=== PATIENT | male | born 1965 | race Caucasian/White ===

== ENCOUNTER → 2019-09-16 09:26 | Outpatient (CLI) | payer BC, SELFPAY ==
--- NOTE | 2019-09-16 10:02 | XR_ITS ---
PROCEDURE: XR CHEST 2V CLINICAL HISTORY: RECURRENT FEVER COMPARISON: No exams were available for comparison FINDINGS: The cardiomediastinal silhouette and pulmonary vascularity are within normal limits. There are faint increased markings in the midlung zones on both sides. Some of this may be due to overlying soft tissue attenuation. One cannot exclude the possibility of ground-glass infiltrate. No lobar consolidation. No effusions. No acute bony abnormalities. IMPRESSION: Possible ground-glass infiltrate in the midlung zone on both sides. Atypical/viral pneumonia is a consideration. Dictated b Ulises Lao MD 09/16/2019 13:49 Ulises Lao MD in [place] 09/16/2019 13:49
== END ==
PROVIDERS: PCP Family Medicine; Visit Provider Family Medicine
DX: A68.9 Relapsing fever, unspecified (principal)
CPT/HCPCS: 71046

== ENCOUNTER → 2019-09-19 15:08 | Outpatient (CLI) | payer BC, SELFPAY | PROVIDERS: PCP Family Medicine; Visit Provider Family Medicine | DX: Z03.818 Encounter for observation for suspected exposure to other biological agents ruled out (principal) | CPT/HCPCS: U0003 ==

== ENCOUNTER 2020-03-31 14:32 | Emergency (ER) | payer BC, SELFPAY ==
--- NOTE | 2020-03-31 14:37 | XR_ITS ---
PROCEDURE: XR KNEE RT 3V CLINICAL INDICATION: FALL COMPARISON: No exams were available for comparison FINDINGS: The medial and lateral joint space appear normal. There is faint calcification of the medial and lateral meniscus consistent with chondrocalcinosis. There is moderate spurring of the tibial spines. There is mild narrowing of the patellofemoral space. There is no definite effusion seen. IMPRESSION: Mild degenerate changes as noted with mild chondrocalcinosis of the medial and lateral meniscus. Dictated by: Dr. Herve Mckeon MD 03/31/2020 19:15 Dr. Herve Mckeon MD in [place] 03/31/2020 19:15
[2020-03-31 14:50] VITALS: BP 125/70; PULSE 81; RESP 20; TEMP 37.1; O2SAT 98; BMI 32.4
--- NOTE | 2020-03-31 15:21 | HMH.EDUTC ---
[facility] [place] Disposition Clinical Impression: Knee sprain Qualifiers: Encounter type: initial encounter Involved ligament of knee: unspecified ligament Laterality: right Qualified Code(s): S83.91XA - Sprain of unspecified site of right knee, initial encounter Disposition: Home, Self-Care Condition on Discharge: Good Instructions: How to Use Crutches, Acetaminophen (Alternative Therapy), How To Perform RICE (Rest, Ice, Compress, Elevate), How to Use a Knee Immobilizer, Ibuprofen Additional Instructions: *No weight bearing Use crutches to walk and get around *RICE, Rest the extremity, Ice 15-20 minutes 3-4 times daily, Compress- wear the vincent wrap as discussed as much as possible to help reduce swelling and pain, Elevate the extremity when at rest *Vincent wrap/Knee immobilizer is for support and help control swelling, use it except in the shower. Be sure that is not to tight but not to loose either *Elevate when resting *Ibuprofen 600-800mg every 6-8 hours as needed for pain an inflammation if your doctor has told you that you can take it If need something more can take Tylenol in between doses of Ibuprofen to help Immediately follow up with your family doctor for new or worsening of symptoms, or no noticeable improvement over the next 3-5 days Call tomorrow and make appointment with Dr Villeda Return if needed Straight to ER if any life threatening symptoms Referrals: Wallace Pacheco MD [Primary Care Provider] - As needed Hong Villeda MD [Staff Physician] - As needed (Call for appointment) Forms: Work/School Release Time of Disposition: 16:05 Medical Decision Making - Guilherme Inquiry Pt receiving controlled substance: No Guilherme was queried for this patient: No Vital Signs: 03/31/20 14:50 Temperature 98.7 F Temperature Source Oral Pulse Rate [Right Brachial] 81 Respiratory Rate 20 Blood Pressure [Right Arm] 125/70 Blood Pressure Mean [Right Arm] 88 Blood Pressure Source [Right Arm] Automatic Cuff Blood Pressure Position [Right Arm] Sitting 02 Sat by Pulse Oximetry 98 Oxygen Delivery Method Room Air Orders (Tests/Meds): ORDERS Category Date Time Status XR knee RT 3V Stat Exams 03/31/20 14:37 Taken XR tibia fibula RT 2V Stat Exams 03/31/20 15:28 Taken - Radiology Data #1 Image(s): Knee Image Reviewed: Yes I reviewed the patient's radiology image Preliminary Findings: No Fracture Seen #2 Image(s): Tib/Fib Image Reviewed: Yes I reviewed the patient's radiology image Preliminary Findings: No Fracture Seen - Physician Consults Physician Consulted: Ronal Time: 15:52 Reason -: Orthopedic Eval/Care Comment/Response: Spoke with Dr Villeda and he viewed xrays and agreed, advised to place in Knee immobilizer, crutches with non weight bearing and follow up in office [facility] HPI - General Stated complaint: a/o fell on right knee Time Seen by Provider: 03/31/20 15:21 Mode of Arrival: Ambulatory Source of Information: Patient Limitations: No Limitations Description of Symptoms (Recalled from Triage Doc. by RN): PATIENT C/O RIGHT KNEE INJURY AFTER FALLING ON ICE APPROX 1400 TODAY HEENT Symptoms (Recalled from RN notes): No Resp Symptoms (Recalled from RN notes): No Skin Symptoms (Recalled from RN notes): No MS Symptoms (Recalled from RN notes): Yes Functional Status (Recalled from RN notes): WNL - History of Present Illness Provider Complaint: Patient states that he slipped on ice earlier and his leg from below knee went to the side and he came down on his right knee States that he jumped up and felt like his knee popped back in place states that ever since he hasnt been able to put weight on it due to feeling like it is going to give out on him States that pain is more on the side and behind his knee Denies any other injury - Related Data Home Medications Medication Instructions Recorded Confirmed Aspirin [Aspirin 81mg chewable 81 mg PO DAILY 03/31/20 03/31/20 tab] Empagliflozin [Jardiance
--- NOTE | 2020-03-31 15:28 | XR_ITS ---
PROCEDURE: XR TIBIA FIBULA RT 2V CLINICAL INDICATION: FALL COMPARISON: No exams were available for comparison FINDINGS: The tibia and fibula appear intact. There is minor spurring of the tip of the lateral malleolus. There is an os trigonum noted. There is minor spurring of the calcaneus at the insertion of Achilles tendon. IMPRESSION: No acute findings. Dictated by: Dr. Herve Mckeon MD 03/31/2020 19:16 Dr. Herve Mckeon MD in [place] 03/31/2020 19:16
[2020-03-31 16:18] VITALS: BP 125/70; PULSE 81; RESP 20; TEMP 37.1; O2SAT 98
== END 2020-03-31 16:20 | disposition home or self-care (01) ==
PROVIDERS: Emergency Provider Nurse Practitioner; PCP Family Medicine
DX: S83.91XA Sprain of unspecified site of right knee, initial encounter (principal); W00.0XXA Fall on same level due to ice and snow, initial encounter; Y92.89 Other specified places as the place of occurrence of the external cause; E11.9 Type 2 diabetes mellitus without complications; Z79.899 Other long term (current) drug therapy
CPT/HCPCS: 29505; 73562; 73590; 99203; G0463

== ENCOUNTER → 2020-04-16 15:12 | Outpatient (CLI) | payer BC, SELFPAY ==
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
== END ==
PROVIDERS: PCP Family Medicine; Visit Provider Orthopaedic Surgery
DX: S89.91XA Unspecified injury of right lower leg, initial encounter (principal)
CPT/HCPCS: 73721

== ENCOUNTER 2020-04-23 16:35 | Outpatient (RCR) | payer BC, SELFPAY | END 2020-04-23 17:00 | disposition home or self-care (01) | LOC: PT 16:35 | PROVIDERS: Visit Provider Orthopaedic Surgery | DX: S83.91XA Sprain of unspecified site of right knee, initial encounter (principal) | CPT/HCPCS: 97760 ==

== ENCOUNTER → 2020-05-29 12:02 | Outpatient (CLI) | payer BC, SELFPAY ==
--- NOTE | 2020-05-29 12:04 | XR_ITS ---
PROCEDURE: XR KNEE RT 3V CLINICAL INDICATION: knee injury Pain COMPARISON: CR XR KNEE RT 3V from 03/31/2020 FINDINGS: No fracture or dislocation. No lytic or blastic change. There is normal mineralization. There are mild osteoarthritic changes at the patellofemoral joint. Small loose body is noted over the tibial spine region at 5 mm. Suprapatellar effusion is noted. Other findings:None. IMPRESSION: No acute fracture. Mild osteoarthritic change with suprapatellar effusion and suspected intra-articular loose body Dictated by: Ulises Lao MD 05/29/2020 12:54 Ulises Lao MD in [place] 05/29/2020 12:54
== END ==
PROVIDERS: PCP Family Medicine; Visit Provider Orthopaedic Surgery
DX: S83.90XA Sprain of unspecified site of unspecified knee, initial encounter (principal)
CPT/HCPCS: 73562

== ENCOUNTER → 2020-11-13 07:22 | Outpatient (CLI) | payer BC, SELFPAY ==
[2020-11-13 08:20] VITALS: PULSE 70; PULSE 77
== END ==
PROVIDERS: PCP Family Medicine; Visit Provider Family Medicine
DX: R06.02 Shortness of breath (principal); Z87.891 Personal history of nicotine dependence
CPT/HCPCS: 94060; 94640; 94726; 94729

== ENCOUNTER 2024-03-24 13:29 | Outpatient (CLI) | payer BC, SELFPAY ==
--- NOTE | 2024-03-24 13:33 | XR_ITS ---
FINAL REPORT CLINICAL HISTORY: wheezing COMPARISON: None FINDINGS: No acute pulmonary density is evident. There is no evidence of effusion or other pleural disease. The mediastinum has a normal appearance. The cardiac silhouette is unremarkable. IMPRESSION: Unremarkable chest exam. Reviewed, Interpreted and Dictated by Lynn Walter MD Transcribed by Shelby Call Authenticated and [facility]
== END 2024-03-24 23:59 | disposition home or self-care (01) ==
LOC: RAD 13:32
PROVIDERS: Visit Provider Student in an Organized Health Care Education/Training Program
DX: R06.2 Wheezing (principal)
CPT/HCPCS: 71046

== ENCOUNTER 2024-03-31 18:07 | Inpatient (IN) | payer BC, SELFPAY ==
[2024-03-31] VITALS (9 sets, daily range): BP systolic 142–178; BP diastolic 69–88; PULSE 79–90; RESP 16–18; TEMP 36.6–37.4; O2SAT 95–100; BMI 28.8
--- NOTE | 2024-03-31 18:26 | ECG_ITS ---
APPROVED REPORT Exam: Resting ECG HR:82 bpm ECG Measurements Heart Rate 82 AXES TX 151 P 64 QRSd 89 QRS 52 QT 335 T 49 QTc 374 Conclusion SINUS RHYTHM LOW QRS VOLTAGE IN PRECORDIAL LEADS [QRS DEFLECTION < 1.0 mV IN CHEST LEADS] BORDERLINE ECG UNCONFIRMED REPORT Electronically signed by : Patricio Chatman, 03/31/2024 23:19:54
--- NOTE | 2024-03-31 18:57 | XR_ITS ---
PROCEDURE INFORMATION: Exam: XR Chest Exam date and time: 03/31/2024 7:01 PM Age: 58 years old Clinical indication: Dyspnea TECHNIQUE: Imaging protocol: Radiologic exam of the chest. Views: 1 view. COMPARISON: CT ANGIOGRAM CHEST PULMONARY EMBOLISM 31/03/2024 15:33 FINDINGS: Lungs: Minimal bibasilar atelectasis. Pleural spaces: Small left pleural effusion seen on CT is difficult to identify on this radiograph. Heart/Mediastinum: Prominent cardiac shadow correlates with moderate-sized pericardial effusion on CT. Bones/joints: Unremarkable. IMPRESSION: 1. Prominent cardiac shadow correlates with moderate-sized pericardial effusion on CT. 2. Small left pleural effusion seen on CT is difficult to identify on this radiograph.
[2024-03-31 19:02] LABS: Basophils # 0.1 K/mm3 (0-0.2); Basophils % 0.4 % (0.1-2.0); Eosinophils # 0.1 K/mm3 (0.0-0.4); Eosinophils % 0.3 % (0.1-12.0); Hematocrit 35.5 % (42.0-52.0); Hemoglobin 11.5 g/dL (14.1-18.0); Lymphocytes # 2.2 K/mm3 (0.7-4.5); Lymphocytes % 9.7 % (10-50); Mean Corpuscular HGB Conc 32.4 g/dL (31.8-35.4); Mean Corpuscular Hemoglobin 28.7 pg (27.0-31.2); Mean Corpuscular Volume 88.5 fl (80-94); Mean Platelet Volume 10.2 fl (7.4-10.4); Monocytes # 1.8 K/mm3 (0.1-1.0); Monocytes % 7.9 % (1.7-9.3); Neutrophils # 17.9 K/mm3 (1.8-7.8); Neutrophils % 78.9 % (37.0-80.0); Platelet Count 565 K/mm3 (142-424); Red Blood Count 4.01 M/mm3 (4.60-6.20); Red Cell Distribution Width 13.8 % (11.5-17.5); White Blood Count 22.7 K/mm3 (4.8-10.8)
[2024-03-31 19:03] LABS: Chloride 101 mmol/L (98-107)
[2024-03-31 19:04] LABS: Albumin Level 3.6 g/dl (3.5-5.0); Potassium 4.6 mmoL/L (3.5-5.1); Sodium 136 mmol/L (136-145)
[2024-03-31 19:06] LABS: Blood Urea Nitrogen 25 mg/dl (9-20); Creatinine Clearance Estimated 97 mL/min (50-200); Estimated Glomerular Filt Rate 48 ml/min (>60); GFR (African American) 58 ML/MIN (>60)
[2024-03-31 19:07] LABS: Alanine Aminotransferase 101 U/L (12-78); Albumin/Globulin Ratio 1.1 (1.1-1.8); Alkaline Phosphatase 171 U/L (38-126); Anion Gap 11.6 mEq/L (5-15); Aspartate Amino Transferase 35 U/L (17-59); Bilirubin,Total 0.4 mg/dl (0.2-1.3); Carbon Dioxide 28 mmol/L (22.0-30.0); Globulin 3.2 g/dL (1.3-3.2); Glucose 284 mg/dl (74-100); Total Protein,Serum 6.8 g/dl (6.3-8.2)
[2024-03-31 19:09] LABS: MANUAL DIFFERENTIAL MANUAL DIFFERENTIAL (MANUAL DIFF)
[2024-03-31 19:12] LABS: C-Reactive Protein 80.3 mg/L (0-4)
--- NOTE | 2024-03-31 19:16 | PC.NURSE ---
notified of WBC 22.7
[2024-03-31 19:21] LABS: Troponin I < 0.01 ng/ml (0.00-0.034)
[2024-03-31 19:23] LABS: Adenovirus,PCR Not Detected (NotDetected); Bordetella Pertussis Not Detected (NotDetected); Chlamydophila Pneumoniae, PCR Not Detected (NotDetected); Coronavirus 19, PCR Not Detected (NotDetected); Coronavirus 229E Not Detected (NotDetected); Coronavirus NL63 Not Detected (NotDetected); Coronavirus OC43 Not Detected (NotDetected); Coronovirus HKU1,PCR Not Detected (NotDetected); Human Metapneumovirus Not Detected (NotDetected); Influenza A, PCR Not Detected (NotDetected); Influenza AH1, 2009 Not Detected (NotDetected); Influenza AH1, PCR Not Detected (NotDetected); Influenza AH3,PCR Not Detected (NotDetected); Influenza B, PCR Not Detected (NotDetected); Mycoplasma Pneumoniae, PCR Not Detected (NotDetected); Parainfluenza 1, PCR Not Detected (NotDetected); Parainfluenza 2, PCR Not Detected (NotDetected); Parainfluenza 3, PCR Not Detected (NotDetected); Parainfluenza 4, PCR Not Detected (NotDetected); Respiratory Syncytial Virus Not Detected (NotDetected); Rhinovirus/Enterovirus Not Detected (NotDetected)
[2024-03-31] MEDS: predniSONE 20MG TAB 60 MG PO (19:23)
--- NOTE | 2024-03-31 19:23 | HMH.EDGENADL ---
Discharge Plan Disposition Patient Disposition: Admitted Prescriptions Prescriptions: No Action albuterol sulfate 90 mcg/actuation HFA aerosol inhaler 1 inh inhalation QID PRN (Reason: shortness of breath or wheezing) Qty: 6.7 0RF prednisone 20 mg tablet 20 mg PO BID Qty: 10 0RF insulin NPH and regular human 100 UNIT/ML suspension 80 unit SQ BID gabapentin 300 MG capsule 300 mg PO TID lisinopril-hydrochlorothiazide 1 EACH tablet 1 tab PO DAILY aspirin 81 MG tablet,chewable 81 mg PO DAILY lovastatin 20 MG tablet 20 mg PO HS empagliflozin 25 MG tablet 25 mg PO DAILY Referrals Follow up/Referrals: Provider,Referral, MD [Primary Care Provider] - See instructions Clinical Impressions Clinical Impression: Exertional dyspnea, Pericardial effusion, Acute viral syndrome, Renal insufficiency Print Language Print Language: Uzbek Discharge ED Provider: Ibis Chatman General Adult HPI General Chief complaint: Shortness of Breath/Dyspnea Stated complaint: sent by Rocky- ivan fluid around Time Seen by Provider: 03/31/24 18:11 Mode of Arrival: Ambulatory Source of Information: Patient Limitations: No Limitations Description of Symptoms (Recalled from ER Triage Doc. by RN): Pt was advised by provider to come in and be seen. Pt had CT at [facility] and was sent for evaluation of fluid around his heart. History of Present Illness HPI narrative: AndPatient is a 58-year-old male presenting today with concern for fluid around my heart. I spoke with Dr. Hidalgo who is his neighbor and told me some history and sent the patient to the emergency department. Patient states that he has had cough and shortness of breath of the last 2 weeks. Went to an outpatient urgent treatment clinic and had a chest x-ray performed and some occasions that were prescribed without any improvement in symptoms. Subsequently he had an outpatient CT scan of his chest that was ordered for earlier today and was told by the radiologist that he had fluid around his heart. He brought a disc with images to our emergency department. On review of that he did have a pericardial effusion that was 2 cm. Patient denies any fevers or chills at the moment. Denies any significant positional changes but does have significant exertional dyspnea right now. No history of cancer. Related Data Home Medications ?Medication ?Instructions ?Recorded ?Confirmed aspirin 81 mg chewable tablet 81 mg PO DAILY Heart disease 03/31/20 03/24/24 empagliflozin 25 mg tablet 25 mg PO DAILY Diabetes 03/31/20 03/24/24 gabapentin 300 mg capsule 300 mg PO TID Pain 03/31/20 03/24/24 insulin human U-100 NPH-regulr 80 unit SQ BID Diabetes 03/31/20 03/24/24 70-30 mix 100 unit/mL subcutaneous susp lisinopril 20 1 tab PO DAILY Hypertension 03/31/20 03/24/24 mg-hydrochlorothiazide 25 mg tablet lovastatin 20 mg tablet 20 mg PO HS Cholesterol 03/31/20 03/24/24 Previous Rx's ?Medication ?Instructions ?Recorded albuterol sulfate 90 mcg/actuation 1 inh inhalation QID PRN shortness 03/24/24 aerosol inhaler of breath or wheezing #6.7 grams prednisone 20 mg tablet 20 mg PO BID #10 tabs 03/24/24 Allergies Allergy/AdvReac Type Severity Reaction Status Date / Time No Known Allergies Allergy Verified 03/24/24 12:46 [facility] Disclaimer: The information contained in this section may have been updated after the patient was seen, as this information can be updated by other users. Medical History (Updated 03/31/24 @ 19:22 by Ibis Chatman MD) Diabetes HTN (hypertension) Social History Smoking Status: Never smoker alcohol intake: never current occupational status: other Travel in the last 8 weeks: None Have you lived/traveled outside [place] in past 30 days?: No Contact w/someone who lives/traveled outside US past 30 days?: No Exposure to someone with infectious disease in past 14 days?: No Do you have a fever (greater than 100.4 F or 38 C)?: No Have you tested positive for COVID-19: No Exposed to someone with COVID-19 in past 14 days?: No Do you have a sore throat?: No Do you have a cough?: No Do you have any weakness?: No Do you have any diarrhea?: No Are you experiencing any unusual bleeding?: No Do you have any muscle aches/pain?: No Do you have any abdominal pain?: No Are you experiencing loss of taste or smell?: No Other Medical History Have you received the Pneumonia Vaccine: Yes ROS Obtained: Yes All systems reviewed & no additional complaints except as documented Physical Exam General General appearance: alert Respiratory Respiratory exam: Present normal lung sounds bilaterally; Absent respiratory distress Cardiovascular Cardiovascular exam: Present regular rate and normal rhythm Neurological Exam Neurological exam: Present alert and oriented X3 Medical Decision Making Medical Records Screening: Per USPSTF and CDC recommendations, given the prevalence of disease in our region, it is our hospital?s policy to screen for HIV and viral Hepatitis for all patients aged 18 and over and those with ongoing risk factors. Guilherme Inquiry Pt receiving controlled substance: No Vital Signs: 03/31/24 18:13 03/31/24 18:43 03/31/24 18:45 Temperature 99.3 F Temperature Source Temporal Artery Scan Pulse Rate 83 79 Pulse Rate [Right] 80 Respiratory Rate 18 Blood Pressure Blood Pressure [Right Arm] 178/70 H Blood Pressure Mean Blood Pressure Mean [Right Arm] 106 Blood Pressure Source [Right Arm] Automatic Cuff Blood Pressure Position [Right Arm] Sitting 02 Sat by Pulse Oximetry 100 96 95 Oxygen Delivery Method Room Air 03/31/24 19:20 03/31/24 19:20 Temperature Temperature Source Pulse Rate 80 Pulse Rate [Right] Respiratory Rate Blood Pressure 150/86 H Blood Pressure [Right Arm] Blood Pressure Mean 107 Blood Pressure Mean [Right Arm] Blood Pressure Source [Right Arm] Blood Pressure Position [Right Arm] 02 Sat by Pulse Oximetry 96 Oxygen Delivery Method Lab Data Lab results reviewed: Yes I reviewed the patient's lab results. Lab Results 03/31/24 18:34: WBC 22.7 H*, RBC 4.01 L, Hgb 11.5 L, Hct 35.5 L, MCV 88.5, MCH 28.7, MCHC 32.4, RDW 13.8, Plt Count 565 H, MPV 10.2, Neut % (Auto) 78.9, Lymph % (Auto) 9.7 L, Rutherford % (Auto) 7.9, Eos % (Auto) 0.3, Baso % (Auto) 0.4, Neut # (Auto) 17.9 H, Lymph # (Auto) 2.2, Rutherford # (Auto) 1.8 H, Eos # (Auto) 0.1, Baso # (Auto) 0.1, Sodium 136, Potassium 4.6, Chloride 101, Carbon Dioxide 28, Anion Gap 11.6, BUN 25 H, Creatinine 1.50 H, Estimated Creat Clear 97, Estimated GFR 48 L, Est GFR ( Amer) 58 L, Glucose 284 H, Calcium 9.0, Total Bilirubin 0.4, AST 35, ALT 101 H, Alkaline Phosphatase 171 H, Troponin I < 0.01, C-Reactive Protein 80.3 H, Total Protein 6.8, Albumin 3.6, Globulin 3.2, Albumin/Globulin Ratio 1.1 03/31/24 18:34 03/31/24 18:34 Orders (Tests/Meds): ED MEDICATIONS Discontinued Medications Generic Name Dose Route Start Last Admin Trade Name Freq PRN Reason Stop Dose Admin Colchicine 0.6 mg 03/31/24 19:15 Colchicine 0.6mg Tablet PO 03/31/24 19:16 ONCE ONE Prednisone 60 mg 03/31/24 19:15 Prednisone 20mg Tab PO 03/31/24 19:16 ONCE ONE ORDERS Category Date Time Status CXR --portable [XR chest portable] Stat Exams 03/31/24 18:57 Taken POCUS Point of Care (ER Only) Stat Exams 03/31/24 18:28 Ordered Body Fluid: Cell Count w/ Diff Stat Lab 03/31/24 18:34 Received CBC w/Auto Diff [Complete Blood Count Auto Diff] Stat Lab 03/31/24 18:34 Results CMP [Comprehensive Metabolic Panel] Stat Lab 03/31/24 18:34 Completed CRP [C-Reactive Protein] Stat Lab 03/31/24 18:34 Completed Full Resp Panel w/COVID ([facility]) Routine Lab 03/31/24 19:20 Ordered Trop I [Troponin I] Stat Lab 03/31/24 18:34 Completed Troponin I Q3H Lab 03/31/24 22:00 Ordered Troponin I Q3H Lab 04/01/24 01:00 Ordered Medical Decision Narrative: 58-year-old with above history and physical. I personally interpreted the patient's CT scan from outside hospital which shows a 2 cm circumferential pericardial effusion without any other abnormalities. Limited bedside ultrasound that I performed showed hypoechoic fluid collection 2 cm in its greatest diameter without any evidence of pericardial tamponade. There is some evidence of IVC plethora with mild reversal of flow but no chamber collapse noted or significant tachycardia patient is not on a beta-carol either. No indication for emergent pericardiocentesis. I discussed the case with Dr. Hidalgo. He agrees. We will place the patient on prednisone and colchicine per Dr. Hidalgo's guidance and to keep the patient for observation for [address] Morales is on-call whom he said would be available for pericardial centesis if needed. Patient is aware and agreeable this plan as well as hospital medicine. Given patient's leukocytosis and thrombocytosis this is most likely viral in nature. Hopefully will spontaneously resolve which is the expectation. Although other pathology such as malignancy etc. are on the differential. Patient additionally has a creatinine of 1.5 with no baseline creatinine our system unclear as to whether or not that is acute. Procedures Miscellaneous Procedure Procedure Performed: Limited cardiac ultrasound Indication: No pericardial effusion Identified structures: The heart was visualized in the parasternal long axis, parastenal short axis, apical four chamber and subxyphiod views. The IVC was visualized in the short axis and long axis at its entry into the right atrium. Findings: There is a 2 cm circumferential pericardial effusion without any significant chamber collapse noted no evidence of tachycardia or significant depression and LVEF no right heart strain there is a 2-1/2 to 3 cm IVC plethora with mild reversal of flow Impression: Moderate to large pericardial effusion without any definitive evidence of pericardial tamponade Images were saved to permanent archive The study was technically adequate CPT: 75578-27 This study was performed by me, and I personally interpreted all images/videos. Based on my clinical judgement, these images were adequate and did not necessitate further imaging. Critical Care Critical Care Time Critical Care Time: Yes Attestation: On 03/31/24, the high probability of a clinically significant, sudden or life threatening deterioration of the following system(s) required my full and direct attention, intervention and personal management. The time I documented below is in addition to time spent performing reported procedures but includes the following listed in this critical care notation. Total Time Total Critical Care Time: 35
[2024-03-31] MEDS: COLCHICINE 0.6MG TABLET 0.6 MG PO ×2 (19:33→21:20)
[2024-03-31 19:36] LABS: Lymphocytes % 13 % (10-50); Monocytes % 7 % (2-9); Neutrophils % 80 % (42-76); Platelet Estimate Slight Increase; RBC Morphology Normal; Total Cells Counted 100
--- NOTE | 2024-03-31 19:36 | PC.NURSE ---
Attempted to call report on patient, they are unsure who is taking patient and will call back.
--- NOTE | 2024-03-31 19:46 | PC.NURSE ---
Report called to fil[facility]
--- NOTE | 2024-03-31 19:47 | PC.NURSE ---
ROUNDED ON PATIENTS, NO NEEDS
--- NOTE | 2024-03-31 19:54 | PC.NURSE ---
pt arrived to floor from ed via wheelchair at 1953.
[2024-03-31 20:13] LABS: Procalcitonin 0.081 ng/mL (0.0-2.0)
--- NOTE | 2024-03-31 20:34 | P.HP_ITS ---
History of Present Illness *Admission Date: 03/31/24 *Reason for visit:: Pericardial effusion *History of present illness: The patient is a 58-year-old male presenting to the emergency department with concerns about fluid around my heart. He was referred by his neighbor, Dr. Hidalgo, who provided some history and advised him to seek evaluation. The patient reports experiencing a cough and shortness of breath for the past two weeks. He initially sought care at an outpatient urgent care clinic, where a chest X-ray was performed, and he was prescribed medications, though he did not experience any symptom relief. He subsequently underwent an outpatient CT scan of the chest earlier today and was informed by the radiologist that he had fluid around his heart. He brought a disc with the imaging to the emergency department for further evaluation. Review of the CT scan confirmed a 2 cm pericardial effusion. The patient denies fevers or chills. He has not noticed any significant positional changes in his symptoms but does endorse significant exertional dyspnea. He has no known history of cancer. He does state he has poor dental health and has not seen regular dentistry. A bedside ultrasound was performed, showing a hypoechoic 2 cm fluid collection without evidence of pericardial tamponade. There is some evidence of IVC plethora with mild reversal of flow, but no chamber collapse or significant tachycardia. Laboratory results reveal leukocytosis (WBC 22.7) and thrombocytos is (Plt 565), raising suspicion for an inflammatory or infectious process, most likely viral pericarditis. The patient also has mild anemia (Hgb 11.5, Hct 35.5) and acute kidney injury (Creatinine 1.50, BUN 25) with no known baseline function. CRP is elevated at 80.3, and there is mild transaminitis (ALT 101, Alk Phos 171). Glucose is elevated at 284, possibly due to stress hyperglycemia or undiagnosed diabetes. Troponin is <0.01, indicating no current myocardial injury. Given the moderate to large pericardial effusion without tamponade physiology, there is no immediate indication for pericardiocentesis. The patient will be initiated on prednisone and colchicine for presumed viral pericarditis and admitted for a 48-hour observation period. Dr. Hidalgo has been consulted who states that Dr. Morales available for pericardiocentesis if needed. The patient understands and agrees with the plan. [facility] Disclaimer: The information contained in this section may have been updated after the patient was seen, as this information can be updated by other users. Medical History (Updated 04/01/24 @ 18:01 by Patricio Escobar MD) Diabetes HTN (hypertension) Family History (Updated 03/31/24 @ 21:11 by Amy Reyes RN) Other No significant family history Social History (Updated 03/31/24 @ 21:11 by Amy Reyes RN) Smoking Status: Never smoker alcohol intake: never current occupational status: other Travel in the last 8 weeks: None Have you lived/traveled outside [place] in past 30 days?: No Contact w/someone who lives/traveled outside US past 30 days?: No Exposure to someone with infectious disease in past 14 days?: No Do you have a fever (greater than 100.4 F or 38 C)?: No Have you tested positive for COVID-19: No Exposed to someone with COVID-19 in past 14 days?: No Do you have a sore throat?: No Do you have a cough?: No Do you have any weakness?: No Are you experiencing any nausea/vomitting?: No Do you have any diarrhea?: No Are you experiencing any unusual bleeding?: No Do you have any muscle aches/pain?: No Do you have any abdominal pain?: No Are you experiencing loss of taste or smell?: No Other Medical History Have you received the Flu Vaccine for this season: No Have you received the Pneumonia Vaccine: No Review of Systems Review of Systems Review of systems (narrative): 13 point review of systems negative outside of [facility] Meds Home Medications and Allergies Home Medications ?Medication ?Instructions ?Recorded ?Confirmed ?Type aspirin 81 mg chewable tablet 81 mg PO DAILY Heart disease 03/31/20 03/31/24 History empagliflozin 25 mg tablet 25 mg PO DAILY 03/31/20 03/31/24 History lisinopril 20 1 tab PO DAILY 03/31/20 03/31/24 History mg-hydrochlorothiazide 25 mg tablet atorvastatin 40 mg tablet 40 mg PO DAILY 03/31/24 03/31/24 History gabapentin 800 mg tablet 800 mg PO BID 03/31/24 04/01/24 History insulin regular hum U-500 conc 500 90 unit SQ HS 03/31/24 04/01/24 History unit/mL(3 mL) subcut pen (Humulin R U-500 (Conc) Insulin Kwikpen) insulin regular hum U-500 conc 500 150 unit SQ DAILY 03/31/24 04/01/24 History unit/mL(3 mL) subcut pen (Humulin R U-500 (Conc) Insulin Kwikpen) omeprazole 20 mg capsule,delayed 20 mg PO DAILY 03/31/24 03/31/24 History release albuterol sulfate 90 mcg/actuation 1 inh inhalation QIDP PRN 04/01/24 04/01/24 History aerosol inhaler shortness of breath or wheezing New Prescriptions to Start Prescriptions: Allergies Allergy/AdvReac Type Severity Reaction Status Date / Time No Known Allergies Allergy Verified 03/24/24 12:46 Exam Data for Last 24 hours Vital signs and Labs for Last 24 Hours: Temp Pulse Resp BP Pulse Ox O2 Del Method 98.1 F 90 18 165/87 H 97 Room Air 03/31/24 20:00 03/31/24 20:01 03/31/24 20:00 03/31/24 20:00 03/31/24 20:00 03/31/24 21:00 Laboratory Results - last 24 hr 03/31/24 18:34: WBC 22.7 H*, RBC 4.01 L, Hgb 11.5 L, Hct 35.5 L, MCV 88.5, MCH 28.7, MCHC 32.4, RDW 13.8, Plt Count 565 H, MPV 10.2, Neut % (Auto) 78.9, Lymph % (Auto) 9.7 L, [place] % (Auto) 7.9, Eos % (Auto) 0.3, Baso % (Auto) 0.4, Neut # (Auto) 17.9 H, Lymph # (Auto) 2.2, [place] # (Auto) 1.8 H, Eos # (Auto) 0.1, Baso # (Auto) 0.1, Total Counted 100, Neutrophils % (Manual) 80 H, Lymphocytes % (Manual) 13, Monocytes % (Manual) 7, Platelet Estimate Slight increase, RBC Morphology Normal, ESR 46 H, Sodium 136, Potassium 4.6, Chloride 101, Carbon Dioxide 28, Anion Gap 11.6, BUN 25 H, Creatinine 1.50 H, Estimated Creat Clear 97, Estimated GFR 48 L, Est GFR ( Amer) 58 L, Glucose 284 H, Calcium 9.0, Total Bilirubin 0.4, AST 35, ALT 101 H, Alkaline Phosphatase 171 H, Troponin I < 0.01, C-Reactive Protein 80.3 H, Total Protein 6.8, Albumin 3.6, Globulin 3.2, Albumin/Globulin Ratio 1.1, Procalcitonin 0.081 03/31/24 19:20: Chlamy pneumoniae PCR Not detected, Adenovirus (PCR) Not detected, B. pertussis DNA (PCR) Not detected, Coronavirus OC43 (PCR) Not detected, Coronavirus HKU1 (PCR) Not detected, Coronavirus 229E (PCR) Not detected, SARS-CoV-2 (PCR) Not detected, Coronavirus NL63 (PCR) Not detected, Human Metapneumovir PCR Not detected, Influenza A (H1) PCR Not detected, Influ A (H1N1/09) PCR Not detected, Influenza A (H3) PCR Not detected, Influenza Type A (PCR) Not detected, Influenza Type B (PCR) Not detected, M. pneumoniae (PCR) Not detected, Parainfluenza 1 (PCR) Not detected, Parainfluenza 2 (PCR) Not detected, Parainfluenza 3 (PCR) Not detected, Parainfluenza 4 (PCR) Not detected, RSV (PCR) Not detected, Entero/Rhino (PCR) Not detected 03/31/24 21:10: POC Glucose 126 H 03/31/24 22:10: Troponin I < 0.01 I & O for Last 24 hours: Intake & Output 03/28/24 03/29/24 03/30/24 03/31/24 23:59 23:59 23:59 23:59 Output Total 0 / 0 Balance 0 / 0 Weight 128.367 kg Constitutional Constitutional: no acute distress *Routine HEENT Exam Head: Present normocephalic Eye: Present EOMI and PERRL ENT: Present mucous membranes moist *Routine Neck Exam Neck: Present supple; Absent lymphadenopathy *Routine Respiratory Exam Respiratory: Present CTA bilaterally *Routine Cardiovascular Exam Cardiovascular: Present RRR *Routine Abdominal Exam Abdominal: Present soft and normoactive bowel sounds; Absent tenderness *Routine Rectal Exam Rectal:: deferred *Routine Genitalia Exam Genitalia:: deferred *Routine Extremities Exam Extremities: Absent cyanosis, clubbing or edema *Routine Skin Exam Skin: Present warm; Absent rash *Routine Neurological Exam Neurological: Present alert and oriented X3 Assessment and Plan *Assessment and plan (1) Pericardial effusion: Status: Acute Category: Medical Code(s): I31.39 - Other pericardial effusion (noninflammatory) (2) Pericarditis: Status: Acute Category: Medical Code(s): I31.9 - Disease of pericardium, unspecified (3) Exertional dyspnea: Status: Acute Category: Medical Code(s): R06.09 - Other forms of dyspnea (4) Leukocytosis: Status: Acute Category: Medical Code(s): D72.829 - Elevated white blood cell count, unspecified (5) Type 2 diabetes mellitus: Status: Acute Category: Medical Code(s): E11.9 - Type 2 diabetes mellitus without complications Plan Pericardial effusion * Moderate to large pericardial effusion measuring [address] and bedside ultrasound. * No evidence of tamponade physiology at this time. * No significant chamber collapse, tachycardia, or hypotension. * IVC plethora with mild reversal of flow noted on bedside ultrasound. * Colchicine and prednisone started per Dr. Hidalgo?s recommendation. * Serial echocardiograms to assess for worsening effusion. * Repeat bedside ultrasound if symptoms worsen. * Pericardiocentesis not indicated at this time * Admit for observation. Leukocytosis and thrombocytosis * WBC 22.7 and platelets 565, likely due to inflammatory response. * No signs of bacterial infection at this time. * Trend CBC daily. * Obtain blood cultures if fever develops. Acute kidney injury * Creatinine 1.50, BUN 25, no known baseline in the system. * Etiology unclear; could be related to inflammation or dehydration. * Repeat BMP in 24 hours to assess trend. * Monitor urine output. * Avoid nephrotoxic agents. * Consider urinalysis to evaluate for proteinuria. Mild anemia * Hgb 11.5, Hct 35.5, likely anemia of inflammation. * No overt signs of bleeding or hemolysis. * Monitor CBC. * Consider iron panel if anemia worsens. Transaminitis * ALT 101, Alk Phos 171, with normal bilirubin. * Possibly secondary to viral illness or medication effect. * Trend LFTs. * Review medication history for hepatotoxic agents. * Consider hepatitis panel if LFTs continue to rise. Type 2 diabetes mellitus * Blood glucose 284, likely stress-induced hyperglycemia but with underlying diabetes. * No history of diabetic ketoacidosis or hyperosmolar hyperglycemic state. * Check HbA1c to assess baseline glycemic control. * Monitor blood glucose levels while inpatient. * Consider adjusting home diabetic regimen based on glucose trends. * Sliding-scale insulin as needed for persistent hyperglycemia. Disposition * Admit for observation to monitor for worsening pericardial effusion. * Continue colchicine and prednisone with serial echocardiograms. * Repeat bedside ultrasound if symptoms worsen. * Pericardiocentesis only if tamponade physiology develops, with Dr. Morales available if needed. * Monitor for renal function, inflammatory markers, and glycemic control during hospitalization. * Patient is aware of and agrees with the plan. Rounded on patient after nurse practitioner. Personally examined and interviewed patient. Agree with exam findings and care plan as documented. 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 Discussed case with ER physician, patient has no tamponade or cardiac compromise at this time. Appears hemodynamically stable. Starting on colchicine. Given 1.2 mg on evening of admission. Continue 0.6 mg daily. Received steroids on admission. Will hold on further steroids at this time given hemodynamic stability. Echo ordered for Wednesday morning. Repeat CBC, CMP, magnesium and inflammatory markers with ESR and CRP ordered. CRP 80 on admission.
[2024-03-31 20:37] LABS: Erythrocyte Sedimentation Rate 46 mm/hr (0-20)
[2024-03-31 21:22] LABS: POC Glucose,Bedside 126 (70-110)
[2024-03-31 22:42] LABS: Troponin I < 0.01 ng/ml (0.00-0.034)
[2024-04-01] VITALS (11 sets, daily range): BP systolic 139–156; BP diastolic 66–82; PULSE 65–100; RESP 16–18; TEMP 36.7–39.2; O2SAT 92–95; BMI 27.6
[2024-04-01 01:41] LABS: Troponin I < 0.01 ng/ml (0.00-0.034)
--- NOTE | 2024-04-01 04:24 | PC.NURSE ---
Pt A&Ox4. Wheezing noted to lungs and bowel sounds active. He has tolerated room air with O2 sats > 95%. He has denied any chest pain. 1+ edema noted to BLE. He has ambulated the room independently. He has remained NSR on tele. No complaints at this time, call light within reach.
[2024-04-01 06:12] LABS: POC Glucose,Bedside 115 (70-110)
[2024-04-01 07:09] LABS: Basophils # 0.1 K/mm3 (0-0.2); Basophils % 0.2 % (0.1-2.0); Hematocrit 35.5 % (42.0-52.0); Hemoglobin 11.7 g/dL (14.1-18.0); Lymphocytes # 1.4 K/mm3 (0.7-4.5); Lymphocytes % 6.6 % (10-50); Mean Corpuscular Hemoglobin 29.1 pg (27.0-31.2); Mean Corpuscular Volume 88.3 fl (80-94); Mean Platelet Volume 9.8 fl (7.4-10.4); Monocytes # 1.4 K/mm3 (0.1-1.0); Monocytes % 6.9 % (1.7-9.3); Neutrophils # 17.4 K/mm3 (1.8-7.8); Neutrophils % 84.2 % (37.0-80.0); Platelet Count 538 K/mm3 (142-424); Red Blood Count 4.02 M/mm3 (4.60-6.20); Red Cell Distribution Width 13.8 % (11.5-17.5); White Blood Count 20.7 K/mm3 (4.8-10.8)
[2024-04-01 07:15] LABS: MANUAL DIFFERENTIAL MANUAL DIFFERENTIAL (MANUAL DIFF)
--- NOTE | 2024-04-01 07:15 | HMH.PHAINT1 ---
Pharmacy Intervention Comments: HOME MEDICATION LIST VERIFIED USING LIST FROM OUTPATIENT PHARMACY AND PT INTERVIEW
[2024-04-01 07:26] LABS: Chloride 99 mmol/L (98-107); Sodium 137 mmol/L (136-145)
[2024-04-01 07:27] LABS: Potassium 4.7 mmoL/L (3.5-5.1)
[2024-04-01 07:29] LABS: Blood Urea Nitrogen 24 mg/dl (9-20); Creatinine Clearance Estimated 140 mL/min (50-200); Estimated Glomerular Filt Rate 77 ml/min (>60); GFR (African American) 93 ML/MIN (>60)
[2024-04-01 07:30] LABS: Anion Gap 11.7 mEq/L (5-15); Calcium 8.8 mg/dl (8.4-10.2); Carbon Dioxide 31 mmol/L (22.0-30.0); Chol/HDL Ratio 4.6 (1-3.5); Cholesterol 124 mg/dl (140-200); Glucose 103 mg/dl (74-100); HDL Cholesterol 27 mg/dl (40-60); Magnesium 2.3 mg/dl (1.6-2.3); Triglycerides 51 mg/dl (30-150); VLDL Cholesterol 10 mg/dL (0-40)
[2024-04-01 07:33] LABS: INR 1.06 (0.9-1.1); Prothrombin Time 11.6 seconds (9.2-12.1)
[2024-04-01 07:41] LABS: Direct LDL Cholesterol 66.33 mg/dL (100-129)
[2024-04-01 08:01] LABS: Thyroid Stimulating Hormone 0.58 uIU/mL (0.465-4.68)
[2024-04-01 08:47] LABS: Hemoglobin A1C 6.9 % (4.0-6.0)
[2024-04-01 09:37] LABS: Lymphocytes % 9 % (10-50); Monocytes % 2 % (2-9); Neutrophils % 89 % (42-76); Platelet Estimate Slight Increase; RBC Morphology Normal; Total Cells Counted 100
[2024-04-01] MEDS: COLCHICINE 0.6MG TABLET 0.6 MG PO (10:00)
[2024-04-01] MEDS: ENOXAPARIN 40MG/0.4ML SYRINGE 40 MG SUBCUT (10:00)
[2024-04-01] MEDS: GABAPENTIN 800MG TABLET 800 MG PO ×3 (11:18→20:03)
[2024-04-01] MEDS: EMPAGLIFLOZIN 25MG TABLET 25 MG PO (11:18)
[2024-04-01] MEDS: PANTOPRAZOLE 40MG TABLET 40 MG PO (11:19)
[2024-04-01] MEDS: ACETAMINOPHEN 325MG TAB 650 MG PO ×2 (11:28→19:56)
[2024-04-01 11:39] LABS: POC Glucose,Bedside 187 (70-110)
[2024-04-01] MEDS: HUMULIN R U 150 EACH SUBCUT (12:00)
--- NOTE | 2024-04-01 15:10 | PC.NURSE ---
Pt is A&Ox4. No acute changes this shift. Pt denies any discomfort. Has remained on RA this shift. Has had a shower. Medications administered per MD order/apr. Call light within reach.
--- NOTE | 2024-04-01 17:11 | EXP.ACUTE.PN ---
Subjective *Date: 04/01/24 *Time: 18:02 Interval history: Patient denies any chest pain today. Stable on room air. No nausea or vomiting. Has dry cough. Afebrile. Blood pressure mildly elevated requesting his home Humulin regimen for his diabetes. Medical Exam Vital signs and Labs for Last 24 Hours: Vital Signs Temp Pulse Pulse Resp BP BP Pulse Ox 04/01/24 15:40 98.5 F 81 17 147/71 H 92 L 04/01/24 15:00 04/01/24 12:52 04/01/24 12:00 70 04/01/24 11:44 98.6 F 76 18 156/82 H 92 L 04/01/24 11:00 04/01/24 09:00 04/01/24 08:00 70 04/01/24 07:43 04/01/24 07:36 98.1 F 65 18 146/82 H 95 04/01/24 06:50 04/01/24 05:00 04/01/24 04:00 70 04/01/24 03:48 99.0 F 68 18 139/66 94 L 04/01/24 03:00 04/01/24 01:00 04/01/24 00:00 90 03/31/24 23:53 99.0 F 89 16 142/69 H 96 03/31/24 23:00 03/31/24 21:00 03/31/24 20:01 90 03/31/24 20:00 98.1 F 86 18 165/87 H 97 03/31/24 19:47 97.9 F 82 18 165/88 H 03/31/24 19:30 82 165/88 H 95 03/31/24 19:29 03/31/24 19:20 150/86 H 03/31/24 19:20 80 96 03/31/24 18:45 79 95 03/31/24 18:43 83 96 03/31/24 18:13 99.3 F 80 18 178/70 H 100 O2 Del Method 04/01/24 15:40 Room Air 04/01/24 15:00 Room Air 04/01/24 12:52 Room Air 04/01/24 12:00 04/01/24 11:44 Room Air 04/01/24 11:00 Room Air 04/01/24 09:00 Room Air 04/01/24 08:00 04/01/24 07:43 Room Air 04/01/24 07:36 Room Air 04/01/24 06:50 Room Air 04/01/24 05:00 Room Air 04/01/24 04:00 04/01/24 03:48 Room Air 04/01/24 03:00 Room Air 04/01/24 01:00 Room Air 04/01/24 00:00 03/31/24 23:53 Room Air 03/31/24 23:00 Room Air 03/31/24 21:00 Room Air 03/31/24 20:01 03/31/24 20:00 Room Air 03/31/24 19:47 Room Air 03/31/24 19:30 03/31/24 19:29 Room Air 03/31/24 19:20 03/31/24 19:20 03/31/24 18:45 03/31/24 18:43 03/31/24 18:13 Room Air Intake and Output 04/01/24 04/01/24 04/01/24 07:59 15:59 23:59 Intake Total 470 / 830 360 / 830 Output Total 0 / 0 0 / 0 Balance 470 / 830 360 / 830 Intake: Intake, Oral Amount 470 / 830 360 / 830 Output: Output, Urine Amount 0 / 0 0 / 0 Other: Number of Unmeasured Voids 1 Weight 123.014 kg Patient Weight 04/01/24 23:59 Weight 123.014 kg Laboratory Results - last 24 hr 03/31/24 18:34: WBC 22.7 H*, RBC 4.01 L, Hgb 11.5 L, Hct 35.5 L, MCV 88.5, MCH 28.7, MCHC 32.4, RDW 13.8, Plt Count 565 H, MPV 10.2, Neut % (Auto) 78.9, Lymph % (Auto) 9.7 L, [place] % (Auto) 7.9, Eos % (Auto) 0.3, Baso % (Auto) 0.4, Neut # (Auto) 17.9 H, Lymph # (Auto) 2.2, [place] # (Auto) 1.8 H, Eos # (Auto) 0.1, Baso # (Auto) 0.1, Total Counted 100, Neutrophils % (Manual) 80 H, Lymphocytes % (Manual) 13, Monocytes % (Manual) 7, Platelet Estimate Slight increase, RBC Morphology Normal, ESR 46 H, Sodium 136, Potassium 4.6, Chloride 101, Carbon Dioxide 28, Anion Gap 11.6, BUN 25 H, Creatinine 1.50 H, Estimated Creat Clear 97, Estimated GFR 48 L, Est GFR ( Amer) 58 L, Glucose 284 H, Calcium 9.0, Total Bilirubin 0.4, AST 35, ALT 101 H, Alkaline Phosphatase 171 H, Troponin I < 0.01, C-Reactive Protein 80.3 H, Total Protein 6.8, Albumin 3.6, Globulin 3.2, Albumin/Globulin Ratio 1.1, Procalcitonin 0.081 03/31/24 19:20: Chlamy pneumoniae PCR Not detected, Adenovirus (PCR) Not detected, B. pertussis DNA (PCR) Not detected, Coronavirus OC43 (PCR) Not detected, Coronavirus HKU1 (PCR) Not detected, Coronavirus 229E (PCR) Not detected, SARS-CoV-2 (PCR) Not detected, Coronavirus NL63 (PCR) Not detected, Human Metapneumovir PCR Not detected, Influenza A (H1) PCR Not detected, Influ A (H1N1/09) PCR Not detected, Influenza A (H3) PCR Not detected, Influenza Type A (PCR) Not detected, Influenza Type B (PCR) Not detected, M. pneumoniae (PCR) Not detected, Parainfluenza 1 (PCR) Not detected, Parainfluenza 2 (PCR) Not detected, Parainfluenza 3 (PCR) Not detected, Parainfluenza 4 (PCR) Not detected, RSV (PCR) Not detected, Entero/Rhino (PCR) Not detected 03/31/24 21:10: POC Glucose 126 H 03/31/24 22:10: Troponin I < 0.01 04/01/24 01:00: Troponin I < 0.01 04/01/24 06:04: POC Glucose 115 H 04/01/24 06:44: WBC 20.7 H*, RBC 4.02 L, Hgb 11.7 L, Hct 35.5 L, MCV 88.3, MCH 29.1, MCHC 33.0, RDW 13.8, Plt Count 538 H, MPV 9.8, Neut % (Auto) 84.2 H, Lymph % (Auto) 6.6 L, [place] % (Auto) 6.9, Eos % (Auto) 0.0 L, Baso % (Auto) 0.2, Neut # (Auto) 17.4 H, Lymph # (Auto) 1.4, [place] # (Auto) 1.4 H, Eos # (Auto) 0.0, Baso # (Auto) 0.1, Total Counted 100, Neutrophils % (Manual) 89 H, Lymphocytes % (Manual) 9 L, Monocytes % (Manual) 2, Platelet Estimate Slight increase, RBC Morphology Normal, PT 11.6, INR 1.06, Sodium 137, Potassium 4.7, Chloride 99, Carbon Dioxide 31 H, Anion Gap 11.7, BUN 24 H, Creatinine 1.00 D, Estimated Creat Clear 140, Estimated GFR 77, Est GFR ( Amer) 93 D, Glucose 103 H D, Hemoglobin A1c 6.9 H, Calcium 8.8, Magnesium 2.3, Triglycerides 51, Cholesterol 124 L, LDL Cholesterol Direct 66.33 L, VLDL Cholesterol 10, HDL Cholesterol 27 L, Cholesterol/HDL Ratio 4.6 H, TSH 0.58 04/01/24 11:09: POC Glucose 187 H I & O for Labs for Last 24 Hours: Intake & Output 03/29/24 03/30/24 03/31/24 04/01/24 23:59 23:59 23:59 23:59 Intake Total 830 / 830 Output Total 0 / 0 0 / 0 Balance 0 / 200 830 / 830 Weight 128.367 kg 123.014 kg Constitutional: Present no acute distress, obese and cooperative Head: Present atraumatic and normocephalic ENT: Present normal exam Respiratory: Present normal respiratory effort; Absent rhonchi, wheezes or crackles Comment:: Dry nonproductive cough Cardiac: Present Reg Rate and Rhythm GI: Present soft and normal bowel sounds; Absent distention or tenderness Extremities: Present normal inspection and full ROM; Absent edema Skin: Present intact; Absent erythema Neuro: Present Grossly Intact, alert, awake, oriented x 3 and moves all extremities Assessment and Plan *Assessment and plan (1) Pericardial effusion: Status: Acute Category: Medical Code(s): I31.39 - Other pericardial effusion (noninflammatory) (2) Pericarditis: Status: Acute Category: Medical Code(s): I31.9 - Disease of pericardium, unspecified (3) Exertional dyspnea: Status: Acute Category: Medical Code(s): R06.09 - Other forms of dyspnea (4) Leukocytosis: Status: Acute Category: Medical Code(s): D72.829 - Elevated white blood cell count, unspecified (5) Type 2 diabetes mellitus: Status: Acute Category: Medical Code(s): E11.9 - Type 2 diabetes mellitus without complications Plan 58-year-old male who presents with persistent cough and shortness of breath for [address] performed at outside hospital that showed pericardial effusion. 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 Found to have pericardial effusion concerning for pericarditis. Admitted for further management. Hemodynamically stable at this time. Continues to require inpatient management and further workup. Problems addressed as follows: Pericardial effusion Pericarditis -Formal echo ordered for the morning. Cardiology consult placed. -Continue colchicine 0.6 mg daily. Will hold on steroids at this time. -No signs of tamponade on POCUS performed in the ER. -Inflammatory markers remain elevated with CRP at 80, ESR 46. Procalcitonin 0.08. Repeat CBC, CMP, magnesium and inflammatory markers ordered for the morning -White count remains elevated at 20.7. Low concern for bacterial etiology. Holding on any antibiotics at this time. -Viral panel negative Acute kidney injury - Creatinine 1.50, BUN 25, no known baseline in the system. Repeat this morning with BUN 24, creatinine 1.0. Caution with nephrotoxins Mild anemia -Hemoglobin stable at 11.7. No active signs of bleeding. Platelets 538 Type 2 diabetes mellitus -A1c well-controlled at 6.9. Continue home regimen of Humulin R U-500 150 units in the morning and 90 units at night. Glucoses remain between 100-250 -Using Dexcom ACHS to monitor glucose -Patient declined sliding scale insulin. -TSH normal at 0.6 Full code Cardiac diet Lovenox 40 mg subcu daily
[2024-04-01] MEDS: GUAIFENESIN/DEXTROMETHORPHAN 200MG/20MG 10ML UDC 10 ML PO (18:51)
[2024-04-01] MEDS: HUMULIN R U 90 EACH SUBCUT (19:59)
[2024-04-01] MEDS: IBUPROFEN 400 MG TABLET PO (22:02)
[2024-04-02] VITALS (8 sets, daily range): BP systolic 129–160; BP diastolic 58–89; PULSE 80–100; RESP 16–20; TEMP 36.9–37.9; O2SAT 90–97; BMI 27.3
--- NOTE | 2024-04-02 01:30 | PC.NURSE ---
2200: Pt temp 102.5, Ibis Vazquez APRN notified, additional meds given and cooling measures initiated (temp decreased in room, fan given to pt, blankets removed) 0001: Pt temp 99.5, Ibis Vazquez APRN notified
[2024-04-02] MEDS: GUAIFENESIN/DEXTROMETHORPHAN 200MG/20MG 10ML UDC 10 ML PO ×3 (04:57→20:03)
--- NOTE | 2024-04-02 05:11 | PC.NURSE ---
2200 pt respiratory rate increased, o2 sat 92% on RA, 2L o2 NC applied at this time.
--- NOTE | 2024-04-02 05:44 | PC.NURSE ---
Pt is tolerating 2L o2 at this time satting at 97%. Patient was febrile during shift, pt treated per APR. Pt cough remains. Bilateral lung sounds remain diminished. Pt has had c/o medication administration. Pt educated on policy and procedure of timed meds. Pt verbalizes understanding. Plan of care ongoing.
[2024-04-02] MEDS: IBUPROFEN 400 MG TABLET PO ×3 (06:27→20:03)
--- NOTE | 2024-04-02 06:47 | PC.NURSE ---
Pt temp has increased to 100.4, ibuprofen given per APR. Pt c/o chills and states that he is cold, Pt requests additional blankets, this nurse did educate pt on the contraindications of being febrile. Lynn Vazquez notified at this time, repeated PCR for flu and covid completed at this time.
[2024-04-02 07:23] LABS: Adenovirus,PCR Not Detected (NotDetected); Bordetella Pertussis Not Detected (NotDetected); Chlamydophila Pneumoniae, PCR Not Detected (NotDetected); Coronavirus 19, PCR Not Detected (NotDetected); Coronavirus 229E Not Detected (NotDetected); Coronavirus NL63 Not Detected (NotDetected); Coronavirus OC43 Not Detected (NotDetected); Coronovirus HKU1,PCR Not Detected (NotDetected); Human Metapneumovirus Not Detected (NotDetected); Influenza A, PCR Not Detected (NotDetected); Influenza AH1, PCR Not Detected (NotDetected); Influenza AH3,PCR Not Detected (NotDetected); Influenza B, PCR Not Detected (NotDetected); Mycoplasma Pneumoniae, PCR Not Detected (NotDetected); Parainfluenza 1, PCR Not Detected (NotDetected); Parainfluenza 2, PCR Not Detected (NotDetected); Parainfluenza 3, PCR Not Detected (NotDetected); Parainfluenza 4, PCR Not Detected (NotDetected); Respiratory Syncytial Virus Not Detected (NotDetected); Rhinovirus/Enterovirus Not Detected (NotDetected)
[2024-04-02] MEDS: ATORVASTATIN 40MG TABLET 40 MG PO (08:26)
[2024-04-02] MEDS: EMPAGLIFLOZIN 25MG TABLET 25 MG PO (08:27)
[2024-04-02] MEDS: COLCHICINE 0.6MG TABLET 0.6 MG PO (08:27)
[2024-04-02] MEDS: ENOXAPARIN 40MG/0.4ML SYRINGE 40 MG SUBCUT (08:27)
[2024-04-02] MEDS: HUMULIN R U 150 EACH SUBCUT (08:28)
[2024-04-02] MEDS: PANTOPRAZOLE 40MG TABLET 40 MG PO (08:28)
[2024-04-02 08:37] LABS: Basophils # 0.1 K/mm3 (0-0.2); Eosinophils # 0.3 K/mm3 (0.0-0.4); Eosinophils % 1.8 % (0.1-12.0); Hemoglobin 12.6 g/dL (14.1-18.0); Lymphocytes # 0.9 K/mm3 (0.7-4.5); Lymphocytes % 6.2 % (10-50); Mean Corpuscular HGB Conc 31.5 g/dL (31.8-35.4); Mean Corpuscular Hemoglobin 28.3 pg (27.0-31.2); Mean Corpuscular Volume 89.9 fl (80-94); Mean Platelet Volume 9.9 fl (7.4-10.4); Monocytes # 1.7 K/mm3 (0.1-1.0); Monocytes % 12.2 % (1.7-9.3); Neutrophils # 10.4 K/mm3 (1.8-7.8); Platelet Count 542 K/mm3 (142-424); Red Blood Count 4.45 M/mm3 (4.60-6.20); Red Cell Distribution Width 14.1 % (11.5-17.5); White Blood Count 13.8 K/mm3 (4.8-10.8)
[2024-04-02] MEDS: GABAPENTIN 800MG TABLET 800 MG PO (08:43)
[2024-04-02] MEDS: CEFTRIAXONE SODIUM 1 GM in 0.9 % SODIUM CHLORIDE 50 ML IV (08:43)
[2024-04-02 08:48] LABS: Chloride 99 mmol/L (98-107); Potassium 4.8 mmoL/L (3.5-5.1); Sodium 139 mmol/L (136-145)
[2024-04-02 08:51] LABS: Anion Gap 9.8 mEq/L (5-15); Blood Urea Nitrogen 26 mg/dl (9-20); Calcium 8.3 mg/dl (8.4-10.2); Carbon Dioxide 35 mmol/L (22.0-30.0); Creatinine Clearance Estimated 107 mL/min (50-200); Estimated Glomerular Filt Rate 57 ml/min (>60); GFR (African American) 69 ML/MIN (>60); Glucose 84 mg/dl (74-100)
[2024-04-02 08:54] LABS: Influenza AH1, 2009 Detected (NotDetected)
[2024-04-02 08:55] LABS: Erythrocyte Sedimentation Rate 38 mm/hr (0-20)
[2024-04-02 08:58] LABS: C-Reactive Protein 87.1 mg/L (0-4)
[2024-04-02] MEDS: ALBUTEROL-HFA 90MCG/PUFF INHALER 8GM 2 PUFF IH ×3 (10:09→20:03)
[2024-04-02] MEDS: AEROCHAMBER/OPTIHALER 1 UNIT MC (10:09)
[2024-04-02] MEDS: ASPIRIN 81MG CHEWABLE TABLET 81 MG PO (10:12)
[2024-04-02] MEDS: OSELTAMIVIR 75MG CAPSULE 75 MG PO ×2 (10:12→20:03)
[2024-04-02] MEDS: LISINOPRIL/HCTZ 10-12.5MG TABLET 2 EACH PO (10:12)
--- NOTE | 2024-04-02 10:12 | EXP.ACUTE.PN ---
Subjective *Date: 04/02/24 *Time: 10:12 Medical Exam Vital signs and Labs for Last 24 Hours: Vital Signs Temp Pulse Pulse Resp BP Pulse Ox O2 Del Method 04/02/24 08:00 100.0 F H 98 H 20 137/69 92 L Nasal Cannula 04/02/24 06:45 Nasal Cannula 04/02/24 04:59 Nasal Cannula 04/02/24 04:00 90 04/02/24 04:00 98.8 F 94 H 18 160/78 H 97 Nasal Cannula 04/02/24 03:00 Nasal Cannula 04/02/24 00:32 Nasal Cannula 04/02/24 00:01 99.5 F 04/02/24 00:00 98.4 F 84 16 151/89 H 95 Nasal Cannula 04/02/24 00:00 90 04/01/24 22:51 Nasal Cannula 04/01/24 22:00 102.5 F H 04/01/24 21:00 Room Air 04/01/24 20:00 92 L Room Air 04/01/24 20:00 101.3 F H 98 H 16 145/81 H 92 L Room Air 04/01/24 20:00 100 H 04/01/24 18:44 Room Air 04/01/24 17:00 Room Air 04/01/24 16:00 70 04/01/24 15:40 98.5 F 81 17 147/71 H 92 L Room Air 04/01/24 15:00 Room Air 04/01/24 12:52 Room Air 04/01/24 12:00 70 04/01/24 11:44 98.6 F 76 18 156/82 H 92 L Room Air 04/01/24 11:00 Room Air O2 Flow Rate 04/02/24 08:00 2 04/02/24 06:45 2 04/02/24 04:59 2 04/02/24 04:00 04/02/24 04:00 2 04/02/24 03:00 2 04/02/24 00:32 2 04/02/24 00:01 04/02/24 00:00 2 04/02/24 00:00 04/01/24 22:51 2 04/01/24 22:00 04/01/24 21:00 04/01/24 20:00 04/01/24 20:00 04/01/24 20:00 04/01/24 18:44 04/01/24 17:00 04/01/24 16:00 04/01/24 15:40 04/01/24 15:00 04/01/24 12:52 04/01/24 12:00 04/01/24 11:44 04/01/24 11:00 Intake and Output 04/01/24 04/02/24 04/02/24 23:59 07:59 15:59 Intake Total 660 / 2090 600 / 600 Output Total 0 / 0 0 / 0 Balance 660 / 2090 600 / 600 Intake: Intake, Oral Amount 660 / 2090 600 / 600 Output: Output, Urine Amount 0 / 0 0 / 0 Other: Number of Unmeasured Voids 1 1 Weight 121.744 kg Patient Weight 04/02/24 23:59 Weight 121.744 kg Laboratory Results - last 24 hr 04/01/24 11:09: POC Glucose 187 H 04/02/24 06:35: Chlamy pneumoniae PCR Not detected, Adenovirus (PCR) Not detected, B. pertussis DNA (PCR) Not detected, Coronavirus OC43 (PCR) Not detected, Coronavirus HKU1 (PCR) Not detected, Coronavirus 229E (PCR) Not detected, SARS-CoV-2 (PCR) Not detected, Coronavirus NL63 (PCR) Not detected, Human Metapneumovir PCR Not detected, Influenza A (H1) PCR Not detected, Influ A (H1N1/09) PCR Detected A, Influenza A (H3) PCR Not detected, Influenza Type A (PCR) Not detected, Influenza Type B (PCR) Not detected, M. pneumoniae (PCR) Not detected, Parainfluenza 1 (PCR) Not detected, Parainfluenza 2 (PCR) Not detected, Parainfluenza 3 (PCR) Not detected, Parainfluenza 4 (PCR) Not detected, RSV (PCR) Not detected, Entero/Rhino (PCR) Not detected 04/02/24 06:45: WBC 13.8 H D, RBC 4.45 L, Hgb 12.6 L, Hct 40.0 L, MCV 89.9, MCH 28.3, MCHC 31.5 L, RDW 14.1, Plt Count 542 H, MPV 9.9, Neut % (Auto) 75.0, Lymph % (Auto) 6.2 L, [place] % (Auto) 12.2 H, Eos % (Auto) 1.8, Baso % (Auto) 1.0, Neut # (Auto) 10.4 H, Lymph # (Auto) 0.9, [place] # (Auto) 1.7 H, Eos # (Auto) 0.3, Baso # (Auto) 0.1, ESR 38 H, Sodium 139, Potassium 4.8, Chloride 99, Carbon Dioxide 35 H, Anion Gap 9.8, BUN 26 H, Creatinine 1.30 H D, Estimated Creat Clear 107, Estimated GFR 57 L, Est GFR ( Amer) 69 D, Glucose 84, Calcium 8.3 L, C-Reactive Protein 87.1 H I & O for Labs for Last 24 Hours: Intake & Output 03/30/24 03/31/24 04/01/24 04/02/24 23:59 23:59 23:59 23:59 Intake Total 1490 / 2090 600 / 600 Output Total 0 / 0 0 / 0 0 / 0 Balance 0 / 200 1490 / 2090 600 / 600 Weight 128.367 kg 123.014 kg 121.744 kg Assessment and Plan *Assessment and plan (1) Influenza A (H1N1): Status: Acute Category: Medical Code(s): J10.1 - Influenza due to other identified influenza virus with other respiratory manifestations (2) Pericardial effusion: Status: Acute Category: Medical Code(s): I31.39 - Other pericardial effusion (noninflammatory) (3) Pericarditis: Status: Acute Category: Medical Code(s): I31.9 - Disease of pericardium, unspecified (4) Exertional dyspnea: Status: Acute Category: Medical Code(s): R06.09 - Other forms of dyspnea (5) Leukocytosis: Status: Acute Category: Medical Code(s): D72.829 - Elevated white blood cell count, unspecified (6) Type 2 diabetes mellitus: Status: Acute Category: Medical Code(s): E11.9 - Type 2 diabetes mellitus without complications Plan 58-year-old male who presents with persistent cough and shortness of breath for [address] performed at outside hospital that showed pericardial effusion. 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 Found to have pericardial effusion concerning for pericarditis. Admitted for further management. Hemodynamically stable at this time. Continues to require inpatient management and further workup. Found to be flu a positive due to development of respiratory symptoms. Suspect his initial swab that was negative was a false negative due to being too early for positive test. Problems addressed as follows: Pericardial effusion Pericarditis Influenza A -Formal echo ordered for the morning. Cardiology consult placed. -Continue colchicine 0.6 mg daily. Will hold on steroids at this time. -No signs of tamponade on POCUS performed in the ER. -Inflammatory markers remain elevated with CRP of 87, ESR 38. Repeat CBC, CMP, magnesium and inflammatory markers ordered for the morning -White count improved to 13.8. Initial concern for pneumonia or infection given fevers as well. Repeat comprehensive respiratory panel obtained due to worsening cough and respiratory symptoms, found to be flu A positive. -Continue empiric ceftriaxone 1 g daily for at least 5 days. Continue Tamiflu 75 mg twice daily for 5 days. -Supplemental oxygen as needed for goal sats greater 90%, currently on 2 L. Albuterol inhaler 2 puffs every 4-6 hours as needed Acute kidney injury - Creatinine 1.3, BUN 26. Somewhat improved today. Caution with nephrotoxins Mild anemia -Hemoglobin stable at 12.6. No active signs of bleeding. Platelets 542 Type 2 diabetes mellitus -A1c well-controlled at 6.9. Continue home regimen of Humulin R U-500 150 units in the morning and 90 units at night. Morning glucose 84 -Using Dexcom ACHS to monitor glucose -Patient declined sliding scale insulin. -TSH normal at 0.6 Full code Cardiac diet Lovenox 40 mg subcu daily
[2024-04-02] MEDS: ACETAMINOPHEN 325MG TAB 650 MG PO ×2 (10:24→17:31)
--- NOTE | 2024-04-02 13:00 | PC.NURSE ---
Patient requested Humulin dosing be 1 hour before breakfast and dinner. Okayed by MD. Will call pharmacy for time change of medication.
[2024-04-02] MEDS: SENNOSIDES 8.6MG/DOCUSATE 50MG TABLET 1 TAB PO (14:42)
[2024-04-02] MEDS: POLYETHYLENE GLYCOL 3350 17 GM PACKET PO (14:42)
--- NOTE | 2024-04-02 15:27 | PC.NURSE ---
Patient requesting Gabapentin to be given when taking insulin. okay with time change. Called [facility] pharmacy to have timing of Gabapentin changed per patients request
[2024-04-02] MEDS: GABAPENTIN 800MG TABLET 1600 MG PO (16:05)
[2024-04-02] MEDS: HUMULIN R U 90 EACH SUBCUT (16:06)
[2024-04-03] VITALS (10 sets, daily range): BP systolic 122–160; BP diastolic 68–76; PULSE 70–100; RESP 16–20; TEMP 36.9–38.3; O2SAT 92–96; BMI 26.6
--- NOTE | 2024-04-03 05:33 | INFXCTL.NOTE ---
Pt. alert and orientated x 4. Pt. on O2 per N/C 2.5 liters. Pt. was admitted with Flu A. Pt. had mild fever last night but afebrile this am. Pt. states that he is feeling a little better. Pt. slept well. VSS, personal items and call landers in reach.
[2024-04-03] MEDS: GABAPENTIN 800MG TABLET 800 MG PO (05:57)
[2024-04-03] MEDS: HUMULIN R U 150 EACH SUBCUT (06:00)
--- NOTE | 2024-04-03 06:00 | CA_ITS ---
APPROVED REPORT EXAM: Comprehensive 2D, Doppler, and color-flow Echocardiogram Patient Attendant: Zoraida Oreilly RDCS Ht: 5 ft 11 in Wt: 271lbs BSA: 2.40 BP: 165/87 mmHg Indications: Pleural effusion, pericardial effusion M-Mode Dimensions RVDd 1.69 cm (0.9-2.6) LA Diam 4.76 cm (1.9-4.0) LVDd 6.63 cm (3.5-5.7) LVDs 3.33 cm (3.5-5.7) IVSd 0.88 cm (0.6-1.1) PWd 0.72 cm (0.6-1.1) EF (Teich) 80.00% FS 49.80% EDV (Teich) 225.90 mL TAPSE 1.93 (<1.7) ESV (Teich) 45.10 mL LV Diastology E Decel Time 100 (160-240 msec) E/A Ratio 1.2 Mitral Valve MV E Max Aidan. 77.0 (40-130 cm/s) MV A Velocity 64.0 (40-130 cm/s) E/A Ratio 1.20 MV PHT 29.0 ms Left Ventricle The left ventricle is normal size. The left ventricular systolic function is normal. The left ventricular ejection fraction is within the normal range. There is increased LV wall thickness. There is normal LV segmental wall motion. Diastolic function is indeterminate. LVEF is 60%. Right Ventricle The right ventricle is normal size. The right ventricular systolic function is normal. Atria The left atrium mildly dilated. Right atrium is mildly dilated. There is no Doppler evidence of interatrial shunt. Aortic Valve Aortic valve is mildly thickened. There is no aortic valvular stenosis. No aortic regurgitation is present. Mitral Valve The mitral valve is normal in structure. No evidence of mitral valve stenosis. Trace mitral regurgitation. Tricuspid Valve Tricuspid valve is grossly normal in structure and function. Trace tricuspid regurgitation. There is insufficient TR jet to estimate RVSP. Pulmonic Valve The pulmonary valve is normal in structure. Trace pulmonic regurgitation. Great Vessels The aortic root is normal in size. IVC is normal in size and collapses >50% with inspiration. Pericardium There is a moderate-sized, circumferential pericardial effusion present. No clear evidence of chamber collapse. No echo indications of tamponade. Pleural effusion is present. Other Information Study Quality: Fair Conclusion Normal biventricular systolic function. No significant valvular stenosis or regurgitation. Moderate-sized, circumferential pericardial effusion present. No clear evidence of chamber collapse. No echo indications of tamponade. Pleural effusion. In the setting of moderate pericardial effusion, clinical correlation for evaluation of tamponade clinically is required. Also, serial limited TTE to evaluate for progression vs. resolution is suggested. Electronically signed by : Zoya Pugh MD 04/03/2024 11:43:16
[2024-04-03] MEDS: ALBUTEROL-HFA 90MCG/PUFF INHALER 8GM 2 PUFF IH ×3 (06:05→17:54)
[2024-04-03] MEDS: GUAIFENESIN/DEXTROMETHORPHAN 200MG/20MG 10ML UDC 10 ML PO ×3 (06:05→17:54)
[2024-04-03] MEDS: CEFTRIAXONE SODIUM 1 GM in 0.9 % SODIUM CHLORIDE 50 ML IV (06:33)
[2024-04-03] MEDS: SODIUM CHLORIDE 0.9% 10ML FLUSH SYRINGE 10 ML IV (06:33)
[2024-04-03 07:02] LABS: Basophils # 0.1 K/mm3 (0-0.2); Basophils % 0.9 % (0.1-2.0); Eosinophils # 0.7 K/mm3 (0.0-0.4); Eosinophils % 5.8 % (0.1-12.0); Hemoglobin 12.3 g/dL (14.1-18.0); Lymphocytes # 1.3 K/mm3 (0.7-4.5); Mean Corpuscular HGB Conc 31.5 g/dL (31.8-35.4); Mean Corpuscular Hemoglobin 28.5 pg (27.0-31.2); Mean Corpuscular Volume 90.5 fl (80-94); Mean Platelet Volume 9.6 fl (7.4-10.4); Monocytes # 1.4 K/mm3 (0.1-1.0); Monocytes % 12.6 % (1.7-9.3); Neutrophils # 7.3 K/mm3 (1.8-7.8); Neutrophils % 65.1 % (37.0-80.0); Platelet Count 454 K/mm3 (142-424); Red Blood Count 4.31 M/mm3 (4.60-6.20); Red Cell Distribution Width 14.3 % (11.5-17.5); White Blood Count 11.1 K/mm3 (4.8-10.8)
[2024-04-03 07:08] LABS: Albumin Level 3.5 g/dl (3.5-5.0); Chloride 101 mmol/L (98-107); Potassium 4.5 mmoL/L (3.5-5.1); Sodium 139 mmol/L (136-145)
[2024-04-03 07:11] LABS: Alanine Aminotransferase 61 U/L (12-78); Albumin/Globulin Ratio 1.1 (1.1-1.8); Alkaline Phosphatase 112 U/L (38-126); Anion Gap 10.5 mEq/L (5-15); Aspartate Amino Transferase 39 U/L (17-59); Bilirubin,Total 0.4 mg/dl (0.2-1.3); Blood Urea Nitrogen 26 mg/dl (9-20); Carbon Dioxide 32 mmol/L (22.0-30.0); Creatinine Clearance Estimated 123 mL/min (50-200); Estimated Glomerular Filt Rate 69 ml/min (>60); GFR (African American) 83 ML/MIN (>60); Globulin 3.2 g/dL (1.3-3.2); Total Protein,Serum 6.7 g/dl (6.3-8.2)
[2024-04-03 07:12] LABS: Calcium 8.2 mg/dl (8.4-10.2); Glucose 87 mg/dl (74-100)
[2024-04-03 07:17] LABS: C-Reactive Protein 88.8 mg/L (0-4)
[2024-04-03 08:15] LABS: Erythrocyte Sedimentation Rate 50 mm/hr (0-20)
[2024-04-03] MEDS: ENOXAPARIN 40MG/0.4ML SYRINGE 40 MG SUBCUT (08:32)
[2024-04-03] MEDS: PANTOPRAZOLE 40MG TABLET 40 MG PO (08:32)
[2024-04-03] MEDS: ASPIRIN 81MG CHEWABLE TABLET 81 MG PO (08:32)
[2024-04-03] MEDS: LISINOPRIL/HCTZ 10-12.5MG TABLET 2 EACH PO (08:32)
[2024-04-03] MEDS: ATORVASTATIN 40MG TABLET 40 MG PO (08:32)
[2024-04-03] MEDS: OSELTAMIVIR 75MG CAPSULE 75 MG PO ×2 (08:32→21:19)
[2024-04-03] MEDS: EMPAGLIFLOZIN 25MG TABLET 25 MG PO (08:32)
[2024-04-03] MEDS: COLCHICINE 0.6MG TABLET 0.6 MG PO (08:32)
[2024-04-03] MEDS: ACETAMINOPHEN 325MG TAB 650 MG PO ×2 (09:13→16:05)
--- NOTE | 2024-04-03 09:13 | EXP.ACUTE.PN ---
Subjective *Date: 04/03/24 *Time: 10:17 Interval history: Patient continues to require 2 L oxygen. No brown fever overnight. Tolerating p.o. intake. Denies chest pain, just complains of shortness of breath. In bedside chair today. Plans to walk around the room. Ambulating to bathroom. No nausea or vomiting. Had a bowel movement yesterday. Medical Exam Vital signs and Labs for Last 24 Hours: Vital Signs Temp Pulse Pulse Resp BP Pulse Ox O2 Del Method 04/03/24 09:12 101.0 F H 04/03/24 08:00 100 H 04/03/24 07:00 Nasal Cannula 04/03/24 05:00 Nasal Cannula 04/03/24 04:00 70 04/03/24 04:00 98.8 F 72 18 129/76 96 Nasal Cannula 04/03/24 03:00 Nasal Cannula 04/03/24 01:00 Nasal Cannula 04/03/24 00:00 98.5 F 73 16 122/75 96 Nasal Cannula 04/03/24 00:00 80 04/02/24 23:00 Nasal Cannula 04/02/24 21:00 Nasal Cannula 04/02/24 20:00 Nasal Cannula 04/02/24 20:00 99.4 F 90 18 144/79 H 90 L Nasal Cannula 04/02/24 20:00 80 04/02/24 18:48 Room Air 04/02/24 17:00 Room Air 04/02/24 16:00 80 04/02/24 16:00 100.2 F H 85 20 129/58 L 93 L Nasal Cannula 04/02/24 15:00 Room Air 04/02/24 13:00 Room Air 04/02/24 12:00 100 H 04/02/24 11:58 98.6 F 99 H 20 133/73 92 L Room Air 04/02/24 11:00 Nasal Cannula O2 Flow Rate 04/03/24 09:12 04/03/24 08:00 04/03/24 07:00 2 04/03/24 05:00 2.5 04/03/24 04:00 04/03/24 04:00 2.5 04/03/24 03:00 2.5 04/03/24 01:00 2.5 04/03/24 00:00 2.5 04/03/24 00:00 04/02/24 23:00 2.5 04/02/24 21:00 2.5 04/02/24 20:00 2.5 04/02/24 20:00 2.5 04/02/24 20:00 04/02/24 18:48 04/02/24 17:00 04/02/24 16:00 04/02/24 16:00 2 04/02/24 15:00 04/02/24 13:00 04/02/24 12:00 04/02/24 11:58 04/02/24 11:00 2 Intake and Output 04/02/24 04/03/24 04/03/24 23:59 07:59 15:59 Intake Total 320 / 2000 240 / 750 510 / 750 Output Total 0 / 0 0 / 0 Balance 320 / 2000 240 / 750 510 / 750 Intake: Intake, Oral Amount 270 / 1950 240 / 750 510 / 750 Intake, Total IV Amount 50 / 50 Ceftriaxone Sodium 1 gm In 0.9 50 / 50 % Sodium Chloride 50 ml @ 100 mls/hr IV Q24H [facility] Rx#:[id number] Output: Output, Urine Amount 0 / 0 0 / 0 Other: Number of Unmeasured Voids 1 1 Weight 121.744 kg 118.887 kg Patient Weight 04/03/24 23:59 Weight 118.887 kg Laboratory Results - last 24 hr 04/03/24 06:41: WBC 11.1 H, RBC 4.31 L, Hgb 12.3 L, Hct 39.0 L, MCV 90.5, MCH 28.5, MCHC 31.5 L, RDW 14.3, Plt Count 454 H, MPV 9.6, Neut % (Auto) 65.1, Lymph % (Auto) 12.0, [place] % (Auto) 12.6 H, Eos % (Auto) 5.8, Baso % (Auto) 0.9, Neut # (Auto) 7.3, Lymph # (Auto) 1.3, [place] # (Auto) 1.4 H, Eos # (Auto) 0.7 H, Baso # (Auto) 0.1, ESR 50 H, Sodium 139, Potassium 4.5, Chloride 101, Carbon Dioxide 32 H, Anion Gap 10.5, BUN 26 H, Creatinine 1.10, Estimated Creat Clear 123, Estimated GFR 69, Est GFR ( Amer) 83 D, Glucose 87, Calcium 8.2 L, Total Bilirubin 0.4, AST 39, ALT 61 D, Alkaline Phosphatase 112, C-Reactive Protein 88.8 H, Total Protein 6.7, Albumin 3.5, Globulin 3.2, Albumin/Globulin Ratio 1.1 I & O for Labs for Last 24 Hours: Intake & Output 03/31/24 04/01/24 04/02/24 04/03/24 23:59 23:59 23:59 23:59 Intake Total 1489 750 / 750 Output Total 0 / 0 0 / 0 0 / 0 0 / 0 Balance 0 / 200 1489 750 / 750 Weight 128.367 kg 123.014 kg 121.744 kg 118.887 kg Microbiology Reports for the Last 24 Hours: Microbiology 04/02/24 08:43 Blood Blood Culture - Preliminary NO GROWTH AFTER 24 HOURS 04/02/24 08:40 Blood Blood Culture - Preliminary NO GROWTH AFTER 24 HOURS Constitutional: Present no acute distress, obese and cooperative Comment:: Ill-appearing Head: Present atraumatic and normocephalic ENT: Present normal exam Respiratory: Present normal respiratory effort; Absent rhonchi, wheezes or crackles Comment:: Dry nonproductive cough Cardiac: Present Reg Rate and Rhythm GI: Present soft and normal bowel sounds; Absent distention or tenderness Extremities: Present normal inspection and full ROM; Absent edema Skin: Present intact; Absent erythema Neuro: Present Grossly Intact, alert, awake, oriented x 3 and moves all extremities Assessment and Plan *Assessment and plan (1) Influenza A (H1N1): Status: Acute Category: Medical Code(s): J10.1 - Influenza due to other identified influenza virus with other respiratory manifestations (2) Pericardial effusion: Status: Acute Category: Medical Code(s): I31.39 - Other pericardial effusion (noninflammatory) (3) Pericarditis: Status: Acute Category: Medical Code(s): I31.9 - Disease of pericardium, unspecified (4) Exertional dyspnea: Status: Acute Category: Medical Code(s): R06.09 - Other forms of dyspnea (5) Leukocytosis: Status: Acute Category: Medical Code(s): D72.829 - Elevated white blood cell count, unspecified (6) Type 2 diabetes mellitus: Status: Acute Category: Medical Code(s): E11.9 - Type 2 diabetes mellitus without complications Plan 58-year-old male who presents with persistent cough and shortness of breath for [address] performed at outside hospital that showed pericardial effusion. 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 Found to have pericardial effusion concerning for pericarditis. Admitted for further management. Hemodynamically stable at this time. Continues to require inpatient management and further workup. Found to be flu a positive due to development of respiratory symptoms. Suspect his initial swab that was negative was a false negative due to being too early for positive test. Problems addressed as follows: Pericardial effusion Pericarditis Influenza A -Formal echo obtained, formal read pending. Cardiology evaluated today. Discussed case this morning, Recommend holding colchicine in the acute setting with the flu. Will continue to hold on steroids. No plan for intervention at this time - No signs of tamponade on POCUS performed in the ER. -Inflammatory markers remain elevated with CRP of 88, ESR 50. Repeat CBC, CMP, magnesium and inflammatory markers ordered for the morning -White count improved to 11.1, hemoglobin 12.3. Initial concern for pneumonia or infection given fevers as well. Repeat comprehensive respiratory panel obtained due to worsening cough and respiratory symptoms, found to be flu A positive. -Continue empiric ceftriaxone 1 g daily for at least 5 days. Continue Tamiflu 75 mg twice daily for 5 days. -Supplemental oxygen as needed for goal sats greater 90%, currently on 2 L. Albuterol inhaler 2 puffs every 4-6 hours as needed Acute kidney injury - Creatinine 1.1, BUN 26. Somewhat improved today. Caution with nephrotoxins Mild anemia -Hemoglobin stable at 12.3. No active signs of bleeding. Platelets 454 Type 2 diabetes mellitus -A1c well-controlled at 6.9. Continue home regimen of Humulin R U-500 150 units in the morning and 90 units at night. Morning glucose 87 -Using Dexcom ACHS to monitor glucose -Patient declined sliding scale insulin. -TSH normal at 0.6 Full code Cardiac diet Lovenox 40 mg subcu daily
--- NOTE | 2024-04-03 09:42 | EXP.CARD.CON ---
History of Present Illness History of Present Illness Consult date: 04/03/24 Requesting physician: Patricio Escobar Consult reason: shortness of breath Chief complaint: Pericardial effusion Additional Medical History:: 1. DM, type 2 A. On insulin B. Hgb A1C 6.9, 03/2024 2. HTN 3. Hyperlipidemia A. LDL 66, 03/2024 4. Pericardial effusion in setting of Flu (H1N1), 03/2024 A. Echo 5. Flu with mild anemia and thrombocytosis, 03/2024 A. Hgb around 12 with plt 500K B. ESR 50 with CRP 88 History of present illness: The patient is a 58-year-old male presenting to the emergency department with concerns about fluid around my heart. He was referred by his neighbor, Dr. Hidalgo, who provided some history and advised him to seek evaluation. The patient reports experiencing a cough and shortness of breath for the past two weeks. He initially sought care at an outpatient urgent care clinic, where a chest X-ray was performed, and he was prescribed medications, though he did not experience any symptom relief. He subsequently underwent an outpatient CT scan of the chest earlier today and was informed by the radiologist that he had fluid around his heart. He brought a disc with the imaging to the emergency department for further evaluation. Review of the CT scan confirmed a 2 cm pericardial effusion. The patient denies fevers or chills. He has not noticed any significant positional changes in his symptoms but does endorse significant exertional dyspnea. He has no known history of cancer. He does state he has poor dental health and has not seen regular dentistry. A bedside ultrasound was performed, showing a hypoechoic 2 cm fluid collection without evidence of pericardial tamponade. There is some evidence of IVC plethora with mild reversal of flow, but no chamber collapse or significant tachycardia. Laboratory results reveal leukocytosis (WBC 22.7) and thrombocytosis (Plt 565), raising suspicion for an inflammatory or infectious process, most likely viral pericarditis. The patient also has mild anemia (Hgb 11.5, Hct 35.5) and acute kidney injury (Creatinine 1.50, BUN 25) with no known baseline function. CRP is elevated at 80.3, and there is mild transaminitis (ALT 101, Alk Phos 171). Glucose is elevated at 284, possibly due to stress hyperglycemia or undiagnosed diabetes. Troponin is <0.01, indicating no current myocardial injury. Given the moderate to large pericardial effusion without tamponade physiology, there is no immediate indication for pericardiocentesis. The patient will be initiated on prednisone and colchicine for presumed viral pericarditis and admitted for a 48-hour observation period. Dr. Hidalgo has been consulted who states that Dr. Morales available for pericardiocentesis if needed. The patient understands and agrees with the plan. The above per Dr. Escobar's H&P Cardiology consulted for further evaluation and recommendations. Currently patient is in bedside chair on oxygen in no acute distress. Denies any chest pain, pressure or tightness. He understands he will be here for a few days to see if the effusion stabilizes or progresses at which time further measures may need implementing. [facility] Disclaimer: The information contained in this section may have been updated after the patient was seen, as this information can be updated by other users. Medical History (Updated 04/03/24 @ 09:53 by JOSE RAUL Barton) Diabetes HTN (hypertension) Family History (Updated 03/31/24 @ 21:11 by Amy Reyes RN) Other No significant family history Social History (Updated 03/31/24 @ 21:11 by Amy Reyes RN) Smoking Status: Never smoker alcohol intake: never current occupational status: other Travel in the last 8 weeks: None Have you lived/traveled outside [place] in past 30 days?: No Contact w/someone who lives/traveled outside US past 30 days?: No Exposure to someone with infectious disease in past 14 days?: No Do you have a fever (greater than 100.4 F or 38 C)?: No Have you tested positive for COVID-19: No Exposed to someone with COVID-19 in past 14 days?: No Do you have a sore throat?: No Do you have a cough?: No Do you have any weakness?: No Are you experiencing any nausea/vomitting?: No Do you have any diarrhea?: No Are you experiencing any unusual bleeding?: No Do you have any muscle aches/pain?: No Do you have any abdominal pain?: No Are you experiencing loss of taste or smell?: No Review of Systems Review of Systems Review of systems:: pertinent systems reviewed and negative unless documented below *Cardiovascular Cardiovascular: Reports dyspnea on exertion *Respiratory Respiratory: Reports dyspnea on exertion Exam Data for Last 24 hours Vital signs and Labs for Last 24 Hours: Temp Pulse Resp BP Pulse Ox O2 Del Method O2 Flow Rate 101.0 F H 94 H 18 160/71 H 92 L Room Air 2 04/03/24 09:12 04/03/24 08:00 04/03/24 08:00 04/03/24 08:00 04/03/24 08:00 04/03/24 08:00 04/03/24 07:00 Laboratory Results - last 24 hr 04/03/24 06:41: WBC 11.1 H, RBC 4.31 L, Hgb 12.3 L, Hct 39.0 L, MCV 90.5, MCH 28.5, MCHC 31.5 L, RDW 14.3, Plt Count 454 H, MPV 9.6, Neut % (Auto) 65.1, Lymph % (Auto) 12.0, [place] % (Auto) 12.6 H, Eos % (Auto) 5.8, Baso % (Auto) 0.9, Neut # (Auto) 7.3, Lymph # (Auto) 1.3, [place] # (Auto) 1.4 H, Eos # (Auto) 0.7 H, Baso # (Auto) 0.1, ESR 50 H, Sodium 139, Potassium 4.5, Chloride 101, Carbon Dioxide 32 H, Anion Gap 10.5, BUN 26 H, Creatinine 1.10, Estimated Creat Clear 123, Estimated GFR 69, Est GFR ( Amer) 83 D, Glucose 87, Calcium 8.2 L, Total Bilirubin 0.4, AST 39, ALT 61 D, Alkaline Phosphatase 112, C-Reactive Protein 88.8 H, Total Protein 6.7, Albumin 3.5, Globulin 3.2, Albumin/Globulin Ratio 1.1 I & O for Last 24 hours: Intake & Output 03/31/24 04/01/24 04/02/24 04/03/24 11:59 11:59 11:59 11:59 Intake Total 470 / 470 2099 1430 / 1430 Output Total 0 / 0 0 / 0 0 / 0 Balance 470 / 470 2099 1430 / 1430 Weight 271 lb 3.2 oz 268 lb 6.4 oz 262 lb 1.6 oz Microbiology Reports for the Last 24 Hours: Microbiology 04/02/24 08:43 Blood Blood Culture - Preliminary NO GROWTH AFTER 24 HOURS 04/02/24 08:40 Blood Blood Culture - Preliminary NO GROWTH AFTER 24 HOURS Constitutional Constitutional: no acute distress *Routine Respiratory Exam Respiratory: Present decreased breath sounds; Absent rhonchi or wheezes *Routine Cardiovascular Exam Cardiovascular: Present RRR; Absent murmur, gallop or rubs *Routine Neurological Exam Neurological: Present alert, oriented X3 and CN II-XII intact Meds Home Medications and Allergies Home Medications ?Medication ?Instructions ?Recorded ?Confirmed ?Type aspirin 81 mg chewable tablet 81 mg PO DAILY Heart disease 03/31/20 03/31/24 History empagliflozin 25 mg tablet 25 mg PO DAILY 03/31/20 03/31/24 History lisinopril 20 1 tab PO DAILY 03/31/20 03/31/24 History mg-hydrochlorothiazide 25 mg tablet atorvastatin 40 mg tablet 40 mg PO DAILY 03/31/24 03/31/24 History gabapentin 800 mg tablet 800 mg PO BID 03/31/24 04/01/24 History insulin regular hum U-500 conc 500 90 unit SQ HS 03/31/24 04/01/24 History unit/mL(3 mL) subcut pen (Humulin R U-500 (Conc) Insulin Kwikpen) insulin regular hum U-500 conc 500 150 unit SQ DAILY 03/31/24 04/01/24 History unit/mL(3 mL) subcut pen (Humulin R U-500 (Conc) Insulin Kwikpen) omeprazole 20 mg capsule,delayed 20 mg PO DAILY 03/31/24 03/31/24 History release albuterol sulfate 90 mcg/actuation 1 inh inhalation QIDP PRN 04/01/24 04/01/24 History aerosol inhaler shortness of breath or wheezing New Prescriptions to Start Prescriptions: Allergies Allergy/AdvReac Type Severity Reaction Status Date / Time No Known Allergies Allergy Verified 03/24/24 12:46 Assessment and Plan *Assessment and plan (1) Pericardial effusion: Status: Acute Category: Medical Code(s): I31.39 - Other pericardial effusion (noninflammatory) (2) Influenza A (H1N1): Status: Acute Category: Medical Code(s): J10.1 - Influenza due to other identified influenza virus with other respiratory manifestations (3) Leukocytosis: Status: Acute Qualifiers: Leukocytosis type: unspecified Qualified Code(s): D72.829 - Elevated white blood cell count, unspecified Category: Medical Code(s): D72.829 - Elevated white blood cell count, unspecified (4) Exertional dyspnea: Status: Acute Category: Medical Code(s): R06.09 - Other forms of dyspnea (5) Acute viral syndrome: Status: Acute Category: Medical Code(s): B34.9 - Viral infection, unspecified (6) Type 2 diabetes mellitus: Status: Acute Qualifiers: Diabetes mellitus complication status: without complication Diabetes mellitus terminal makeup operator insulin use: with terminal makeup operator use Qualified Code(s): E11.9 - Type 2 diabetes mellitus without complications; Z79.4 - terminal makeup operator (current) use of insulin Category: Medical Code(s): E11.9 - Type 2 diabetes mellitus without complications Plan 1. Viral syndrome with H1N1 Flu -on tamiflu -on Ceftriaxone -per Dr. Escobar 2. Pericardial effusion with borderline low voltage on EKG -likely due to Flu -hold colchicine for 2 days then resume -review echo to assess for tamponade -consider repeating PRN for worsening symptoms 3. Longstanding DM with neuropathy -continue Insulin, jardiance and gabapentin 4. HTN -continue lisinopril/HCTZ 5. Hyperlipidemia -on statin with LDL 66 this admission Check echo -- no evidence of tamponade noted with mod circumferential effusion. Continue supportive care and monitoring in hospital with serial Echo's.
--- NOTE | 2024-04-03 13:33 | DIET.NUTRFU ---
Patient in non-complaint with diet, stating if we do not allow him to eat items requesting his will bring in. Will change to regular diet to accommodate his requests
[2024-04-03] MEDS: HUMULIN R U 90 EACH SUBCUT (16:05)
[2024-04-03] MEDS: GABAPENTIN 800MG TABLET 1600 MG PO (16:05)
--- NOTE | 2024-04-03 17:32 | PC.NURSE ---
pt resting supine in bed. pt has spiked a fever twice this shift and was treated per apr with tylenol. temperature decreased as a result of treatement. insulin adminstered per apr. dexcom used for sugar checks. pt has not complained of pain this shift. pt has intermittent dry cough. droplet and contact precautions in place for flu a. ambulatory independently within the room this shift. no needs at this time. call light within reach.
[2024-04-04] VITALS (9 sets, daily range): BP systolic 127–135; BP diastolic 56–73; PULSE 70–82; RESP 16–18; TEMP 36.5–37.2; O2SAT 92–97; BMI 26.9
--- NOTE | 2024-04-04 03:43 | PC.NURSE ---
Patient is alert and oriented x4. Patient was observed to have eyes closed, respirations even and unlabored, and no apparent distress for the majority of the night. He has maintained oxygen saturations > 90% on room air. He ambulates independently in his room/to the bathroom without any difficulties. Patient was up to the chair at one point yesterday evening. He stated that his bowel movements have been loose; the patient denied any abdominal discomfort. Patient reported having an intermittent, productive cough as well. Upon auscultation of his lungs, diminished lung sounds were heard. Auscultation of his heart and bowels were within normal findings. Scheduled medications administered per APR. He has remained afebrile thus far this shift. An oscillating fan was provided. Peanut butter and crackers were given to him as a bedtime snack. Patient's Dexcom (previously approved) was utilized to check blood glucose levels accordingly. At this time, the patient is resting in bed without any further complaints. No acute changes noted thus far. Call light within reach. Contact/droplet precautions in place for Influenza A (H1N1/09).
[2024-04-04] MEDS: HUMULIN R U 150 EACH SUBCUT (06:10)
[2024-04-04] MEDS: GABAPENTIN 800MG TABLET 800 MG PO (06:10)
[2024-04-04 06:25] LABS: Basophils # 0.1 K/mm3 (0-0.2); Basophils % 0.8 % (0.1-2.0); Eosinophils # 0.7 K/mm3 (0.0-0.4); Eosinophils % 6.1 % (0.1-12.0); Hematocrit 40.3 % (42.0-52.0); Hemoglobin 12.9 g/dL (14.1-18.0); Lymphocytes # 2.5 K/mm3 (0.7-4.5); Lymphocytes % 20.3 % (10-50); Mean Corpuscular Hemoglobin 28.2 pg (27.0-31.2); Mean Platelet Volume 9.5 fl (7.4-10.4); Monocytes # 1.3 K/mm3 (0.1-1.0); Monocytes % 10.3 % (1.7-9.3); Neutrophils # 7.4 K/mm3 (1.8-7.8); Neutrophils % 60.2 % (37.0-80.0); Platelet Count 502 K/mm3 (142-424); Red Blood Count 4.58 M/mm3 (4.60-6.20); White Blood Count 12.2 K/mm3 (4.8-10.8)
[2024-04-04 06:40] LABS: Chloride 98 mmol/L (98-107)
[2024-04-04 06:41] LABS: Albumin Level 3.6 g/dl (3.5-5.0); Potassium 4.5 mmoL/L (3.5-5.1); Sodium 135 mmol/L (136-145)
[2024-04-04 06:43] LABS: Blood Urea Nitrogen 20 mg/dl (9-20)
[2024-04-04 06:44] LABS: Alanine Aminotransferase 51 U/L (12-78); Albumin/Globulin Ratio 1.1 (1.1-1.8); Alkaline Phosphatase 105 U/L (38-126); Anion Gap 9.5 mEq/L (5-15); Aspartate Amino Transferase 33 U/L (17-59); Bilirubin,Total 0.4 mg/dl (0.2-1.3); Calcium 8.2 mg/dl (8.4-10.2); Carbon Dioxide 32 mmol/L (22.0-30.0); Creatinine Clearance Estimated 136 mL/min (50-200); Estimated Glomerular Filt Rate 77 ml/min (>60); GFR (African American) 93 ML/MIN (>60); Globulin 3.3 g/dL (1.3-3.2); Glucose 101 mg/dl (74-100); Total Protein,Serum 6.9 g/dl (6.3-8.2)
[2024-04-04 06:52] LABS: C-Reactive Protein 72.5 mg/L (0-4)
[2024-04-04 07:48] LABS: Erythrocyte Sedimentation Rate 26 mm/hr (0-20)
[2024-04-04] MEDS: PANTOPRAZOLE 40MG TABLET 40 MG PO (08:04)
[2024-04-04] MEDS: ASPIRIN 81MG CHEWABLE TABLET 81 MG PO (08:05)
[2024-04-04] MEDS: OSELTAMIVIR 75MG CAPSULE 75 MG PO ×2 (08:05→20:45)
[2024-04-04] MEDS: ATORVASTATIN 40MG TABLET 40 MG PO (08:05)
[2024-04-04] MEDS: LISINOPRIL/HCTZ 10-12.5MG TABLET 2 EACH PO (08:05)
[2024-04-04] MEDS: EMPAGLIFLOZIN 25MG TABLET 25 MG PO (08:05)
[2024-04-04] MEDS: ENOXAPARIN 40MG/0.4ML SYRINGE 40 MG SUBCUT (08:06)
[2024-04-04] MEDS: CEFTRIAXONE SODIUM 1 GM in 0.9 % SODIUM CHLORIDE 50 ML IV (08:06)
--- NOTE | 2024-04-04 09:16 | P.PN_ITS ---
Subjective Subjective Date: 04/04/24 Time: 09:16 Principal diagnosis: pericardial effusion, Flu Interval history: 58 yo WM in bed in NAD. Some feeling of chills last night. Better this AM. Denies any chest pain or increased SOA or PND. Exam Data for Last 24 hours Vital signs and Labs for Last 24 Hours: Temp Pulse Resp BP Pulse Ox O2 Del Method O2 Flow Rate 98.6 F 80 18 127/67 93 L Room Air 2 04/04/24 07:53 04/04/24 08:00 04/04/24 07:53 04/04/24 07:53 04/04/24 07:53 04/04/24 07:53 04/03/24 18:42 Laboratory Results - last 24 hr 04/04/24 05:59: WBC 12.2 H, RBC 4.58 L, Hgb 12.9 L, Hct 40.3 L, MCV 88.0, MCH 28.2, MCHC 32.0, RDW 14.0, Plt Count 502 H, MPV 9.5, Neut % (Auto) 60.2, Lymph % (Auto) 20.3, [place] % (Auto) 10.3 H, Eos % (Auto) 6.1, Baso % (Auto) 0.8, Neut # (Auto) 7.4, Lymph # (Auto) 2.5, [place] # (Auto) 1.3 H, Eos # (Auto) 0.7 H, Baso # (Auto) 0.1, ESR 26 H, Sodium 135 L, Potassium 4.5, Chloride 98, Carbon Dioxide 32 H, Anion Gap 9.5, BUN 20, Creatinine 1.00, Estimated Creat Clear 136, Faustina mated GFR 77, Est GFR ( Amer) 93, Glucose 101 H, Calcium 8.2 L, Magnesium 2.0 D, Total Bilirubin 0.4, AST 33, ALT 51, Alkaline Phosphatase 105, C- Reactive Protein 72.5 H, Total Protein 6.9, Albumin 3.6, Globulin 3.3 H, Albumin/Globulin Ratio 1.1 I & O for Last 24 hours: Intake & Output 04/01/24 04/02/24 04/03/24 04/04/24 11:59 11:59 11:59 11:59 Intake Total 470 / 470 2100 / 2100 1430 / 1430 1160 / 1160 Output Total 0 / 0 0 / 0 0 / 0 0 / 0 Balance 470 / 470 2100 / 2100 1430 / 1430 1160 / 1160 Weight 271 lb 3.2 oz 268 lb 6.4 oz 262 lb 1.6 oz 264 lb Microbiology Reports for the Last 24 Hours: Microbiology 04/02/24 08:43 Blood Blood Culture - Preliminary NO GROWTH AFTER 48 HOURS 04/02/24 08:40 Blood Blood Culture - Preliminary NO GROWTH AFTER 48 HOURS Constitutional Constitutional: no acute distress *Routine Respiratory Exam Respiratory: Present wheezes and diminished air movement *Routine Cardiovascular Exam Cardiovascular: Present RRR; Absent murmur, gallop or rubs *Routine Extremities Exam Extremities: Absent edema Progress Note: A&P Assessment and plan (1) Pericardial effusion: Status: Acute (2) Influenza A (H1N1): Status: Acute (3) Leukocytosis: Status: Acute (4) Exertional dyspnea: Status: Acute (5) Acute viral syndrome: Status: Acute (6) Type 2 diabetes mellitus: Status: Acute Assessment and Plan Assessment and Plan for All Diagnoses:: 1. Viral syndrome with H1N1 Flu -on tamiflu -on Ceftriaxone 2. Pericardial effusion with borderline low voltage on EKG -likely due to Flu -hold colchicine for 2 days then resume -reviewed echo, no evidence of tamponade -consider repeating PRN for worsening symptoms 3. Longstanding DM with neuropathy -continue Insulin, jardiance and gabapentin 4. HTN -continue lisinopril/HCTZ 5. Hyperlipidemia -on statin with LDL 66 this admission Check echo -- no evidence of tamponade noted with mod circumferential effusion. Continue supportive care and monitoring in hospital with serial Echo's. Possibly home tomorrow if continues to improve.
[2024-04-04] MEDS: HUMULIN R U 90 EACH SUBCUT (15:27)
[2024-04-04] MEDS: GUAIFENESIN/DEXTROMETHORPHAN 200MG/20MG 10ML UDC 10 ML PO (15:27)
[2024-04-04] MEDS: ACETAMINOPHEN 325MG TAB 650 MG PO (15:27)
[2024-04-04] MEDS: GABAPENTIN 800MG TABLET 1600 MG PO (15:27)
[2024-04-04] MEDS: ALBUTEROL-HFA 90MCG/PUFF INHALER 8GM 2 PUFF IH (15:30)
[2024-04-05] VITALS: BP 141/67; PULSE 70; PULSE 71; RESP 16; TEMP 36.7; O2SAT 94
--- NOTE | 2024-04-05 03:53 | PC.NURSE ---
Patient is alert and oriented x4. Patient stated that he is feeling much better tonight. He was observed to have eyes closed, respirations even and unlabored on room air, and no apparent distress for the majority of the night. Oxygen saturations remain > 90%. He stated that he continues to have a productive cough. He denies chest pain, body aches, and nausea/vomiting. Diminished but clear lung sounds still present upon auscultation; auscultation of his heart and bowels remain within normal findings. He stated that his bowel movement consistency is becoming more formed + appetite has much improved. Remains normal sinus rhythm on telemetry. He continues to ambulate independently in his room without difficulties. Patient's Dexcom is still utilized for blood glucose checks; patient self-administers insulin (his own medication stored in [facility]) with staff at bedside. Scheduled medications administered per MAR. At this time, the patient is resting in bed without any further complaints. No acute changes noted thus far. Call light within reach. Contact/droplet precautions remain in place for Influenza A (H1N1/). Another echo order is expected for this morning (at 07:00).
[2024-04-05 04:00] VITALS: BP 135/70; PULSE 74; PULSE 80; RESP 16; TEMP 37.2; O2SAT 94; BMI 26.6
[2024-04-05] MEDS: HUMULIN R U 150 EACH SUBCUT (05:56)
[2024-04-05] MEDS: GABAPENTIN 800MG TABLET 800 MG PO (05:56)
[2024-04-05 07:00] LABS: Albumin Level 3.7 g/dl (3.5-5.0); Chloride 99 mmol/L (98-107); Potassium 4.7 mmoL/L (3.5-5.1); Sodium 137 mmol/L (136-145)
--- NOTE | 2024-04-05 07:00 | CA_ITS ---
APPROVED REPORT EXAM: Limited 2D Echocardiogram Brush Head Maker: Bonny Perera, RCS, RVS Ht: 6 ft 0 in Wt: 264lbs BSA: 2.40 BP: 165/87 mmHg Indications: Follow up Pericardial Effusion, H!N!flu Echo Enhancing Agent Comments: Persistant Pericardial effusion without Right atriam collapse Other Information Study Quality: Fair Conclusion This is a limited TTE to evaluate for pericardial effusion. Limited windows are obtained. There is a moderate-sized, circumferential pericardial effusion present. The largest pocket measures approximately 1.5 cm in diastole. No clear echo indications of tamponade. Compared to the prior study, the size and location of the pericardial effusion is overall unchanged. Electronically signed by : Zoya Pugh MD 04/05/2024 11:48:57
[2024-04-05 07:03] LABS: Alanine Aminotransferase 52 U/L (12-78); Albumin/Globulin Ratio 1.1 (1.1-1.8); Alkaline Phosphatase 106 U/L (38-126); Anion Gap 11.7 mEq/L (5-15); Aspartate Amino Transferase 40 U/L (17-59); Bilirubin,Total 0.4 mg/dl (0.2-1.3); Blood Urea Nitrogen 19 mg/dl (9-20); Carbon Dioxide 31 mmol/L (22.0-30.0); Creatinine Clearance Estimated 135 mL/min (50-200); Estimated Glomerular Filt Rate 77 ml/min (>60); GFR (African American) 93 ML/MIN (>60); Globulin 3.4 g/dL (1.3-3.2); Glucose 93 mg/dl (74-100); Total Protein,Serum 7.1 g/dl (6.3-8.2)
[2024-04-05 07:04] LABS: Calcium 8.6 mg/dl (8.4-10.2)
[2024-04-05 08:00] VITALS: BP 134/68; PULSE 65; PULSE 90; RESP 18; TEMP 37; O2SAT 96
--- NOTE | 2024-04-05 08:09 | EXP.PHA.PN ---
Subjective *Date: 04/05/24 *Time: 08:09 Medical Exam Vital signs and Labs for Last 24 Hours: Vital Signs Temp Pulse Pulse Resp BP Pulse Ox O2 Del Method 04/05/24 06:35 Room Air 04/05/24 05:00 Room Air 04/05/24 04:00 98.9 F 74 16 135/70 94 L Room Air 04/05/24 04:00 80 04/05/24 03:00 Room Air 04/05/24 01:00 Room Air 04/05/24 00:00 98.0 F 71 16 141/67 H 94 L Room Air 04/05/24 00:00 70 04/04/24 23:00 Room Air 04/04/24 21:00 Room Air 04/04/24 20:00 80 16 95 Room Air 04/04/24 20:00 80 04/04/24 20:00 97.7 F 79 16 132/72 Room Air 04/04/24 18:21 Room Air 04/04/24 16:18 Room Air 04/04/24 16:00 80 04/04/24 15:21 98.8 F 79 18 135/63 93 L Room Air 04/04/24 15:00 Room Air 04/04/24 13:00 Room Air 04/04/24 12:00 70 04/04/24 11:41 98.4 F 72 18 134/73 92 L Room Air 04/04/24 11:00 Room Air 04/04/24 09:00 Room Air Intake and Output 04/04/24 04/05/24 04/05/24 23:59 07:59 15:59 Intake Total 400 / 1380 300 / 300 Output Total 0 / 0 0 / 0 Balance 400 / 1380 300 / 300 Intake: Intake, Oral Amount 400 / 1380 300 / 300 Output: Output, Urine Amount 0 / 0 0 / 0 Other: Number of Unmeasured Voids 1 1 Weight 118.444 kg Patient Weight 04/05/24 23:59 Weight 118.444 kg Laboratory Results - last 24 hr 04/05/24 06:23: Sodium 137, Potassium 4.7, Chloride 99, Carbon Dioxide 31 H, Anion Gap 11.7, BUN 19, Creatinine 1.00, Estimated Creat Clear 135, Estimated GFR 77, Est GFR ( Amer) 93, Glucose 93, Calcium 8.6, Total Bilirubin 0.4, AST 40, ALT 52, Alkaline Phosphatase 106, Total Protein 7.1, Albumin 3.7, Globulin 3.4 H, Albumin/Globulin Ratio 1.1 I & O for Labs for Last 24 Hours: Intake & Output 04/02/24 04/03/24 04/04/24 04/05/24 23:59 23:59 23:59 23:59 Intake Total 1759 1080 / 1380 300 / 300 Output Total 0 / 0 0 / 0 0 / 0 0 / 0 Balance 1759 1080 / 1380 300 / 300 Weight 121.744 kg 118.887 kg 119.748 kg 118.444 kg Microbiology Reports for the Last 24 Hours: Microbiology 04/02/24 08:43 Blood Blood Culture - Preliminary NO GROWTH AFTER 48 HOURS 04/02/24 08:40 Blood Blood Culture - Preliminary NO GROWTH AFTER 48 HOURS The patient's infection will respond to the chosen ABx?: Yes (BLOOD CX NO GROWTH 48 HRS, AFEBRILE OVER 24 HRS) Is the patient receiving the right drug, dose, and route?: Yes Could a more targeted ABx be ordered?: No How long ABx needed (days)?: 5
[2024-04-05] MEDS: ASPIRIN 81MG CHEWABLE TABLET 81 MG PO (08:14)
[2024-04-05] MEDS: PANTOPRAZOLE 40MG TABLET 40 MG PO (08:14)
[2024-04-05] MEDS: CEFTRIAXONE SODIUM 1 GM in 0.9 % SODIUM CHLORIDE 50 ML IV (08:14)
[2024-04-05] MEDS: LISINOPRIL/HCTZ 10-12.5MG TABLET 2 EACH PO (08:14)
[2024-04-05] MEDS: ATORVASTATIN 40MG TABLET 40 MG PO (08:14)
[2024-04-05] MEDS: EMPAGLIFLOZIN 25MG TABLET 25 MG PO (08:14)
[2024-04-05] MEDS: OSELTAMIVIR 75MG CAPSULE 75 MG PO (08:14)
[2024-04-05] MEDS: ENOXAPARIN 40MG/0.4ML SYRINGE 40 MG SUBCUT (08:15)
--- NOTE | 2024-04-05 09:32 | EXP.CARD.PN ---
Subjective Subjective Date: 04/05/24 Time: 09:32 Principal diagnosis: pericardial effusion, Flu Interval history: 58 yo WM in chair in NAD. No complaints overnight. Limited echo results pending from this AM Exam Data for Last 24 hours Vital signs and Labs for Last 24 Hours: Temp Pulse Resp BP Pulse Ox O2 Del Method O2 Flow Rate 98.6 F 65 18 134/68 96 Room Air 2 04/05/24 08:00 04/05/24 08:00 04/05/24 08:00 04/05/24 08:00 04/05/24 08:00 04/05/24 08:00 04/03/24 18:42 Laboratory Results - last 24 hr 04/05/24 06:23: Sodium 137, Potassium 4.7, Chloride 99, Carbon Dioxide 31 H, Anion Gap 11.7, BUN 19, Creatinine 1.00, Estimated Creat Clear 135, Estimated GFR 77, Est GFR ( Amer) 93, Glucose 93, Calcium 8.6, Total Bilirubin 0.4, AST 40, ALT 52, Alkaline Phosphatase 106, Total Protein 7.1, Albumin 3.7, Globulin 3.4 H, Albumin/Globulin Ratio 1.1 I & O for Last 24 hours: Intake & Output 04/02/24 04/03/24 04/04/24 04/05/24 11:59 11:59 11:59 11:59 Intake Total 2099 / 2099 1430 / 1430 1160 / 1160 1180 / 1180 Output Total 0 / 0 0 / 0 0 / 0 0 / 0 Balance 2099 1430 / 1430 1160 / 1160 1180 / 1180 Weight 268 lb 6.4 oz 262 lb 1.6 oz 264 lb 261 lb 2 oz Microbiology Reports for the Last 24 Hours: Microbiology 04/02/24 08:43 Blood Blood Culture - Preliminary NO GROWTH AFTER 48 HOURS 04/02/24 08:40 Blood Blood Culture - Preliminary NO GROWTH AFTER 48 HOURS Constitutional Constitutional: no acute distress *Routine Respiratory Exam Respiratory: Present diminished air movement; Absent rales or wheezes *Routine Cardiovascular Exam Cardiovascular: Present RRR Progress Note: A&P Assessment and plan (1) Pericardial effusion: Status: Acute (2) Influenza A (H1N1): Status: Acute (3) Leukocytosis: Status: Acute (4) Exertional dyspnea: Status: Acute (5) Acute viral syndrome: Status: Acute (6) Type 2 diabetes mellitus: Status: Acute Assessment and Plan Assessment and Plan for All Diagnoses:: 1. Viral syndrome with H1N1 Flu -on tamiflu -on Ceftriaxone 2. Pericardial effusion with borderline low voltage on EKG -likely due to Flu -resume colchicine today 0.6 mg BID -ESR, CRP improving 3. Longstanding DM with neuropathy -continue Insulin, jardiance and gabapentin 4. HTN -continue lisinopril/HCTZ 5. Hyperlipidemia -on statin with LDL 66 this admission Clinically stable Echo shows effusion is stable. plan discharge home with early follow up next week. Home med recommendations: Aspirin 81 mg daily Atorvastatin 40 mg daily Jardiance 25 mg daily Lisinopril HCTZ 10/12.5 mg daily Colchicine 0.6 mg BID (for up to 3 months)
[2024-04-05] MEDS: COLCHICINE 0.6MG TABLET 0.6 MG PO (11:10)
[2024-04-05 11:32] VITALS: BP 129/74; PULSE 75; RESP 18; TEMP 37; O2SAT 95
--- NOTE | 2024-04-05 12:02 | P.DS_ITS ---
General Admission date:: 03/31/24 HPI HPI HPI: The patient is a 58-year-old male presenting to the emergency department with concerns about fluid around my heart. He was referred by his neighbor, Dr. Hidalgo, who provided some history and advised him to seek evaluation. The patient reports experiencing a cough and shortness of breath for the past two weeks. He initially sought care at an outpatient urgent care clinic, where a chest X-ray was performed, and he was prescribed medications, though he did not experience any symptom relief. He subsequently underwent an outpatient CT scan of the chest earlier today and was informed by the radiologist that he had fluid around his heart. He brought a disc with the imaging to the emergency department for further evaluation. Review of the CT scan confirmed a 2 cm pericardial effusion. The patient denies fevers or chills. He has not noticed any significant positional changes in his symptoms but does endorse significant exertional dyspnea. He has no known history of cancer. He does state he has poor dental health and has not seen regular dentistry. A bedside ultrasound was performed, showing a hypoechoic 2 cm fluid collection without evidence of pericardial tamponade. There is some evidence of IVC plethora with mild reversal of flow, but no chamber collapse or significant tachycardia. Laboratory results reveal leukocytosis (WBC 22.7) and thrombocytosis (Plt 565), raising suspicion for an inflammatory or infectious process, most likely viral pericarditis. The patient also has mild anemia (Hgb 11.5, Hct 35.5) and acute kidney injury (Creatinine 1.50, BUN 25) with no known baseline function. CRP is elevated at 80.3, and there is mild transaminitis (ALT 101, Alk Phos 171). Glucose is elevated at 284, possibly due to stress hyperglycemia or undiagnosed diabetes. Troponin is <0.01, indicating no current myocardial injury. Given the moderate to large pericardial effusion without tamponade physiology, there is no immediate indication for pericardiocentesis. The patient will be initiated on prednisone and colchicine for presumed viral pericarditis and admitted for a 48-hour observation period. Dr. Hidalgo has been consulted who states that Dr. Morales available for pericardiocentesis if needed. The patient understands and agrees with the plan. Hospital Course Hospital Course Hospital Course: Josse Thomas is a 58-year-old male who presents with persistent cough and shortness of breath for [address] performed at outside hospital that showed small, stable pericardial effusion. 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 Found to have pericardial effusion concerning for pericarditis. Found to be flu a positive due to development of respiratory symptoms. #Pericardial effusion #Pericarditis #Influenza A ? ECHO 04/03/2024 revealed moderate circumferential pericardial effusion without tamponade physiology. Patient, vital signs remained stable. ? Cardiology following, repeat limited ECHO today revealed stable moderate pericardial effusion. Advised to continue colchicine 0.6 mg twice daily for 3 months. ? WBC 11, stable. No signs of sepsis. Weaned to room air. No chest pain, shortness of breath. ? Discharged with Tamiflu for 2 more days, colchicine for 30 days. Will follow- up with cardiology within 1 week for further evaluation and management, refills. #Acute kidney injury ? Improved to baseline creatinine 1.0 with oral rehydration. #Type 2 diabetes ? A1c well-controlled at 6.9. Continue home insulin. ? Using Dexcom ACHS to monitor glucose ? Patient declined sliding scale insulin. ? TSH normal at 0.6 Exam Data for Last 24 hours Vital signs and Labs for Last 24 Hours: Temp Pulse Resp BP Pulse Ox O2 Del Method O2 Flow Rate 98.6 F 75 18 129/74 95 Room Air 2 04/05/24 11:32 04/05/24 11:32 04/05/24 11:32 04/05/24 11:32 04/05/24 11:32 04/05/24 11:32 04/03/24 18:42 Laboratory Results - last 24 hr 04/05/24 06:23: Sodium 137, Potassium 4.7, Chloride 99, Carbon Dioxide 31 H, Anion Gap 11.7, BUN 19, Creatinine 1.00, Estimated Creat Clear 135, Estimated GFR 77, Est GFR ( Amer) 93, Glucose 93, Calcium 8.6, Total Bilirubin 0.4, AST 40, ALT 52, Alkaline Phosphatase 106, Total Protein 7.1, Albumin 3.7, Globulin 3.4 H, Albumin/Globulin Ratio 1.1 I & O for Last 24 hours: Intake & Output 04/02/24 04/03/24 04/04/24 04/05/24 23:59 23:59 23:59 23:59 Intake Total 1760 / 2000 1710 / 1910 1080 / 1380 540 / 540 Output Total 0 / 0 0 / 0 0 / 0 0 / 0 Balance 1759 / 1910 1080 / 1380 540 / 540 Weight 121.744 kg 118.887 kg 119.748 kg 118.444 kg Microbiology Reports for the Last 24 Hours: Microbiology 04/02/24 08:43 Blood Blood Culture - Preliminary NO GROWTH AFTER 48 HOURS 04/02/24 08:40 Blood Blood Culture - Preliminary NO GROWTH AFTER 48 HOURS Constitutional Constitutional: no acute distress *Routine HEENT Exam Head: Present normocephalic Eye: Present EOMI and PERRL ENT: Present mucous membranes moist *Routine Neck Exam Neck: Present supple; Absent lymphadenopathy *Routine Respiratory Exam Respiratory: Present CTA bilaterally *Routine Cardiovascular Exam Cardiovascular: Present RRR *Routine Abdominal Exam Abdominal: Present soft and normoactive bowel sounds; Absent tenderness *Routine Extremities Exam Extremities: Absent cyanosis, clubbing or edema *Routine Skin Exam Skin: Present warm; Absent rash *Routine Neurological Exam Neurological: Present alert and oriented X3 Results Data Completed and Pending Labs on day of discharge: Labs from last 24 hours 04/05/24 06:23 Sodium 137 Potassium 4.7 Chloride 99 Carbon Dioxide 31 H Anion Gap 11.7 BUN 19 Creatinine 1.00 Estimated Creat Clear 135 Estimated GFR 77 Est GFR ( Amer) 93 Glucose 93 Calcium 8.6 Total Bilirubin 0.4 AST 40 ALT 52 Alkaline Phosphatase 106 Total Protein 7.1 Albumin 3.7 Globulin 3.4 H Albumin/Globulin Ratio 1.1 Preliminary micro results at discharge 04/02/24 08:43 Blood Culture - Preliminary Blood NO GROWTH AFTER 48 HOURS 04/02/24 08:40 Blood Culture - Preliminary Blood NO GROWTH AFTER 48 HOURS DS: Diagnosis Discharge Diagnosis (1) Pericardial effusion: Status: Acute Code(s): I31.39 - Other pericardial effusion (noninflammatory) (2) Influenza A (H1N1): Status: Acute Code(s): J10.1 - Influenza due to other identified influenza virus with other respiratory manifestations (3) Leukocytosis: Status: Acute Code(s): D72.829 - Elevated white blood cell count, unspecified Qualifiers: Leukocytosis type: unspecified Qualified Code(s): D72.829 - Elevated white blood cell count, unspecified (4) Exertional dyspnea: Status: Acute Code(s): R06.09 - Other forms of dyspnea (5) Acute viral syndrome: Status: Acute Code(s): B34.9 - Viral infection, unspecified (6) Type 2 diabetes mellitus: Status: Acute Code(s): E11.9 - Type 2 diabetes mellitus without complications Qualifiers: Diabetes mellitus complication status: without complication Diabetes mellitus termination clerk insulin use: with termination clerk use Qualified Code(s): E11.9 - Type 2 diabetes mellitus without complications; 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 Meds Home Medications and Allergies Home Medications ?Medication ?Instructions ?Recorded ?Confirmed ?Type aspirin 81 mg chewable tablet 81 mg PO DAILY Heart disease 03/31/20 03/31/24 History empagliflozin 25 mg tablet 25 mg PO DAILY 03/31/20 03/31/24 History lisinopril 20 1 tab PO DAILY 03/31/20 03/31/24 History mg-hydrochlorothiazide 25 mg tablet atorvastatin 40 mg tablet 40 mg PO DAILY 03/31/24 03/31/24 History gabapentin 800 mg tablet 800 mg PO BID 03/31/24 04/01/24 History insulin regular hum U-500 conc 500 90 unit SQ HS 03/31/24 04/01/24 History unit/mL(3 mL) subcut pen (Humulin R U-500 (Conc) Insulin Kwikpen) insulin regular hum U-500 conc 500 150 unit SQ DAILY 03/31/24 04/01/24 History unit/mL(3 mL) subcut pen (Humulin R U-500 (Conc) Insulin Kwikpen) omeprazole 20 mg capsule,delayed 20 mg PO DAILY 03/31/24 03/31/24 History release albuterol sulfate 90 mcg/actuation 1 inh inhalation QIDP PRN 04/01/24 04/01/24 History aerosol inhaler shortness of breath or wheezing colchicine 0.6 mg tablet (Colcrys) 0.6 mg PO BID 30 days #60 tabs 04/05/24 Rx oseltamivir 75 mg capsule (Tamiflu) 75 mg PO BID 2 days #3 caps 04/05/24 Rx New Prescriptions to Start Prescriptions: colchicine [Colcrys] Brandyn [place] oseltamivir [Tamiflu] Brandyn [place] Allergies Allergy/AdvReac Type Severity Reaction Status Date / Time No Known Allergies Allergy Verified 03/24/24 12:46 Discharge Plan Disposition Patient Disposition: Home, Self-Care Condition: Fair Discharge Order Discharge Orders: Discharge Order (Routine); Ordered 04/05/24 Ordered By: Brandyn Montana Follow up Plan Follow up with: Adolfo Ingram PA [Physician Zipper Setter [employer]] - 04/10/24 3:00 pm Prescriptions/Medication Reconciliation: New oseltamivir [Tamiflu] 75 mg Capsule 75 mg PO BID 2 Days Qty: 3 0RF colchicine [Colcrys] 0.6 mg Tablet 0.6 mg PO BID 30 Days Qty: 60 0RF Continued lisinopril-hydrochlorothiazide 1 EACH tablet 1 tab PO DAILY aspirin 81 MG tablet,chewable 81 mg PO DAILY empagliflozin 25 MG tablet 25 mg PO DAILY atorvastatin 40 mg tablet 40 mg PO DAILY Patient Comments: TAKE 1 TABLET BY MOUTH ONCE DAILY gabapentin 800 mg tablet 800 mg PO BID Patient Comments: Pt states he takes 1 tablet PO in AM and 2 tablets HS omeprazole 20 mg Capsule,Delayed Release(Dr/Ec) 20 mg PO DAILY Humulin R U-500 (Conc) Kwikpen 500 unit/mL (3 mL) insulin pen 90 unit SQ HS Humulin R U-500 (Conc) Kwikpen 500 unit/mL (3 mL) insulin pen 150 unit SQ DAILY albuterol sulfate 90 mcg/actuation HFA aerosol inhaler 1 inh inhalation QIDP PRN (Reason: shortness of breath or wheezing) Problem Reconciliation Problems Reviewed?: Yes Patient Discharge Instructions Patient Instructions: DI for Cardiac Tamponade, DI for Pericarditis, DI for H1N1 Influenza -- Adult Print Language: Kosovan Providers Primary Care Provider: Provider,Referral Admit Provider: Patricio Escobar Attending Provider: Patricio Escobar
--- NOTE | 2024-04-07 10:50 | SW/DCPLANNER ---
Phoned patient 3x. Left message the first 2 times. The 3rd time wasnt able to leave message. Marta Rene
--- NOTE | 2024-04-14 19:59 | EXP.PN ---
Subjective *Date: 04/15/24 *Time: 13:44 Exam Data for Last 24 hours Vital signs and Labs for Last 24 Hours: Temp Pulse Resp BP Pulse Ox O2 Del Method O2 Flow Rate 98.6 F 75 18 129/74 95 Room Air 2 04/05/24 11:32 04/05/24 11:32 04/05/24 11:32 04/05/24 11:32 04/05/24 11:32 04/05/24 13:00 04/03/24 18:42 Constitutional Constitutional: no acute distress *Routine Respiratory Exam Respiratory: Present diminished air movement; Absent rales or wheezes *Routine Cardiovascular Exam Cardiovascular: Present RRR Assessment and Plan *Assessment and plan (1) Influenza A (H1N1): Status: Acute Category: Medical Code(s): J10.1 - Influenza due to other identified influenza virus with other respiratory manifestations (2) Pericarditis: Status: Acute Category: Medical Code(s): I31.9 - Disease of pericardium, unspecified (3) Type 2 diabetes mellitus: Status: Acute Qualifiers: Diabetes mellitus long term care administrator insulin use: with long term care administrator use Diabetes mellitus complication status: without complication Qualified Code(s): E11.9 - Type 2 diabetes mellitus without complications; 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.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 Category: Medical Code(s): E11.9 - Type 2 diabetes mellitus without complications (4) Leukocytosis: Status: Acute Qualifiers: Leukocytosis type: unspecified Qualified Code(s): D72.829 - Elevated white blood cell count, unspecified Category: Medical Code(s): D72.829 - Elevated white blood cell count, unspecified (5) Acute viral syndrome: Status: Acute Category: Medical Code(s): B34.9 - Viral infection, unspecified (6) Pericardial effusion: Status: Acute Category: Medical Code(s): I31.39 - Other pericardial effusion (noninflammatory) Costa Thomas is a 58-year-old male who presents with persistent cough and shortness of breath for [address] performed at outside hospital that showed small, stable pericardial effusion. 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 Found to have pericardial effusion concerning for pericarditis. Found to be flu a positive due to development of respiratory symptoms. #Pericardial effusion #Pericarditis #Influenza A ? ECHO 04/03/2024 revealed moderate circumferential pericardial effusion without tamponade physiology. Patient, vital signs remained stable. ? Cardiology following, recommended monitoring for more more day and follow-up with the limited echo tomorrow. Hold colchicine for now. ? Inflammatory markers improving ESR 26, CRP 72.5. Repeat CBC, CMP, magnesium and inflammatory markers ordered for the morning ? WBC 11, stable. No signs of sepsis. ? Continue empiric ceftriaxone 1 g daily for at least 5 days. Continue Tamiflu 75 mg twice daily for 5 days. ? Supplemental oxygen as needed for goal sats greater 90%, currently on 2 L. Albuterol inhaler 2 puffs every 4-6 hours as needed #Acute kidney injury ? Creatinine improved to 1.1, initial 1.3. Baseline 1.0. Continue supportive therapy, rehydration in the setting of influenza. #Mild anemia ? Hemoglobin stable at 12.3. No active signs of bleeding. Platelets 454 #Type 2 diabetes ? A1c well-controlled at 6.9. Continue home insulin. ? Using Dexcom ACHS to monitor glucose ? Patient declined sliding scale insulin. ? TSH normal at 0.6 Full code DVT prophylaxis: Lovenox 40 mg subcu daily Cardiac diet
== END 2024-04-05 13:43 | disposition home or self-care (01) | DRG 315 ==
LOC: ER 19:22 → 2ND 19:46
PROVIDERS: Nurse Practitioner Family; Admitting Provider Internal Medicine Adolescent Medicine; Emergency Provider Student in an Organized Health Care Education/Training Program; Visit Provider Internal Medicine Adolescent Medicine
DX: I30.9 Acute pericarditis, unspecified (principal); N17.9 Acute kidney failure, unspecified; J10.1 Influenza due to other identified influenza virus with other respiratory manifestations; E11.65 Type 2 diabetes mellitus with hyperglycemia; D64.9 Anemia, unspecified; I10 Essential (primary) hypertension; D75.839 Thrombocytosis, unspecified; Z79.4 Long term (current) use of insulin; Z79.82 Long term (current) use of aspirin
CPT/HCPCS: 36415; 71045; 80048; 80053; 80061; 82962; 83036; 83735; 84145; 84443; 84484; 85007; 85025; 85610; 85651; 86140; 87040; 87633; 93005; 93306; 93308; 99221; 99291; J0696; J1650

== ENCOUNTER 2024-04-17 15:57 | Outpatient (CLI) | payer BC, SELFPAY ==
--- NOTE | 2024-04-17 16:01 | CA_ITS ---
APPROVED REPORT EXAM: Comprehensive 2D, Doppler, and color-flow Echocardiogram Continuous Churn Buttermaker: Mi Marcum RT(R) Ht: 6 ft 0 in Wt: 266lbs BSA: 2.41 BP: 161/83 mmHg Indications: Pericardial effusion followup, limited echo, DM, SOB. Other Information Study Quality: Fair Conclusion This is a limited TTE to evaluate for pericardial effusion. Limited windows are obtained. There is a moderate-sized, circumferential pericardial effusion present. The largest pocket measures 1.7 cm in diastole noted anteriorly. There is a slight invagination of the RA free wall in end systole, but overall, no clear evidence of chamber collapse. No clear indications of tamponade on echo. The above findings were reviewed with the cardiology clinic team at the time of image acquisition prior to dictation of this report. Electronically signed by : Zoya Pugh MD 04/17/2024 23:08:00
== END 2024-04-17 23:59 | disposition home or self-care (01) ==
LOC: RT 15:58
PROVIDERS: PCP Physician Assistant Surgical; Visit Provider Nurse Practitioner Family
DX: I31.8 Other specified diseases of pericardium (principal); I31.39 Other pericardial effusion (noninflammatory); R06.09 Other forms of dyspnea; I49.3 Ventricular premature depolarization; E11.9 Type 2 diabetes mellitus without complications; Z79.4 Long term (current) use of insulin
CPT/HCPCS: 93308

== ENCOUNTER 2024-05-05 09:42 | Outpatient (CLI) | payer BC, SELFPAY | END 2024-05-05 23:59 | disposition home or self-care (01) | LOC: LAB.DROPOF 05-08 09:43 | PROVIDERS: Visit Provider Physician Assistant | DX: I31.39 Other pericardial effusion (noninflammatory) (principal); J18.9 Pneumonia, unspecified organism | CPT/HCPCS: 87070; 87205 ==

== ENCOUNTER 2024-05-05 10:53 | Day surgery (SDC) | payer BC, SELFPAY ==
[2024-05-05] VITALS (8 sets, daily range): BP systolic 142–158; BP diastolic 83–101; PULSE 87–94; RESP 18–20; O2SAT 95–99; BMI 35.1
--- NOTE | 2024-05-05 | CA_ITS ---
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 Limited windows for pre, during, and post procedure. Other Information Study Quality: Fair Conclusion This is a limited TTE to evaluate for pericardial effusion pre and post pericardiocentesis. Limited windows were obtained. Pre-procedure, there is a moderate-sized, circumferential pericardial effusion present, measuring up to 13 mm in diastole and its largest pocket. There is also partial collapse of the right ventricle during diastole, suggestive of early tamponade physiology. Post-procedure, there is a trivial pericardial effusion present, which is significantly smaller compared to preprocedure. The RV chamber diastolic collapse is no longer present. The above findings were communicated with the inpatient cardiology consult team in real-time during image acquisition. Electronically signed by : Zoya Pugh MD 05/07/2024 21:32:31
--- NOTE | 2024-05-05 07:19 | IR_ITS ---
APPROVED REPORT Patient Location: Outpatient PROCEDURES Therapeutic pericardiocentesis Placement of pigtail catheter in the pericardial space INDICATION Large pericardial effusion Informed consent was obtained prior to the procedure. COMPLICATIONS NONE Estimated Blood Loss: LESS THAN 10 ML TECHNIQUE The subxiphoid area was sterilely prepped 1% lidocaine was used to anesthetize the subxiphoid area. Under fluoroscopic guidance a pericardial needle was inserted into the pericardial space followed by a wire. The tract was dilated and a pigtail catheter was advanced under fluoroscopic guidance into the pericardial space. 500 cc of bloody fluid was removed. Patient tolerated the procedure well. At the end of the procedure echocardiogram demonstrated minimal pericardial fluid. The catheter was removed and the patient was transferred to the postop putting in stable condition IMPRESSION Successful pericardiocentesis of 500 cc of bloody aspirate PLAN 1. Send pericardial fluid for Gram stain centrifuge and cell type with microscopic analysis and chemical analysis Electronically signed by : Damien Hidalgo MD 05/05/2024 14:20:54
[2024-05-05 11:19] LABS: Basophils # 0.1 K/mm3 (0-0.2); Basophils % 0.9 % (0.1-2.0); Eosinophils # 0.2 K/mm3 (0.0-0.4); Eosinophils % 1.8 % (0.1-12.0); Hematocrit 37.4 % (42.0-52.0); Hemoglobin 11.8 g/dL (14.1-18.0); Lymphocytes % 15.1 % (10-50); Mean Corpuscular HGB Conc 31.6 g/dL (31.8-35.4); Mean Corpuscular Volume 85.6 fl (80-94); Mean Platelet Volume 10.5 fl (7.4-10.4); Monocytes # 1.2 K/mm3 (0.1-1.0); Neutrophils # 9.4 K/mm3 (1.8-7.8); Neutrophils % 72.7 % (37.0-80.0); Platelet Count 440 K/mm3 (142-424); Red Blood Count 4.37 M/mm3 (4.60-6.20); Red Cell Distribution Width 14.1 % (11.5-17.5); White Blood Count 12.9 K/mm3 (4.8-10.8)
[2024-05-05 11:21] LABS: Chloride 104 mmol/L (98-107); Potassium 4.3 mmoL/L (3.5-5.1); Sodium 139 mmol/L (136-145)
[2024-05-05 11:24] LABS: Blood Urea Nitrogen 23 mg/dl (9-20); Creatinine Clearance Estimated 151 mL/min (50-200); Estimated Glomerular Filt Rate 86 ml/min (>60); GFR (African American) 105 ML/MIN (>60)
[2024-05-05 11:25] LABS: Anion Gap 14.3 mEq/L (5-15); Calcium 9.1 mg/dl (8.4-10.2); Carbon Dioxide 25 mmol/L (22.0-30.0); Glucose 113 mg/dl (74-100)
[2024-05-05] MEDS: diphenhydrAMINE 50MG/ML VIAL 50 MG IV (13:16)
[2024-05-05] MEDS: LIDOCAINE 1% 10ML MDV 20 ML IJ (13:16)
[2024-05-05] MEDS: 0.9 % SODIUM CHLORIDE 500 ML 25 ML IV (13:17)
[2024-05-05] MEDS: HEPARIN 1,000 UNITS/500ML NS (CATH LAB) 3000 UNIT IV (13:17)
[2024-05-05] MEDS: FENTANYL 100MCG/2ML VIAL 50 MCG IV (14:01)
[2024-05-05] MEDS: MIDAZOLAM HCL 1MG/ML 5ML VIAL 1 MG IV (14:01)
[2024-05-05] MEDS: PROPOFOL 10MG/ML 20ML VIAL 50 MG IV (14:07)
--- NOTE | 2024-05-05 14:23 | SUR.PHASEII ---
Walked pericardial fluid to lab, Adolfo jimenez to order test on fluid.
[2024-05-05 15:42] LABS: Appearance,Body Fld. Bloody; Source, Body Fld. Pericardial Fluid; Volume,Body Fld. 53 mL
[2024-05-05 15:43] LABS: RBC,Body Fluid 151 cells/uL (< 10 X 10^3); TNC,Body Fluid 1761 cells/uL (< 1000)
[2024-05-05 17:02] LABS: Mononuclear WBCs,Body Fluid 21 %; Polynuclear WBC,Body Fluid 79 %
[2024-05-08 13:28] LABS: Glucose, Body Fluid 75 mg/dL (.); LD, Body Fluid 1597 IU/L (.); Protein, Body Fluid 4.6 g/dL (.)
== END 2024-05-05 14:55 | disposition home or self-care (01) ==
PROVIDERS: Physician Assistant; Visit Provider Internal Medicine
PROC: 0W9D3ZZ Drainage of Pericardial Cavity, Percutaneous Approach (ICD-10-PCS; CPT 33016; principal; 2024-05-05 11:55)
DX: I31.39 Other pericardial effusion (noninflammatory) (principal); E11.9 Type 2 diabetes mellitus without complications; Z79.899 Other long term (current) drug therapy; Z79.4 Long term (current) use of insulin; I10 Essential (primary) hypertension; I31.8 Other specified diseases of pericardium; I49.3 Ventricular premature depolarization; I49.1 Atrial premature depolarization
CPT/HCPCS: 33016; 36415; 80048; 82945; 83615; 84155; 85025; 87116; 87186; 87206; 89051; 93308; 99152; 99153; C1725; C1769; J1200; J1644; J3010

== ENCOUNTER 2024-05-12 09:57 | Outpatient (CLI) | payer BC, SELFPAY ==
--- NOTE | 2024-05-12 10:15 | CA_ITS ---
APPROVED REPORT EXAM: Comprehensive 2D, Doppler, and color-flow Echocardiogram Livestock Ranch Hand: Mi Marcum RT(R) Ht: 6 ft 1 in Wt: 266lbs BSA: 2.43 BP: 113/78 mmHg Indications: CP, SOB, HTN, DM, post pericardiocentesis x 1 week, reassess effusion. Patient states he is having CP and SOB like he did prior to drainage. Other Information Study Quality: Fair Conclusion This is a limited TTE to evaluate for LV systolic function. Limited windows are obtained. The left ventricle is normal in size. There is increased LV wall thickness. There is normal global LV systolic function. The septum is asynchronous. LVEF is 55%. The right ventricle appears moderately dilated with mild reduction in RV function. There is a trivial anterior pericardial effusion noted towards the apical RV free wall. Compared to prior study from 05/05/2024, the size and location of the pericardial effusion has improved. The RV dilation appears to be new. This may reflect post-pericardiocentesis RV expansion, but alternative etiologies (e.g. lung disease vs. pulmonary embolism) cannot be entirely excluded. Clinical correlation is required. Electronically signed by : Zoya Pugh MD 05/12/2024 13:03:55
--- NOTE | 2024-05-12 10:46 | ECG_ITS ---
APPROVED REPORT Exam: Resting ECG HR:79 bpm ECG Measurements Heart Rate 79 AXES TX 159 P 49 QRSd 90 QRS 30 QT 357 T 195 QTc [address] DEVIATION AND MODERATE T-WAVE ABNORMALITY, CONSIDER LATERAL ISCHEMIA [-0.1+ mV T-WAVE IN I/aVL/V5/V6] ABNORMAL ECG UNCONFIRMED REPORT Electronically signed by : Wallace Avendano MD 05/13/2024 09:55:47
== END 2024-05-12 23:59 | disposition home or self-care (01) ==
LOC: RT 09:59
PROVIDERS: PCP Family Medicine; Visit Provider Nurse Practitioner
DX: I31.39 Other pericardial effusion (noninflammatory) (principal); R94.31 Abnormal electrocardiogram [ECG] [EKG]
CPT/HCPCS: 93005; 93308

== ENCOUNTER 2024-05-12 10:39 | Observation (INO) | payer BC, SELFPAY ==
[2024-05-12] VITALS (18 sets, daily range): BP systolic 110–158; BP diastolic 66–94; PULSE 67–91; RESP 16–24; TEMP 36.6–36.8; O2SAT 90–98; BMI 30.1
--- NOTE | 2024-05-12 10:55 | XR_ITS ---
FINAL REPORT CLINICAL HISTORY: chest pain recent fluid drained from around heart COMPARISON: 03/31/2024 FINDINGS: Mild right basilar atelectasis is new since the previous exam. The left lung is clear. There is no evidence of effusion or pneumothorax. Mediastinum is unremarkable. Heart size is normal. IMPRESSION: Mild atelectasis. Reviewed, Interpreted and Dictated by Lynn Walter MD Transcribed by Sapna Ortiz Authenticated and [facility]
--- NOTE | 2024-05-12 11:01 | HMH.EDGENADL ---
Discharge Plan Disposition Patient Disposition: Still a Patient Condition: Fair Clinical Impressions Clinical Impression: Unstable angina Discharge ED Provider: Krystal Nowak General Adult HPI General Chief complaint: Chest Pain Stated complaint: Chest Pain Time Seen by Provider: 05/12/24 10:41 History of Present Illness HPI narrative: This patient is a 59-year-old male with a history of hypertension, diabetes, recent pericardial effusion status post pericardiocentesis 05/05/2024 presented to the emergency department for evaluation concern for chest pains. For the last 3 days, patient has been having intermittent pressure in his chest that waxes and wanes. It seems to get better with aspirin. He also notes significant dyspnea on exertion. It feels like a pressure and is on the left side of his chest, nonradiating. The pain is present even at rest. He denies any fevers, cough, congestion, abdominal pain. He had a repeat echocardiogram today which showed resolution of pericardial effusion. I had an interactive discussion with Dr. Hidalgo with cardiology who advised that he was worried about unstable angina given the persistent chest pain. Related Data Home Medications ?Medication ?Instructions ?Recorded ?Confirmed aspirin 81 mg chewable tablet 81 mg PO DAILY 03/31/20 05/12/24 empagliflozin 25 mg tablet 25 mg PO DAILY 03/31/20 05/12/24 atorvastatin 40 mg tablet 40 mg PO DAILY 03/31/24 05/12/24 gabapentin 800 mg tablet 800 mg PO DAILY 03/31/24 05/12/24 insulin regular hum U-500 conc 500 90 unit SQ HS 03/31/24 05/12/24 unit/mL(3 mL) subcut pen (Humulin R U-500 (Conc) Insulin Kwikpen) insulin regular hum U-500 conc 500 150 unit SQ DAILY 03/31/24 05/12/24 unit/mL(3 mL) subcut pen (Humulin R U-500 (Conc) Insulin Kwikpen) omeprazole 20 mg capsule,delayed 20 mg PO DAILY 03/31/24 05/12/24 release albuterol sulfate 90 mcg/actuation 1 inh inhalation QIDP PRN 04/01/24 05/12/24 aerosol inhaler shortness of breath or wheezing blood-glucose sensor ([employer]ha[employer]in G7 #1 ea 04/17/24 05/12/24 Sensor device) semaglutide 0.25 mg or 0.5 mg (2 0.25 mg SQ WEEKLY 04/17/24 05/12/24 mg/3 mL) subcutaneous pen injector (Ozempic) gabapentin 800 mg tablet 1,600 mg PO HS 05/12/24 05/12/24 lisinopril 20 1 tab PO DAILY 05/12/24 05/12/24 mg-hydrochlorothiazide 25 mg tablet Allergies Allergy/AdvReac Type Severity Reaction Status Date / Time No Known Allergies Allergy Verified 05/11/24 09:47 [facility] Disclaimer: The information contained in this section may have been updated after the patient was seen, as this information can be updated by other users. Medical History Right ventricular dilation Leukocytosis Renal insufficiency Acute viral syndrome Exertional dyspnea Knee sprain PAC (premature atrial contraction) Pericardial effusion Type 2 diabetes mellitus Pericarditis Influenza A (H1N1) PVC (premature ventricular contraction) Chest pain Dyspnea Diabetes HTN (hypertension) Family History Other Diabetes Hyperlipidemia Hypertension No significant family history Social History Smoking Status: Never smoker alcohol intake: never current occupational status: employed and other Travel in the last 8 weeks: None Have you lived/traveled outside US in past 30 days?: No Contact w/someone who lives/traveled outside US past 30 days?: No Exposure to someone with infectious disease in past 14 days?: No Do you have a fever (greater than 100.4 F or 38 C)?: No Have you tested positive for COVID-19: No Exposed to someone with COVID-19 in past 14 days?: No Do you have a sore throat?: No Do you have a cough?: No Do you have any weakness?: No Do you have any diarrhea?: No Are you experiencing any unusual bleeding?: No Do you have any muscle aches/pain?: No Do you have any abdominal pain?: No Are you experiencing loss of taste or smell?: No Other Medical History Have you received the Flu Vaccine for this season: No Have you received the Pneumonia Vaccine: No ROS Obtained: Yes All systems reviewed & no additional complaints except as documented Physical Exam General General appearance: alert and in no apparent distress Head Head exam: atraumatic and normocephalic Eye Eye exam: Present normal appearance, PERRL and EOMI ENT ENT exam: Present normal exam, normal oropharynx, mucous membranes moist and normal external ear exam Neck Neck exam: Present normal inspection, full ROM and trachea midline; Absent tenderness Chest Chest inspection: Present normal inspection and symmetric chest wall rise; Absent tenderness Respiratory Respiratory exam: Present normal lung sounds bilaterally; Absent respiratory distress, wheezes, stridor or accessory muscle use Cardiovascular Cardiovascular exam: Present regular rate and normal rhythm Abdominal Exam Abdominal exam: Present soft; Absent distention, tenderness or guarding Extremities Exam Extremities exam: Present normal inspection, full ROM and normal capillary refill; Absent tenderness or edema Back Exam Back exam: Present normal inspection and full ROM; Absent tenderness Neurological Exam Neurological exam: Present alert, oriented X3, CN II-XII intact and normal gait; Absent motor sensory deficit Psychiatric Psychiatric exam: Present normal affect and normal mood Skin Skin exam: Present warm and dry Medical Decision Making Medical Records Medical records reviewed: Yes I reviewed the patient's medical records. Screening: Per USPSTF and CDC recommendations, given the prevalence of disease in our region, it is our hospital?s policy to screen for HIV and viral Hepatitis for all patients aged 18 and over and those with ongoing risk factors. [place] Inquiry Pt receiving controlled substance: No Vital Signs: 05/12/24 10:44 05/12/24 11:00 Temperature 98.2 F Temperature Source Oral Pulse Rate 78 Pulse Rate [Left Radial] 89 Respiratory Rate 17 20 Blood Pressure 120/90 Blood Pressure [Right Arm] 146/94 H Blood Pressure Mean [Right Arm] 111 Blood Pressure Source [Right Arm] Automatic Cuff Blood Pressure Position [Right Arm] Sitting 02 Sat by Pulse Oximetry 96 96 Oxygen Delivery Method Room Air Room Air Lab Data Lab results reviewed: Yes I reviewed the patient's lab results. Lab Results 05/12/24 10:45: WBC 10.9 H, RBC 4.47 L, Hgb 12.2 L, Hct 38.8 L, MCV 86.8, MCH 27.3, MCHC 31.4 L, RDW 14.5, Plt Count 403, MPV 11.4 H, Neut % (Auto) 73.4, Lymph % (Auto) 14.4, [place] % (Auto) 8.2, Eos % (Auto) 2.8, Baso % (Auto) 0.8, Neut # (Auto) 8.0 H, Lymph # (Auto) 1.6, [place] # (Auto) 0.9, Eos # (Auto) 0.3, Baso # (Auto) 0.1, PT 12.2, INR 1.10, APTT 29.5, Sodium 138, Potassium 5.0, Chloride 106, Carbon Dioxide 27, Anion Gap 10.0, BUN 22 H, Creatinine 1.00, Estimated Creat Clear 107, Estimated GFR 76, Est GFR ( Amer) 93, Glucose 137 H, Calcium 9.0, Total Bilirubin 0.5, AST 32, ALT 33, Alkaline Phosphatase 121, Troponin I < 0.01, Total Protein 7.2, Albumin 3.7, Globulin 3.5 H, Albumin/Globulin Ratio 1.1 05/12/24 13:32: Activated Clotting Time 380 H* 05/12/24 10:45 05/12/24 10:45 Orders (Tests/Meds): ED MEDICATIONS Generic Name Dose Route Start Last Admin Trade Name Freq PRN Reason Stop Dose Admin Aspirin 81 mg 05/13/24 09:00 Aspirin Ec 81mg Tablet PO 06/12/24 08:59 DAILY [facility] Atorvastatin Calcium 40 mg 05/13/24 21:00 Atorvastatin 40mg Tablet PO 06/12/24 20:59 HS [facility] Calcium Carbonate 500 mg 05/12/24 15:46 05/12/24 16:24 Calcium Carbonate 500mg Chewtab PO 06/11/24 15:45 500 mg QIDP PRN Administration Heartburn Clopidogrel Bisulfate 75 mg 05/13/24 09:00 Clopidogrel 75mg Tab PO 06/12/24 08:59 DAILY MOON Empagliflozin 25 mg 05/13/24 09:00 Empagliflozin 25mg Tablet PO 06/12/24 08:59 DAILY [facility] Gabapentin 1,600 mg 05/12/24 21:00 Gabapentin 800mg Tablet PO 06/11/24 20:59 HS [facility] Gabapentin 800 mg 05/13/24 09:00 Gabapentin 800mg Tablet PO 06/12/24 08:59 DAILY MOON Nitroglycerin 0.4 mg 05/12/24 14:52 Nitroglycerin 0.4mg Sl Tablet SL 06/11/24 14:51 Q5MINP PRN Chest Pain Non-Formulary Medication 90 unit 05/13/24 16:00 Insulin Regular Hum U-500 Conc [Humulin R U-500 (Conc) Kwikpen] SUBCUT 06/12/24 15:59 1600 MOON Non-Formulary Medication 150 unit 05/13/24 06:00 Insulin Regular Hum U-500 Conc [Humulin R U-500 (Conc) Kwikpen] SUBCUT 06/12/24 05:59 0600 MOON Sodium Chloride 10 ml 05/12/24 15:46 Sodium Chloride 0.9% 10ml Vial IV 06/11/24 15:45 NEEDED PRN dilute protonix Discontinued Medications Generic Name Dose Route Start Last Admin Trade Name Freq PRN Reason Stop Dose Admin Aspirin 324 mg 05/12/24 10:55 05/12/24 11:11 Aspirin 81mg Chewable Tablet PO 05/12/24 10:56 324 mg ONCE ONE Administration Clopidogrel Bisulfate 600 mg 05/12/24 14:13 05/12/24 14:15 Clopidogrel 300mg Tablet PO 05/12/24 14:14 600 mg ONCE ONE Administration Diphenhydramine HCl 50 mg 05/12/24 11:13 05/12/24 13:11 Diphenhydramine 50mg/Ml Vial IV 05/12/24 11:14 50 mg ONCE ONE Administration Diphenhydramine HCl 50 mg 05/12/24 12:38 05/12/24 13:11 Diphenhydramine 50mg/Ml Vial IV 05/12/24 12:39 Not Given ONCE ONE Fentanyl Citrate 50 mcg 05/12/24 11:13 05/12/24 13:52 Fentanyl 100mcg/2ml Vial IV 05/12/24 23:13 125 mcg Q3MINP PRN Administration Sedation Heparin Sodium (Porcine) 10,000 unit 05/12/24 11:13 05/12/24 13:52 Heparin 1,000 Units/Ml 10ml Vial (Mall Manager) IV 05/12/24 15:13 4,500 unit NEEDED PRN Administration Emergency Box Associate Professor [employer] Heparin Sodium/Sodium Chloride 3,000 unit 05/12/24 11:13 05/12/24 13:11 Heparin 1,000 Units/500ml Ns (Mall Manager) IV 05/12/24 11:14 3,000 unit ONCE ONE Administration Sodium Chloride 1,000 mls @ 25 mls/hr 05/12/24 11:15 05/12/24 13:11 Sod Chloride 0.9% 500ml Bag IV 05/13/24 11:13 25 mls/hr .Q25H MOON Administration Iopamidol 190 ml 05/12/24 14:17 05/12/24 14:17 Iopamidol-370 (76%);100ml Bottle IV 05/12/24 14:18 190 ml ONCE ONE Administration Iopamidol 75 ml 05/12/24 15:10 05/12/24 15:11 Iopamidol-370 (76%);100ml Bottle IV 05/12/24 15:11 75 ml ONCE ONE Administration Lidocaine HCl 20 ml 05/12/24 11:13 05/12/24 13:10 Lidocaine 1% 10ml Mdv IJ 05/12/24 11:14 10 ml ONCE ONE Administration Lidocaine HCl 20 ml 05/12/24 11:13 05/12/24 13:11 Lidocaine 1% 5ml Pf Vial IJ 05/12/24 11:14 Not Given ONCE ONE Midazolam HCl 1 mg 05/12/24 11:13 05/12/24 13:52 Midazolam Hcl 1mg/Ml 5ml Vial IV 05/12/24 23:13 7 mg Q3MINP PRN Administration Sedation Nitroglycerin 800 mcg 05/12/24 11:13 05/12/24 13:11 Nitroglycerin 800mcg/8ml Syr (Mall Manager) IA 05/12/24 15:13 800 mcg NEEDED PRN Administration Emergency Box Associate Professor [employer] Pathology Pantoprazole Sodium 40 mg 05/12/24 15:46 05/12/24 16:24 Pantoprazole 40mg Vial IV 05/12/24 15:47 40 mg ONCE ONE Administration Prasugrel 60 mg 05/12/24 13:55 05/12/24 14:49 Prasugrel 10mg Tab PO 05/12/24 13:56 Not Given ONCE ONE Propofol 30 mg 05/12/24 13:54 05/12/24 14:00 Propofol 10mg/Ml 20ml Vial IV 05/12/24 13:55 30 mg ONCE ONE Administration Sodium Chloride 10 ml 05/12/24 15:10 05/12/24 15:11 Sodium Chloride 0.9% 10ml Syr (Rad Only) IV 05/12/24 15:11 10 ml ONCE ONE Administration Sodium Chloride 50 ml 05/12/24 15:10 05/12/24 15:11 0.9 % Sodium Chloride 50 Ml Vial IV 05/12/24 15:11 50 ml ONCE ONE Administration Verapamil HCl 2.5 mg 05/12/24 11:13 05/12/24 13:10 Verapamil 2.5mg/Ml 2ml Vial IV 05/12/24 11:14 2.5 mg ONCE ONE Administration ORDERS Category Date Time Status CT angio chest PE protocol Stat Cat Scan 05/12/24 13:08 Completed Cardiology Consult [Consult to Cardiology] [CONS] Cons 05/12/24 10:54 Active Routine Consult to Cardiac Rehabilitation [CONS] Routine Cons 05/12/24 14:01 Active CXR --portable [XR chest portable] Stat Exams 05/12/24 10:55 Completed Basic Metabolic Panel [facility] Lab 05/13/24 06:00 Ordered Complete Blood Count Auto Diff [facility]AB Lab 05/13/24 06:00 Ordered Complete Blood Count Auto Diff Stat Lab 05/12/24 10:45 Completed Comprehensive Metabolic Panel [facility] Lab 05/13/24 06:00 Ordered Comprehensive Metabolic Panel Stat Lab 05/12/24 10:45 Completed Lipid Panel [facility] Lab 05/13/24 06:00 Ordered Magnesium [facility] Lab 05/13/24 06:00 Ordered PT INR [Prothrombin Time INR] Stat Lab 05/12/24 10:45 Completed PTT [Activated Partial Thrombo Time] Stat Lab 05/12/24 10:45 Completed Trop I [Troponin I] Stat Lab 05/12/24 10:45 Completed ECG Request NEEDED Y 05/12/24 14:15 Stop Req ECG Data Tracing #1: I reviewed this ECG and interpreted as documented below: Normal sinus rhythm with a ventricular rate of [address]/T wave changes without acute STEMI. These changes are new from prior EKG ECG initial impression date: 05/12/24 ECG initial impression time: 10:48 HEART Score History (anamnesis): Moderately suspicious ECG: Non-specific disturbance Age: 45-65 years Risk factors: 1-2 risk factors Troponin: </= normal limit HEART Score: 4 Medical Decision Narrative: In summary, this patient is a 59-year-old male presenting to the Emergency Department for evaluation of intermittent chest pain/pressure for the last 3 days. Differential diagnoses considered include but are not limited to unstable angina, ACS, STEMI, pericarditis, myocarditis, recurrence of pericardial effusion. Ruling out the most morbid conditions drove assessment. It should be noted patient's history includes recent pericardial effusion, hypertension, and diabetes which may or may not be at goal therapy. This complicates all aspects of care by increasing patient's risk for morbidity. I reviewed patient's past medical records and noted history of pericarditis, pericardial effusion, pericardiocentesis 05/05/2024, repeat echo today that showed resolution of pericardial effusion. On exam, the patient is lying in bed in no acute distress. He complains of continued chest pressure. Vitals are normal on cardiac telemetry. EKG obtained demonstrates nonspecific ST/T wave changes which are new from prior but no acute STEMI. Workup included CBC, CMP, troponin, chest x-ray. He had an echo today that showed resolution of the effusion after recent pericardiocentesis. He was given oral aspirin. I had an interactive discussion with Dr. Hidalgo regarding his presentation and he is concerned for unstable angina and feels the patient would likely benefit of cardiac catheterization given high heart score, no prior history of cath, and EKG changes. I independently interpreted chest x-ray prior to the radiologist read and noted no large focal consolidation, no pneumothorax. Please see their read for final interpretation. Labs were obtained that demonstrated no significant changes on CBC or chemistry, negative initial troponin. Patient was given oral aspirin here. Ultimately given that he has unstable angina with a heart score of 4, I feel he would benefit from admission for cardiac evaluation. I had interactive discussions with both cardiology and with hospital medicine, and the patient will go for cardiac catheterization and then be admitted for observation afterwards. Patient was admitted in stable condition. Critical Care Critical Care Time Critical Care Time: No
--- NOTE | 2024-05-12 11:08 | PC.NURSE ---
CARDIOLOGY NOTIFIED OF CONSULT
[2024-05-12 11:09] LABS: Basophils # 0.1 K/mm3 (0-0.2); Basophils % 0.8 % (0.1-2.0); Eosinophils # 0.3 K/mm3 (0.0-0.4); Eosinophils % 2.8 % (0.1-12.0); Hematocrit 38.8 % (42.0-52.0); Hemoglobin 12.2 g/dL (14.1-18.0); Lymphocytes # 1.6 K/mm3 (0.7-4.5); Lymphocytes % 14.4 % (10-50); Mean Corpuscular HGB Conc 31.4 g/dL (31.8-35.4); Mean Corpuscular Hemoglobin 27.3 pg (27.0-31.2); Mean Corpuscular Volume 86.8 fl (80-94); Mean Platelet Volume 11.4 fl (7.4-10.4); Monocytes # 0.9 K/mm3 (0.1-1.0); Monocytes % 8.2 % (1.7-9.3); Neutrophils % 73.4 % (37.0-80.0); Platelet Count 403 K/mm3 (142-424); Red Blood Count 4.47 M/mm3 (4.60-6.20); Red Cell Distribution Width 14.5 % (11.5-17.5); White Blood Count 10.9 K/mm3 (4.8-10.8)
[2024-05-12 11:10] LABS: Albumin Level 3.7 g/dl (3.5-5.0); Chloride 106 mmol/L (98-107); Sodium 138 mmol/L (136-145)
[2024-05-12] MEDS: ASPIRIN 81MG CHEWABLE TABLET 324 MG PO (11:11)
[2024-05-12 11:13] LABS: Alanine Aminotransferase 33 U/L (12-78); Albumin/Globulin Ratio 1.1 (1.1-1.8); Alkaline Phosphatase 121 U/L (38-126); Aspartate Amino Transferase 32 U/L (17-59); Bilirubin,Total 0.5 mg/dl (0.2-1.3); Blood Urea Nitrogen 22 mg/dl (9-20); Carbon Dioxide 27 mmol/L (22.0-30.0); Creatinine Clearance Estimated 107 mL/min (50-200); Estimated Glomerular Filt Rate 76 ml/min (>60); GFR (African American) 93 ML/MIN (>60); Globulin 3.5 g/dL (1.3-3.2); Total Protein,Serum 7.2 g/dl (6.3-8.2)
[2024-05-12 11:14] LABS: Glucose 137 mg/dl (74-100)
--- NOTE | 2024-05-12 11:25 | PC.NURSE ---
PT PLACED IN GOWN
[2024-05-12 11:26] LABS: Troponin I < 0.01 ng/ml (0.00-0.034)
--- NOTE | 2024-05-12 11:35 | PC.NURSE ---
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
--- NOTE | 2024-05-12 11:45 | PC.NURSE ---
CONSENT SIGNED FOR HEART CATH, PT PROVIDED SOCKS AND WARM BLANKET. CALL LIGHT WITHIN REACH
--- NOTE | 2024-05-12 11:47 | P.HP_ITS ---
History of Present Illness *Admission Date: 05/12/24 *Reason for visit:: chest pain, unstable angina *History of present illness: Mr. Thomas is a 59-year-old male who presented to the ER because of complaint of some chest discomfort. Past history of hypertension, hyperlipidemia, diabetes. Recently had pericardial effusion status post pericardiocentesis on 05/05. Will until 3 days ago when he began to have intermittent chest pain. Pain is substernal. Pressure sensation that comes and goes. Was exerting himself when it first began, better with rest. Having shortness of breath associated with pain. Denies nausea, vomiting, confusion or loss of consciousness. Evaluation in the ED with nonspecific ST changes on EKG. Initial troponin less than 0.01. Cardiology consulted. Patient going to the [facility] for unstable angina. Medicine consulted for admission after intervention Evaluated after procedure. Repeat limited echo performed today that showed trivial pericardial effusion improved after pericardiocentesis. Stable on room air. Afebrile. Denying significant pain other than heartburn at this time. [facility] Disclaimer: The information contained in this section may have been updated after the patient was seen, as this information can be updated by other users. Medical History Right ventricular dilation Leukocytosis Renal insufficiency Acute viral syndrome Exertional dyspnea Knee sprain PAC (premature atrial contraction) Pericardial effusion Type 2 diabetes mellitus Pericarditis Influenza A (H1N1) PVC (premature ventricular contraction) Chest pain Dyspnea Diabetes HTN (hypertension) Family History Other Diabetes Hyperlipidemia Hypertension No significant family history Social History Smoking Status: Never smoker alcohol intake: never current occupational status: employed and other Travel in the last 8 weeks: None Have you lived/traveled outside US in past 30 days?: No Contact w/someone who lives/traveled outside US past 30 days?: No Exposure to someone with infectious disease in past 14 days?: No Do you have a fever (greater than 100.4 F or 38 C)?: No Have you tested positive for COVID-19: No Exposed to someone with COVID-19 in past 14 days?: No Do you have a sore throat?: No Do you have a cough?: No Do you have any weakness?: No Do you have any diarrhea?: No Are you experiencing any unusual bleeding?: No Do you have any muscle aches/pain?: No Do you have any abdominal pain?: No Are you experiencing loss of taste or smell?: No Other Medical History Have you received the Flu Vaccine for this season: No Have you received the Pneumonia Vaccine: No Review of Systems Review of Systems Review of systems (narrative): 14 point review of systems performed, pertinent positives and negatives as per [facility] Meds Home Medications and Allergies Home Medications ?Medication ?Instructions ?Recorded ?Confirmed ?Type aspirin 81 mg chewable tablet 81 mg PO DAILY 03/31/20 05/12/24 History empagliflozin 25 mg tablet 25 mg PO DAILY 03/31/20 05/12/24 History atorvastatin 40 mg tablet 40 mg PO DAILY 03/31/24 05/12/24 History gabapentin 800 mg tablet 800 mg PO DAILY 03/31/24 05/12/24 History insulin regular hum U-500 conc 500 90 unit SQ HS 03/31/24 05/12/24 History unit/mL(3 mL) subcut pen (Humulin R U-500 (Conc) Insulin Kwikpen) insulin regular hum U-500 conc 500 150 unit SQ DAILY 03/31/24 05/12/24 History unit/mL(3 mL) subcut pen (Humulin R U-500 (Conc) Insulin Kwikpen) omeprazole 20 mg capsule,delayed 20 mg PO DAILY 03/31/24 05/12/24 History release albuterol sulfate 90 mcg/actuation 1 inh inhalation QIDP PRN 04/01/24 05/12/24 History aerosol inhaler shortness of breath or wheezing blood-glucose sensor (Dexcom G7 #1 ea 04/17/24 05/12/24 History Sensor device) semaglutide 0.25 mg or 0.5 mg (2 0.25 mg SQ WEEKLY 04/17/24 05/12/24 History mg/3 mL) subcutaneous pen injector ([employer]) gabapentin 800 mg tablet 1,600 mg PO HS 05/12/24 05/12/24 History lisinopril 20 1 tab PO DAILY 05/12/24 05/12/24 History mg-hydrochlorothiazide 25 mg tablet New Prescriptions to Start Prescriptions: Allergies Allergy/AdvReac Type Severity Reaction Status Date / Time No Known Allergies Allergy Verified 05/11/24 09:47 Exam Data for Last 24 hours Vital signs and Labs for Last 24 Hours: Temp Pulse Resp BP Pulse Ox O2 Del Method 98.2 F 78 20 120/90 96 Room Air 05/12/24 10:44 05/12/24 11:00 05/12/24 11:00 05/12/24 11:00 05/12/24 11:00 05/12/24 11:00 Laboratory Results - last 24 hr 05/12/24 10:45: Sodium 138, Potassium 5.0, Chloride 106, Carbon Dioxide 27, Anion Gap 10.0, BUN 22 H, Creatinine 1.00, Estimated Creat Clear 107, Estimated GFR 76, Est GFR ( Amer) 93, Glucose 137 H, Calcium 9.0, Total Bilirubin 0.5, AST 32, ALT 33, Alkaline Phosphatase 121, Troponin I < 0.01, Total Protein 7.2, Albumin 3.7, Globulin 3.5 H, Albumin/Globulin Ratio 1.1 I & O for Last 24 hours: Intake & Output 05/09/24 05/10/24 05/11/24 05/12/24 23:59 23:59 23:59 23:59 Weight 95.254 kg Constitutional Constitutional: no acute distress, obese and cooperative *Routine HEENT Exam Head: Present normocephalic Eye: Present EOMI and PERRL ENT: Present mucous membranes moist *Routine Neck Exam Neck: Present supple; Absent lymphadenopathy *Routine Respiratory Exam Respiratory: Present CTA bilaterally; Absent rhonchi, wheezes or crackles *Routine Cardiovascular Exam Cardiovascular: Present RRR *Routine Abdominal Exam Abdominal: Present soft and normoactive bowel sounds; Absent tenderness *Routine Rectal Exam Rectal:: deferred *Routine Genitalia Exam Genitalia:: deferred *Routine Extremities Exam Extremities: Absent cyanosis, clubbing or edema *Routine Skin Exam Skin: Present warm; Absent rash *Routine Neurological Exam Neurological: Present alert, oriented X3 and moving all extremities; Absent altered mental status Assessment and Plan *Assessment and plan (1) Unstable angina: Status: Acute Category: Medical Code(s): I20.0 - Unstable angina (2) Type 2 diabetes mellitus: Status: Acute Qualifiers: Diabetes mellitus nursing home insulin use: with ferry terminal agent use Diabetes mellitus complication status: without complication Qualified Code(s): E11.9 - Type 2 diabetes mellitus without complications; 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 Thomas is a 59-year-old male with history of hypertension, obesity, diabetes. Well-controlled on insulin regimen with U-500. Presented to the hospital with chest tightness. Concern for unstable angina. Discussed case with the ER physician, request admission as patient is going to [employer] for left heart cath. Agreed to admit after procedure. Hemodynamically stable at this time. Evaluated after left heart cath, patient pleasant and in no distress. Complaining of heartburn. Stable on room air. Problems addressed as follows: Unstable angina Hypertension CAD -Discussed case with cardiology after procedure, taken for left heart cath due to unstable angina. Found to have stenosis in PDA and mid LAD. Received 2 stents to PDA and 1 to the LAD. Concern for right ventricular dilation. Recommended CTA to evaluate for PE. CTA obtained and negative for PE. Will continue DAPT therapy with Plavix and aspirin. -Will need further follow-up with cardiology as an outpatient. -No significant pericardial effusion on CTA of the chest, does have pneumopericardium likely secondary to his previous pericardiocentesis.; Repeat limited echocardiogram today shows a trivial pericardial effusion. His pericardial effusion is almost essentially resolved. This is likely not the cause of his symptoms. -Blood pressure well-controlled, continue home lisinopril/HCTZ. -LDL goal less than 55, 66 in March. Continue home Lipitor 40 mg daily Mild anemia -Hemoglobin stable at 12.2. No active signs of bleeding. Platelets 403; repeat CBC, CMP, magnesium ordered for the morning Type 2 diabetes mellitus -A1c well-controlled at 6.9 in March. Continue home regimen of Humulin R U- 500 150 units in the morning and 90 units at night. Glucose 137 on presentation to the ER -Using Dexcom ACHS to monitor glucose -Patient declined sliding scale insulin. -TSH normal at 0.6 and UA. GERD/heartburn: Initiate Tums every 6 hours as needed. Pantoprazole 40 mg IV nightly Full code Cardiac diet Heparinized in cath
[2024-05-12 11:49] LABS: Activated Partial Thrombo Time 29.5 seconds (22.8-30.6); Prothrombin Time 12.2 seconds (10.1-12.5)
--- NOTE | 2024-05-12 12:59 | IR_ITS ---
APPROVED REPORT Patient Location: Outpatient PROCEDURES Selective coronary angiogram Drug-eluting stent deployment to the proximal posterior descending artery Drug-eluting stent deployment to the mid LAD INDICATION Unstable angina, Coronary artery disease Informed consent was obtained prior to the procedure. COMPLICATIONS none Estimated Blood Loss: less than 10ml TECHNIQUE One percent lidocaine used to anesthetize the right anterior aspect of the wrist. The right radial artery was accessed via the Seldinger technique. A 6 Iranian sheath was placed in the right radial artery. 2.5 mg of Verapamil, 800 mcg of nitroglycerin, 1mg Lidocaine and 5000 U Heparin were given through the arterial sheath. The 6 Iranian JL 3 guide catheter was used to perform selective coronary angiogram. At the end of the diagnostic angiogram therapeutic heparin was administered given a therapeutic ACT and the guide catheters placed in the right coronary artery followed by Choice PT extra-support wire placed into the posterior descending artery. A 2.5 x 22 mm Goyo frontier stent was deployed at 16 angel reducing the stenosis. An additional 2.5 x 12 mm noncompliant balloon was deployed in the proximal and midportion at 20 angel to post dilate. Residual stenosis was identified distally therefore a 2.5 x 12 mm [place] frontier stent was placed distal to the for stent yet still overlapping and deployed at 20 angel. The balloon was brought back and deployed at 24 angel to mesh the 2 stents and placed proximally in the original 22 mm stent to further post dilate. KAELA-3 flow was present before and after the procedure. At the end of the procedure the apparatus was removed from the right coronary artery and placed in the LAD where the wire was then placed distally in the LAD. A 2.75 x 22 mm Goyo frontier stent was deployed at 18 angel in the mid LAD reducing the severe stenosis to 0% KAELA-3 flow was present before and after the procedure. At the end of the procedure the apparatus was removed the sheath was removed and hemostasis was achieved using TR banding patient was transferred to the postop putting in stable condition ANGIOGRAPHIC RESULTS The left main artery Normal The left anterior descending artery Has proximal 10% luminal regularities with a mid vessel concentric 80 to 90% stenosis The circumflex artery Nondominant with diffuse 10% luminal regularities The right coronary artery Massively large and dominant with proximal 10 to 20% stenoses mid vessel 30 to 40% stenosis. A large posterior descending artery has a proximal concentric long 80% stenosis The GAMING ventriculogram reveals Not performed The left ventricular end-diastolic pressure Not measured IMPRESSION Severe two-vessel coronary disease as described above Successful stenting of the large proximal posterior descending artery severe disease reduced to 0% with 2 contiguous drug-eluting stents Successful stenting of the mid LAD severe disease reduced to 0% with 2 contiguous drug-eluting stents New onset right ventricular dilatation PLAN 1. Plavix and aspirin 2. LDL less than 55 to be achieved with high intensity statin 3. Admit patient overnight 4. I would like to perform a CTA PA gram to evaluate for possible pulmonary embolism. The coronary artery disease as described above does not explain the new onset right ventricular dilatation. Patient has had a recent episode of pericarditis with myocarditis accompanied by bloody pericardial effusion. He has been sedentary at home and PE is high on the differential 5. Cardiac rehabilitation Electronically signed by : Damien Hidalgo MD 05/12/2024 14:02:27
--- NOTE | 2024-05-12 13:08 | CT_ITS ---
FINAL REPORT TECHNIQUE: Thin section axial CT with contrast with multiplanar reconstruction This study was performed with techniques to keep radiation doses as low as reasonably achievable, (ALARA). Individualized dose reduction techniques using automated exposure control or adjustment of mA and/or kV according to the patient''s size were employed. CLINICAL HISTORY: rv dilation FINDINGS: Pulmonary vessels enhance in normal fashion without evidence of embolism. Thoracic aorta shows no dissection or aneurysm. There is right lower lobe atelectasis. Trace right effusion is identified. There is a moderate size pericardial effusion with complex fluid. In addition, pneumopericardium is present. Correlate with any recent history of intervention. In the absence of invasive procedure, pneumopericardium could be seen with infection. There is multifocal adenopathy in the prevascular mediastinum, precarinal mediastinal, subcarinal region, and posterior mediastinum in the periaortic region. A lower periaortic lymph node measures 14 mm. A left prevascular node on image 27 measures 30 x 9 mm. There are 2 ovoid densities within the mid esophagus, probably represent ingested medications lodged within the esophagus. IMPRESSION: 1. Moderate sized pericardium with air within the pericardial space, question previous intervention or infection. Differential does include hemopericardium. Correlate with medical history. 2. No evidence of pulmonary embolism. 3. Moderate adenopathy. Recommend 3-month CT follow-up. 4. Small right pleural effusion. Reviewed, Interpreted and Dictated by Lynn Walter MD Transcribed by Jannette Wilde Authenticated and [facility]
[2024-05-12] MEDS: VERAPAMIL 2.5MG/ML 2ML VIAL 2.5 MG IV (13:10)
[2024-05-12] MEDS: LIDOCAINE 1% 10ML MDV 20 ML IJ (13:10)
[2024-05-12] MEDS: HEPARIN 1,000 UNITS/ML 10ML VIAL (CATH LAB) 10000 UNIT IV ×2 (13:10→13:52)
[2024-05-12] MEDS: HEPARIN 1,000 UNITS/500ML NS (CATH LAB) 3000 UNIT IV (13:11)
[2024-05-12] MEDS: NITROGLYCERIN 800MCG/8ML SYR (CATH LAB) 800 MCG IA (13:11)
[2024-05-12] MEDS: 0.9 % SODIUM CHLORIDE 500 ML 25 ML IV (13:11)
[2024-05-12] MEDS: diphenhydrAMINE 50MG/ML VIAL 50 MG IV (13:11)
--- NOTE | 2024-05-12 13:13 | P.CONCA_ITS ---
History of Present Illness History of Present Illness Consult date: 05/12/24 Requesting physician: Krystal Nowak Consult reason: chest pain Chief complaint: chest pain History of present illness: This is a 59-year-old white gentleman who presented to the emergency department with complaints of chest pain. He has a past medical history of hypertension, hyperlipidemia, diabetes and recent pericardial effusion status post pericardiocentesis on 05/05/2024. The patient states that he felt really good after having his pericardiocentesis and all of his symptoms resolved. He states approximately 3 days ago he began to have intermittent chest pain. He states that this is a substernal sharp, pressure sensation that comes and goes. 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 He states that it is associated with significant shortness of breath. The patient states that the pain does not radiate but will sometimes feel more intensely on the left side. He states that he is having the pain at rest now but worse with exertion. He denies any nausea or vomiting or diaphoresis. The patient had repeat limited echocardiogram today that shows a trivial pericardial effusion which is significantly better post pericardiocentesis. He denies any fever, chills, nausea, vomiting, diarrhea, PND or orthopnea. [facility] Disclaimer: The information contained in this section may have been updated after the patient was seen, as this information can be updated by other users. Medical History (Updated 05/12/24 @ 13:21 by Sarah Monique APRN) Right ventricular dilation Leukocytosis Renal insufficiency Acute viral syndrome Exertional dyspnea Knee sprain PAC (premature atrial contraction) Pericardial effusion Type 2 diabetes mellitus Pericarditis Influenza A (H1N1) PVC (premature ventricular contraction) Chest pain Dyspnea Diabetes HTN (hypertension) Family History Other No significant family history Social History Smoking Status: Never smoker alcohol intake: never current occupational status: other Travel in the last 8 weeks: None Have you lived/traveled outside [place] in past 30 days?: No Contact w/someone who lives/traveled outside [place] past 30 days?: No Exposure to someone with infectious disease in past 14 days?: No Do you have a fever (greater than 100.4 F or 38 C)?: No Have you tested positive for COVID-19: No Exposed to someone with COVID-19 in past 14 days?: No Do you have a sore throat?: No Do you have a cough?: No Do you have any weakness?: No Do you have any diarrhea?: No Are you experiencing any unusual bleeding?: No Do you have any muscle aches/pain?: No Do you have any abdominal pain?: No Are you experiencing loss of taste or smell?: No Review of Systems Review of Systems Review of systems:: pertinent systems reviewed and negative unless documented below Constitutional Constitutional: Reports system reviewed and no additional complaints, except as documented, Reports fatigue and Reports lethargy Eyes Eyes: Reports system reviewed and no additional complaints, except as documented ENT Ears, Nose, Mouth, and Throat: Reports system reviewed and no additional complaints, except as documented *Cardiovascular Cardiovascular: Reports system reviewed and no additional complaints, except as documented, Reports chest pain, Reports chest pain at rest, Reports chest pain with activity, Reports dyspnea, Reports dyspnea on exertion and Denies leg edema *Respiratory Respiratory: Reports system reviewed and no additional complaints, except as documented, Reports dyspnea and Reports dyspnea on exertion *Gastrointestinal Gastrointestinal: Reports system reviewed and no additional complaints, except as documented *Genitourinary Genitourinary: Reports system reviewed and no additional complaints, except as documented *Musculoskeletal Musculoskeletal: Reports system reviewed and no additional complaints, except as documented Integumentary/Breasts Skin/Breast: Reports system reviewed and no additional complaints, except as documented *Neurologic Neurologic: Reports system reviewed and no additional complaints, except as documented Psychiatric Psychiatric: Reports system reviewed and no additional complaints, except as documented Endocrine Endocrine: Reports system reviewed and no additional complaints, except as documented and Reports fatigue Hematologic/Lymphatic Hematologic/Lymphatic: Reports system reviewed and no additional complaints, except as documented Allergic/Immunologic Allergic/Immunologic: Reports system reviewed and no additional complaints, except as documented Exam Data for Last 24 hours Vital signs and Labs for Last 24 Hours: Temp Pulse Resp BP Pulse Ox O2 Del Method 97.9 F 91 H 17 135/79 96 Room Air 05/12/24 13:02 05/12/24 13:02 05/12/24 13:02 05/12/24 13:02 05/12/24 11:00 05/12/24 13:02 Laboratory Results - last 24 hr 05/12/24 10:45: WBC 10.9 H, RBC 4.47 L, Hgb 12.2 L, Hct 38.8 L, MCV 86.8, MCH 27.3, MCHC 31.4 L, RDW 14.5, Plt Count 403, MPV 11.4 H, Neut % (Auto) 73.4, Lymph % (Auto) 14.4, [place] % (Auto) 8.2, Eos % (Auto) 2.8, Baso % (Auto) 0.8, Neut # (Auto) 8.0 H, Lymph # (Auto) 1.6, [place] # (Auto) 0.9, Eos # (Auto) 0.3, Baso # (Auto) 0.1, PT 12.2, INR 1.10, APTT 29.5, Sodium 138, Potassium 5.0, Chloride 106, Carbon Dioxide 27, Anion Gap 10.0, BUN 22 H, Creatinine 1.00, Estimated Creat Clear 107, Estimated GFR 76, Est GFR ( Amer) 93, Glucose 137 H, Calcium 9.0, Total Bilirubin 0.5, AST 32, ALT 33, Alkaline Phosphatase 121, Troponin I < 0.01, Total Protein 7.2, Albumin 3.7, Globulin 3.5 H, Albumin/Globulin Ratio 1.1 I & O for Last 24 hours: Intake & Output 05/09/24 05/10/24 05/11/24 05/12/24 23:59 23:59 23:59 23:59 Weight 210 lb Constitutional Constitutional: no acute distress and obese *Routine HEENT Exam Head: Present normocephalic and atraumatic ENT: Present mucous membranes moist *Routine Neck Exam Neck: Present supple, full ROM and normal carotid upstroke; Absent JVD, carotid bruit or lymphadenopathy *Routine Respiratory Exam Respiratory: Present CTA bilaterally, normal respiratory effort, able to speak in complete sentences and symmetric chest movement *Routine Cardiovascular Exam Cardiovascular: Present RRR, Normal S1 and Normal S2; Absent murmur or gallop *Routine Abdominal Exam Abdominal: Present soft and normoactive bowel sounds; Absent tenderness, distended or organomegaly *Routine Extremities Exam Extremities: Present full ROM, pulses intact and normal capillary refill; Absent cyanosis, clubbing or edema *Routine Skin Exam Skin: Present intact and warm; Absent erythema *Routine Neurological Exam Neurological: Present alert, oriented X3 and CN II-XII intact; Absent sensory deficit or motor deficit Routine Psychiatric Exam Psychiatric: Present normal affect Meds Home Medications and Allergies Home Medications ?Medication ?Instructions ?Recorded ?Confirmed ?Type aspirin 81 mg chewable tablet 81 mg PO DAILY 03/31/20 05/12/24 History empagliflozin 25 mg tablet 25 mg PO DAILY 03/31/20 05/12/24 History atorvastatin 40 mg tablet 40 mg PO DAILY 03/31/24 05/12/24 History gabapentin 800 mg tablet 800 mg PO DAILY 03/31/24 05/12/24 History insulin regular hum U-500 conc 500 90 unit SQ HS 03/31/24 05/12/24 History unit/mL(3 mL) subcut pen (Humulin R U-500 (Conc) Insulin Kwikpen) insulin regular hum U-500 conc 500 150 unit SQ DAILY 03/31/24 05/12/24 History unit/mL(3 mL) subcut pen (Humulin R U-500 (Conc) Insulin Kwikpen) omeprazole 20 mg capsule,delayed 20 mg PO DAILY 03/31/24 05/12/24 History release albuterol sulfate 90 mcg/actuation 1 inh inhalation QIDP PRN 04/01/24 05/12/24 History aerosol inhaler shortness of breath or wheezing blood-glucose sensor (Dexcom G7 #1 ea 04/17/24 05/12/24 History Sensor device) semaglutide 0.25 mg or 0.5 mg (2 0.25 mg SQ WEEKLY 04/17/24 05/12/24 History mg/3 mL) subcutaneous pen injector (Ozempic) gabapentin 800 mg tablet 1,600 mg PO HS 05/12/24 05/12/24 History lisinopril 20 1 tab PO DAILY 05/12/24 05/12/24 History mg-hydrochlorothiazide 25 mg tablet New Prescriptions to Start Prescriptions: Allergies Allergy/AdvReac Type Severity Reaction Status Date / Time No Known Allergies Allergy Verified 05/11/24 09:47 Assessment and Plan *Assessment and plan (1) Unstable angina: Status: Acute Category: Medical Code(s): I20.0 - Unstable angina (2) Type 2 diabetes mellitus: Status: Acute Qualifiers: Diabetes mellitus detention insulin use: with manager intermediate use Diabetes mellitus complication status: without complication Qualified Code(s): E11.9 - Type 2 diabetes mellitus without complications; Z79.4 - terminal operations supervisor (current) use of insulin Category: Medical Code(s): E11.9 - Type 2 diabetes mellitus without complications (3) HTN (hypertension): Status: Acute Qualifiers: Hypertension type: primary hypertension Qualified Code(s): I10 - Essential (primary) hypertension Category: Medical Code(s): I10 - Essential (primary) hypertension (4) Right ventricular dilation: Status: Acute Category: Medical Code(s): I51.7 - Cardiomegaly Plan Plan: 1. The patient presented to the hospital with chest pain. He is found to have unstable angina. The patient did previously have a pericardial effusion and is status post pericardiocentesis on 05/05/2024. The patient states that following his pericardiocentesis he felt great and then 3 days ago he had sudden onset of chest pain, shortness of breath and fatigue and it continues to worsen. Due to his unstable angina we will plan to proceed with left cardiac catheterization today to evaluate for coronary artery disease. 2. The patient has been educated the risk and benefits of proceeding with left cardiac catheterization. The patient verbalizes understanding and is agreeable in proceeding with the procedure. 3. The patient will be n.p.o. in preparation for left cardiac catheterization. 4. Repeat limited echocardiogram today shows a trivial pericardial effusion. His pericardial effusion is almost essentially resolved. This is likely not the cause of his symptoms. 5. His limited echocardiogram does show new RV dilation that was not previously noted. This is highly suspicious for a pulmonary embolus. Will obtain a CTA of the chest to rule out a PE. 6. His blood pressure is well-controlled. Continue lisinopril HCT. 7. His LDL goal is less than 55. His LDL was 66 in March 2024. He is on a statin. 8. The patient is diabetic. He will need aggressive control of his diabetes. Will defer to the hospitalist. 9. Further recommendations will be made pending the patient's response to treatment and the results of his left cardiac catheterization today. Thank you for the opportunity to help dissipate in the care of this patient. All recommendations and orders are per Dr. Hidalgo.
--- NOTE | 2024-05-12 13:20 | HMH.PHAINT1 ---
Pharmacy Intervention Comments: MEDICATION RECONCILIATION COMPLETED ON PATIENT USING EXTERNAL FILL HISTORY FROM PHARMACY AND LIST FROM CARDIOLOGY OFFICE. -REJI MC, MARTYD
[2024-05-12] MEDS: FENTANYL 100MCG/2ML VIAL 50 MCG IV (13:52)
[2024-05-12] MEDS: MIDAZOLAM HCL 1MG/ML 5ML VIAL 1 MG IV (13:52)
[2024-05-12] MEDS: PROPOFOL 10MG/ML 20ML VIAL 30 MG IV (14:00)
[2024-05-12] MEDS: CLOPIDOGREL 300MG TABLET 600 MG PO (14:15)
[2024-05-12] MEDS: IOPAMIDOL-370 (76%);100ML BOTTLE 190 ML IV (14:17)
[2024-05-12 14:21] LABS: CATHL Activated Clotting Time 380 SEC (74-125)
--- NOTE | 2024-05-12 15:05 | PC.NURSE ---
arrived by w/c from laboratory technical specialist
[2024-05-12] MEDS: SODIUM CHLORIDE 0.9% 10ML SYR (RAD ONLY) 10 ML IV (15:11)
[2024-05-12] MEDS: IOPAMIDOL-370 (76%);100ML BOTTLE 75 ML IV (15:11)
[2024-05-12] MEDS: 0.9 % SODIUM CHLORIDE 50 ML VIAL IV (15:11)
[2024-05-12] MEDS: PANTOPRAZOLE 40MG VIAL 40 MG IV (16:24)
[2024-05-12] MEDS: CALCIUM CARBONATE 500MG CHEWTAB 500 MG PO (16:24)
[2024-05-12] MEDS: GABAPENTIN 800MG TABLET 1600 MG PO (20:22)
[2024-05-13] VITALS: BP 124/66; PULSE 44; RESP 16; TEMP 36.8; O2SAT 93
--- NOTE | 2024-05-13 02:51 | PC.NURSE ---
Pt is resting in bed with eyes closed. Respirations even and unlabored. at bedside. Pt's vitals have been stable throughout the shift and R radial cath site looks clean with no drainage. Bed is low, locked, and call light is in reach.
[2024-05-13 04:00] VITALS: BP 124/73; PULSE 85; RESP 18; TEMP 36.8; O2SAT 95; BMI 37.8
[2024-05-13 07:47] LABS: Basophils # 0.1 K/mm3 (0-0.2); Basophils % 0.6 % (0.1-2.0); Eosinophils # 0.4 K/mm3 (0.0-0.4); Eosinophils % 2.8 % (0.1-12.0); Hematocrit 37.6 % (42.0-52.0); Hemoglobin 11.9 g/dL (14.1-18.0); Lymphocytes # 1.4 K/mm3 (0.7-4.5); Lymphocytes % 10.9 % (10-50); Mean Corpuscular HGB Conc 31.6 g/dL (31.8-35.4); Mean Corpuscular Hemoglobin 27.1 pg (27.0-31.2); Mean Corpuscular Volume 85.6 fl (80-94); Mean Platelet Volume 10.8 fl (7.4-10.4); Neutrophils % 77.2 % (37.0-80.0); Platelet Count 385 K/mm3 (142-424); Red Blood Count 4.39 M/mm3 (4.60-6.20); Red Cell Distribution Width 14.6 % (11.5-17.5)
[2024-05-13 07:50] LABS: Albumin Level 3.4 g/dl (3.5-5.0); Chloride 105 mmol/L (98-107); Sodium 137 mmol/L (136-145)
[2024-05-13 07:51] LABS: Potassium 4.5 mmoL/L (3.5-5.1)
[2024-05-13 07:53] LABS: Alanine Aminotransferase 26 U/L (12-78); Alkaline Phosphatase 97 U/L (38-126); Anion Gap 9.5 mEq/L (5-15); Aspartate Amino Transferase 24 U/L (17-59); Bilirubin,Total 0.7 mg/dl (0.2-1.3); Blood Urea Nitrogen 16 mg/dl (9-20); Calcium 8.6 mg/dl (8.4-10.2); Carbon Dioxide 27 mmol/L (22.0-30.0); Creatinine Clearance Estimated 150 mL/min (50-200); Estimated Glomerular Filt Rate 86 ml/min (>60); GFR (African American) 105 ML/MIN (>60); Globulin 3.3 g/dL (1.3-3.2); Glucose 80 mg/dl (74-100); Total Protein,Serum 6.7 g/dl (6.3-8.2)
[2024-05-13 08:00] VITALS: BP 148/78; PULSE 87; RESP 17; TEMP 36.7; O2SAT 95
--- NOTE | 2024-05-13 08:12 | P.DS_ITS ---
General Admission date:: 05/12/24 Discharge date: 05/13/24 HPI HPI HPI: Mr. Thomas is a 59-year-old male who presented to the ER because of complaint of some chest discomfort. Past history of hypertension, hyperlipidemia, diabetes. Recently had pericardial effusion status post pericardiocentesis on 05/05. Will until 3 days ago when he began to have intermittent chest pain. Pain is substernal. Pressure sensation that comes and goes. Was exerting himself when it first began, better with rest. Having shortness of breath associated with pain. Denies nausea, vomiting, confusion or loss of consciousness. Evaluation in the ED with nonspecific ST changes on EKG. Initial troponin less than 0.01. Cardiology consulted. Patient going to the [facility] for unstable angina. Medicine consulted for admission after intervention Evaluated after procedure. Repeat limited echo performed today that showed trivial pericardial effusion improved after pericardiocentesis. Stable on room air. Afebrile. Denying significant pain other than heartburn at this time. Hospital Course Hospital Course Hospital Course: Mr. Thomas is a 59-year-old male with history of hypertension, obesity, diabetes. Well-controlled on insulin regimen with U-500. Presented to the hospital with chest tightness. Concern for unstable angina. Discussed case with the ER physician, request admission as patient is going to [facility] for left heart cath. Agreed to admit after procedure. Hemodynamically stable at this time. No events overnight. Feeling better this morning. Stable to discharge home with follow-up with cardiology as an outpatient. Problems addressed as follows: Unstable angina Hypertension CAD -Discussed case with cardiology after procedure, taken for left heart cath due to unstable angina. Found to have stenosis in PDA and mid LAD. Received 2 stents to PDA and 1 to the LAD. Concern for right ventricular dilation. Recommended CTA to evaluate for PE. CTA obtained and negative for PE. Will continue DAPT therapy with Plavix and aspirin. Did well overnight. Monitored on telemetry. No further events. Stable to discharge home with close follow-up with cardiology. No significant pericardial effusion on CTA of the chest, does have pneumopericardium likely secondary to his previous pericardiocentesis.; Repeat limited echocardiogram on day of admission showed a trivial pericardial effusion. His pericardial effusion is almost essentially resolved. This is likely not the cause of his symptoms. -Blood pressure well-controlled, continue home lisinopril/HCTZ. -LDL goal less than 55, 66 in March. Continue home Lipitor 40 mg daily Mild anemia: Hemoglobin stable during admission. No signs of bleeding. Type 2 diabetes mellitus -A1c well-controlled at 6.9 in March. Continue home regimen of Humulin R U- 500 150 units in the morning and 90 units at night. Glucose 137 on presentation to the ER. Continue Dexcom. TSH normal at 0.6. GERD/heartburn: Continue home pantoprazole regimen. Tums utilized during admission. Resolved by morning Exam Data for Last 24 hours Vital signs and Labs for Last 24 Hours: Temp Pulse Resp BP Pulse Ox O2 Del Method 98.2 F 85 18 124/73 95 Room Air 05/13/24 04:00 05/13/24 04:00 05/13/24 04:00 05/13/24 04:00 05/13/24 04:00 05/13/24 06:27 Laboratory Results - last 24 hr 05/12/24 10:45: WBC 10.9 H, RBC 4.47 L, Hgb 12.2 L, Hct 38.8 L, MCV 86.8, MCH 27.3, MCHC 31.4 L, RDW 14.5, Plt Count 403, MPV 11.4 H, Neut % (Auto) 73.4, Lymph % (Auto) 14.4, [place] % (Auto) 8.2, Eos % (Auto) 2.8, Baso % (Auto) 0.8, Neut # (Auto) 8.0 H, Lymph # (Auto) 1.6, [place] # (Auto) 0.9, Eos # (Auto) 0.3, Baso # (Auto) 0.1, PT 12.2, INR 1.10, APTT 29.5, Sodium 138, Potassium 5.0, Chloride 106, Carbon Dioxide 27, Anion Gap 10.0, BUN 22 H, Creatinine 1.00, Estimated Creat Clear 107, Estimated GFR 76, Est GFR ( Amer) 93, Glucose 137 H, Calcium 9.0, Total Bilirubin 0.5, AST 32, ALT 33, Alkaline Phosphatase 121, Troponin I < 0.01, Total Protein 7.2, Albumin 3.7, Globulin 3.5 H, Albumin/Globulin Ratio 1.1 05/12/24 13:32: Activated Clotting Time 380 H* 05/13/24 07:20: WBC 13.0 H, RBC 4.39 L, Hgb 11.9 L, Hct 37.6 L, MCV 85.6, MCH 27.1, MCHC 31.6 L, RDW 14.6, Plt Count 385, MPV 10.8 H, Neut % (Auto) 77.2, Lymph % (Auto) 10.9, [place] % (Auto) 8.0, Eos % (Auto) 2.8, Baso % (Auto) 0.6, Neut # (Auto) 10.0 H, Lymph # (Auto) 1.4, [place] # (Auto) 1.0, Eos # (Auto) 0.4, Baso # (Auto) 0.1, Sodium 137, Potassium 4.5, Chloride 105, Carbon Dioxide 27, Anion Gap 9.5, BUN 16 D, Creatinine 0.90, Estimated Creat Clear 150, Estimated GFR 86, Est GFR ( Amer) 105, Glucose 80 D, Calcium 8.6, Magnesium 2.0, Total Bilirubin 0.7, AST 24, ALT 26, Alkaline Phosphatase 97, Total Protein 6.7, Albumin 3.4 L, Globulin 3.3 H, Albumin/Globulin Ratio 1.0 L I & O for Last 24 hours: Intake & Output 05/10/24 05/11/24 05/12/24 05/13/24 23:59 23:59 23:59 23:59 Intake Total 480 / 480 Output Total 0 / 0 Balance 480 / 480 0 / 0 Weight 95.254 kg 119.703 kg Constitutional Constitutional: no acute distress, obese and cooperative *Routine HEENT Exam Head: Present normocephalic Eye: Present EOMI and PERRL ENT: Present mucous membranes moist *Routine Neck Exam Neck: Present supple; Absent lymphadenopathy *Routine Respiratory Exam Respiratory: Present CTA bilaterally; Absent rhonchi or wheezes *Routine Cardiovascular Exam Cardiovascular: Present RRR *Routine Abdominal Exam Abdominal: Present soft and normoactive bowel sounds; Absent tenderness *Routine Rectal Exam Patient deferred: visual exam *Routine Exam Patient deferred: penile exam *Routine Extremities Exam Extremities: Absent cyanosis, clubbing or edema *Routine Skin Exam Skin: Present warm; Absent rash *Routine Neurological Exam Neurological: Present alert, oriented X3 and moving all extremities; Absent altered mental status Results Data Completed and Pending Labs on day of discharge: Labs from last 24 hours 05/13/24 05/12/24 05/12/24 07:20 13:32 10:45 WBC 13.0 H 10.9 H RBC 4.39 L 4.47 L Hgb 11.9 L 12.2 L Hct 37.6 L 38.8 L MCV 85.6 86.8 MCH 27.1 27.3 MCHC 31.6 L 31.4 L RDW 14.6 14.5 Plt Count 385 403 MPV 10.8 H 11.4 H Neut % (Auto) 77.2 73.4 Lymph % (Auto) 10.9 14.4 [place] % (Auto) 8.0 8.2 Eos % (Auto) 2.8 2.8 Baso % (Auto) 0.6 0.8 Neut # (Auto) 10.0 H 8.0 H Lymph # (Auto) 1.4 1.6 [place] # (Auto) 1.0 0.9 Eos # (Auto) 0.4 0.3 Baso # (Auto) 0.1 0.1 PT 12.2 INR 1.10 APTT 29.5 Activated Clotting Time 380 H* Sodium 137 138 Potassium 4.5 5.0 Chloride 105 106 Carbon Dioxide 27 27 Anion Gap 9.5 10.0 BUN 16 D 22 H Creatinine 0.90 1.00 Estimated Creat Clear 150 107 Estimated GFR 86 76 Est GFR ( Amer) 105 93 Glucose 80 D 137 H Calcium 8.6 9.0 Magnesium 2.0 Total Bilirubin 0.7 0.5 AST 24 32 ALT 26 33 Alkaline Phosphatase 97 121 Troponin I < 0.01 Total Protein 6.7 7.2 Albumin 3.4 L 3.7 Globulin 3.3 H 3.5 H Albumin/Globulin Ratio 1.0 L 1.1 DS: Diagnosis Discharge Diagnosis (1) Unstable angina: Status: Acute Code(s): I20.0 - Unstable angina (2) Type 2 diabetes mellitus: Status: Acute Code(s): E11.9 - Type 2 diabetes mellitus without complications Qualifiers: Diabetes mellitus complication status: without complication Diabetes mellitus long term acute care registered nurse insulin use: with long term acute care registered nurse use Qualified Code(s): E11.9 - Type 2 diabetes mellitus without complications; Z79.4 - detention (current) use of insulin (3) HTN (hypertension): Status: Acute Code(s): I10 - Essential (primary) hypertension Qualifiers: Hypertension type: primary hypertension Qualified Code(s): I10 - Essential (primary) hypertension (4) Right ventricular dilation: Status: Acute Code(s): I51.7 - Cardiomegaly Meds Home Medications and Allergies Home Medications ?Medication ?Instructions ?Recorded ?Confirmed ?Type aspirin 81 mg chewable tablet 81 mg PO DAILY 03/31/20 05/12/24 History empagliflozin 25 mg tablet 25 mg PO DAILY 03/31/20 05/12/24 History atorvastatin 40 mg tablet 40 mg PO DAILY 03/31/24 05/12/24 History gabapentin 800 mg tablet 800 mg PO DAILY 03/31/24 05/12/24 History insulin regular hum U-500 conc 500 90 unit SQ HS 03/31/24 05/12/24 History unit/mL(3 mL) subcut pen (Humulin R U-500 (Conc) Insulin Kwikpen) insulin regular hum U-500 conc 500 150 unit SQ DAILY 03/31/24 05/12/24 History unit/mL(3 mL) subcut pen (Humulin R U-500 (Conc) Insulin Kwikpen) omeprazole 20 mg capsule,delayed 20 mg PO DAILY 03/31/24 05/12/24 History release albuterol sulfate 90 mcg/actuation 1 inh inhalation QIDP PRN 04/01/24 05/12/24 History aerosol inhaler shortness of breath or wheezing blood-glucose sensor (Dexcom G7 #1 ea 04/17/24 05/12/24 History Sensor device) semaglutide 0.25 mg or 0.5 mg (2 0.25 mg SQ WEEKLY 04/17/24 05/12/24 History mg/3 mL) subcutaneous pen injector (Ozempic) gabapentin 800 mg tablet 1,600 mg PO HS 05/12/24 05/12/24 History lisinopril 20 1 tab PO DAILY 05/12/24 05/12/24 History mg-hydrochlorothiazide 25 mg tablet clopidogrel 75 mg tablet 75 mg PO DAILY 30 days #30 tabs 05/13/24 Rx New Prescriptions to Start Prescriptions: clopidogrel Patricio Escobar Allergies Allergy/AdvReac Type Severity Reaction Status Date / Time No Known Allergies Allergy Verified 05/11/24 09:47 Discharge Plan Disposition Patient Disposition: Home, Self-Care Condition: Fair Follow up Plan Follow up with: Lizzie Quintero APRN [Nurse Practitioner] - Enter time for follow up (please call for appointment ) Provider,MD Ely [Primary Care Provider] - See instructions Bryce Pugh MD [Staff Physician] - 05/18/24 1:30 pm Prescriptions/Medication Reconciliation: New clopidogrel 75 mg Tablet 75 mg PO DAILY 30 Days Qty: 30 0RF Continued (DME) Dexcom G7 Sensor Device See Rx Instructions .ROUTE .MEDSUPPLY Qty: 1 Patient Comments: USE DIRECTED EVERY 10 DAYS Rx Instructions: As directed Ozempic 0.25 mg or 0.5 mg (2 mg/3 mL) pen injector 0.25 mg SQ WEEKLY aspirin 81 MG tablet,chewable 81 mg PO DAILY empagliflozin 25 MG tablet 25 mg PO DAILY atorvastatin 40 mg tablet 40 mg PO DAILY Patient Comments: TAKE 1 TABLET BY MOUTH ONCE DAILY gabapentin 800 mg tablet 800 mg PO DAILY Patient Comments: Pt states he takes 1 tablet PO in AM and 2 tablets HS omeprazole 20 mg Capsule,Delayed Release(Dr/Ec) 20 mg PO DAILY Humulin R U-500 (Conc) Kwikpen 500 unit/mL (3 mL) insulin pen 90 unit SQ HS Humulin R U-500 (Conc) Kwikpen 500 unit/mL (3 mL) insulin pen 150 unit SQ DAILY albuterol sulfate 90 mcg/actuation HFA aerosol inhaler 1 inh inhalation QIDP PRN (Reason: shortness of breath or wheezing) gabapentin 800 mg tablet 1,600 mg PO HS Patient Comments: TAKE 1 TABLET BY MOUTH IN THE MORNING AND 1 IN THE EVENING AND 1 BEFORE BEDTIME lisinopril-hydrochlorothiazide 20-25 mg tablet 1 tab PO DAILY Patient Comments: TAKE 1 TABLET BY MOUTH ONCE DAILY Problem Reconciliation Problems Reviewed?: Yes Patient Discharge Instructions ACTIVITY: Continue current activity DIET: continue same diet Patient Instructions: Cardiac Catheterization, Acute Coronary Syndrome, Surgical Site Infection, Cardiology Catheterization Patient / Family Discharge Instructions Print Language: Telugu Providers Primary Care Provider: Provider,Referral Admit Provider: Damien Hidalgo Attending Provider: Patricio Escobar
[2024-05-13 08:24] LABS: Cholesterol 93 mg/dl (140-200); HDL Cholesterol 23 mg/dl (40-60); Triglycerides 64 mg/dl (30-150); VLDL Cholesterol 13 mg/dL (0-40)
[2024-05-13] MEDS: CLOPIDOGREL 75MG TAB 75 MG PO (08:26)
[2024-05-13] MEDS: ASPIRIN EC 81MG TABLET 81 MG PO (08:26)
[2024-05-13] MEDS: GABAPENTIN 800MG TABLET 800 MG PO (08:26)
[2024-05-13] MEDS: EMPAGLIFLOZIN 25MG TABLET 25 MG PO (08:26)
[2024-05-13 08:35] LABS: Direct LDL Cholesterol 50.88 mg/dL (100-129)
--- NOTE | 2024-05-16 10:10 | SW/DCPLANNER ---
Phoned patient x2. Was unable to leave message. 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
== END 2024-05-13 09:12 | disposition home or self-care (01) ==
LOC: ER 10:59 → CATHLAB 11:49 → 2ND 14:46
PROVIDERS: Nurse Practitioner Family; Admitting Provider Internal Medicine; Emergency Provider Emergency Medicine; Visit Provider Internal Medicine Adolescent Medicine
DX: I25.110 Atherosclerotic heart disease of native coronary artery with unstable angina pectoris (principal); I11.9 Hypertensive heart disease without heart failure; I10 Essential (primary) hypertension; E78.5 Hyperlipidemia, unspecified; E11.9 Type 2 diabetes mellitus without complications; I31.39 Other pericardial effusion (noninflammatory); I49.3 Ventricular premature depolarization; R06.02 Shortness of breath; I49.1 Atrial premature depolarization; E66.9 Obesity, unspecified; I31.9 Disease of pericardium, unspecified; D64.9 Anemia, unspecified; K21.9 Gastro-esophageal reflux disease without esophagitis; Z79.4 Long term (current) use of insulin; Z68.37 Body mass index [BMI] 37.0-37.9, adult; R53.83 Other fatigue; Z83.3 Family history of diabetes mellitus; Z83.438 Family history of other disorder of lipoprotein metabolism and other lipidemia; Z82.49 Family history of ischemic heart disease and other diseases of the circulatory system; Z79.82 Long term (current) use of aspirin; Z79.85 Long-term (current) use of injectable non-insulin antidiabetic drugs; Z79.899 Other long term (current) drug therapy
CPT/HCPCS: 36415; 71045; 71275; 80053; 80061; 83735; 84484; 85025; 85347; 85610; 85730; 92928; 92929; 93454; 99152; 99153; 99285; C1725; C1769; C1874; C9600; C9601; G0378; J1200; J1644; J2250; J3010; Q9967

== ENCOUNTER 2024-05-18 14:48 | Outpatient (CLI) | payer BC, SELFPAY ==
[2024-05-18 18:47] LABS: Basophils # 0.1 K/mm3 (0-0.2); Basophils % 0.9 % (0.1-2.0); Eosinophils # 0.4 K/mm3 (0.0-0.4); Eosinophils % 2.7 % (0.1-12.0); Hematocrit 41.6 % (42.0-52.0); Hemoglobin 12.8 g/dL (14.1-18.0); Lymphocytes % 15.2 % (10-50); Mean Corpuscular HGB Conc 30.8 g/dL (31.8-35.4); Mean Corpuscular Hemoglobin 26.5 pg (27.0-31.2); Mean Corpuscular Volume 86.1 fl (80-94); Mean Platelet Volume 11.8 fl (7.4-10.4); Monocytes # 1.1 K/mm3 (0.1-1.0); Monocytes % 8.2 % (1.7-9.3); Neutrophils # 9.5 K/mm3 (1.8-7.8); Nucleated Red Blood Cells # 0 10^3/uL; Nucleated Red Blood Cells % 0 %; Platelet Count 441 K/mm3 (142-424); Red Blood Count 4.83 M/mm3 (4.60-6.20); Red Cell Distribution Width 15.2 % (11.5-17.5); Red Cell Distribution Width-SD 47.3 fL; White Blood Count 13.3 K/mm3 (4.8-10.8)
[2024-05-18 19:23] LABS: Alanine Aminotransferase 23 U/L (12-78); Albumin Level 3.9 g/dl (3.5-5.0); Albumin/Globulin Ratio 1.1 (1.1-1.8); Alkaline Phosphatase 127 U/L (38-126); Anion Gap 16.4 mEq/L (5-15); Aspartate Amino Transferase 21 U/L (17-59); Bilirubin,Total 0.5 mg/dl (0.2-1.3); Blood Urea Nitrogen 26 mg/dl (9-20); Calcium 9.6 mg/dl (8.4-10.2); Carbon Dioxide 27 mmol/L (22.0-30.0); Chloride 100 mmol/L (98-107); Estimated Glomerular Filt Rate 69 ml/min (>60); GFR (African American) 83 ML/MIN (>60); Globulin 3.6 g/dL (1.3-3.2); Glucose 143 mg/dl (74-100); Potassium 5.4 mmoL/L (3.5-5.1); Sodium 138 mmol/L (136-145); Total Protein,Serum 7.5 g/dl (6.3-8.2)
[2024-05-18 19:55] LABS: Prostate Specific Ag Screen 1.5 ng/ml (0.0-4.0)
== END 2024-05-18 23:59 | disposition home or self-care (01) ==
LOC: LAB.DROPOF 05-19 10:35
PROVIDERS: PCP Family Medicine; Visit Provider Family Medicine
DX: I25.10 Atherosclerotic heart disease of native coronary artery without angina pectoris (principal); I10 Essential (primary) hypertension; Z12.5 Encounter for screening for malignant neoplasm of prostate
CPT/HCPCS: 80053; 85025; G0103

== ENCOUNTER 2024-05-23 12:32 | Outpatient (CLI) | payer BC, SELFPAY ==
[2024-05-23 14:24] LABS: Basophils # 0.1 K/mm3 (0-0.2); Basophils % 0.9 % (0.1-2.0); Eosinophils # 0.4 K/mm3 (0.0-0.4); Eosinophils % 2.9 % (0.1-12.0); Hematocrit 38.4 % (42.0-52.0); Hemoglobin 12.4 g/dL (14.1-18.0); Lymphocytes # 2.4 K/mm3 (0.7-4.5); Lymphocytes % 19.2 % (10-50); Mean Corpuscular HGB Conc 32.3 g/dL (31.8-35.4); Mean Corpuscular Hemoglobin 27.1 pg (27.0-31.2); Mean Platelet Volume 11.5 fl (7.4-10.4); Monocytes # 1.1 K/mm3 (0.1-1.0); Monocytes % 8.4 % (1.7-9.3); Neutrophils # 8.6 K/mm3 (1.8-7.8); Neutrophils % 67.7 % (37.0-80.0); Nucleated Red Blood Cells # 0 10^3/uL; Nucleated Red Blood Cells % 0 %; Platelet Count 379 K/mm3 (142-424); Red Blood Count 4.57 M/mm3 (4.60-6.20); Red Cell Distribution Width 15.3 % (11.5-17.5); Red Cell Distribution Width-SD 45.4 fL; White Blood Count 12.7 K/mm3 (4.8-10.8)
--- NOTE | 2024-05-23 14:30 | CA_ITS ---
APPROVED REPORT EXAM: Comprehensive 2D, Doppler, and color-flow Echocardiogram Residency Coordinator: BERTA Dozier, RVS Ht: 6 ft 0 in Wt: 266lbs BSA: 2.41 BP: 110/70 mmHg Indications: CAD, Follow up pericardial effusion 2D Dimensions LVEF (Visual) 46.00 % Other Information Study Quality: Fair Conclusion This is a limited TTE to evaluate for pericardial effusion. Limited windows were obtained. There is a trivial circumferential pericardial effusion present, most notably towards the distal and apical warner. No echo indications of tamponade or evidence of chamber collapse. Compared to prior study from 05/2024, the pericardial effusion size has improved. Electronically signed by : Zoya Pugh MD 05/23/2024 13:01:24
[2024-05-23 14:46] LABS: Erythrocyte Sedimentation Rate 15 mm/hr (0-20)
[2024-05-23 14:53] LABS: Monoscreen (Rapid) Negative (Negative)
[2024-05-23 14:56] LABS: Albumin Level 3.8 g/dl (3.5-5.0); Chloride 104 mmol/L (98-107); Potassium 4.5 mmoL/L (3.5-5.1); Sodium 140 mmol/L (136-145)
[2024-05-23 14:59] LABS: Alanine Aminotransferase 31 U/L (12-78); Albumin/Globulin Ratio 1.1 (1.1-1.8); Alkaline Phosphatase 120 U/L (38-126); Anion Gap 14.5 mEq/L (5-15); Aspartate Amino Transferase 28 U/L (17-59); Bilirubin,Total 0.6 mg/dl (0.2-1.3); Blood Urea Nitrogen 29 mg/dl (9-20); Carbon Dioxide 26 mmol/L (22.0-30.0); Estimated Glomerular Filt Rate 69 ml/min (>60); GFR (African American) 83 ML/MIN (>60); Globulin 3.4 g/dL (1.3-3.2); Iron 51 ug/dL (49-181); Total Protein,Serum 7.2 g/dl (6.3-8.2)
[2024-05-23 15:00] LABS: Calcium 9.2 mg/dl (8.4-10.2); Glucose 51 mg/dl (74-100)
[2024-05-23 15:09] LABS: Total Iron Binding Capacity 299 ug/dL (261-462)
[2024-05-23 15:28] LABS: Lactate Dehydrogenase 188 U/L (313-618)
[2024-05-23 15:41] LABS: C-Reactive Protein 36.4 mg/L (0-4)
[2024-05-23 15:48] LABS: Vitamin B12 756 pg/mL (239-931)
[2024-05-23 16:46] LABS: Ferritin 281 ng/ml (17.9-464)
[2024-05-24 05:57] LABS: Haptoglobin 277 mg/dL (29-370)
[2024-05-24 15:11] LABS: Angiotensin Converting Enzyme 20 U/L (14-82); EBV Ab VCA, IgM <36.0 U/mL (0.0-35.9); EBV Nuclear Antigen Ab, IgG >600.0 U/mL (0.0-17.9)
[2024-05-25 13:44] LABS: Peripheral Smear Review Scanned Result
[2024-05-27 01:08] LABS: Cells Analyzed 200 (.); Cells Counted 200 (.); Interpretation: Comment: (.); Specimen Type BLOOD (.)
[2024-05-31 05:26] LABS: 1,25 Dihydroxy Vitamin D 40 pg/mL (.); 1,25-Dihydroxy, Vitamin D-2 <10 pg/mL (.); 1,25-Dihydroxy, Vitamin D-3 40 pg/mL (.)
== END 2024-05-23 23:59 | disposition home or self-care (01) ==
PROVIDERS: Internal Medicine Medical Oncology; PCP Family Medicine; Visit Provider Internal Medicine
DX: I31.8 Other specified diseases of pericardium (principal); R59.9 Enlarged lymph nodes, unspecified; I10 Essential (primary) hypertension; D72.829 Elevated white blood cell count, unspecified; D75.839 Thrombocytosis, unspecified; I49.9 Cardiac arrhythmia, unspecified; R42 Dizziness and giddiness; I25.10 Atherosclerotic heart disease of native coronary artery without angina pectoris
CPT/HCPCS: 36415; 80053; 82164; 82607; 82652; 82728; 82746; 83010; 83540; 83550; 83615; 85025; 85044; 85651; 86140; 86318; 86664; 86665; 86880; 93308

== ENCOUNTER 2024-05-29 16:17 | Outpatient (CLI) | payer BC, SELFPAY ==
--- NOTE | 2024-05-29 16:20 | XR_ITS ---
PROCEDURE INFORMATION: Exam: XR Chest Exam date and time: 05/29/2024 4:22 PM Age: 59 years old Clinical indication: Shortness of breath; Additional info: SOB x 1 month TECHNIQUE: Imaging protocol: Radiologic exam of the chest. Views: 2 views. COMPARISON: CT ANGIO CHEST PE PROTOCOL 05/12/2024 2:53 PM FINDINGS: Lungs: New infiltrate within the anterior segment left upper lobe/suprahilar region consistent with pneumonia. Pleural spaces: Tiny right pleural effusion. Heart/Mediastinum: Unremarkable. No cardiomegaly. Bones/joints: Unremarkable. IMPRESSION: 1. New infiltrate within the anterior segment left upper lobe/suprahilar region consistent with pneumonia. Recommend chest x-ray follow-up to resolution. 2. Tiny right pleural effusion.
[2024-05-29 16:35] LABS: Anti-Centromere B Antibodies ND; Anti-DNA (DS) Ab Qn ND; Anti-Jo-1 ND; Antichromatin Antibodies ND; Antiscleroderma-70 Antibodies ND; RNP Antibodies ND; Sjogren's Anti-SS-A ND; Sjogren's Anti-SS-B ND
[2024-05-29 17:03] LABS: Chloride 106 mmol/L (98-107); Potassium 3.8 mmoL/L (3.5-5.1); Sodium 141 mmol/L (136-145)
[2024-05-29 17:06] LABS: Blood Urea Nitrogen 26 mg/dl (9-20); Estimated Glomerular Filt Rate 69 ml/min (>60); GFR (African American) 83 ML/MIN (>60)
[2024-05-29 17:07] LABS: Anion Gap 10.8 mEq/L (5-15); Calcium 8.9 mg/dl (8.4-10.2); Carbon Dioxide 28 mmol/L (22.0-30.0); Glucose 71 mg/dl (74-100)
[2024-05-29 17:18] LABS: NT Pro Brain Natriuretic Pep. 1930 pg/mL (0-125)
[2024-05-29 18:28] LABS: C-Reactive Protein 74.3 mg/L (0-4)
[2024-05-31 12:32] LABS: Antinuclear Antibodies (ANA) Negative (Negative)
== END 2024-05-29 23:59 | disposition home or self-care (01) ==
LOC: LAB 16:18
PROVIDERS: Internal Medicine; PCP Family Medicine; Visit Provider Internal Medicine Pulmonary Disease
DX: M79.89 Other specified soft tissue disorders (principal); J84.9 Interstitial pulmonary disease, unspecified; R06.09 Other forms of dyspnea; I31.8 Other specified diseases of pericardium; I31.39 Other pericardial effusion (noninflammatory)
CPT/HCPCS: 36415; 71046; 80048; 83880; 86038; 86140

== ENCOUNTER 2024-05-30 12:37 | Outpatient (CLI) | payer BC, SELFPAY ==
--- NOTE | 2024-05-30 13:00 | CA_ITS ---
APPROVED REPORT EXAM: Limited 2D Echocardiogram Well Logger: Katie Cerna CRT Ht: 6 ft 0 in Wt: 266lbs BSA: 2.41 BP: 143/90 mmHg Indications: pericardial effusion f/u, extreme SOB, O2 sats 82-88% on room air during echo. pt sent to ED due due to SOB Other Information Study Quality: Technically Difficult Conclusion This is a limited TTE to evaluate for LV systolic function. Limited windows are obtained. Technically difficult study. The left ventricle is normal in size. There is increased LV wall thickness. There is normal global LV systolic function. LVEF is 55%. The right ventricle is not very well-visualized, but grossly appears at least mildly dilated with normal RV function. There is interventricular septal bounce noted. 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 Clinical correlation is required. Trivial pericardial effusion is present. No echo indications of tamponade or evidence of chamber collapse. Compared to prior study from 05/23/2024, the size and location of the pericardial effusion is unchanged. Electronically signed by : Zoya Pugh MD 05/30/2024 14:12:33
--- NOTE | 2024-05-30 15:15 | CA_ITS ---
FINAL REPORT TECHNIQUE: Bilateral lower extremity venous duplex was performed with augmentation and compression. CLINICAL HISTORY: Shortness of breath on exertion, shortness of breath, Follow up pericardial Effusion COMPARISON: None FINDINGS: Proper flow is seen throughout the deep venous systems bilaterally. There is no evidence of deep venous thrombosis. IMPRESSION: No evidence of deep venous thrombosis bilateral lower extremities. Reviewed, Interpreted and Dictated by Sandeep Burden MD Transcribed by Sapna Ortiz Authenticated and [facility]
== END 2024-05-30 23:59 | disposition home or self-care (01) ==
LOC: RT 12:38
PROVIDERS: PCP Family Medicine; Visit Provider Internal Medicine Pulmonary Disease
DX: I51.7 Cardiomegaly (principal); I31.39 Other pericardial effusion (noninflammatory); R22.40 Localized swelling, mass and lump, unspecified lower limb
CPT/HCPCS: 93308; 93970

== ENCOUNTER 2024-05-30 13:25 | Inpatient (IN) | payer BC, SELFPAY ==
[2024-05-30] VITALS (7 sets, daily range): BP systolic 114–152; BP diastolic 66–74; PULSE 96–103; RESP 16–22; TEMP 36.6–37.1; O2SAT 90–95; BMI 36.3; BMI 34.8
--- NOTE | 2024-05-30 13:33 | ED_ITS ---
<Statement entered by Krystal Nowak DO - 06/02/24 19:21> I was consulted by the KIRSTEN, and we discussed the complexity of the problems being addressed. I approved the treatment and management plan for this patient's care in the emergency department, thus performing a substantive portion of the medical decision making. I was initially involved in the care of the patient prior to signout to the oncoming provider, Dr. Gaxiola. Krystal Nowak DO Discharge Plan Disposition Patient Disposition: Admitted Condition: Serious Clinical Impressions Clinical Impression: New onset of congestive heart failure, Acute hypoxemic respiratory failure, Sepsis without septic shock, Multifocal pneumonia Discharge ED Provider: Krystal Nowak General Adult HPI <JOSE RAUL Quiñones - Last Filed: 05/30/24 16:07> General Chief complaint: Shortness of Breath/Dyspnea Stated complaint: soa Time Seen by Provider: 05/30/24 13:33 History of Present Illness HPI narrative: Patient presents for evaluation of dyspnea. Patient is a 59-year-old gentleman who in February of this year noted increased fatigue and shortness of air that ultimately led to his hospitalization here in March after he was found to have a pericardial effusion. That effusion was drained by cardiology on 05/05/2024. It did not show any significant cytology. Patient had continued dyspnea and chest pain and ultimately underwent heart catheterization with 3 stents placed on 05/12/2024. Since that time he has been referred to hematology pulmonology and had cardiology follow-up yesterday with labs drawn and a ultrasound for DVT and echo performed today. It was noted during his echocardiogram that his oxygen saturation was in the 80s and he was ultimately sent to the ER. Patient reports that his dyspnea has been significant and progressive since his heart cath and PCI with stents. He he reports mild dyspnea even at rest cannot lie flat has difficulty sleeping feels like he is smothering at all times. He was prescribed Lasix by cardiology yesterday and he took the first dose last night with no significant improvement. He denies any fever chills hemoptysis hematochezia melena nausea vomiting diarrhea. Related Data Home Medications ?Medication ?Instructions ?Recorded ?Confirmed empagliflozin 25 mg tablet 25 mg PO DAILY 03/31/20 05/29/24 atorvastatin 40 mg tablet 40 mg PO DAILY 03/31/24 05/29/24 gabapentin 800 mg tablet 800 mg PO DAILY 03/31/24 05/29/24 insulin regular hum U-500 conc 500 90 unit SQ HS 03/31/24 05/29/24 unit/mL(3 mL) subcut pen (Humulin R U-500 (Conc) Insulin Kwikpen) insulin regular hum U-500 conc 500 150 unit SQ DAILY 03/31/24 05/29/24 unit/mL(3 mL) subcut pen (Humulin R U-500 (Conc) Insulin Kwikpen) omeprazole 20 mg capsule,delayed 20 mg PO DAILY 03/31/24 05/29/24 release blood-glucose sensor ([employer] G7 #1 ea 04/17/24 05/29/24 Sensor device) semaglutide 0.25 mg or 0.5 mg (2 0.25 mg SQ WEEKLY 04/17/24 05/29/24 mg/3 mL) subcutaneous pen injector (CloudPassageempic) gabapentin 800 mg tablet 1,600 mg PO HS 05/12/24 05/29/24 Previous Rx's ?Medication ?Instructions ?Recorded aspirin 81 mg chewable tablet 81 mg PO DAILY #90 tabs 05/18/24 clopidogrel 75 mg tablet 75 mg PO DAILY #90 tabs 05/18/24 albuterol sulfate 90 mcg/actuation 2 inh inhalation QID PRN shortness 05/29/24 aerosol inhaler of breath or wheezing 90 days #8.5 grams furosemide 40 mg tablet 40 mg PO DAILY #90 tabs 05/29/24 lisinopril 20 mg tablet 20 mg PO DAILY #90 tabs 05/29/24 Allergies Allergy/AdvReac Type Severity Reaction Status Date / Time No Known Allergies Allergy Verified 05/29/24 15:37 [facility] <JOSE RAUL Quiñones - Last Filed: 05/30/24 16:07> [facility] Disclaimer: The information contained in this section may have been updated after the patient was seen, as this information can be updated by other users. Medical History GERD (gastroesophageal reflux disease) HLD (hyperlipidemia) Edema Mediastinal lymphadenopathy History of smoking 30 or more pack years Acute dyspnea Swelling of lower extremity Right ventricular dilation Unstable angina PAC (premature atrial contraction) Chest pain Dyspnea PVC (premature ventricular contraction) Influenza A (H1N1) Pericarditis Type 2 diabetes mellitus Leukocytosis Renal insufficiency Acute viral syndrome Pericardial effusion Exertional dyspnea Diabetes HTN (hypertension) Knee sprain Family History (Updated 05/30/24 @ 16:43 by Lavinia Amador RN) Other Diabetes Hyperlipidemia Hypertension Social History (Updated 05/30/24 @ 16:44 by Lavinia Amador, RN) Smoking Status: Never smoker alcohol intake: current alcohol intake frequency: a few times a week substance use type: denies use current occupational status: employed and other Travel in the last 8 weeks: None household members: spouse housing: house lives independently: Yes marital status: education level: vocational pets and animals: Yes Have you lived/traveled outside [place] in past 30 days?: No Contact w/someone who lives/traveled outside US past 30 days?: No Exposure to someone with infectious disease in past 14 days?: No Do you have a fever (greater than 100.4 F or 38 C)?: No Have you tested positive for COVID-19: No Exposed to someone with COVID-19 in past 14 days?: No Do you have a sore throat?: No Do you have a cough?: No Do you have any weakness?: No Are you experiencing any nausea/vomitting?: No Do you have any diarrhea?: No Are you experiencing any unusual bleeding?: No Do you have any muscle aches/pain?: No Do you have any abdominal pain?: No Are you experiencing loss of taste or smell?: No Other Medical History Have you received the Flu Vaccine for this season: No Have you received the Pneumonia Vaccine: No <JOSE RAUL Quiñones - Last Filed: 05/30/24 16:07> ROS Obtained: Yes Systems reviewed as appropriate & no additional complaints except as documented Physical Exam <JOSE RAUL Quiñones - Last Filed: 05/30/24 16:07> General General appearance: alert and in no apparent distress Respiratory Respiratory exam: Present respiratory distress, wheezes and accessory muscle use Cardiovascular Cardiovascular exam: Present tachycardia Neurological Exam Neurological exam: Present alert and oriented X3 Medical Decision Making <JOSE RAUL Quiñones - Last Filed: 05/30/24 16:07> Medical Records Medical records reviewed: Yes I reviewed the patient's medical records. Screening: Per USPSTF and CDC recommendations, given the prevalence of disease in our region, it is our hospital?s policy to screen for HIV and viral Hepatitis for all patients aged 18 and over and those with ongoing risk factors. [place] Inquiry Pt receiving controlled substance: No Vital Signs: 05/30/24 13:30 05/30/24 13:32 05/30/24 16:15 Temperature 98.0 F Temperature Source Oral Pulse Rate 101 H 96 H Pulse Rate [Radial] 103 H Respiratory Rate 22 Blood Pressure 152/72 H 117/74 Blood Pressure [Right Arm] 152/72 H Blood Pressure Mean [Right Arm] 98 Blood Pressure Source [Right Arm] Automatic Cuff Blood Pressure Position [Right Arm] Sitting 02 Sat by Pulse Oximetry 90 L 91 L 95 Oxygen Delivery Method Nasal Cannula Room Air 05/30/24 16:30 Temperature Temperature Source Pulse Rate 99 H Pulse Rate [Radial] Respiratory Rate Blood Pressure 121/73 Blood Pressure [Right Arm] Blood Pressure Mean [Right Arm] Blood Pressure Source [Right Arm] Blood Pressure Position [Right Arm] 02 Sat by Pulse Oximetry 92 L Oxygen Delivery Method Lab Data Lab results reviewed: Yes I reviewed the patient's lab results. Lab Results 05/30/24 13:37: WBC 17.6 H, RBC 4.52 L, Hgb 12.1 L, Hct 38.4 L, MCV 85.0, MCH 26.8 L, MCHC 31.5 L, RDW 16.3, Plt Count 301, MPV 11.6 H, Neut % (Auto) 79.3, L ymph % (Auto) 6.6 L, Lyman % (Auto) 9.4 H, Eos % (Auto) 3.1, Baso % (Auto) 0.7, N eut # (Auto) 14.0 H, Lymph # (Auto) 1.2, Lyman # (Auto) 1.7 H, Eos # (Auto) 0.6 H , Baso # (Auto) 0.1, Total Counted 100, Neutrophils % (Manual) 82 H, Lymphocytes % (Manual) 10, Monocytes % (Manual) 5, Eosinophils % (Manual) 3, Platelet Estimate Normal, RBC Morphology Normal, PT 14.0 H, INR 1.28 H, Sodium 137, P otassium 4.6 D, Chloride 104, Carbon Dioxide 26, Anion Gap 11.6, BUN 25 H, Creatinine 1.20, Estimated Creat Clear 117, Estimated GFR 62, Est GFR ( Amer) 75, Glucose 149 H D, Calcium 8.6, Magnesium 1.8, Total Bilirubin 1.7 H, AST 35, ALT 37, Alkaline Phosphatase 137 H, Troponin I < 0.01, NT-Pro-B Natriuret Pep 2690 H, Total Protein 7.5, Albumin 3.6, Globulin 3.9 H, A lbumin/Globulin Ratio 0.9 L, Procalcitonin 0.112, TSH 2.28, Free T4 Index 3.0 L, Thyroxine (T4) 7.8, T3 Uptake 39 05/30/24 13:37 05/30/24 13:37 Orders (Tests/Meds): ED MEDICATIONS Generic Name Dose Route Start Last Admin Trade Name Freq PRN Reason Stop Dose Admin Fentanyl Citrate 50 mcg 05/30/24 15:28 Fentanyl 100mcg/2ml Vial IV 05/31/24 03:28 Q3MINP PRN Sedation Fentanyl Citrate 25 mcg 05/30/24 15:28 Fentanyl 100mcg/2ml Vial IV 05/31/24 03:28 Q3MINP PRN Sedation Flumazenil 0.2 mg 05/30/24 15:28 Flumazenil 0.1mg/Ml 5ml Vial IV 05/31/24 03:28 NEEDED PRN Sedation Ceftriaxone Sodium 1 gm/ 50 mls @ 100 mls/hr 05/30/24 14:45 05/30/24 15:24 Sodium Chloride IV 06/09/24 14:44 100 mls/hr Q24H MOON Administration Azithromycin 500 mg/ Sodium 250 mls @ 250 mls/hr 05/30/24 14:45 05/30/24 15:18 Chloride IV 06/09/24 14:44 250 mls/hr Q24H MOON Administration Midazolam HCl 1 mg 05/30/24 15:28 Midazolam 2mg/2ml Vial IV 05/31/24 03:28 Q3MINP PRN Sedation Midazolam HCl 1 mg 05/30/24 15:28 Midazolam Hcl 1mg/Ml 5ml Vial IV 05/31/24 03:28 Q3MINP PRN Sedation Naloxone HCl 0.4 mg 05/30/24 15:28 Naloxone 0.4mg/Ml Vial IV 05/31/24 03:28 Q5MINP PRN Decreased Respirations Ondansetron HCl 4 mg 05/30/24 15:28 Ondansetron 4mg/2ml Vial IV 05/31/24 03:28 NEEDED PRN Nausea Promethazine HCl 25 mg 05/30/24 15:28 Promethazine Hcl 25mg/Ml 1ml Vial IV 05/31/24 03:28 NEEDED PRN Nausea And Vomiting Sodium Chloride 3 ml 05/30/24 14:41 Sodium Chloride 3% 15ml Neb IH 06/29/24 14:40 ONCE PRN INDUCE SPUTUM COLLECTION Discontinued Medications Generic Name Dose Route Start Last Admin Trade Name Freq PRN Reason Stop Dose Admin Furosemide 80 mg 05/30/24 14:00 05/30/24 14:05 Furosemide 100mg/10ml Vial IV 05/30/24 14:01 Not Given ONCE ONE Iopamidol 85 ml 05/30/24 15:07 05/30/24 15:08 Iopamidol-370 (76%);100ml Bottle IV 05/30/24 15:08 85 ml ONCE ONE Administration Sodium Chloride 10 ml 05/30/24 15:07 05/30/24 15:08 Sodium Chloride 0.9% 10ml Syr (Rad Only) IV 05/30/24 15:08 10 ml ONCE ONE Administration Sodium Chloride 50 ml 05/30/24 15:07 05/30/24 15:08 0.9 % Sodium Chloride 50 Ml Vial IV 05/30/24 15:08 50 ml ONCE ONE Administration Sodium Chloride 25 ml 05/30/24 15:28 Sodium Chloride 0.9% 25ml Bag IV 05/30/24 15:29 ONCE ONE ORDERS Category Date Time Status CT angio chest PE protocol Stat Cat Scan 05/30/24 14:41 Completed Cardiology Consult [Consult to Cardiology] [CONS] Cons 05/30/24 13:45 Active Routine BNP [NT Pro Brain Natriuretic Pep.] Stat Lab 05/30/24 13:37 Completed CBC w/Auto Diff [Complete Blood Count Auto Diff] Stat Lab 05/30/24 13:37 Completed CMP [Comprehensive Metabolic Panel] Stat Lab 05/30/24 13:37 Completed Full Resp Panel w/COVID ([facility]) Routine Lab 05/30/24 16:10 Received INR [Prothrombin Time INR] Stat Lab 05/30/24 13:37 Completed Magnesium Stat Lab 05/30/24 13:37 Completed Procalcitonin Stat Lab 05/30/24 13:37 Completed Thyroid Panel Stat Lab 05/30/24 13:37 Completed Trop I [Troponin I] Stat Lab 05/30/24 13:37 Completed Troponin I Q3H Lab 05/30/24 17:30 Ordered Troponin I Q3H Lab 05/30/24 20:30 Ordered Blood Culture Stat Micro 05/30/24 15:10 Received Sputum Culture & Gram Stain Stat Micro 05/30/24 14:41 Ordered HEART Score History (anamnesis): Slightly suspicious ECG: Non-specific disturbance Age: 45-65 years Risk factors: Atherosclerosis history Troponin: </= normal limit HEART Score: 4 Medical Decision Narrative: In summary patient is a 59-year-old male who presents to the emergency department for evaluation of dyspnea. Patient is normotensive with a blood pressure 152/72 tachycardic with a heart rate of 101 normal sinus rhythm on the bedside monitor breathing 22 times a minute satting at 87% on room air that corrects to 90% on 2 L by nasal cannula upon arrival, afebrile at 98. Physical exam is remarkable for increased work of breathing, breathless speech, accessory muscle use, and breath sounds diminished bibasilarly with wheezes. Patient has 2+ pitting dependent edema noted.. Differential diagnosis includes CHF versus ACS versus pneumonia versus PE etc. Initial workup will be conducted with hematologic labs CT PE protocol blood culture sputum cultures.. Initial interventions include 80 of Lasix IV push continuous cardiac monitoring pulse oximetry supplemental oxygen via nasal cannula. I considered a sepsis bolus however given patient's volume status and that he is hemodynamically stable have deferred that for now. I will also send a consult to cardiology for their review and recommendations on patient management. Initial workup reviewed by me shows that his hematologic labs are significant for white count of 17.6 hemoglobin hematocrit 12.1 and 38.4 respectively absolute neutrophil count is 14.0 INR is 1.28 total bilirubin is 1.7 alk phos is 137 troponin is undetectable at less than 0.01 NT proBNP today is 2690 up from 1930 yesterday procalcitonin is 0.112 TSH is 2.28 and my informal interpretation of his CTA PE protocol shows bilateral interstitial fluid along with possible left lower lobe infiltrate versus developing pleural effusion but no evidence of thrombus prior to radiology read. Please see final read for formal interpretation. I had indirect discussion with cardiology after evaluation of outpatient management and they recommended continue diuresis and admission for heart cath tomorrow.. Upon repeat evaluation patient reports no improvement and is still requiring 3 L of nasal cannula to maintain a sat above 94%.. Given this I had indirect discussion with hospital medicine regarding patient presentation [place] and management and he will be admitted for further evaluation and care. <Krystal Nowak, DO - Last Filed: 05/30/24 13:57> Vital Signs: 05/30/24 13:30 05/30/24 13:32 05/30/24 16:15 Temperature 98.0 F Temperature Source Oral Pulse Rate 101 H 96 H Pulse Rate [Radial] 103 H Respiratory Rate 22 Blood Pressure 152/72 H 117/74 Blood Pressure [Right Arm] 152/72 H Blood Pressure Mean [Right Arm] 98 Blood Pressure Source [Right Arm] Automatic Cuff Blood Pressure Position [Right Arm] Sitting 02 Sat by Pulse Oximetry 90 L 91 L 95 Oxygen Delivery Method Nasal Cannula Room Air 05/30/24 16:30 Temperature Temperature Source Pulse Rate 99 H Pulse Rate [Radial] Respiratory Rate Blood Pressure 121/73 Blood Pressure [Right Arm] Blood Pressure Mean [Right Arm] Blood Pressure Source [Right Arm] Blood Pressure Position [Right Arm] 02 Sat by Pulse Oximetry 92 L Oxygen Delivery Method Lab Data Lab Results 05/30/24 13:37: WBC 17.6 H, RBC 4.52 L, Hgb 12.1 L, Hct 38.4 L, MCV 85.0, MCH 26.8 L, MCHC 31.5 L, RDW 16.3, Plt Count 301, MPV 11.6 H, Neut % (Auto) 79.3, L ymph % (Auto) 6.6 L, Lyman % (Auto) 9.4 H, Eos % (Auto) 3.1, Baso % (Auto) 0.7, N eut # (Auto) 14.0 H, Lymph # (Auto) 1.2, Lyman # (Auto) 1.7 H, Eos # (Auto) 0.6 H , Baso # (Auto) 0.1, Total Counted 100, Neutrophils % (Manual) 82 H, Lymphocytes % (Manual) 10, Monocytes % (Manual) 5, Eosinophils % (Manual) 3, Platelet Estimate Normal, RBC Morphology Normal, PT 14.0 H, INR 1.28 H, Sodium 137, P otassium 4.6 D, Chloride 104, Carbon Dioxide 26, Anion Gap 11.6, BUN 25 H, Creatinine 1.20, Estimated Creat Clear 117, Estimated GFR 62, Est GFR ( Amer) 75, Glucose 149 H D, Calcium 8.6, Magnesium 1.8, Total Bilirubin 1.7 H, AST 35, ALT 37, Alkaline Phosphatase 137 H, Troponin I < 0.01, NT-Pro-B Natriuret Pep 2690 H, Total Protein 7.5, Albumin 3.6, Globulin 3.9 H, A lbumin/Globulin Ratio 0.9 L, Procalcitonin 0.112, TSH 2.28, Free T4 Index 3.0 L, Thyroxine (T4) 7.8, T3 Uptake 39 Orders (Tests/Meds): ED MEDICATIONS Generic Name Dose Route Start Last Admin Trade Name Freq PRN Reason Stop Dose Admin Fentanyl Citrate 50 mcg 05/30/24 15:28 Fentanyl 100mcg/2ml Vial IV 05/31/24 03:28 Q3MINP PRN Sedation Fentanyl Citrate 25 mcg 05/30/24 15:28 Fentanyl 100mcg/2ml Vial IV 05/31/24 03:28 Q3MINP PRN Sedation Flumazenil 0.2 mg 05/30/24 15:28 Flumazenil 0.1mg/Ml 5ml Vial IV 05/31/24 03:28 NEEDED PRN Sedation Ceftriaxone Sodium 1 gm/ 50 mls @ 100 mls/hr 05/30/24 14:45 05/30/24 15:24 Sodium Chloride IV 06/09/24 14:44 100 mls/hr Q24H MOON Administration Azithromycin 500 mg/ Sodium 250 mls @ 250 mls/hr 05/30/24 14:45 05/30/24 15:18 Chloride IV 06/09/24 14:44 250 mls/hr Q24H MOON Administration Midazolam HCl 1 mg 05/30/24 15:28 Midazolam 2mg/2ml Vial IV 05/31/24 03:28 Q3MINP PRN Sedation Midazolam HCl 1 mg 05/30/24 15:28 Midazolam Hcl 1mg/Ml 5ml Vial IV 05/31/24 03:28 Q3MINP PRN Sedation Naloxone HCl 0.4 mg 05/30/24 15:28 Naloxone 0.4mg/Ml Vial IV 05/31/24 03:28 Q5MINP PRN Decreased Respirations Ondansetron HCl 4 mg 05/30/24 15:28 Ondansetron 4mg/2ml Vial IV 05/31/24 03:28 NEEDED PRN Nausea Promethazine HCl 25 mg 05/30/24 15:28 Promethazine Hcl 25mg/Ml 1ml Vial IV 05/31/24 03:28 NEEDED PRN Nausea And Vomiting Sodium Chloride 3 ml 05/30/24 14:41 Sodium Chloride 3% 15ml Neb IH 06/29/24 14:40 ONCE PRN INDUCE SPUTUM COLLECTION Discontinued Medications Generic Name Dose Route Start Last Admin Trade Name Freq PRN Reason Stop Dose Admin Furosemide 80 mg 05/30/24 14:00 05/30/24 14:05 Furosemide 100mg/10ml Vial IV 05/30/24 14:01 Not Given ONCE ONE Iopamidol 85 ml 05/30/24 15:07 05/30/24 15:08 Iopamidol-370 (76%);100ml Bottle IV 05/30/24 15:08 85 ml ONCE ONE Administration Sodium Chloride 10 ml 05/30/24 15:07 05/30/24 15:08 Sodium Chloride 0.9% 10ml Syr (Rad Only) IV 05/30/24 15:08 10 ml ONCE ONE Administration Sodium Chloride 50 ml 05/30/24 15:07 05/30/24 15:08 0.9 % Sodium Chloride 50 Ml Vial IV 05/30/24 15:08 50 ml ONCE ONE Administration Sodium Chloride 25 ml 05/30/24 15:28 Sodium Chloride 0.9% 25ml Bag IV 05/30/24 15:29 ONCE ONE ORDERS Category Date Time Status CT angio chest PE protocol Stat Cat Scan 05/30/24 14:41 Completed Cardiology Consult [Consult to Cardiology] [CONS] Cons 05/30/24 13:45 Active Routine BNP [NT Pro Brain Natriuretic Pep.] Stat Lab 05/30/24 13:37 Completed CBC w/Auto Diff [Complete Blood Count Auto Diff] Stat Lab 05/30/24 13:37 Completed CMP [Comprehensive Metabolic Panel] Stat Lab 05/30/24 13:37 Completed Full Resp Panel w/COVID ([facility]) Routine Lab 05/30/24 16:10 Received INR [Prothrombin Time INR] Stat Lab 05/30/24 13:37 Completed Magnesium Stat Lab 05/30/24 13:37 Completed Procalcitonin Stat Lab 05/30/24 13:37 Completed Thyroid Panel Stat Lab 05/30/24 13:37 Completed Trop I [Troponin I] Stat Lab 05/30/24 13:37 Completed Troponin I Q3H Lab 05/30/24 17:30 Ordered Troponin I Q3H Lab 05/30/24 20:30 Ordered Blood Culture Stat Micro 05/30/24 15:10 Received Sputum Culture & Gram Stain Stat Micro 05/30/24 14:41 Ordered ECG Data Tracing #1: I reviewed this ECG and interpreted as documented below: Sinus tachycardia with a ventricular to [address] changes concerning for STEMI. Normal intervals ECG initial impression date: 05/30/24 ECG initial impression time: 13:39 <Bill Gaxiola MD - Last Filed: 05/30/24 16:59> Vital Signs: 05/30/24 13:30 05/30/24 13:32 05/30/24 16:15 Temperature 98.0 F Temperature Source Oral Pulse Rate 101 H 96 H Pulse Rate [Radial] 103 H Respiratory Rate 22 Blood Pressure 152/72 H 117/74 Blood Pressure [Right Arm] 152/72 H Blood Pressure Mean [Right Arm] 98 Blood Pressure Source [Right Arm] Automatic Cuff Blood Pressure Position [Right Arm] Sitting 02 Sat by Pulse Oximetry 90 L 91 L 95 Oxygen Delivery Method Nasal Cannula Room Air 05/30/24 16:30 Temperature Temperature Source Pulse Rate 99 H Pulse Rate [Radial] Respiratory Rate Blood Pressure 121/73 Blood Pressure [Right Arm] Blood Pressure Mean [Right Arm] Blood Pressure Source [Right Arm] Blood Pressure Position [Right Arm] 02 Sat by Pulse Oximetry 92 L Oxygen Delivery Method Lab Data Lab Results 05/30/24 13:37: WBC 17.6 H, RBC 4.52 L, Hgb 12.1 L, Hct 38.4 L, MCV 85.0, MCH 26.8 L, MCHC 31.5 L, RDW 16.3, Plt Count 301, MPV 11.6 H, Neut % (Auto) 79.3, L ymph % (Auto) 6.6 L, Lyman % (Auto) 9.4 H, Eos % (Auto) 3.1, Baso % (Auto) 0.7, N eut # (Auto) 14.0 H, Lymph # (Auto) 1.2, Lyman # (Auto) 1.7 H, Eos # (Auto) 0.6 H , Baso # (Auto) 0.1, Total Counted 100, Neutrophils % (Manual) 82 H, Lymphocytes % (Manual) 10, Monocytes % (Manual) 5, Eosinophils % (Manual) 3, Platelet Estimate Normal, RBC Morphology Normal, PT 14.0 H, INR 1.28 H, Sodium 137, P otassium 4.6 D, Chloride 104, Carbon Dioxide 26, Anion Gap 11.6, BUN 25 H, Creatinine 1.20, Estimated Creat Clear 117, Estimated GFR 62, Est GFR ( Amer) 75, Glucose 149 H D, Calcium 8.6, Magnesium 1.8, Total Bilirubin 1.7 H, AST 35, ALT 37, Alkaline Phosphatase 137 H, Troponin I < 0.01, NT-Pro-B Natriuret Pep 2690 H, Total Protein 7.5, Albumin 3.6, Globulin 3.9 H, A lbumin/Globulin Ratio 0.9 L, Procalcitonin 0.112, TSH 2.28, Free T4 Index 3.0 L, Thyroxine (T4) 7.8, T3 Uptake 39 Orders (Tests/Meds): ED MEDICATIONS Generic Name Dose Route Start Last Admin Trade Name Freq PRN Reason Stop Dose Admin Fentanyl Citrate 50 mcg 05/30/24 15:28 Fentanyl 100mcg/2ml Vial IV 05/31/24 03:28 Q3MINP PRN Sedation Fentanyl Citrate 25 mcg 05/30/24 15:28 Fentanyl 100mcg/2ml Vial IV 05/31/24 03:28 Q3MINP PRN Sedation Flumazenil 0.2 mg 05/30/24 15:28 Flumazenil 0.1mg/Ml 5ml Vial IV 05/31/24 03:28 NEEDED PRN Sedation Ceftriaxone Sodium 1 gm/ 50 mls @ 100 mls/hr 05/30/24 14:45 05/30/24 15:24 Sodium Chloride IV 06/09/24 14:44 100 mls/hr Q24H MOON Administration Azithromycin 500 mg/ Sodium 250 mls @ 250 mls/hr 05/30/24 14:45 05/30/24 15:18 Chloride IV 06/09/24 14:44 250 mls/hr Q24H MOON Administration Midazolam HCl 1 mg 05/30/24 15:28 Midazolam 2mg/2ml Vial IV 05/31/24 03:28 Q3MINP PRN Sedation Midazolam HCl 1 mg 05/30/24 15:28 Midazolam Hcl 1mg/Ml 5ml Vial IV 05/31/24 03:28 Q3MINP PRN Sedation Naloxone HCl 0.4 mg 05/30/24 15:28 Naloxone 0.4mg/Ml Vial IV 05/31/24 03:28 Q5MINP PRN Decreased Respirations Ondansetron HCl 4 mg 05/30/24 15:28 Ondansetron 4mg/2ml Vial IV 05/31/24 03:28 NEEDED PRN Nausea Promethazine HCl 25 mg 05/30/24 15:28 Promethazine Hcl 25mg/Ml 1ml Vial IV 05/31/24 03:28 NEEDED PRN Nausea And Vomiting Sodium Chloride 3 ml 05/30/24 14:41 Sodium Chloride 3% 15ml Neb IH 06/29/24 14:40 ONCE PRN INDUCE SPUTUM COLLECTION Discontinued Medications Generic Name Dose Route Start Last Admin Trade Name Freq PRN Reason Stop Dose Admin Furosemide 80 mg 05/30/24 14:00 05/30/24 14:05 Furosemide 100mg/10ml Vial IV 05/30/24 14:01 Not Given ONCE ONE Iopamidol 85 ml 05/30/24 15:07 05/30/24 15:08 Iopamidol-370 (76%);100ml Bottle IV 05/30/24 15:08 85 ml ONCE ONE Administration Sodium Chloride 10 ml 05/30/24 15:07 05/30/24 15:08 Sodium Chloride 0.9% 10ml Syr (Rad Only) IV 05/30/24 15:08 10 ml ONCE ONE Administration Sodium Chloride 50 ml 05/30/24 15:07 05/30/24 15:08 0.9 % Sodium Chloride 50 Ml Vial IV 05/30/24 15:08 50 ml ONCE ONE Administration Sodium Chloride 25 ml 05/30/24 15:28 Sodium Chloride 0.9% 25ml Bag IV 05/30/24 15:29 ONCE ONE ORDERS Category Date Time Status CT angio chest PE protocol Stat Cat Scan 05/30/24 14:41 Completed Cardiology Consult [Consult to Cardiology] [CONS] Cons 05/30/24 13:45 Active Routine BNP [NT Pro Brain Natriuretic Pep.] Stat Lab 05/30/24 13:37 Completed CBC w/Auto Diff [Complete Blood Count Auto Diff] Stat Lab 05/30/24 13:37 Completed CMP [Comprehensive Metabolic Panel] Stat Lab 05/30/24 13:37 Completed Full Resp Panel w/COVID ([facility]) Routine Lab 05/30/24 16:10 Received INR [Prothrombin Time INR] Stat Lab 05/30/24 13:37 Completed Magnesium Stat Lab 05/30/24 13:37 Completed Procalcitonin Stat Lab 05/30/24 13:37 Completed Thyroid Panel Stat Lab 05/30/24 13:37 Completed Trop I [Troponin I] Stat Lab 05/30/24 13:37 Completed Troponin I Q3H Lab 05/30/24 17:30 Ordered Troponin I Q3H Lab 05/30/24 20:30 Ordered Blood Culture Stat Micro 05/30/24 15:10 Received Sputum Culture & Gram Stain Stat Micro 05/30/24 14:41 Ordered HEART Score HEART Score: 4 Medical Decision Narrative: In summary patient is a 59-year-old male who presents to the emergency department for evaluation of dyspnea. Patient is normotensive with a blood pressure 152/72 tachycardic with a heart rate of 101 normal sinus rhythm on the bedside monitor breathing 22 times a minute satting at 87% on room air that corrects to 90% on 2 L by nasal cannula upon arrival, afebrile at 98. Physical exam is remarkable for increased work of breathing, breathless speech, accessory muscle use, and breath sounds diminished bibasilarly with wheezes. Patient has 2+ pitting dependent edema noted.. Differential diagnosis includes CHF versus ACS versus pneumonia versus PE etc. Initial workup will be conducted with hematologic labs CT PE protocol blood culture sputum cultures.. Initial interventions include 80 of Lasix IV push continuous cardiac monitoring pulse oximetry supplemental oxygen via nasal cannula. I considered a sepsis bolus however given patient's volume status and that he is hemodynamically stable have deferred that for now. I will also send a consult to cardiology for their review and recommendations on patient management. Initial workup reviewed by me shows that his hematologic labs are significant for white count of 17.6 hemoglobin hematocrit 12.1 and 38.4 respectively absolute neutrophil count is 14.0 INR is 1.28 total bilirubin is 1.7 alk phos is 137 troponin is undetectable at less than 0.01 NT proBNP today is 2690 up from 1930 yesterday procalcitonin is 0.112 TSH is 2.28 and my informal interpretation of his CTA PE protocol shows bilateral interstitial fluid along with possible left lower lobe infiltrate versus developing pleural effusion but no evidence of thrombus prior to radiology read. Please see final read for formal interpretation. I had indirect discussion with cardiology after evaluation of outpatient management and they recommended continue diuresis and admission for heart cath tomorrow.. Upon repeat evaluation patient reports no improvement and is still requiring 3 L of nasal cannula to maintain a sat above 94%.. Given this I had indirect discussion with hospital medicine regarding patient presentation [place] and management and he will be admitted for further evaluation and care. I was consulted by the KIRSTEN, and we discussed the complexity of the problems being addressed. I approved the treatment and management plan for this patient's care in the emergency department, thus performing a substantive portion of the medical decision making. Bill Gaxiola MD Critical Care <JOSE RAUL Quiñones - Last Filed: 05/30/24 16:07> Critical Care Time Critical Care Time: Yes Attestation: On 05/30/24, the high probability of a clinically significant, sudden or life threatening deterioration of the following system(s) required my full and direct attention, intervention and personal management. The time I documented below is in addition to time spent performing reported procedures but includes the following listed in this critical care notation. Total Time Total Critical Care Time: 35
--- NOTE | 2024-05-30 13:34 | ECG_ITS ---
APPROVED REPORT Exam: Resting ECG HR:101 bpm ECG Measurements Heart Rate 101 AXES PA 148 P 55 QRSd 85 QRS 36 QT 317 T 209 QTc 375 Conclusion SINUS TACHYCARDIA Nonspecific ST/T wave changes without acute STEMI Electronically signed by : LIZETH HENSLEY, 05/30/2024 15:32:58
--- NOTE | 2024-05-30 13:48 | PC.NURSE ---
CARDIOLOGY NOTIFIED OF CONSULT
[2024-05-30] MEDS: FUROSEMIDE 100MG/10ML VIAL 80 MG IV (13:58)
[2024-05-30 14:23] LABS: Basophils # 0.1 K/mm3 (0-0.2); Basophils % 0.7 % (0.1-2.0); Eosinophils # 0.6 Kmm3 (0.0-0.4); Eosinophils % 3.1 % (0.1-12.0); Hematocrit 38.4 % (42.0-52.0); Hemoglobin 12.1 g/dL (14.1-18.0); Lymphocytes # 1.2 K/mm3 (0.7-4.5); Lymphocytes % 6.6 % (10-50); Mean Corpuscular HGB Conc 31.5 g/dL (31.8-35.4); Mean Corpuscular Hemoglobin 26.8 pg (27.0-31.2); Mean Platelet Volume 11.6 fl (7.4-10.4); Monocytes # 1.7 K/mm3 (0.1-1.0); Monocytes % 9.4 % (1.7-9.3); Neutrophils % 79.3 % (37.0-80.0); Nucleated Red Blood Cells # 0 10^3/uL; Nucleated Red Blood Cells % 0 %; Platelet Count 301 K/mm3 (142-424); Red Blood Count 4.52 M/mm3 (4.60-6.20); Red Cell Distribution Width 16.3 % (11.5-17.5); Red Cell Distribution Width-SD 49.1 fL; White Blood Count 17.6 K/mm3 (4.8-10.8)
[2024-05-30 14:29] LABS: INR 1.28 (0.9-1.1)
[2024-05-30 14:30] LABS: MANUAL DIFFERENTIAL MANUAL DIFFERENTIAL (MANUAL DIFF)
--- NOTE | 2024-05-30 14:41 | CT_ITS ---
FINAL REPORT TECHNIQUE: The patient was injected with IV contrast. Axial images were obtained through the chest in a PE protocol. 3-D reconstruction images were also performed. Individualized dose reduction techniques using automated exposure control or adjustment of the MA and/or KV according to patient's size were employed. CLINICAL HISTORY: Shortness of breath, new CHF COMPARISON: 05/12/2024 FINDINGS: Mediastinal vasculature is adequately opacified. No pulmonary artery filling defects are identified to suggest PE. There is no aortic dissection. There is no axillary adenopathy. There is a multitude of mediastinal lymph nodes. A prevascular lymph node measures up to 2.5 cm in the subcarinal lymph node measures up to 2.4 cm. The heart size is normal. There is no pericardial or pleural effusion. Airspace infiltrates in the bilateral upper lobes, dadm-badyjms-yzbz-right, and left lower lobe are new and probably represent multifocal pneumonia. There is fluid along the minor fissure. Bilateral pleural effusions are kdhcy-pxxrvgl-eupt-left with right lower lobe consolidation. Limited images of the upper abdomen demonstrate mild fatty infiltration of the liver. IMPRESSION: No pulmonary embolus or dissection. Multifocal areas of airspace opacity bilaterally, probable multifocal pneumonia. Bilateral pleural effusions. Stable mediastinal adenopathy. Reviewed, Interpreted and Dictated by Sandeep Burden MD Transcribed by Sapna Ortiz Authenticated and [facility]
--- NOTE | 2024-05-30 14:45 | PC.NURSE ---
CARDIOLOGY AT BEDSIDE
[2024-05-30 14:47] LABS: Alanine Aminotransferase 37 U/L (12-78); Albumin Level 3.6 g/dl (3.5-5.0); Albumin/Globulin Ratio 0.9 (1.1-1.8); Alkaline Phosphatase 137 U/L (38-126); Aspartate Amino Transferase 35 U/L (17-59); Bilirubin,Total 1.7 mg/dl (0.2-1.3); Blood Urea Nitrogen 25 mg/dl (9-20); Calcium 8.6 mg/dl (8.4-10.2); Carbon Dioxide 26 mmol/L (22.0-30.0); Chloride 104 mmol/L (98-107); Creatinine Clearance Estimated 117 mL/min (50-200); Estimated Glomerular Filt Rate 62 ml/min (>60); GFR (African American) 75 ML/MIN (>60); Globulin 3.9 g/dL (1.3-3.2); Glucose 149 mg/dl (74-100); Magnesium 1.8 mg/dl (1.6-2.3); Potassium 4.6 mmoL/L (3.5-5.1); Total Protein,Serum 7.5 g/dl (6.3-8.2)
--- NOTE | 2024-05-30 14:54 | EXP.CARD.CON ---
History of Present Illness History of Present Illness Consult date: 05/30/24 Requesting physician: Brandyn [place] Consult reason: congestive heart failure and shortness of breath Chief complaint: SOA Additional Medical History:: 1. DM, type 2 with neuropathy A. On insulin and jardiance B. Hgb A1C 6.9, 03/2024 2. HTN 3. Hyperlipidemia, on statin A. LDL 66, 03/2024 4. Pericardial effusion in setting of Flu (H1N1), 03/2024 A. Echo, 03/2024, moderate circumferential effusion without tamponade B. Limited echo and pericardiocentesis, 05/05/2024, pre-procedure shows moderate size circumferential pericardial effusion with partial collapse of the right ventricle during diastole, suggestive of early tamponade physiology. Postprocedure, trivial pericardial effusion. RV chamber diastolic collapse no longer present. 500 mL of bloody fluid removed with negative cytology. C. Limited echocardiogram, 05/30/2024, LV size and function is normal. RV not well-visualized but appears to show mild RV dilation with normal RV function. There is interventricular septal bounce noted which may be suggestive of constrictive pericarditis. Trivial pericardial effusion is present. No echo indications of tamponade or chamber collapse. 5. Flu with mild anemia and thrombocytosis, 03/2024 A. Hgb around 12 with plt 500K B. ESR 50 with CRP 88 6. CAD A. LHC, 05/12/2024, 2 RAYSA to large proximal PDA, 2 RAYSA to mid LAD 7. New onset RV dilation, 04 425 on cardiac cath A. CTA of the chest negative for pulmonary embolus 8. Leukocytosis, anemia and thrombocytosis, 03/2024 A. Hematology evaluation, Dr. Bishop, 05/23/2024 with results pending 9. Ex-smoker, [id number] history, discontinued age 50 A. Mediastinal lymphadenopathy by CT of the chest May 2024 B. Pulmonology evaluation by Dr. Martínez, 05/2024, results pending History of present illness: 59-year-old white male with history as noted above called the office today to be seen for increasing shortness of breath despite being seen yesterday with adjustments in medications. He did start taking Lasix last evening and did urinate every 30 minutes through the night. He has been unable to recline to sleep over the last several weeks and has noted a 20 pound weight gain on his home scales over the last 2 to 3 weeks. Chest x-ray today is concerning for possible pneumonia versus congestive heart failure. Patient is noted to be hypoxic on room air with any ambulation down into the high 70% range but quickly improves with rest or application of oxygen by nasal cannula. He denies any chest pain but feels a fullness and heaviness in the lower chest upper abdominal area. He has had a significant history of shortness of breath in the last 2 to 3 months which seems to have started after a viral illness. He has had a pericardiocentesis last month with improvement in his shortness of breath for about 3 days. He relates no significant improvement in his symptoms after coronary stenting earlier this month. He has received a IV dose of Lasix in the ER and continues to diurese every 30 minutes. Due to the abnormal chest x-ray we have recommended getting a CTA of the chest to rule out pulmonary embolus and further evaluation of his infiltrates in the lungs. Results of his limited echocardiogram reviewed with the patient today with concern for possible restrictive pericarditis. We discussed procedure called right heart catheterization to further evaluate this and he is agreeable to proceed if needed. [facility] Disclaimer: The information contained in this section may have been updated after the patient was seen, as this information can be updated by other users. Medical History (Updated 05/30/24 @ 19:43 by Evens Bernard APRN) CHF (congestive heart failure) GERD (gastroesophageal reflux disease) HLD (hyperlipidemia) Edema Mediastinal lymphadenopathy History of smoking 30 or more pack years Acute dyspnea Swelling of lower extremity Right ventricular dilation Unstable angina PAC (premature atrial contraction) Chest pain Dyspnea PVC (premature ventricular contraction) Influenza A (H1N1) Pericarditis Type 2 diabetes mellitus Leukocytosis Renal insufficiency Acute viral syndrome Pericardial effusion Exertional dyspnea Diabetes HTN (hypertension) Knee sprain Family History (Updated 05/30/24 @ 16:43 by Lavinia Amador RN) Other Diabetes Hyperlipidemia Hypertension Social History (Updated 05/30/24 @ 16:44 by Lavinia Amador RN) Smoking Status: Never smoker alcohol intake: current alcohol intake frequency: a few times a week substance use type: denies use current occupational status: employed and other Travel in the last 8 weeks: None household members: spouse housing: house lives independently: Yes marital status: education level: vocational pets and animals: Yes Have you lived/traveled outside [place] in past 30 days?: No Contact w/someone who lives/traveled outside [place] past 30 days?: No Exposure to someone with infectious disease in past 14 days?: No Do you have a fever (greater than 100.4 F or 38 C)?: No Have you tested positive for COVID-19: No Exposed to someone with COVID-19 in past 14 days?: No Do you have a sore throat?: No Do you have a cough?: No Do you have any weakness?: No Are you experiencing any nausea/vomitting?: No Do you have any diarrhea?: No Are you experiencing any unusual bleeding?: No Do you have any muscle aches/pain?: No Do you have any abdominal pain?: No Are you experiencing loss of taste or smell?: No Review of Systems Review of Systems Review of systems:: pertinent systems reviewed and negative unless documented below Constitutional Constitutional: Reports difficulty sleeping ENT Ears, Nose, Mouth, and Throat: Reports dry mouth and Reports nasal discharge *Cardiovascular Cardiovascular: Denies chest pain, Reports dyspnea, Reports dyspnea on exertion and Reports leg edema *Respiratory Respiratory: Reports dyspnea and Reports dyspnea on exertion *Gastrointestinal Gastrointestinal: Reports bloating Exam Data for Last 24 hours Vital signs and Labs for Last 24 Hours: Temp Pulse Resp BP Pulse Ox O2 Del Method 98.0 F 103 H 22 152/72 H 91 L Room Air 05/30/24 13:32 05/30/24 13:32 05/30/24 13:32 05/30/24 13:32 05/30/24 13:32 05/30/24 13:32 Laboratory Results - last 24 hr 05/30/24 13:37: WBC 17.6 H, RBC 4.52 L, Hgb 12.1 L, Hct 38.4 L, MCV 85.0, MCH 26.8 L, MCHC 31.5 L, RDW 16.3, Plt Count 301, MPV 11.6 H, Neut % (Auto) 79.3, Lymph % (Auto) 6.6 L, [place] % (Auto) 9.4 H, Eos % (Auto) 3.1, Baso % (Auto) 0.7, Neut # (Auto) 14.0 H, Lymph # (Auto) 1.2, [place] # (Auto) 1.7 H, Eos # (Auto) 0.6 H, Baso # (Auto) 0.1, PT 14.0 H, INR 1.28 H I & O for Last 24 hours: Intake & Output 05/28/24 05/29/24 05/30/24 05/31/24 11:59 11:59 11:59 11:59 Output Total 300 / 300 Balance -300 / -300 Weight 276 lb Constitutional Constitutional: mild distress and moderate distress Comments: Conversational dyspnea at 3-4 words. *Routine Respiratory Exam Respiratory: Present decreased breath sounds; Absent rales or wheezes *Routine Cardiovascular Exam Cardiovascular: Present RRR and tachycardia; Absent murmur, gallop or rubs *Routine Extremities Exam Extremities: Present edema *Routine Neurological Exam Neurological: Present alert, oriented X3 and CN II-XII intact Meds Home Medications and Allergies Home Medications ?Medication ?Instructions ?Recorded ?Confirmed ?Type empagliflozin 25 mg tablet 25 mg PO DAILY 03/31/20 05/30/24 History atorvastatin 40 mg tablet 40 mg PO DAILY 03/31/24 05/30/24 History gabapentin 800 mg tablet 800 mg PO DAILY 03/31/24 05/30/24 History insulin regular hum U-500 conc 500 90 unit SQ HS 03/31/24 05/30/24 History unit/mL(3 mL) subcut pen (Humulin R U-500 (Conc) Insulin Kwikpen) insulin regular hum U-500 conc 500 150 unit SQ DAILY 03/31/24 05/30/24 History unit/mL(3 mL) subcut pen (Humulin R U-500 (Conc) Insulin Kwikpen) omeprazole 20 mg capsule,delayed 20 mg PO DAILY 03/31/24 05/30/24 History release blood-glucose sensor (VibeSeccom G7 #1 ea 04/17/24 05/30/24 History Sensor device) semaglutide 0.25 mg or 0.5 mg (2 0.25 mg SQ WEEKLY 04/17/24 05/30/24 History mg/3 mL) subcutaneous pen injector (Ozempic) gabapentin 800 mg tablet 1,600 mg PO HS 05/12/24 05/30/24 History aspirin 81 mg chewable tablet 81 mg PO DAILY #90 tabs 04/10/25 04/22/25 Rx clopidogrel 75 mg tablet 75 mg PO DAILY #90 tabs 05/18/24 05/30/24 Rx albuterol sulfate 90 mcg/actuation 2 inh inhalation QID PRN shortness 05/29/24 05/30/24 Rx aerosol inhaler of breath or wheezing 90 days #8.5 grams furosemide 40 mg tablet 40 mg PO DAILY #90 tabs 05/29/24 05/30/24 Rx lisinopril 20 mg tablet 20 mg PO DAILY #90 tabs 05/29/24 05/30/24 Rx New Prescriptions to Start Prescriptions: Allergies Allergy/AdvReac Type Severity Reaction Status Date / Time No Known Allergies Allergy Verified 05/29/24 15:37 Assessment and Plan *Assessment and plan (1) New onset of congestive heart failure: Status: Acute Category: Medical Code(s): I50.9 - Heart failure, unspecified (2) Acute hypoxemic respiratory failure: Status: Acute Category: Medical Code(s): J96.01 - Acute respiratory failure with hypoxia (3) Right ventricular dilation: Status: Acute Category: Medical Code(s): I51.7 - Cardiomegaly (4) Edema: Status: Acute Qualifiers: Edema type: unspecified Qualified Code(s): R60.9 - Edema, unspecified Category: Medical Code(s): R60.9 - Edema, unspecified (5) History of smoking 30 or more pack years: Status: Acute Category: Social Hx Code(s): Z87.891 - Personal history of nicotine dependence (6) Diabetes: Status: Acute Qualifiers: Diabetes mellitus complication status: without complication 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 HFpEF, new diagosis, with lower extremity edema and recent 20 pound weight gain -BNP 2690 -started on IV lasix -CXR tiny right pleural effusion -Monitor intake and output along with renal functions --Concern for constrictive pericarditis with plans to proceed with right heart catheterization possibly tomorrow 2. Acute hypoxic respiratory failure -CXR showing new infiltrate in the anterior segment of the JOANNE and suprahilar region, consistent with pneumonia -Antibiotics per hospitalist 3. 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 Recent pericardial effusion status post pericardiocentesis 05/05/2024 with negative cytology -Limited echo today shows trivial pericardial effusion 5. Diabetes with peripheral neuropathy -On Jardiance, Ozempic and insulin -On gabapentin 6. Hypertension - On lisinopril 7. CAD with recent coronary stenting, 05/12/2024 -Continue aspirin and Plavix 8. Hyperlipidemia -Continue atorvastatin 9. Mild anemia, stable around 12.1 -Normal B12 and folate Continue IV diuretics CTA of the chest to rule out pulmonary embolus and to further define possible pneumonia versus CHF Plan for right heart catheterization tomorrow if patient is able to lie flat
[2024-05-30 15:00] LABS: NT Pro Brain Natriuretic Pep. 2690 pg/mL (0-125)
[2024-05-30 15:02] LABS: Troponin I < 0.01 ng/ml (0.00-0.034)
[2024-05-30 15:04] LABS: Anion Gap 11.6 mEq/L (5-15); Sodium 137 mmol/L (136-145); T4 (Thyroxine) 7.8 ug/dl (5.53-11.0); Triiodothryronine (T3) Uptake 39 % (23.5-40.5)
[2024-05-30 15:05] LABS: Procalcitonin 0.112 ng/mL (0.0-2.0)
[2024-05-30] MEDS: IOPAMIDOL-370 (76%);100ML BOTTLE 85 ML IV (15:08)
[2024-05-30] MEDS: SODIUM CHLORIDE 0.9% 10ML SYR (RAD ONLY) 10 ML IV (15:08)
[2024-05-30] MEDS: 0.9 % SODIUM CHLORIDE 50 ML VIAL IV (15:08)
[2024-05-30 15:16] LABS: Eosinophils % 3 % (0-3); Lymphocytes % 10 % (10-50); Monocytes % 5 % (2-9); Neutrophils % 82 % (42-76); Platelet Estimate Normal; RBC Morphology Normal; Total Cells Counted 100
[2024-05-30 15:18] LABS: Thyroid Stimulating Hormone 2.28 uIU/mL (0.465-4.68)
[2024-05-30] MEDS: AZITHROMYCIN 500 MG in 0.9 % SODIUM CHLORIDE 250 ML 250 MG IV (15:18)
[2024-05-30] MEDS: CEFTRIAXONE 1 GM 1 GM in 0.9 % SODIUM CHLORIDE 50 ML IV (15:24)
--- NOTE | 2024-05-30 16:11 | PC.NURSE ---
spoke to house regarding a bed
[2024-05-30 16:14] LABS: Adenovirus,PCR Not Detected (NotDetected); Bordetella Pertussis Not Detected (NotDetected); Chlamydophila Pneumoniae, PCR Not Detected (NotDetected); Coronavirus 19, PCR Not Detected (NotDetected); Coronavirus 229E Not Detected (NotDetected); Coronavirus NL63 Not Detected (NotDetected); Coronavirus OC43 Not Detected (NotDetected); Coronovirus HKU1,PCR Not Detected (NotDetected); Influenza A, PCR Not Detected (NotDetected); Influenza AH1, 2009 Not Detected (NotDetected); Influenza AH1, PCR Not Detected (NotDetected); Influenza AH3,PCR Not Detected (NotDetected); Influenza B, PCR Not Detected (NotDetected); Mycoplasma Pneumoniae, PCR Not Detected (NotDetected); Parainfluenza 1, PCR Not Detected (NotDetected); Parainfluenza 2, PCR Not Detected (NotDetected); Parainfluenza 3, PCR Not Detected (NotDetected); Parainfluenza 4, PCR Not Detected (NotDetected); Respiratory Syncytial Virus Not Detected (NotDetected); Rhinovirus/Enterovirus Not Detected (NotDetected)
--- NOTE | 2024-05-30 16:43 | PC.NURSE ---
report called to Felicia VELASQUEZ
[2024-05-30 18:16] LABS: Human Metapneumovirus Detected (NotDetected)
[2024-05-30 19:03] LABS: Troponin I < 0.01 ng/ml (0.00-0.034)
--- NOTE | 2024-05-30 19:32 | P.HP_ITS ---
<Statement entered by Patricio Escobar MD - 05/31/24 16:20> Rounded on patient after nurse practitioner. Personally examined and interviewed patient. Agree with exam findings and care plan as documented. 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 Patient presented for routine visit to his livestock broker and was found to have room air oxygen saturations in the 80s. He was encouraged to present to the emergency room. While in the emergency room, venous Doppler was negative for any deep vein thrombosis. CTA of the chest was negative for any pulmonary embolism but revealed multiple focal areas of airspace opacities bilaterally probable multifocal pneumonia and bilateral pleural effusions. Patient's hypoxemia persisted. As a result, patient is being admitted for further management. During my evaluation of the patient, patient states he has been having persistent shortness of air since his initial diagnosis of pericardial effusion induced viral illness. Patient voices that his shortness of breath has had a duration of 2-3 months. He reports he has had a 20 pound weight gain over the past 2 to 3 weeks. Recently, cardiology has prescribed patient Lasix as an outpatient. He was evaluated by cardiology while in the emergency room and the plan will be to have a right heart cath tomorrow. Patient is currently denying any chest pain, lightheadedness, dizziness, fever, chills, rigors, nausea, vomiting, or diarrhea. Additional pertinent vitals obtained included white blood cell count of 17.6, red blood cell count of 4.52, hemoglobin 12.1, hematocrit 38.4, neutrophils 82%, iron 1.28, BUN of 25, blood glucose of 149, total bilirubin 1.7, alkaline phosphate of 137, BNP of 2690, and patient was positive for the human metapneumovirus. [facility] Disclaimer: The information contained in this section may have been updated after the patient was seen, as this information can be updated by other users. Medical History (Updated 05/31/24 @ 15:52 by Patricio Escobar MD) CHF (congestive heart failure) GERD (gastroesophageal reflux disease) HLD (hyperlipidemia) Edema Mediastinal lymphadenopathy History of smoking 30 or more pack years Acute dyspnea Swelling of lower extremity Right ventricular dilation Unstable angina PAC (premature atrial contraction) Chest pain Dyspnea PVC (premature ventricular contraction) Influenza A (H1N1) Pericarditis Type 2 diabetes mellitus Leukocytosis Renal insufficiency Acute viral syndrome Pericardial effusion Exertional dyspnea Diabetes HTN (hypertension) Knee sprain Family History (Updated 05/30/24 @ 16:43 by Lavinia Amador, RN) Other Diabetes Hyperlipidemia Hypertension Social History (Updated 05/30/24 @ 16:44 by Lavinia Amador, RN) Smoking Status: Never smoker alcohol intake: current alcohol intake frequency: a few times a week substance use type: denies use current occupational status: employed and other Travel in the last 8 weeks: None household members: spouse housing: house lives independently: Yes marital status: education level: vocational pets and animals: Yes Have you lived/traveled outside [place] in past 30 days?: No Contact w/someone who lives/traveled outside [place] past 30 days?: No Exposure to someone with infectious disease in past 14 days?: No Do you have a fever (greater than 100.4 F or 38 C)?: No Have you tested positive for COVID-19: No Exposed to someone with COVID-19 in past 14 days?: No Do you have a sore throat?: No Do you have a cough?: No Do you have any weakness?: No Are you experiencing any nausea/vomitting?: No Do you have any diarrhea?: No Are you experiencing any unusual bleeding?: No Do you have any muscle aches/pain?: No Do you have any abdominal pain?: No Are you experiencing loss of taste or smell?: No Other Medical History Have you received the Flu Vaccine for this season: No Have you received the Pneumonia Vaccine: No Review of Systems Review of Systems Review of systems:: pertinent systems reviewed and negative unless documented below Constitutional Constitutional: Reports weight gain Eyes Eyes: Reports system reviewed and no additional complaints, except as documented ENT Ears, Nose, Mouth, and Throat: Reports system reviewed and no additional complaints, except as documented *Cardiovascular Cardiovascular: Reports dyspnea, Reports dyspnea on exertion, Reports edema and Reports leg edema *Respiratory Respiratory: Reports dyspnea and Reports dyspnea on exertion *Gastrointestinal Gastrointestinal: Reports system reviewed and no additional complaints, except as documented *Genitourinary Genitourinary: Reports system reviewed and no additional complaints, except as documented *Musculoskeletal Musculoskeletal: Reports system reviewed and no additional complaints, except as documented Integumentary/Breasts Skin/Breast: Reports system reviewed and no additional complaints, except as documented *Neurologic Neurologic: Reports system reviewed and no additional complaints, except as documented Psychiatric Psychiatric: Reports system reviewed and no additional complaints, except as documented Endocrine Endocrine: Reports system reviewed and no additional complaints, except as documented Hematologic/Lymphatic Hematologic/Lymphatic: Reports system reviewed and no additional complaints, except as documented Allergic/Immunologic Allergic/Immunologic: Reports system reviewed and no additional complaints, except as documented Meds Home Medications and Allergies Home Medications ?Medication ?Instructions ?Recorded ?Confirmed ?Type empagliflozin 25 mg tablet 25 mg PO DAILY 03/31/20 05/30/24 History atorvastatin 40 mg tablet 40 mg PO DAILY 03/31/24 05/30/24 History gabapentin 800 mg tablet 800 mg PO DAILY 03/31/24 05/30/24 History insulin regular hum U-500 conc 500 90 unit SQ HS 03/31/24 05/30/24 History unit/mL(3 mL) subcut pen (Humulin R U-500 (Conc) Insulin Kwikpen) insulin regular hum U-500 conc 500 150 unit SQ DAILY 03/31/24 05/30/24 History unit/mL(3 mL) subcut pen (Humulin R U-500 (Conc) Insulin Kwikpen) omeprazole 20 mg capsule,delayed 20 mg PO DAILY 03/31/24 05/30/24 History release semaglutide 0.25 mg or 0.5 mg (2 0.25 mg SQ WEEKLY 04/17/24 05/30/24 History mg/3 mL) subcutaneous pen injector (Ozempic) gabapentin 800 mg tablet 1,600 mg PO HS 05/12/24 05/30/24 History aspirin 81 mg chewable tablet 81 mg PO DAILY #90 tabs 05/18/24 05/30/24 Rx clopidogrel 75 mg tablet 75 mg PO DAILY #90 tabs 05/18/24 05/30/24 Rx furosemide 40 mg tablet 40 mg PO DAILY #90 tabs 05/29/24 05/30/24 Rx lisinopril 20 mg tablet 20 mg PO DAILY #90 tabs 05/29/24 05/30/24 Rx albuterol sulfate 90 mcg/actuation 2 inh inhalation QIDP PRN 05/31/24 05/31/24 History aerosol inhaler shortness of breath or wheezing New Prescriptions to Start Prescriptions: Allergies Allergy/AdvReac Type Severity Reaction Status Date / Time No Known Allergies Allergy Verified 05/29/24 15:37 Exam Data for Last 24 hours Vital signs and Labs for Last 24 Hours: Temp Pulse Resp BP Pulse Ox O2 Del Method O2 Flow Rate 98.0 F 98 H 18 126/70 92 L Nasal Cannula 3 05/30/24 17:20 05/30/24 17:20 05/30/24 17:20 05/30/24 17:20 05/30/24 17:00 05/30/24 18:56 05/30/24 18:56 Laboratory Results - last 24 hr 05/30/24 13:37: WBC 17.6 H, RBC 4.52 L, Hgb 12.1 L, Hct 38.4 L, MCV 85.0, MCH 26.8 L, MCHC 31.5 L, RDW 16.3, Plt Count 301, MPV 11.6 H, Neut % (Auto) 79.3, Lymph % (Auto) 6.6 L, [place] % (Auto) 9.4 H, Eos % (Auto) 3.1, Baso % (Auto) 0.7, Neut # (Auto) 14.0 H, Lymph # (Auto) 1.2, [place] # (Auto) 1.7 H, Eos # (Auto) 0.6 H, Baso # (Auto) 0.1, Total Counted 100, Neutrophils % (Manual) 82 H, Lymphocytes % (Manual) 10, Monocytes % (Manual) 5, Eosinophils % (Manual) 3, Platelet Estimate Normal, RBC Morphology Normal, PT 14.0 H, INR 1.28 H, Sodium 137, Potassium 4.6 D, Chloride 104, Carbon Dioxide 26, Anion Gap 11.6, BUN 25 H , Creatinine 1.20, Estimated Creat Clear 117, Estimated GFR 62, Est GFR ( Amer) 75, Glucose 149 H D, Calcium 8.6, Magnesium 1.8, Total Bilirubin 1.7 H, AST 35, ALT 37, Alkaline Phosphatase 137 H, Troponin I < 0.01, NT-Pro-B Natriuret Pep 2690 H, Total Protein 7.5, Albumin 3.6, Globulin 3.9 H, Albumin/Globulin Ratio 0.9 L, Procalcitonin 0.112, TSH 2.28, Free T4 Index 3.0 L , Thyroxine (T4) 7.8, T3 Uptake 39 05/30/24 16:10: Chlamy pneumoniae PCR Not detected, Adenovirus (PCR) Not detected, B. pertussis DNA (PCR) Not detected, Coronavirus OC43 (PCR) Not detected, Coronavirus HKU1 (PCR) Not detected, Coronavirus 229E (PCR) Not detected, SARS-CoV-2 (PCR) Not detected, Coronavirus NL63 (PCR) Not detected, Human Metapneumovir PCR Detected A, Influenza A (H1) PCR Not detected, Influ A (H1N1/09) PCR Not detected, Influenza A (H3) PCR Not detected, Influenza Type A (PCR) Not detected, Influenza Type B (PCR) Not detected, M. pneumoniae (PCR) Not detected, Parainfluenza 1 (PCR) Not detected, Parainfluenza 2 (PCR) Not detected, Parainfluenza 3 (PCR) Not detected, Parainfluenza 4 (PCR) Not detected, RSV (PCR) Not detected, Entero/Rhino (PCR) Not detected 05/30/24 17:48: Troponin I < 0.01 I & O for Last 24 hours: Intake & Output 05/27/24 05/28/24 05/29/24 05/30/24 23:59 23:59 23:59 23:59 Output Total 3100 / 3100 Balance -3100 / -3100 Weight 119.862 kg Constitutional Constitutional: mild distress and obese *Routine HEENT Exam Head: Present normocephalic Eye: Present EOMI and PERRL ENT: Present mucous membranes moist *Routine Neck Exam Neck: Present supple, full ROM and trachea midline *Routine Respiratory Exam Respiratory: Present decreased breath sounds, respiratory distress, diminished air movement, able to speak in complete sentences and symmetric chest movement *Routine Cardiovascular Exam Cardiovascular: Present RRR, Normal S1 and Normal S2 *Routine Abdominal Exam Abdominal: Present soft, normoactive bowel sounds and obese *Routine Rectal Exam Rectal:: deferred *Routine Genitalia Exam Genitalia:: deferred *Routine Extremities Exam Extremities: Present edema, full ROM, pulses intact and normal capillary refill Routine Back/Spine/Pelvis Exam Back/Spine: Present full ROM *Routine Skin Exam Skin: Present intact, dry and warm *Routine Neurological Exam Neurological: Present alert, oriented X3, CN II-XII intact, moving all extremities and normal speech Routine Psychiatric Exam Psychiatric: Present normal affect, normal thought process, cooperative, good insight and good judgment H&P: Result Impressions 59-year-old male presents with persistent shortness of breath that is progressively getting worse with a 20 pound weight gain noted to be in heart failure exacerbation. He is status post pericardiocentesis performed due to viral illness and status post coronary artery intervention with 3 stents placed. He has been seen and evaluated by cardiology who has a tentative plan to perform right heart catheter tomorrow Assessment and Plan *Assessment and plan (1) Multifocal pneumonia: Status: Acute Category: Medical Code(s): J18.9 - Pneumonia, unspecified organism (2) Sepsis: Status: Acute Qualifiers: Acute respiratory failure type: with hypoxia Sepsis acute organ dysfunction status: with acute organ dysfunction Sepsis type: sepsis due to unspecified organism Severe sepsis acute organ dysfunction type: acute respiratory failure Severe sepsis shock status: without septic shock Qualified Code(s): A41.9 - Sepsis, unspecified organism; R65.20 - Severe sepsis without septic shock; J96.01 - Acute respiratory failure with hypoxia Category: Medical Code(s): A41.9 - Sepsis, unspecified organism (3) Acute hypoxemic respiratory failure: Status: Acute Category: Medical Code(s): J96.01 - Acute respiratory failure with hypoxia (4) New onset of congestive heart failure: Status: Acute Category: Medical Code(s): I50.9 - Heart failure, unspecified (5) Leukocytosis: Status: Acute Qualifiers: Leukocytosis type: unspecified Qualified Code(s): D72.829 - Elevated white blood cell count, unspecified Category: Medical Code(s): D72.829 - Elevated white blood cell count, unspecified (6) Hyperglycemia: Status: Acute Category: Medical Code(s): R73.9 - Hyperglycemia, unspecified (7) Viral syndrome: Status: Acute Category: Medical Code(s): B34.9 - Viral infection, unspecified (8) Pleural effusion: Status: Acute Category: Medical Code(s): J90 - Pleural effusion, not elsewhere classified Plan -year-old male whose had multiple episodes of shortness of breath. Previously had a flu infection. Had a heart cath earlier this month with 2 stents placed. Discussed case with cardiology and ER physician, request admission for further management of his new oxygen requirement. Medicine agreed to admit for further care. Problems addressed as follows: Assessment: Multifocal pneumonia: Most likely community-acquired/bacterial - Will continue 1 g Rocephin IV daily - Patient received 500 mg of azithromycin; will continue 250 mg of azithromycin p.o. daily -Will consider vancomycin Sepsis: - Patient is currently meeting sepsis criteria - Due to new onset heart failure, will not give 30 mL/kg of body weight of IV hydration due to this may induce more harm - Will continue antibiotics as described above - Blood cultures x 2 - Lactic acid was normal - Sepsis reperfusion screening performed - Repeat CBC, CMP, magnesium ordered for the morning Acute hypoxic respiratory failure - Supplemental oxygen maintain oxygen saturation greater 94% New onset congestive heart failure systolic dysfunction: HfrEF -Patient has been seen and evaluated by cardiology - Last 2D echo obtained in March revealed an EF of 46% - Will continue lisinopril once med rec is updated - Will consider low-dose beta-carol - 40 mg Lasix IV twice daily -Strict intake and output Leukocytosis: - Blood cultures x 2 are pending - Will continue antibiotics as described above Hyperglycemia: Most likely in the setting of diabetes - Sliding scale insulin AC and at bedtime with mild scale coverage Viral syndrome: Patient was positive for the human metapneumovirus - Will implement conservative measures - Since patient has concurrent bacterial pneumonia, will consider vancomycin Pleural effusion - Will obtain decubitus of the chest -If there is a significant amount of volume noted on decubitus of chest, will consider thoracentesis -Will consider consultation with pulmonology Plan: Admit patient to the MedSurg unit Full code Activity as tolerated Vital signs every 4 hours Saline lock Daily weight Consult cardiology 1800 ADA/cardiac diet CBC/BMP daily 40 mg enoxaparin daily for DVT prophylax 5 mg [place] p.o. every 4 hours for moderate pain I have discussed this case with attending physician Dr. [place] and I look forward to more put
--- NOTE | 2024-05-30 20:18 | EXP.SEPSISRE ---
[facility] Tissue Perfusion Eval Sepsis Re-Evaluation Performed: Yes Date Performed: 05/30/24 Time Performed: 19:00
[2024-05-30 22:05] LABS: Troponin I < 0.01 ng/ml (0.00-0.034)
[2024-05-30] MEDS: BENZONATATE 100MG CAPSULE 200 MG PO (22:18)
[2024-05-31] VITALS (10 sets, daily range): BP systolic 112–140; BP diastolic 60–83; PULSE 78–107; RESP 16–22; TEMP 36.6–39; O2SAT 92–96; BMI 33.4
[2024-05-31] MEDS: ACETAMINOPHEN 325MG TAB 650 MG PO ×3 (01:46→18:52)
[2024-05-31] MEDS: PANTOPRAZOLE 40MG VIAL 40 MG IV (03:01)
[2024-05-31] MEDS: FUROSEMIDE 40MG/4ML VIAL 40 MG IV (03:01)
--- NOTE | 2024-05-31 04:56 | PC.NURSE ---
V/s, ox4. Blood glucose monitored. Pt has dexcom and is also self monitoring his blood glucose. Pt refused coverage at beginning of shift, stated it will come down to normal within an hour or two. Pt's blood glucose was rechecked around midnight and blood glucose was 105. Pt has been NPO at midnight. Pt c/o abdominal discomfort and sob, provider notified. Pt was increased from 2LNC to 3, satting in the mid 90's. Provider ordered lasix and protonic. Pt was reassessed about an hour later. Pt stated he felt somewhat better. Pt is pending possible heart cath today. Contact precautions maintained for HMPV. Plan of care ongoing.
[2024-05-31] MEDS: DEXTROSE 50% 50ML SYRINGE (CRASH CART) 25 ML IV (06:21)
[2024-05-31 06:30] LABS: Basophils # 0.1 K/mm3 (0-0.2); Basophils % 0.7 % (0.1-2.0); Eosinophils # 0.4 Kmm3 (0.0-0.4); Eosinophils % 2.7 % (0.1-12.0); Hematocrit 38.1 % (42.0-52.0); Hemoglobin 12.4 g/dL (14.1-18.0); Lymphocytes # 1.3 K/mm3 (0.7-4.5); Lymphocytes % 8.3 % (10-50); Mean Corpuscular HGB Conc 32.5 g/dL (31.8-35.4); Mean Corpuscular Hemoglobin 27.6 pg (27.0-31.2); Mean Corpuscular Volume 84.7 fl (80-94); Mean Platelet Volume 11.1 fl (7.4-10.4); Monocytes # 1.9 K/mm3 (0.1-1.0); Monocytes % 11.7 % (1.7-9.3); Neutrophils # 12.2 K/mm3 (1.8-7.8); Neutrophils % 75.8 % (37.0-80.0); Nucleated Red Blood Cells # 0 10^3/uL; Nucleated Red Blood Cells % 0 %; Platelet Count 310 K/mm3 (142-424); Red Cell Distribution Width-SD 48.4 fL; White Blood Count 16.1 K/mm3 (4.8-10.8)
[2024-05-31 06:35] LABS: Chloride 99 mmol/L (98-107); Potassium 4.3 mmoL/L (3.5-5.1); Sodium 139 mmol/L (136-145)
[2024-05-31 06:38] LABS: Anion Gap 13.3 mEq/L (5-15); Blood Urea Nitrogen 26 mg/dl (9-20); Carbon Dioxide 31 mmol/L (22.0-30.0); Creatinine Clearance Estimated 96 mL/min (50-200); Estimated Glomerular Filt Rate 52 ml/min (>60); GFR (African American) 63 ML/MIN (>60)
[2024-05-31 06:39] LABS: Calcium 8.7 mg/dl (8.4-10.2); Glucose 98 mg/dl (74-100)
[2024-05-31 06:40] LABS: MANUAL DIFFERENTIAL MANUAL DIFFERENTIAL (MANUAL DIFF)
[2024-05-31 08:06] LABS: Eosinophils % 1 % (0-3); Lymphocytes % 14 % (10-50); Monocytes % 6 % (2-9); Neutrophils % 79 % (42-76); Platelet Estimate Normal; RBC Morphology Normal; Total Cells Counted 100
[2024-05-31] MEDS: CEFTRIAXONE SODIUM 1 GM in 0.9 % SODIUM CHLORIDE 50 ML IV (08:09)
--- NOTE | 2024-05-31 08:29 | P.PN_ITS ---
Subjective Subjective Date: 05/31/24 Time: 08:30 Principal diagnosis: CHF, pneumonia Interval history: 59 yo WM in bed still with some SOA. States he is breathing better but not back to baseline. Frustrated at not being able to eat and the lack of improvement over the last 2 months. We discussed his CHF and pneumonia diagnosis and the plan to proceed with right heart cath to look for constrictive pericarditis. Hold lasix this AM due to elevated renal functions. Due to pneumonia, elevated WBC and detection of human metapneumovirus, Dr. Hidalgo would like to postpone his Right heart cath until tomorrow at least. He would like pulmonary to see the patient as well. Exam Data for Last 24 hours Vital signs and Labs for Last 24 Hours: Temp Pulse Resp BP Pulse Ox O2 Del Method O2 Flow Rate 98.1 F 91 H 22 116/66 93 L Nasal Cannula 3 05/31/24 07:51 05/31/24 07:51 05/31/24 07:51 05/31/24 07:51 05/31/24 07:51 05/31/24 07:51 05/31/24 07:51 Laboratory Results - last 24 hr 05/30/24 13:37: WBC 17.6 H, RBC 4.52 L, Hgb 12.1 L, Hct 38.4 L, MCV 85.0, MCH 26.8 L, MCHC 31.5 L, RDW 16.3, Plt Count 301, MPV 11.6 H, Neut % (Auto) 79.3, Lymph % (Auto) 6.6 L, [place] % (Auto) 9.4 H, Eos % (Auto) 3.1, Baso % (Auto) 0.7, Neut # (Auto) 14.0 H, Lymph # (Auto) 1.2, [place] # (Auto) 1.7 H, Eos # (Auto) 0.6 H, Baso # (Auto) 0.1, Total Counted 100, Neutrophils % (Manual) 82 H, Lymphocytes % (Manual) 10, Monocytes % (Manual) 5, Eosinophils % (Manual) 3, Platelet Estimate Normal, RBC Morphology Normal, PT 14.0 H, INR 1.28 H, Sodium 137, Potassium 4.6 D, Chloride 104, Carbon Dioxide 26, Anion Gap 11.6, BUN 25 H , Creatinine 1.20, Estimated Creat Clear 117, Estimated GFR 62, Est GFR ( Amer) 75, Glucose 149 H D, Calcium 8.6, Magnesium 1.8, Total Bilirubin 1.7 H, AST 35, ALT 37, Alkaline Phosphatase 137 H, Troponin I < 0.01, NT-Pro-B Natriuret Pep 2690 H, Total Protein 7.5, Albumin 3.6, Globulin 3.9 H, Albumin/Globulin Ratio 0.9 L, Procalcitonin 0.112, TSH 2.28, Free T4 Index 3.0 L , Thyroxine (T4) 7.8, T3 Uptake 39 05/30/24 16:10: Chlamy pneumoniae PCR Not detected, Adenovirus (PCR) Not detected, B. pertussis DNA (PCR) Not detected, Coronavirus OC43 (PCR) Not detected, Coronavirus HKU1 (PCR) Not detected, Coronavirus 229E (PCR) Not detected, SARS-CoV-2 (PCR) Not detected, Coronavirus NL63 (PCR) Not detected, Human Metapneumovir PCR Detected A, Influenza A (H1) PCR Not detected, Influ A (H1N1/09) PCR Not detected, Influenza A (H3) PCR Not detected, Influenza Type A (PCR) Not detected, Influenza Type B (PCR) Not detected, M. pneumoniae (PCR) Not detected, Parainfluenza 1 (PCR) Not detected, Parainfluenza 2 (PCR) Not detected, Parainfluenza 3 (PCR) Not detected, Parainfluenza 4 (PCR) Not detected, RSV (PCR) Not detected, Entero/Rhino (PCR) Not detected 05/30/24 17:48: Troponin I < 0.01 05/30/24 21:00: Troponin I < 0.01 05/31/24 06:13: WBC 16.1 H, RBC 4.50 L, Hgb 12.4 L, Hct 38.1 L, MCV 84.7, MCH 27.6, MCHC 32.5, RDW 16.0, Plt Count 310, MPV 11.1 H, Neut % (Auto) 75.8, Lymph % (Auto) 8.3 L, [place] % (Auto) 11.7 H, Eos % (Auto) 2.7, Baso % (Auto) 0.7, Neut # (Auto) 12.2 H, Lymph # (Auto) 1.3, [place] # (Auto) 1.9 H, Eos # (Auto) 0.4, Baso # (Auto) 0.1, Total Counted 100, Neutrophils % (Manual) 79 H, Lymphocytes % (Manual) 14, Monocytes % (Manual) 6, Eosinophils % (Manual) 1, Platelet Estimate Normal, RBC Morphology Normal, Sodium 139, Potassium 4.3, Chloride 99, Carbon Dioxide 31 H, Anion Gap 13.3, BUN 26 H, Creatinine 1.40 H, Estimated Creat Clear 96, Estimated GFR 52 L, Est GFR ( Amer) 63, Glucose 98 D, Calcium 8.7 I & O for Last 24 hours: Intake & Output 05/28/24 05/29/24 05/30/24 05/31/24 11:59 11:59 11:59 11:59 Intake Total 840 / 840 Output Total 3400 / 3400 Balance -2560 / -2560 Weight 252 lb 1.6 oz Constitutional Constitutional: mild distress *Routine Respiratory Exam Respiratory: Present rhonchi; Absent wheezes *Routine Cardiovascular Exam Cardiovascular: Present RRR Progress Note: A&P Assessment and plan (1) New onset of congestive heart failure: Status: Acute (2) Acute hypoxemic respiratory failure: Status: Acute (3) Right ventricular dilation: Status: Acute (4) Edema: Status: Acute (5) History of smoking 30 or more pack years: Status: Acute (6) Diabetes: Status: Acute (7) HTN (hypertension): Status: Acute Assessment and Plan Assessment and Plan for All Diagnoses:: 1. HFpEF, new diagosis, with lower extremity edema and recent 20 pound weight gain -diuresed 2500 ml overnight with increased BUN/Cr this AM -hold lasix this AM --Concern for constrictive pericarditis with plans to proceed with right heart catheterization today 2. Acute hypoxic respiratory failure -CTA chest showing pneumonia -detection of human metapneumovirus PCR -on ceftriaxone and azithromycin 3. 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 Recent pericardial effusion status post pericardiocentesis 05/05/2024 with negative cytology -Limited echo shows trivial pericardial effusion 5. Diabetes with peripheral neuropathy -On Jardiance, Ozempic and insulin -On gabapentin 6. Hypertension - On lisinopril 7. CAD with recent coronary stenting, 05/12/2024 -Continue aspirin and Plavix 8. Hyperlipidemia -Continue atorvastatin 9. Mild anemia, stable around 12.1 -Normal B12 and folate Hold lasix this AM Right heart cath postponed for now continue treatment of pneumonia Pulmonary consult
--- NOTE | 2024-05-31 08:38 | HMH.PHAINT1 ---
Pharmacy Intervention Comments: MEDICATION RECONCILIATION COMPLETE USING EXTERNAL PHARMACY FILL HISTORY, RECENT MD OFFICE VISIT NOTES (CARDIOLOGY, PULMONOLOGY, PRIMARY) AND MT REPORT.
--- NOTE | 2024-05-31 09:00 | XR_ITS ---
FINAL REPORT CLINICAL HISTORY: Pleural effusion, shortness of breath COMPARISON: 05/12/2024 FINDINGS: CHEST SPECIAL VIEWS/DECUB/LORDOTIC One PA view and bilateral decubitus views of the chest were obtained. The heart and mediastinum are unremarkable. There is linear opacity in the right midlung which could be atelectasis or trace fluid in the fissure. There is no focal infiltrate. There is no pneumothorax. On the decubitus views, there is noted to be a small free-flowing right pleural effusion. On the left lateral decubitus view, airspace disease in the right lower lung is demonstrated which could represent pneumonia. IMPRESSION: Small free-flowing right pleural effusion. Right lower lobe airspace disease best seen on the left lateral decubitus view, pneumonia not excluded. Reviewed, Interpreted and Dictated by Nia Gomez MD Transcribed by Shelby Call Authenticated and [facility]
[2024-05-31] MEDS: SODIUM CHLORIDE 3% 15ML NEB 3 ML IH (09:06)
--- NOTE | 2024-05-31 11:49 | PC.NURSE ---
glucose 176 per pt dexcom but pt does not want insulin coverage at this time.
--- NOTE | 2024-05-31 15:51 | EXP.ACUTE.PN ---
Subjective *Date: 05/31/24 *Time: 15:56 Interval history: Continues to remain just close morning. Continues to require 3 L oxygen. Respiratory panel positive for human metapneumovirus overnight. Kidney function bumped today with MINDY. White count remains elevated. Cardiology evaluating. Pulmonology consulted to assist with care given persistent dyspnea. Denies nausea or vomiting. Denies chest pain Medical Exam Vital signs and Labs for Last 24 Hours: Vital Signs Temp Pulse Pulse Resp BP BP Pulse Ox 05/31/24 15:00 05/31/24 13:00 05/31/24 12:00 100 H 05/31/24 12:00 98.4 F 99 H 22 123/73 94 L 05/31/24 11:00 05/31/24 09:08 78 18 05/31/24 09:00 05/31/24 08:00 100 H 05/31/24 08:00 05/31/24 07:51 98.1 F 91 H 22 116/66 93 L 05/31/24 06:04 05/31/24 05:00 05/31/24 04:00 98.5 F 97 H 16 112/60 92 L 05/31/24 04:00 100 H 05/31/24 02:44 05/31/24 01:00 102.2 F H 05/31/24 01:00 05/31/24 00:00 100.1 F H 107 H 20 124/67 92 L 05/31/24 00:00 100 H 05/30/24 23:00 05/30/24 21:00 05/30/24 20:00 05/30/24 20:00 98.7 F 98 H 16 114/71 94 L 05/30/24 20:00 100 H 05/30/24 18:56 05/30/24 18:00 05/30/24 17:35 05/30/24 17:20 98.0 F 98 H 18 126/70 05/30/24 17:00 98 F 98 H 19 123/66 92 L 05/30/24 16:30 99 H 121/73 92 L 05/30/24 16:15 96 H 117/74 95 O2 Del Method O2 Flow Rate 05/31/24 15:00 Nasal Cannula 3 05/31/24 13:00 Nasal Cannula 3 05/31/24 12:00 05/31/24 12:00 Nasal Cannula 05/31/24 11:00 Nasal Cannula 3 05/31/24 09:08 05/31/24 09:00 Nasal Cannula 3 05/31/24 08:00 05/31/24 08:00 Nasal Cannula 2 05/31/24 07:51 Nasal Cannula 3 05/31/24 06:04 Nasal Cannula 3 05/31/24 05:00 Nasal Cannula 3 05/31/24 04:00 Nasal Cannula 3 05/31/24 04:00 05/31/24 02:44 Room Air, Nasal Cannula 3 05/31/24 01:00 05/31/24 01:00 Nasal Cannula 3 05/31/24 00:00 Nasal Cannula 3 05/31/24 00:00 05/30/24 23:00 Nasal Cannula 2.5 05/30/24 21:00 Nasal Cannula 2 05/30/24 20:00 Nasal Cannula 2 05/30/24 20:00 Nasal Cannula 2 05/30/24 20:00 05/30/24 18:56 Nasal Cannula 3 05/30/24 18:00 Nasal Cannula 3 05/30/24 17:35 Nasal Cannula 3 05/30/24 17:20 Room Air 05/30/24 17:00 Nasal Cannula 2 05/30/24 16:30 05/30/24 16:15 Intake and Output 05/30/24 05/31/24 05/31/24 23:59 07:59 15:59 Intake Total 840 / 1200 360 / 1200 Output Total 2800 / 3100 300 / 1450 1150 / 1450 Balance -2800 / -2740 540 / -250 -790 / -250 Intake: Intake, Oral Amount 840 / 1200 360 / 1200 Output: Output, Urine Amount 2800 / 3100 300 / 1450 1150 / 1450 Other: Number of Voids 1 4 Number of Unmeasured Voids 1 1 0 Number of Bowel Movements 1 Weight 119.862 kg 114.351 kg Patient Weight 05/31/24 23:59 Weight 114.351 kg Laboratory Results - last 24 hr 05/30/24 16:10: Chlamy pneumoniae PCR Not detected, Adenovirus (PCR) Not detected, B. pertussis DNA (PCR) Not detected, Coronavirus OC43 (PCR) Not detected, Coronavirus HKU1 (PCR) Not detected, Coronavirus 229E (PCR) Not detected, SARS-CoV-2 (PCR) Not detected, Coronavirus NL63 (PCR) Not detected, Human Metapneumovir PCR Detected A, Influenza A (H1) PCR Not detected, Influ A (H1N1/09) PCR Not detected, Influenza A (H3) PCR Not detected, Influenza Type A (PCR) Not detected, Influenza Type B (PCR) Not detected, M. pneumoniae (PCR) Not detected, Parainfluenza 1 (PCR) Not detected, Parainfluenza 2 (PCR) Not detected, Parainfluenza 3 (PCR) Not detected, Parainfluenza 4 (PCR) Not detected, RSV (PCR) Not detected, Entero/Rhino (PCR) Not detected 05/30/24 17:48: Troponin I < 0.01 05/30/24 21:00: Troponin I < 0.01 05/31/24 06:13: WBC 16.1 H, RBC 4.50 L, Hgb 12.4 L, Hct 38.1 L, MCV 84.7, MCH 27.6, MCHC 32.5, RDW 16.0, Plt Count 310, MPV 11.1 H, Neut % (Auto) 75.8, Lymph % (Auto) 8.3 L, [place] % (Auto) 11.7 H, Eos % (Auto) 2.7, Baso % (Auto) 0.7, Neut # (Auto) 12.2 H, Lymph # (Auto) 1.3, [place] # (Auto) 1.9 H, Eos # (Auto) 0.4, Baso # (Auto) 0.1, Total Counted 100, Neutrophils % (Manual) 79 H, Lymphocytes % (Manual) 14, Monocytes % (Manual) 6, Eosinophils % (Manual) 1, Platelet Estimate Normal, RBC Morphology Normal, Sodium 139, Potassium 4.3, Chloride 99, Carbon Dioxide 31 H, Anion Gap 13.3, BUN 26 H, Creatinine 1.40 H, Estimated Creat Clear 96, Estimated GFR 52 L, Est GFR ( Amer) 63, Glucose 98 D, Calcium 8.7 I & O for Labs for Last 24 Hours: Intake & Output 05/28/24 05/29/24 05/30/24 05/31/24 23:59 23:59 23:59 23:59 Intake Total 1200 / 1200 Output Total 3100 / 3100 1450 / 1450 Balance -3100 / -2740 -250 / -250 Weight 119.862 kg 114.351 kg Microbiology Reports for the Last 24 Hours: Microbiology 05/30/24 15:10 Blood Blood Culture - Preliminary NO GROWTH AFTER 24 HOURS 05/30/24 15:10 Blood Blood Culture - Preliminary NO GROWTH AFTER 24 HOURS 05/30/24 09:30 Sputum - Expectorated Sputum Gram Stain - Final Constitutional: Present mild distress, obese and cooperative Comment:: Ill-appearing Head: Present atraumatic and normocephalic ENT: Present normal exam Respiratory: Present crackles (Diffuse) and normal respiratory effort; Absent rhonchi or wheezes Comment:: Dry nonproductive cough Cardiac: Present Reg Rate and Rhythm GI: Present soft and normal bowel sounds; Absent distention or tenderness Extremities: Present normal inspection and full ROM; Absent edema Skin: Present intact; Absent erythema Neuro: Present Grossly Intact, alert, awake, oriented x 3 and moves all extremities Assessment and Plan *Assessment and plan (1) Multifocal pneumonia: Status: Acute Category: Medical Code(s): J18.9 - Pneumonia, unspecified organism (2) Sepsis: Status: Acute Qualifiers: Acute respiratory failure type: with hypoxia Sepsis acute organ dysfunction status: with acute organ dysfunction Sepsis type: sepsis due to unspecified organism Severe sepsis acute organ dysfunction type: acute respiratory failure Severe sepsis shock status: without septic shock Qualified Code(s): A41.9 - Sepsis, unspecified organism; R65.20 - Severe sepsis without septic shock; J96.01 - Acute respiratory failure with hypoxia Category: Medical Code(s): A41.9 - Sepsis, unspecified organism (3) Human metapneumovirus (hMPV) pneumonia: Status: Acute Category: Medical Code(s): J12.3 - Human metapneumovirus pneumonia (4) Acute hypoxemic respiratory failure: Status: Acute Category: Medical Code(s): J96.01 - Acute respiratory failure with hypoxia (5) New onset of congestive heart failure: Status: Acute Category: Medical Code(s): I50.9 - Heart failure, unspecified (6) Leukocytosis: Status: Acute Qualifiers: Leukocytosis type: unspecified Qualified Code(s): D72.829 - Elevated white blood cell count, unspecified Category: Medical Code(s): D72.829 - Elevated white blood cell count, unspecified (7) Hyperglycemia: Status: Acute Category: Medical Code(s): R73.9 - Hyperglycemia, unspecified (8) Viral syndrome: Status: Acute Category: Medical Code(s): B34.9 - Viral infection, unspecified (9) Pleural effusion: Status: Acute Category: Medical Code(s): J90 - Pleural effusion, not elsewhere classified Plan Josse Thomas is a 58-year-old male who presents with multiple admissions over the past few months. Has had intermittent shortness of breath. Previous pericardial effusion it has been drained. Previous episode of pericarditis. Has been positive for the flu. On this presentation, positive for human metapneumovirus. Persistent respiratory distress and oxygen requirement at this time. Continues to require inpatient admission. Condition unstable. Cardiology assisting with care. Pulmonology consulted to evaluate due to persistent shortness of breath. Problems addressed as follows: Human metapneumovirus pneumonia Multifocal pneumonia with sepsis Acute hypoxemic respiratory failure - Primary review of chest imaging, has diffuse patchy airspace disease - Will continue azithromycin 250 mg daily and ceftriaxone 1 g daily for empiric bacterial coverage/community-acquired pneumonia - Supplemental oxygen as needed, goal sats greater 90%. Wean as tolerated - Blood cultures pending - Pulmonology consulted, appreciate their recommendations - White count elevated at 16. Hemoglobin 12. New onset HFpEF -Cardiology consulted, appreciate their patients. BNP elevated at 2600. Initiate IV Lasix. -3 L in the past 24 hours at this time. - Repeat CBC, CMP, magnesium ordered for the morning. BUN 26 today, creatinine 1.4. Patient has been seen and evaluated by cardiology - Last 2D echo obtained in March revealed an EF of 46% -Will consider right heart cath per discussion with cardiology pending patient's response to treatment for HFpEF and multifocal pneumonia. 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 Continue home Jardiance and gabapentin for neuropathy -Morning glucose 98 CAD Hypertension - Continue lisinopril 20 mg daily - recent coronary stenting, 05/12/2024 -Continue aspirin 81 mg daily and Plavix 75 mg daily -Continue Lipitor 40 mg nightly for hyperlipidemia Full code Lovenox 40 mg subcu daily Diabetic diet
[2024-05-31] MEDS: PANTOPRAZOLE 40MG TABLET 40 MG PO (21:53)
[2024-05-31] MEDS: GABAPENTIN 800MG TABLET 1600 MG PO (21:53)
[2024-06-01] VITALS (7 sets, daily range): BP systolic 111–137; BP diastolic 65–92; PULSE 54–91; RESP 14–20; TEMP 36.6–36.9; O2SAT 92–96; BMI 33.4; BMI 33.3
--- NOTE | 2024-06-01 05:21 | PC.NURSE ---
v/s, ox4, blood glucose monitored, RA. Contact precautions maintained for HMPV. No acute events to report, plan of care ongoing.
[2024-06-01 06:18] LABS: Basophils # 0.1 K/mm3 (0-0.2); Basophils % 0.8 % (0.1-2.0); Eosinophils # 1.1 Kmm3 (0.0-0.4); Eosinophils % 10.3 % (0.1-12.0); Hematocrit 37.4 % (42.0-52.0); Hemoglobin 11.8 g/dL (14.1-18.0); Lymphocytes # 1.4 K/mm3 (0.7-4.5); Lymphocytes % 13.6 % (10-50); Mean Corpuscular HGB Conc 31.6 g/dL (31.8-35.4); Mean Corpuscular Hemoglobin 26.9 pg (27.0-31.2); Mean Corpuscular Volume 85.2 fl (80-94); Mean Platelet Volume 11.1 fl (7.4-10.4); Monocytes # 1.3 K/mm3 (0.1-1.0); Monocytes % 12.9 % (1.7-9.3); Neutrophils # 6.4 K/mm3 (1.8-7.8); Neutrophils % 61.8 % (37.0-80.0); Nucleated Red Blood Cells # 0 10^3/uL; Nucleated Red Blood Cells % 0 %; Platelet Count 271 K/mm3 (142-424); Red Blood Count 4.39 M/mm3 (4.60-6.20); Red Cell Distribution Width 15.9 % (11.5-17.5); Red Cell Distribution Width-SD 48.7 fL; White Blood Count 10.4 K/mm3 (4.8-10.8)
[2024-06-01 06:26] LABS: Chloride 100 mmol/L (98-107)
[2024-06-01 06:27] LABS: Potassium 4.4 mmoL/L (3.5-5.1); Sodium 137 mmol/L (136-145)
[2024-06-01 06:29] LABS: Blood Urea Nitrogen 28 mg/dl (9-20); Creatinine Clearance Estimated 99 mL/min (50-200); Estimated Glomerular Filt Rate 57 ml/min (>60); GFR (African American) 68 ML/MIN (>60)
[2024-06-01 06:30] LABS: Anion Gap 10.4 mEq/L (5-15); Calcium 8.5 mg/dl (8.4-10.2); Carbon Dioxide 31 mmol/L (22.0-30.0); Glucose 130 mg/dl (74-100)
--- NOTE | 2024-06-01 07:44 | EXP.ACUTE.PN ---
Subjective *Date: 06/01/24 *Time: 20:51 Interval history: Patient feeling somewhat better today, weaned to 1 L oxygen on morning rounds. Denies significant chest pain. Does still complain of shortness of breath. Still has some edema in his ankles. Pulmonology evaluating today. Remains afebrile. Tolerating p.o. intake. Discussion with patient about self administration of medication, is currently giving himself his own insulin. Discussed that we need to be aware of his doses so that we can document appropriately. Received 40 units U-500 this morning. Medical Exam Vital signs and Labs for Last 24 Hours: Vital Signs Temp Pulse Pulse Resp BP Pulse Ox O2 Del Method 06/01/24 06:07 Room Air 06/01/24 05:00 Room Air 06/01/24 04:00 80 06/01/24 04:00 98.4 F 54 L 14 127/75 94 L Room Air 06/01/24 02:17 Room Air 06/01/24 00:18 Room Air 06/01/24 00:00 90 05/31/24 23:57 98.8 F 90 18 131/79 96 Nasal Cannula 05/31/24 23:00 Room Air 05/31/24 21:00 Room Air 05/31/24 20:00 Room Air 05/31/24 20:00 90 05/31/24 20:00 99.0 F 98 H 20 117/66 94 L Nasal Cannula 05/31/24 18:05 Nasal Cannula 05/31/24 17:00 Nasal Cannula 05/31/24 16:00 90 05/31/24 16:00 97.8 F 96 H 20 140/83 94 L Nasal Cannula 05/31/24 15:00 Nasal Cannula 05/31/24 13:00 Nasal Cannula 05/31/24 12:00 100 H 05/31/24 12:00 98.4 F 99 H 22 123/73 94 L Nasal Cannula 05/31/24 11:00 Nasal Cannula 05/31/24 09:08 78 18 05/31/24 09:00 Nasal Cannula 05/31/24 08:00 100 H 05/31/24 08:00 Nasal Cannula 05/31/24 07:51 98.1 F 91 H 22 116/66 93 L Nasal Cannula O2 Flow Rate 06/01/24 06:07 06/01/24 05:00 06/01/24 04:00 06/01/24 04:00 06/01/24 02:17 06/01/24 00:18 06/01/24 00:00 05/31/24 23:57 3 05/31/24 23:00 05/31/24 21:00 05/31/24 20:00 05/31/24 20:00 05/31/24 20:00 3 05/31/24 18:05 3 05/31/24 17:00 3 05/31/24 16:00 05/31/24 16:00 05/31/24 15:00 3 05/31/24 13:00 3 05/31/24 12:00 05/31/24 12:00 05/31/24 11:00 3 05/31/24 09:08 05/31/24 09:00 3 05/31/24 08:00 05/31/24 08:00 2 05/31/24 07:51 3 Intake and Output 05/31/24 05/31/24 06/01/24 15:59 23:59 07:59 Intake Total 360 / 1920 360 / 1920 360 / 360 Output Total 1150 / 2150 700 / 2150 0 / 0 Balance -790 / -230 -340 / -230 360 / 360 Intake: Intake, Oral Amount 360 / 1920 360 / 1920 360 / 360 Output: Output, Urine Amount 1150 / 2150 700 / 2150 0 / 0 Other: Number of Voids 4 Number of Unmeasured Voids 0 0 0 Number of Bowel Movements 1 Weight 114.35 kg Patient Weight 06/01/24 23:59 Weight 114.35 kg Laboratory Results - last 24 hr 05/31/24 06:13: Total Counted 100, Neutrophils % (Manual) 79 H, Lymphocytes % (Manual) 14, Monocytes % (Manual) 6, Eosinophils % (Manual) 1, Platelet Estimate Normal, RBC Morphology Normal 06/01/24 05:52: WBC 10.4 D, RBC 4.39 L, Hgb 11.8 L, Hct 37.4 L, MCV 85.2, MCH 26.9 L, MCHC 31.6 L, RDW 15.9, Plt Count 271, MPV 11.1 H, Neut % (Auto) 61.8, Lymph % (Auto) 13.6, [place] % (Auto) 12.9 H, Eos % (Auto) 10.3, Baso % (Auto) 0.8, Neut # (Auto) 6.4, Lymph # (Auto) 1.4, [place] # (Auto) 1.3 H, Eos # (Auto) 1.1 H, Baso # (Auto) 0.1, Sodium 137, Potassium 4.4, Chloride 100, Carbon Dioxide 31 H, Anion Gap 10.4, BUN 28 H, Creatinine 1.30 H, Estimated Creat Clear 99, Estimated GFR 57 L, Est GFR ( Amer) 68, Glucose 130 H D, Calcium 8.5 I & O for Labs for Last 24 Hours: Intake & Output 05/29/24 05/30/24 05/31/24 06/01/24 23:59 23:59 23:59 23:59 Intake Total 1560 / 1920 360 / 360 Output Total 3100 / 3100 2150 / 2150 0 / 0 Balance -3100 / -2740 -590 / -230 360 / 360 Weight 119.862 kg 114.351 kg 114.35 kg Microbiology Reports for the Last 24 Hours: Microbiology 05/30/24 15:10 Blood Blood Culture - Preliminary NO GROWTH AFTER 24 HOURS 05/30/24 15:10 Blood Blood Culture - Preliminary NO GROWTH AFTER 24 HOURS 05/30/24 09:30 Sputum - Expectorated Sputum Gram Stain - Final Constitutional: Present no acute distress, obese and cooperative Comment:: Ill-appearing Head: Present atraumatic and normocephalic ENT: Present normal exam Respiratory: Present crackles (Diffuse) and normal respiratory effort; Absent rhonchi or wheezes Comment:: Dry nonproductive cough Cardiac: Present Reg Rate and Rhythm GI: Present soft and normal bowel sounds; Absent distention or tenderness Extremities: Present normal inspection and full ROM; Absent edema Skin: Present intact; Absent erythema Neuro: Present Grossly Intact, alert, awake, oriented x 3 and moves all extremities Assessment and Plan *Assessment and plan (1) Multifocal pneumonia: Status: Acute Category: Medical Code(s): J18.9 - Pneumonia, unspecified organism (2) Sepsis: Status: Acute Qualifiers: Acute respiratory failure type: with hypoxia Sepsis acute organ dysfunction status: with acute organ dysfunction Sepsis type: sepsis due to unspecified organism Severe sepsis acute organ dysfunction type: acute respiratory failure Severe sepsis shock status: without septic shock Qualified Code(s): A41.9 - Sepsis, unspecified organism; R65.20 - Severe sepsis without septic shock; J96.01 - Acute respiratory failure with hypoxia Category: Medical Code(s): A41.9 - Sepsis, unspecified organism (3) Human metapneumovirus (hMPV) pneumonia: Status: Acute Category: Medical Code(s): J12.3 - Human metapneumovirus pneumonia (4) Acute hypoxemic respiratory failure: Status: Acute Category: Medical Code(s): J96.01 - Acute respiratory failure with hypoxia (5) New onset of congestive heart failure: Status: Acute Category: Medical Code(s): I50.9 - Heart failure, unspecified (6) Leukocytosis: Status: Acute Qualifiers: Leukocytosis type: unspecified Qualified Code(s): D72.829 - Elevated white blood cell count, unspecified Category: Medical Code(s): D72.829 - Elevated white blood cell count, unspecified (7) Hyperglycemia: Status: Acute Category: Medical Code(s): R73.9 - Hyperglycemia, unspecified (8) Viral syndrome: Status: Acute Category: Medical Code(s): B34.9 - Viral infection, unspecified (9) Pleural effusion: Status: Acute Category: Medical Code(s): J90 - Pleural effusion, not elsewhere classified Plan Josse Thomas is a 58-year-old male who presents with multiple admissions over the past few months. Has had intermittent shortness of breath. Previous pericardial effusion it has been drained. Previous episode of pericarditis. Has been positive for the flu. On this presentation, positive for human metapneumovirus. Persistent respiratory distress and oxygen requirement at this time. Continues to require inpatient admission. Showing some improved, weaning oxygen as tolerated. On 1 L today. Cardiology assisting with care. Pulmonology consulted to evaluate due to persistent shortness of breath. Problems addressed as follows: Human metapneumovirus pneumonia Multifocal pneumonia with sepsis Acute hypoxemic respiratory failure - Will continue azithromycin 250 mg daily and ceftriaxone 1 g daily for empiric bacterial coverage/community-acquired pneumonia - Supplemental oxygen as needed, goal sats greater 90%. Wean as tolerated, on 1 L on morning rounds. - Blood cultures pending - Pulmonology consulted, appreciate their recommendations - Hemoglobin 11.8, white count 10.4. New onset HFpEF MINDY -Cardiology consulted, appreciate their patients. BNP elevated at 2600. Holding diuretics today. After much discussion, we will proceed with left heart cath in the morning. Patient continues to have negative fluid status this admission. - Kidney function remains elevated with BUN 28, creatinine 1.3 - Repeat CBC, CMP, magnesium ordered for the morning. - Last 2D echo obtained in March revealed an EF of 46% Diabetes: - Continuing reduced dose of U-500. Patient received 40 units this morning. Morning glucose 130. - Using home Dexcom for glucose monitoring - continue home Jardiance and gabapentin for neuropathy CAD Hypertension - Continue lisinopril 20 mg daily - recent coronary stenting, 05/12/2024 -Continue aspirin 81 mg daily and Plavix 75 mg daily -Continue Lipitor 40 mg nightly for hyperlipidemia Full code Lovenox 40 mg subcu daily Diabetic diet
[2024-06-01] MEDS: AZITHROMYCIN 250MG TABLET 250 MG PO (08:39)
[2024-06-01] MEDS: CLOPIDOGREL 75MG TAB 75 MG PO (08:39)
[2024-06-01] MEDS: LISINOPRIL 20MG TABLET 20 MG PO (08:39)
[2024-06-01] MEDS: EMPAGLIFLOZIN 25MG TABLET 25 MG PO (08:39)
[2024-06-01] MEDS: ATORVASTATIN 40MG TABLET 40 MG PO (08:39)
[2024-06-01] MEDS: CEFTRIAXONE SODIUM 1 GM in 0.9 % SODIUM CHLORIDE 50 ML IV (08:40)
[2024-06-01] MEDS: ASPIRIN 81MG CHEWABLE TABLET 81 MG PO (08:53)
--- NOTE | 2024-06-01 11:38 | EXP.PULM.CON ---
History of Present Illness History of present illness: Mr. Thomas is a 59-year-old male Greater than [id number] smoker last smoked 2014, CAD status post stenting presented today with worsening respiratory distress increasing oxygen requirements cough and productive phlegm admitted to the hospital for further evaluation and management. [facility] Disclaimer: The information contained in this section may have been updated after the patient was seen, as this information can be updated by other users. Medical History (Updated 05/31/24 @ 15:52 by Patricio Escobar MD) CHF (congestive heart failure) GERD (gastroesophageal reflux disease) HLD (hyperlipidemia) Edema Mediastinal lymphadenopathy History of smoking 30 or more pack years Acute dyspnea Swelling of lower extremity Right ventricular dilation Unstable angina PAC (premature atrial contraction) Chest pain Dyspnea PVC (premature ventricular contraction) Influenza A (H1N1) Pericarditis Type 2 diabetes mellitus Leukocytosis Renal insufficiency Acute viral syndrome Pericardial effusion Exertional dyspnea Diabetes HTN (hypertension) Knee sprain Family History (Updated 05/30/24 @ 16:43 by Lavinia Amador, RN) Other Diabetes Hyperlipidemia Hypertension Social History (Updated 05/30/24 @ 16:44 by Lavinia Amador RN) Smoking Status: Never smoker alcohol intake: current alcohol intake frequency: a few times a week substance use type: denies use current occupational status: employed and other Travel in the last 8 weeks: None household members: spouse housing: house lives independently: Yes marital status: education level: vocational pets and animals: Yes Have you lived/traveled outside [place] in past 30 days?: No Contact w/someone who lives/traveled outside [place] past 30 days?: No Exposure to someone with infectious disease in past 14 days?: No Do you have a fever (greater than 100.4 F or 38 C)?: No Have you tested positive for COVID-19: No Exposed to someone with COVID-19 in past 14 days?: No Do you have a sore throat?: No Do you have a cough?: No Do you have any weakness?: No Are you experiencing any nausea/vomitting?: No Do you have any diarrhea?: No Are you experiencing any unusual bleeding?: No Do you have any muscle aches/pain?: No Do you have any abdominal pain?: No Are you experiencing loss of taste or smell?: No Review of Systems Constitutional Constitutional: Reports anorexia, Reports body ache(s) and Reports fatigue Eyes Eyes: Denies eye discharge, Denies dry eyes, Denies irritation and Denies itchy eyes ENT Ears, Nose, Mouth, and Throat: Denies epistaxis, Denies facial pain, Denies lip swelling and Denies throat swelling *Cardiovascular Cardiovascular: Reports dyspnea, Reports dyspnea on exertion, Reports leg edema and Reports orthopnea *Respiratory Respiratory: Denies change in phlegm color, Reports chest congestion, Reports cough, Reports dyspnea, Reports dyspnea on exertion, Reports excessive phlegm production, Denies hemoptysis, Denies pain on inspiration, Denies pain with cough and Denies wheezing *Gastrointestinal Gastrointestinal: Denies abdominal pain, Denies belching and Denies cramping *Musculoskeletal Musculoskeletal: Reports back pain, Reports myalgias and Reports other (No small joint swelling or Pain) *Neurologic Neurologic: Reports system reviewed and no additional complaints, except as documented Psychiatric Psychiatric: Denies homicidal ideation and Denies suicidal ideation Endocrine Endocrine: Reports fatigue and Denies heat intolerance Hematologic/Lymphatic Hematologic/Lymphatic: Denies easy bleeding and Denies lymphadenopathy Allergic/Immunologic Allergic/Immunologic: Denies itchy eyes, Denies lip swelling, Denies throat swelling and Denies wheezing Pulmonology Exam Inpatient Vital signs and Labs for Last 24 Hours: Temp Pulse Resp BP Pulse Ox O2 Del Method O2 Flow Rate 98.1 F 88 18 111/65 95 Nasal Cannula 3 06/01/24 11:31 06/01/24 11:31 06/01/24 11:31 06/01/24 11:31 06/01/24 11:31 06/01/24 11:31 06/01/24 11:31 Laboratory Results - last 24 hr 06/01/24 05:52: WBC 10.4 D, RBC 4.39 L, Hgb 11.8 L, Hct 37.4 L, MCV 85.2, MCH 26.9 L, MCHC 31.6 L, RDW 15.9, Plt Count 271, MPV 11.1 H, Neut % (Auto) 61.8, Lymph % (Auto) 13.6, [place] % (Auto) 12.9 H, Eos % (Auto) 10.3, Baso % (Auto) 0.8, Neut # (Auto) 6.4, Lymph # (Auto) 1.4, [place] # (Auto) 1.3 H, Eos # (Auto) 1.1 H, Baso # (Auto) 0.1, Sodium 137, Potassium 4.4, Chloride 100, Carbon Dioxide 31 H, Anion Gap 10.4, BUN 28 H, Creatinine 1.30 H, Estimated Creat Clear 99, Estimated GFR 57 L, Est GFR ( Amer) 68, Glucose 130 H D, Calcium 8.5 I & O for Labs for Last 24 Hours: Intake & Output 05/29/24 05/30/24 05/31/24 06/01/24 23:59 23:59 23:59 23:59 Intake Total 1560 / 1920 820 / 820 Output Total 3100 / 3100 2150 / 2150 0 / 0 Balance -3100 / -2740 -590 / -230 820 / 820 Weight 264 lb 4 oz 252 lb 1.6 oz 252 lb 1.577 oz Microbiology Reports for the Last 24 Hours: Microbiology 05/30/24 15:10 Blood Blood Culture - Preliminary NO GROWTH AFTER 24 HOURS 05/30/24 15:10 Blood Blood Culture - Preliminary NO GROWTH AFTER 24 HOURS 05/30/24 09:30 Sputum - Expectorated Sputum Gram Stain - Final Constitutional: Present moderate distress Head: Present normocephalic and atraumatic ENT: Present normal exam, normal oropharynx and mucous membranes moist Neck: Present normal inspection and full ROM Respiratory: Present able to speak in complete sentences; Absent respiratory distress, rhonchi, wheezes or crackles Cardiac: Present S1/S2, Tachycardia and radial pulses present GI: Present soft and distention; Absent tenderness or guarding Skin: Present intact; Absent cyanosis or jaundice Neuro: Present alert, awake and oriented x 3 Extremities: Present normal inspection and edema; Absent clubbing or cyanosis Psychiatric: Present normal affect and cooperative Meds Home Medications and Allergies Home Medications ?Medication ?Instructions ?Recorded ?Confirmed ?Type empagliflozin 25 mg tablet 25 mg PO DAILY 03/31/20 05/30/24 History atorvastatin 40 mg tablet 40 mg PO DAILY 03/31/24 05/30/24 History gabapentin 800 mg tablet 800 mg PO DAILY 03/31/24 05/30/24 History insulin regular hum U-500 conc 500 90 unit SQ HS 03/31/24 05/30/24 History unit/mL(3 mL) subcut pen (Humulin R U-500 (Conc) Insulin Kwikpen) insulin regular hum U-500 conc 500 150 unit SQ DAILY 03/31/24 05/30/24 History unit/mL(3 mL) subcut pen (Humulin R U-500 (Conc) Insulin Kwikpen) omeprazole 20 mg capsule,delayed 20 mg PO DAILY 03/31/24 05/30/24 History release semaglutide 0.25 mg or 0.5 mg (2 0.25 mg SQ WEEKLY 04/17/24 05/30/24 History mg/3 mL) subcutaneous pen injector (Ozempic) gabapentin 800 mg tablet 1,600 mg PO HS 05/12/24 05/30/24 History aspirin 81 mg chewable tablet 81 mg PO DAILY #90 tabs 05/18/24 05/30/24 Rx clopidogrel 75 mg tablet 75 mg PO DAILY #90 tabs 05/18/24 05/30/24 Rx furosemide 40 mg tablet 40 mg PO DAILY #90 tabs 05/29/24 05/30/24 Rx lisinopril 20 mg tablet 20 mg PO DAILY #90 tabs 05/29/24 05/30/24 Rx albuterol sulfate 90 mcg/actuation 2 inh inhalation QIDP PRN 05/31/24 05/31/24 History aerosol inhaler shortness of breath or wheezing New Prescriptions to Start Prescriptions: Allergies Allergy/AdvReac Type Severity Reaction Status Date / Time No Known Allergies Allergy Verified 05/29/24 15:37 Results Laboratory Findings 06/01/24 05:52 06/01/24 05:52 PT/INR, D-dimer PT 14.0 seconds (10.1-12.5) H 05/30/24 13:37 INR 1.28 (0.9-1.1) H 05/30/24 13:37 Abnormal lab findings: Abnormal Labs 05/30/24 05/30/24 05/31/24 13:37 16:10 06:13 WBC 17.6 H 16.1 H RBC 4.52 L 4.50 L Hgb 12.1 L 12.4 L Hct 38.4 L 38.1 L MCH 26.8 L MCHC 31.5 L MPV 11.6 H 11.1 H Lymph % (Auto) 6.6 L 8.3 L [place] % (Auto) 9.4 H 11.7 H Neut # (Auto) 14.0 H 12.2 H [place] # (Auto) 1.7 H 1.9 H Eos # (Auto) 0.6 H Neutrophils % (Manual) 82 H 79 H PT 14.0 H INR 1.28 H Carbon Dioxide 31 H BUN 25 H 26 H Creatinine 1.40 H Estimated GFR 52 L Glucose 149 H D Total Bilirubin 1.7 H Alkaline Phosphatase 137 H NT-Pro-B Natriuret Pep 2690 H Globulin 3.9 H Albumin/Globulin Ratio 0.9 L Free T4 Index 3.0 L Human Metapneumovir PCR Detected A 06/01/24 05:52 WBC RBC 4.39 L Hgb 11.8 L Hct 37.4 L MCH 26.9 L MCHC 31.6 L MPV 11.1 H Lymph % (Auto) [place] % (Auto) 12.9 H Neut # (Auto) [place] # (Auto) 1.3 H Eos # (Auto) 1.1 H Neutrophils % (Manual) PT INR Carbon Dioxide 31 H BUN 28 H Creatinine 1.30 H Estimated GFR 57 L Glucose 130 H D Total Bilirubin Alkaline Phosphatase NT-Pro-B Natriuret Pep Globulin Albumin/Globulin Ratio Free T4 Index Human Metapneumovir PCR Assessment and Plan *Assessment and plan (1) Human metapneumovirus (hMPV) pneumonia: Status: Acute Category: Medical Code(s): J12.3 - Human metapneumovirus pneumonia (2) Sepsis: Status: Acute Qualifiers: Sepsis type: sepsis due to unspecified organism Sepsis acute organ dysfunction status: with acute organ dysfunction Severe sepsis acute organ dysfunction type: acute respiratory failure Acute respiratory failure type: with hypoxia Severe sepsis shock status: without septic shock Qualified Code(s): A41.9 - Sepsis, unspecified organism; R65.20 - Severe sepsis without septic shock; J96.01 - Acute respiratory failure with hypoxia Category: Medical Code(s): A41.9 - Sepsis, unspecified organism (3) Pleural effusion: Status: Acute Category: Medical Code(s): J90 - Pleural effusion, not elsewhere classified (4) Multifocal pneumonia: Status: Acute Category: Medical Code(s): J18.9 - Pneumonia, unspecified organism (5) Acute hypoxemic respiratory failure: Status: Acute Category: Medical Code(s): J96.01 - Acute respiratory failure with hypoxia Plan Mr. Thomas is a 59-year-old male Greater than [id number] smoker last smoked 2014, CAD status post stenting presented today with worsening respiratory distress increasing oxygen requirements cough and productive phlegm admitted to the hospital for further evaluation and management. CTA upon admission no evidence of pulmonary embolism. Prominent left lower lobe airspace disease along with left upper lobe and right upper lobe airspace disease also noted. Small right pleural effusion and very minimal insignificant left pleural effusion. worsening renal function. Stable lymphadenopathy likely reactive. Lower extremity venous Doppler negative for DVT. Neutrophilic predominant leukocytosis upon admission improving. Respiratory viral PCR panel positive for metapneumovirus. BNP elevated from his most recent hospital admission from 05/29/2024, though in the setting of worsening renal function Blood cultures no growth 24 hours. Sputum cultures pending. Continue to receive ceftriaxone azithromycin for community-acquired pneumonia. Patient admits continued improvement in his respiratory symptoms since his hospital admission. Diuretics has been held since yesterday. His worsening respiratory distress at this point of time that has been improving can well be explained from the pneumonia that he is being treated at this point of time though does not explain his worsening lower extremity swelling and worsening renal function. He will benefit from right heart cath to evaluate her his volume optimization and if euvolemic then to look for other possible etiologies of the noted bilateral lower extremity swelling and MINDY. Plan: Continue ceftriaxone azithromycin pending sputum culture results. DuoNebs 4 times daily as needed Volume optimization as per primary team and cardiology.
--- NOTE | 2024-06-01 13:14 | P.PN_ITS ---
Subjective Subjective Date: 06/01/24 Time: 13:14 Principal diagnosis: CHF, pneumonia Interval history: 59 yo WM in chair in NAD Breathing is much improved. He slept well last night. Exam Data for Last 24 hours Vital signs and Labs for Last 24 Hours: Temp Pulse Resp BP Pulse Ox O2 Del Method O2 Flow Rate 98.1 F 88 18 111/65 95 Nasal Cannula 3 06/01/24 11:31 06/01/24 11:31 06/01/24 11:31 06/01/24 11:06/01/24 11:06/01/24 11:06/01/24 11:31 Laboratory Results - last 24 hr 06/01/24 05:52: WBC 10.4 D, RBC 4.39 L, Hgb 11.8 L, Hct 37.4 L, MCV 85.2, MCH 26.9 L, MCHC 31.6 L, RDW 15.9, Plt Count 271, MPV 11.1 H, Neut % (Auto) 61.8, Lymph % (Auto) 13.6, [place] % (Auto) 12.9 H, Eos % (Auto) 10.3, Baso % (Auto) 0.8, Neut # (Auto) 6.4, Lymph # (Auto) 1.4, [place] # (Auto) 1.3 H, Eos # (Auto) 1.1 H, Baso # (Auto) 0.1, Sodium 137, Potassium 4.4, Chloride 100, Carbon Dioxide 31 H, Anion Gap 10.4, BUN 28 H, Creatinine 1.30 H, Estimated Creat Clear 99, Estimated GFR 57 L, Est GFR ( Amer) 68, Glucose 130 H D, Calcium 8.5 I & O for Last 24 hours: Intake & Output 05/30/24 05/31/24 06/01/24 06/02/24 11:59 11:59 11:59 11:59 Intake Total 840 / 840 1540 / 1540 Output Total 4550 / 4550 700 / 700 Balance -3710 / -3710 840 / 840 Weight 252 lb 1.6 oz 252 lb 1.577 oz 251 lb 5.231 oz Microbiology Reports for the Last 24 Hours: Microbiology 05/30/24 15:10 Blood Blood Culture - Preliminary NO GROWTH AFTER 24 HOURS 05/30/24 15:10 Blood Blood Culture - Preliminary NO GROWTH AFTER 24 HOURS 05/30/24 09:30 Sputum - Expectorated Sputum Gram Stain - Final Constitutional Constitutional: no acute distress *Routine Respiratory Exam Respiratory: Present decreased breath sounds; Absent rhonchi or wheezes *Routine Cardiovascular Exam Cardiovascular: Present RRR *Routine Extremities Exam Extremities: Present edema Progress Note: A&P Assessment and plan (1) Human metapneumovirus (hMPV) pneumonia: Status: Acute (2) Sepsis: Status: Acute (3) Pleural effusion: Status: Acute (4) Multifocal pneumonia: Status: Acute (5) Acute hypoxemic respiratory failure: Status: Acute (6) New onset of congestive heart failure: Status: Acute (7) Right ventricular dilation: Status: Acute (8) Edema: Status: Acute (9) History of smoking 30 or more pack years: Status: Acute (10) Diabetes: Status: Acute (11) HTN (hypertension): Status: Acute Assessment and Plan Assessment and Plan for All Diagnoses:: 1. HFpEF, new diagosis, with lower extremity edema and recent 20 pound weight gain -diuresed 2500 ml with increased BUN/Cr on first night -held lasix again this AM -Concern for constrictive pericarditis with plans to proceed with right heart catheterization today 2. Acute hypoxic respiratory failure -CTA chest showing pneumonia -detection of human metapneumovirus PCR -on ceftriaxone and azithromycin 3. 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 Recent pericardial effusion status post pericardiocentesis 05/05/2024 with negative cytology -Limited echo shows trivial pericardial effusion 5. Diabetes with peripheral neuropathy -On Jardiance, Ozempic and insulin -On gabapentin 6. Hypertension - On lisinopril 7. CAD with recent coronary stenting, 05/12/2024 -Continue aspirin and Plavix 8. Hyperlipidemia -Continue atorvastatin 9. Mild anemia, stable around 12.1 -Normal B12 and folate Right heart cath in AM continue treatment of pneumonia Pulmonary following
--- NOTE | 2024-06-01 16:54 | PC.NURSE ---
PT HAS TOLERATED ROOM AIR FOR MOST OF THE SHIFT. SITTING UP TO CHAIR ALL DAY TODAY. DENIES CHEST PAIN. STATES THAT SOB HAS IMPROVED.
[2024-06-01] MEDS: GABAPENTIN 800MG TABLET 1600 MG PO (20:14)
[2024-06-01] MEDS: PANTOPRAZOLE 40MG TABLET 40 MG PO (20:14)
[2024-06-01] MEDS: ENOXAPARIN 40MG/0.4ML SYRINGE 40 MG SUBCUT (20:15)
[2024-06-02] VITALS (12 sets, daily range): BP systolic 113–136; BP diastolic 60–83; PULSE 76–89; RESP 16–20; TEMP 36.5–37.1; O2SAT 91–96; BMI 34.7
--- NOTE | 2024-06-02 06:26 | PC.NURSE ---
Pt has done well this shift. Denies pain or shortness of breath. Respirations even and unlabored. Currently resting in low, locked bed with call light in reach.
[2024-06-02 06:35] LABS: Basophils # 0.1 K/mm3 (0-0.2); Basophils % 0.9 % (0.1-2.0); Chloride 103 mmol/L (98-107); Eosinophils # 0.7 Kmm3 (0.0-0.4); Eosinophils % 8.3 % (0.1-12.0); Hematocrit 38.4 % (42.0-52.0); Hemoglobin 11.6 g/dL (14.1-18.0); Lymphocytes # 1.7 K/mm3 (0.7-4.5); Lymphocytes % 19.3 % (10-50); Mean Corpuscular HGB Conc 30.2 g/dL (31.8-35.4); Mean Corpuscular Hemoglobin 26.5 pg (27.0-31.2); Mean Corpuscular Volume 87.7 fl (80-94); Mean Platelet Volume 12.1 fl (7.4-10.4); Monocytes # 0.9 K/mm3 (0.1-1.0); Monocytes % 9.8 % (1.7-9.3); Neutrophils # 5.4 K/mm3 (1.8-7.8); Neutrophils % 61.3 % (37.0-80.0); Nucleated Red Blood Cells # 0 10^3/uL; Nucleated Red Blood Cells % 0 %; Platelet Count 185 K/mm3 (142-424); Potassium 4.1 mmoL/L (3.5-5.1); Red Blood Count 4.38 M/mm3 (4.60-6.20); Red Cell Distribution Width 15.8 % (11.5-17.5); Red Cell Distribution Width-SD 50.5 fL; Sodium 136 mmol/L (136-145); White Blood Count 8.9 K/mm3 (4.8-10.8)
[2024-06-02 06:38] LABS: Blood Urea Nitrogen 25 mg/dl (9-20); Creatinine Clearance Estimated 122 mL/min (50-200); Estimated Glomerular Filt Rate 69 ml/min (>60); GFR (African American) 83 ML/MIN (>60)
[2024-06-02 06:39] LABS: Anion Gap 9.1 mEq/L (5-15); Calcium 8.1 mg/dl (8.4-10.2); Carbon Dioxide 28 mmol/L (22.0-30.0); Glucose 107 mg/dl (74-100)
--- NOTE | 2024-06-02 07:18 | P.DS_ITS ---
General Admission date:: 05/30/24 Discharge date: 06/02/24 HPI HPI HPI: This is a 59-year-old male who has a past medical history significant for systolic dysfunction congestive heart failure: GERD, hyperlipidemia, mediastinal lymphadenopathy, right ventricle dilation, pericarditis, diabetes, renal insufficiency, pericardial effusion status post pericardiocentesis, coronary artery disease status post left heart cath with 3 stents, and hypertension who presents from his fibre technologist office due to low levels of oxygen while on room air. Patient presented for routine visit to his fibre technologist and was found to have room air oxygen saturations in the 80s. He was encouraged to present to the emergency room. While in the emergency room, venous Doppler was negative for any deep vein thrombosis. CTA of the chest was negative for any pulmonary embolism but revealed multiple focal areas of airspace opacities bilaterally probable multifocal pneumonia and bilateral pleural effusions. Patient's hypoxemia persisted. As a result, patient is being admitted for further management. During my evaluation of the patient, patient states he has been having persistent shortness of air since his initial diagnosis of pericardial effusion induced viral illness. Patient voices that his shortness of breath has had a duration of 2-3 months. He reports he has had a 20 pound weight gain over the past 2 to 3 weeks. Recently, cardiology has prescribed patient Lasix as an outpatient. He was evaluated by cardiology while in the emergency room and the plan will be to have a right heart cath tomorrow. Patient is currently denying any chest pain, lightheadedness, dizziness, fever, chills, rigors, nausea, vomiting, or diarrhea. Additional pertinent vitals obtained included white blood cell count of 17.6, red blood cell count of 4.52, hemoglobin 12.1, hematocrit 38.4, neutrophils 82%, iron 1.28, BUN of 25, blood glucose of 149, total bilirubin 1.7, alkaline phosphate of 137, BNP of 2690, and patient was positive for the human metapneumovirus. Hospital Course Hospital Course Hospital Course: Josse Thomas is a 58-year-old male who presents with multiple admissions over the past few months. Has had intermittent shortness of breath. Previous pericardial effusion it has been drained. Previous episode of pericarditis. Has been positive for the flu. On this presentation, positive for human metapneumovirus. Persistent respiratory distress and oxygen requirement at this time. Continues to require inpatient admission. Showing some improved, weaning oxygen as tolerated. On 1 L today. Cardiology assisting with care. Pulmonology consulted to evaluate due to persistent shortness of breath. Patient taken for right heart cath with findings consistent with constrictive pericarditis. Able to wean to room air. Discharged home with plan for close follow-up and referral to tertiary center for further management as an outpatient. Problems addressed as follows: Human metapneumovirus pneumonia Multifocal pneumonia with sepsis Acute hypoxemic respiratory failure - Found to be positive for human metapneumovirus on comports respiratory panel. Chest imaging obtained showing multifocal pneumonia on CT. White count normal on day of discharge at 8.9. Initially on supplemental oxygen, able to wean to room air by day of discharge. Blood cultures remained negative. Pulmonology was consulted, recommended continuing azithromycin and ceftriaxone while awaiting cultures. Will complete 1 more dose of azithromycin for 5 days total course. Stable at this time. Resume albuterol as needed at home, follow-up as an outpatient. New onset HFpEF CAD Hypertension Constrictive pericarditis MINDY -Cardiology consulted, assisted with management. BNP was elevated at 2600, concern for CHF component. Treated with diuretics and had a bump in his kidney function to creatinine of 1.4 from normal of 1. Last echo obtained in March revealed EF of 46%. Previous pericardial effusion. Due to persistent dyspnea and worsening kidney function in light of diuresis, patient was taken for right heart cath to evaluate right heart pressures and possibility of pericarditis. Found to have findings most consistent with constrictive pericarditis. Cardiology recommends close outpatient referral to tertiary center for evaluation of stripping of pericardium. At this time he is hemodynamically stable. As he is weaned to room air, will hold diuretics but continue regimen for hypertension recent stents. - Continue lisinopril 20 mg daily, Lipitor 40 mg nightly, aspirin 81 mg daily and Plavix 75 mg daily. Coronary artery stenting on 05/12/2024. Diabetes: Continue home regimen of U-500 150 units in the morning and 90 units at night. Patient uses sliding scale and makes adjustments on his own. Glucose controlled during admission. Morning glucose 107 on day of discharge. Continue home Jardiance daily along with gabapentin for neuropathy. Total time spent on discharge 32 minutes in counseling, documentation, chart review, and direct care with patient. Exam Data for Last 24 hours Vital signs and Labs for Last 24 Hours: Temp Pulse Resp BP Pulse Ox O2 Del Method O2 Flow Rate 97.8 F 80 20 117/60 91 L Room Air 3 06/02/24 04:00 06/02/24 04:00 06/02/24 04:00 06/02/24 04:00 06/02/24 04:00 06/02/24 06:22 06/01/24 11:31 Laboratory Results - last 24 hr 06/02/24 06:19: WBC 8.9, RBC 4.38 L, Hgb 11.6 L, Hct 38.4 L, MCV 87.7, MCH 26.5 L, MCHC 30.2 L, RDW 15.8, Plt Count 185 D, MPV 12.1 H, Neut % (Auto) 61.3, Lymph % (Auto) 19.3, [place] % (Auto) 9.8 H, Eos % (Auto) 8.3, Baso % (Auto) 0.9, Neut # (Auto) 5.4, Lymph # (Auto) 1.7, [place] # (Auto) 0.9, Eos # (Auto) 0.7 H, Baso # (Auto) 0.1, Sodium 136, Potassium 4.1, Chloride 103, Carbon Dioxide 28, Anion Gap 9.1, BUN 25 H, Creatinine 1.10, Estimated Creat Clear 122, Estimated GFR 69, Est GFR ( Amer) 83 D, Glucose 107 H, Calcium 8.1 L I & O for Last 24 hours: Intake & Output 05/30/24 05/31/24 06/01/24 06/02/24 23:59 23:59 23:59 23:59 Intake Total 1560 / 1920 1660 / 1660 Output Total 3100 / 3100 2150 / 2150 400 / 400 Balance -3100 / -2740 -590 / -230 1260 / 1260 Weight 119.862 kg 114.351 kg 114 kg 118.87 kg Microbiology Reports for the Last 24 Hours: Microbiology 05/30/24 15:10 Blood Blood Culture - Preliminary NO GROWTH AFTER 48 HOURS 05/30/24 15:10 Blood Blood Culture - Preliminary NO GROWTH AFTER 48 HOURS Constitutional Constitutional: no acute distress, obese and cooperative *Routine HEENT Exam Head: Present normocephalic Eye: Present EOMI and PERRL ENT: Present mucous membranes moist *Routine Neck Exam Neck: Present supple; Absent lymphadenopathy *Routine Respiratory Exam Respiratory: Present CTA bilaterally and able to speak in complete sentences; Absent rhonchi or wheezes Comments: Mild dyspnea *Routine Cardiovascular Exam Cardiovascular: Present RRR *Routine Abdominal Exam Abdominal: Present soft and normoactive bowel sounds; Absent tenderness *Routine Rectal Exam Patient deferred: visual exam *Routine Exam Patient deferred: penile exam *Routine Extremities Exam Extremities: Present edema (Trace ankle); Absent cyanosis or clubbing *Routine Skin Exam Skin: Present warm; Absent rash *Routine Neurological Exam Neurological: Present alert, oriented X3 and moving all extremities; Absent altered mental status Results Data Completed and Pending Labs on day of discharge: Labs from last 24 hours 06/02/24 06:19 WBC 8.9 RBC 4.38 L Hgb 11.6 L Hct 38.4 L MCV 87.7 MCH 26.5 L MCHC 30.2 L RDW 15.8 Plt Count 185 D MPV 12.1 H Neut % (Auto) 61.3 Lymph % (Auto) 19.3 [place] % (Auto) 9.8 H Eos % (Auto) 8.3 Baso % (Auto) 0.9 Neut # (Auto) 5.4 Lymph # (Auto) 1.7 [place] # (Auto) 0.9 Eos # (Auto) 0.7 H Baso # (Auto) 0.1 Sodium 136 Potassium 4.1 Chloride 103 Carbon Dioxide 28 Anion Gap 9.1 BUN 25 H Creatinine 1.10 Estimated Creat Clear 122 Estimated GFR 69 Est GFR ( Amer) 83 D Glucose 107 H Calcium 8.1 L Preliminary micro results at discharge 05/30/24 15:10 Blood Culture - Preliminary Blood NO GROWTH AFTER 48 HOURS 05/30/24 15:10 Blood Culture - Preliminary Blood NO GROWTH AFTER 48 HOURS DS: Diagnosis Discharge Diagnosis (1) Multifocal pneumonia: Status: Acute Code(s): J18.9 - Pneumonia, unspecified organism (2) Sepsis: Status: Resolved Code(s): A41.9 - Sepsis, unspecified organism Qualifiers: Acute respiratory failure type: with hypoxia Sepsis acute organ dysfunction status: with acute organ dysfunction Sepsis type: sepsis due to unspecified organism Severe sepsis acute organ dysfunction type: acute respiratory failure Severe sepsis shock status: without septic shock Qualified Code(s): A41.9 - Sepsis, unspecified organism; R65.20 - Severe sepsis without septic shock; J96.01 - Acute respiratory failure with hypoxia (3) Human metapneumovirus (hMPV) pneumonia: Status: Acute Code(s): J12.3 - Human metapneumovirus pneumonia (4) Constrictive pericarditis: Status: Acute Code(s): I31.1 - Chronic constrictive pericarditis (5) Acute hypoxemic respiratory failure: Status: Acute Code(s): J96.01 - Acute respiratory failure with hypoxia (6) New onset of congestive heart failure: Status: Acute Code(s): I50.9 - Heart failure, unspecified (7) Leukocytosis: Status: Acute Code(s): D72.829 - Elevated white blood cell count, unspecified Qualifiers: Leukocytosis type: unspecified Qualified Code(s): D72.829 - Elevated white blood cell count, unspecified (8) Hyperglycemia: Status: Acute Code(s): R73.9 - Hyperglycemia, unspecified (9) Viral syndrome: Status: Acute Code(s): B34.9 - Viral infection, unspecified (10) Pleural effusion: Status: Acute Code(s): J90 - Pleural effusion, not elsewhere classified Meds Home Medications and Allergies Home Medications ?Medication ?Instructions ?Recorded ?Confirmed ?Type empagliflozin 25 mg tablet 25 mg PO DAILY 03/31/20 05/30/24 History atorvastatin 40 mg tablet 40 mg PO DAILY 03/31/24 05/30/24 History gabapentin 800 mg tablet 800 mg PO DAILY 03/31/24 05/30/24 History insulin regular hum U-500 conc 500 90 unit SQ HS 03/31/24 05/30/24 History unit/mL(3 mL) subcut pen (Humulin R U-500 (Conc) Insulin Kwikpen) insulin regular hum U-500 conc 500 150 unit SQ DAILY 03/31/24 05/30/24 History unit/mL(3 mL) subcut pen (Humulin R U-500 (Conc) Insulin Kwikpen) omeprazole 20 mg capsule,delayed 20 mg PO DAILY 03/31/24 05/30/24 History release semaglutide 0.25 mg or 0.5 mg (2 0.25 mg SQ WEEKLY 04/17/24 05/30/24 History mg/3 mL) subcutaneous pen injector (Ozempic) gabapentin 800 mg tablet 1,600 mg PO HS 05/12/24 05/30/24 History aspirin 81 mg chewable tablet 81 mg PO DAILY #90 tabs 05/18/24 05/30/24 Rx clopidogrel 75 mg tablet 75 mg PO DAILY #90 tabs 05/18/24 05/30/24 Rx lisinopril 20 mg tablet 20 mg PO DAILY #90 tabs 05/29/24 05/30/24 Rx albuterol sulfate 90 mcg/actuation 2 inh inhalation QIDP PRN 05/31/24 05/31/24 History aerosol inhaler shortness of breath or wheezing azithromycin 250 mg tablet 250 mg PO DAILY 1 day #1 tab 06/02/24 Rx New Prescriptions to Start Prescriptions: Patricio Rhodes Allergies Allergy/AdvReac Type Severity Reaction Status Date / Time No Known Allergies Allergy Verified 05/29/24 15:37 Discharge Plan Disposition Patient Disposition: Home, Self-Care Condition: Fair Discharge Order Discharge Orders: Discharge Order (Routine); Ordered 06/02/24 Ordered By: Patricio Escobar Follow up Plan Follow up with: Lizzie Quintero APRN [Primary Care Provider] - 06/09/24 10:20 am Adolfo Ingram PA [Physician Assistant [employer] Shift Manager] - 06/07/24 2:30 pm Aldo Martínez MD [Physician] - 06/13/24 1:40 pm Prescriptions/Medication Reconciliation: New azithromycin 250 mg Tablet 250 mg PO DAILY 1 Days Qty: 1 0RF Continued clopidogrel 75 mg tablet 75 mg PO DAILY Qty: 90 3RF aspirin 81 mg tablet,chewable 81 mg PO DAILY Qty: 90 3RF lisinopril 20 mg tablet 20 mg PO DAILY Qty: 90 3RF Ozempic 0.25 mg or 0.5 mg (2 mg/3 mL) pen injector 0.25 mg SQ WEEKLY empagliflozin 25 MG tablet 25 mg PO DAILY atorvastatin 40 mg tablet 40 mg PO DAILY Patient Comments: TAKE 1 TABLET BY MOUTH ONCE DAILY gabapentin 800 mg tablet 800 mg PO DAILY Patient Comments: Pt states he takes 1 tablet PO in AM and 2 tablets HS omeprazole 20 mg Capsule,Delayed Release(Dr/Ec) 20 mg PO DAILY Humulin R U-500 (Conc) Kwikpen 500 unit/mL (3 mL) insulin pen 90 unit SQ HS Humulin R U-500 (Conc) Kwikpen 500 unit/mL (3 mL) insulin pen 150 unit SQ DAILY gabapentin 800 mg tablet 1,600 mg PO HS Patient Comments: TAKE 1 TABLET BY MOUTH IN THE MORNING AND 1 IN THE EVENING AND 1 BEFORE BEDTIME albuterol sulfate 90 mcg/actuation HFA aerosol inhaler 2 inh inhalation QIDP PRN (Reason: shortness of breath or wheezing) Discontinued furosemide 40 mg tablet 40 mg PO DAILY Qty: 90 3RF Problem Reconciliation Problems Reviewed?: Yes Patient Discharge Instructions ACTIVITY: Continue current activity DIET: continue same diet Patient Instructions: Heart-Healthy Diet, Carbohydrate-Counting Diet, DI for Heart Failure, DI for Pneumonia -- Adult, Human Metapneumovirus Infection, Stop Light Pneumonia, Using Nutrition Labels: Carbohydrate Diet, Stop Light Heart Failure Print Language: Danish Providers Primary Care Provider: Lizzie Quintero Admnorma Provider: Brandyn Montana Attending Provider: Brandyn Montana
--- NOTE | 2024-06-02 07:24 | IR_ITS ---
APPROVED REPORT Patient Location: Inpatient PROCEDURES Right heart catheterization INDICATION Congestive heart failure Informed consent was obtained prior to the procedure. COMPLICATIONS NONE Estimated Blood Loss: LESS THAN 10 ML TECHNIQUE One percent lidocaine was used to anesthetize the right anterior aspect of the neck. A packing checker needle was used to identify the right internal jugular vein. Following this a larger cannulation needle was used to cannulate the right internal jugular vein and a wire was passed into the vein. Prior to the 7 [place] sheath being inserted the wire was confirmed under fluoroscopic guidance to be in the inferior vena cava. A 7 [place] sheath was introduced and a [place]-Rad[place]ames catheter was floated using hemodynamic waveforms in the pulmonary artery, right ventricle , and right atrium. Saturations were obtained in the pulmonary artery and the right atrium. At the end of the procedure the patient was transferred to the postop holding area in stable condition for sheath removal. 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 Hold diuretics 2. Patient can be discharged with home oxygen if needed while he gets over the viral pneumonia 3. Cardiac MRI is reasonable to assess pericardial thickness 4. Patient will be referred to [facility] surgery/Dr. Omid Alcaraz for evaluation of pericardial stripping Electronically signed by : Damien Hidalgo MD 06/02/2024 13:16:33
[2024-06-02] MEDS: ATORVASTATIN 40MG TABLET 40 MG PO (08:37)
[2024-06-02] MEDS: ASPIRIN 81MG CHEWABLE TABLET 81 MG PO (08:37)
[2024-06-02] MEDS: EMPAGLIFLOZIN 25MG TABLET 25 MG PO (08:38)
[2024-06-02] MEDS: LISINOPRIL 20MG TABLET 20 MG PO (08:38)
[2024-06-02] MEDS: AZITHROMYCIN 250MG TABLET 250 MG PO (08:38)
[2024-06-02] MEDS: CEFTRIAXONE SODIUM 1 GM in 0.9 % SODIUM CHLORIDE 50 ML IV (08:38)
[2024-06-02] MEDS: OMEPRAZOLE 1 EACH PO (08:45)
[2024-06-02] MEDS: LIDOCAINE 1% 10ML MDV 10 ML IJ (12:41)
[2024-06-02] MEDS: HEPARIN 1,000 UNITS/500ML NS (CATH LAB) 3000 UNIT IV (12:41)
[2024-06-02] MEDS: 0.9 % SODIUM CHLORIDE 500 ML 25 ML IV (12:42)
--- NOTE | 2024-06-02 12:50 | EXP.CARD.PN ---
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 Exam Data for Last 24 hours Vital signs and Labs for Last 24 Hours: Temp Pulse Resp BP Pulse Ox O2 Del Method O2 Flow Rate 98.7 F 82 18 115/79 93 L Room Air 3 06/02/24 09:59 06/02/24 09:59 06/02/24 09:59 06/02/24 09:59 06/02/24 09:59 06/02/24 11:00 06/01/24 11:31 Laboratory Results - last 24 hr 06/02/24 06:19: WBC 8.9, RBC 4.38 L, Hgb 11.6 L, Hct 38.4 L, MCV 87.7, MCH 26.5 L, MCHC 30.2 L, RDW 15.8, Plt Count 185 D, MPV 12.1 H, Neut % (Auto) 61.3, Lymph % (Auto) 19.3, [place] % (Auto) 9.8 H, Eos % (Auto) 8.3, Baso % (Auto) 0.9, Neut # (Auto) 5.4, Lymph # (Auto) 1.7, [place] # (Auto) 0.9, Eos # (Auto) 0.7 H, Baso # (Auto) 0.1, Sodium 136, Potassium 4.1, Chloride 103, Carbon Dioxide 28, Anion Gap 9.1, BUN 25 H, Creatinine 1.10, Estimated Creat Clear 122, Estimated GFR 69, Est GFR ( Amer) 83 D, Glucose 107 H, Calcium 8.1 L I & O for Last 24 hours: Intake & Output 05/31/24 06/01/24 06/02/24 06/03/24 11:59 11:59 11:59 11:59 Intake Total 840 / 840 1540 / 1540 840 / 840 Output Total 4550 / 4550 700 / 700 400 / 400 Balance -3710 / -3710 840 / 840 440 / 440 Weight 252 lb 1.6 oz 252 lb 1.577 oz 262 lb 1 oz Microbiology Reports for the Last 24 Hours: Microbiology 05/30/24 09:30 Sputum - Expectorated Sputum Gram Stain - Final 05/30/24 09:30 Sputum - Expectorated Sputum Sputum Culture - Final 05/30/24 15:10 Blood Blood Culture - Preliminary NO GROWTH AFTER 48 HOURS 05/30/24 15:10 Blood Blood Culture - Preliminary NO GROWTH AFTER 48 HOURS Constitutional Constitutional: no acute distress *Routine Respiratory Exam Respiratory: Present CTA bilaterally *Routine Cardiovascular Exam Cardiovascular: Present RRR Progress Note: A&P Assessment and plan (1) Multifocal pneumonia: Status: Acute (2) Sepsis: Status: Acute (3) Human metapneumovirus (hMPV) pneumonia: Status: Acute (4) Acute hypoxemic respiratory failure: Status: Acute (5) New onset of congestive heart failure: Status: Acute (6) Leukocytosis: Status: Acute (7) Hyperglycemia: Status: Acute (8) Viral syndrome: Status: Acute (9) Pleural effusion: Status: Acute (10) Right ventricular dilation: Status: Acute (11) Edema: Status: Acute (12) History of smoking 30 or more pack years: Status: Acute (13) Diabetes: Status: Acute (14) HTN (hypertension): Status: Acute Assessment and Plan Assessment and Plan for All Diagnoses:: 1. HFpEF, new diagosis, with lower extremity edema and recent 20 pound weight gain -diuresed 2500 ml with increased BUN/Cr on first night -Concern for constrictive pericarditis with plans to proceed with right heart catheterization today 2. Acute hypoxic respiratory failure -CTA chest showing pneumonia -detection of human metapneumovirus PCR -on ceftriaxone and azithromycin 3. Right ventricular dilation -Etiology unclear -Concern for constrictive pericarditis vs related to Pneumonia/Viral syndrome 4. Recent pericardial effusion status post pericardiocentesis 05/05/2024 with negative cytology -Limited echo shows trivial pericardial effusion 5. Diabetes with peripheral neuropathy -On Jardiance, Ozempic and insulin -On gabapentin 6. Hypertension - On lisinopril 7. CAD with recent coronary stenting, 05/12/2024 -Continue aspirin and Plavix 8. Hyperlipidemia -Continue atorvastatin 9. Mild anemia, stable around 12.1 -Normal B12 and folate Right heart cath showed evidence to support constrictive pericarditis. Plan Cardiac MRI after 06/11/2024 (one month from coronary stents) and referral to cardiac surgery for consideration of pericardial stripping. OK to discharge home on supplemental oxygen. Discontinue lasix since he does not have a fluid overload issue. Home meds: Aspirin 81 mg daily Plavix 75 mg daily Jardiance 25 mg daily Atorvastatin 40 mg daily Lisinopril 20 mg daily Follow-up in the office in [address] Kenny
[2024-06-02] MEDS: MIDAZOLAM HCL 1MG/ML 5ML VIAL 1 MG IV (12:59)
[2024-06-02] MEDS: FENTANYL 100MCG/2ML VIAL 50 MCG IV (12:59)
[2024-06-02 13:54] LABS: CATHL Arterial O2 SAT 55.7 % (90-100); CATHL Venous O2 SAT 55.5 % (75-80)
--- NOTE | 2024-06-05 11:27 | SW/DCPLANNER ---
Spoke with patient on the phone. Patient stated that he isnt doing very good. Patient stated that he is still swelling up like a balloon. Patient stated that he is aware of his upcoming appointments. Patient stated that he was able to get his new medicine picked up. Patient stated that he has no concern or questions. Marta Rene
== END 2024-06-02 15:37 | disposition home or self-care (01) | DRG 286 ==
LOC: ER 15:48 → 2ND 17:00
PROVIDERS: Internal Medicine; Nurse Practitioner Family; Physician Assistant; Admitting Provider Student in an Organized Health Care Education/Training Program; Emergency Provider Emergency Medicine; PCP Family Medicine; Visit Provider Student in an Organized Health Care Education/Training Program
PROC: 4A023N6 Measurement of Cardiac Sampling and Pressure, Right Heart, Percutaneous Approach (ICD-10-PCS; principal; 2024-06-02 10:05)
DX: I11.0 Hypertensive heart disease with heart failure (principal); A41.9 Sepsis, unspecified organism; I50.31 Acute diastolic (congestive) heart failure; J12.3 Human metapneumovirus pneumonia; J96.01 Acute respiratory failure with hypoxia; N17.9 Acute kidney failure, unspecified; I31.1 Chronic constrictive pericarditis; I31.39 Other pericardial effusion (noninflammatory); E11.42 Type 2 diabetes mellitus with diabetic polyneuropathy; E78.5 Hyperlipidemia, unspecified; K21.9 Gastro-esophageal reflux disease without esophagitis; I25.10 Atherosclerotic heart disease of native coronary artery without angina pectoris; R59.0 Localized enlarged lymph nodes; E66.9 Obesity, unspecified; Z79.84 Long term (current) use of oral hypoglycemic drugs; Z79.4 Long term (current) use of insulin; Z83.3 Family history of diabetes mellitus; Z82.49 Family history of ischemic heart disease and other diseases of the circulatory system; Z83.438 Family history of other disorder of lipoprotein metabolism and other lipidemia; Z79.82 Long term (current) use of aspirin; Z79.85 Long-term (current) use of injectable non-insulin antidiabetic drugs; Z68.34 Body mass index [BMI] 34.0-34.9, adult; Z87.891 Personal history of nicotine dependence; Z95.5 Presence of coronary angioplasty implant and graft
CPT/HCPCS: 36415; 71045; 71275; 80048; 80053; 82810; 83735; 83880; 84145; 84436; 84443; 84479; 84484; 85007; 85025; 85610; 87040; 87070; 87205; 87633; 93005; 93451; 99152; 99291; C1894; J0456; J0696; J1644; J1650; J1938; J2250; J3010; J7050; Q9967

== ENCOUNTER 2024-06-13 14:25 | Outpatient (CLI) | payer BC, SELFPAY ==
[2024-06-13 14:52] LABS: Basophils # 0.1 K/mm3 (0-0.2); Basophils % 0.8 % (0.1-2.0); Eosinophils # 0.3 Kmm3 (0.0-0.4); Eosinophils % 2.5 % (0.1-12.0); Hematocrit 40.7 % (42.0-52.0); Immature Granulocytes # 0.05 10^3uL; Immature Granulocytes % 0.4 %; Lymphocytes # 1.6 K/mm3 (0.7-4.5); Lymphocytes % 12.7 % (10-50); Mean Corpuscular HGB Conc 31.9 g/dL (31.8-35.4); Mean Corpuscular Hemoglobin 27.3 pg (27.0-31.2); Mean Corpuscular Volume 85.5 fl (80-94); Mean Platelet Volume 11.1 fl (7.4-10.4); Monocytes # 0.8 K/mm3 (0.1-1.0); Monocytes % 6.1 % (1.7-9.3); Neutrophils # 9.8 K/mm3 (1.8-7.8); Neutrophils % 77.5 % (37.0-80.0); Nucleated Red Blood Cells # 0 10^3/uL; Nucleated Red Blood Cells % 0 %; Platelet Count 378 K/mm3 (142-424); Red Blood Count 4.76 M/mm3 (4.60-6.20); Red Cell Distribution Width 17.2 % (11.5-17.5); Red Cell Distribution Width-SD 53.2 fL; White Blood Count 12.6 K/mm3 (4.8-10.8)
[2024-06-13 15:23] LABS: Albumin Level 3.6 g/dl (3.5-5.0)
[2024-06-13 15:24] LABS: Chloride 110 mmol/L (98-107); Potassium 5.2 mmoL/L (3.5-5.1); Sodium 139 mmol/L (136-145)
[2024-06-13 15:26] LABS: Anion Gap 11.2 mEq/L (5-15); Bilirubin,Unconjugated 0.3 mg/dL (0.0-1.1); Blood Urea Nitrogen 31 mg/dl (9-20); Carbon Dioxide 23 mmol/L (22.0-30.0); Estimated Glomerular Filt Rate 57 ml/min (>60); GFR (African American) 68 ML/MIN (>60); Total Protein,Serum 6.6 g/dl (6.3-8.2)
[2024-06-13 15:27] LABS: Alanine Aminotransferase 58 U/L (12-78); Alkaline Phosphatase 209 U/L (38-126); Aspartate Amino Transferase 53 U/L (17-59); Bilirubin,Direct 0.3 mg/dl (0.0-0.4); Bilirubin,Indirect 0.4 mg/dL (0.0-0.9); Bilirubin,Total 0.7 mg/dl (0.2-1.3); Chol/HDL Ratio 2.5 (1-3.5); Cholesterol 99 mg/dl (140-200); Glucose 188 mg/dl (74-100); HDL Cholesterol 39 mg/dl (40-60); Triglycerides 125 mg/dl (30-150); VLDL Cholesterol 25 mg/dL (0-40)
[2024-06-13 15:38] LABS: Direct LDL Cholesterol 41.05 mg/dL (100-129)
[2024-06-13 15:39] LABS: Free T4 (Free Thyroxine) 1.32 ng/dl (0.78-2.19)
[2024-06-13 21:02] LABS: Thyroid Stimulating Hormone 3.03 uIU/mL (0.465-4.68)
[2024-06-14 15:11] LABS: Angiotensin Converting Enzyme 23 U/L (14-82)
[2024-06-15 18:10] LABS: QuantiFERON-TB Gold Plus Negative (Negative)
== END 2024-06-13 23:59 | disposition home or self-care (01) ==
LOC: LAB 14:26
PROVIDERS: Internal Medicine; PCP Family Medicine; Visit Provider Internal Medicine Pulmonary Disease
DX: J84.10 Pulmonary fibrosis, unspecified (principal); R91.1 Solitary pulmonary nodule; R06.09 Other forms of dyspnea; I30.9 Acute pericarditis, unspecified; I25.10 Atherosclerotic heart disease of native coronary artery without angina pectoris; I11.9 Hypertensive heart disease without heart failure; E11.9 Type 2 diabetes mellitus without complications; Z79.4 Long term (current) use of insulin
CPT/HCPCS: 36415; 80048; 80061; 80076; 82164; 84439; 84443; 85025; 86480; 86606; 86612; 86698

== ENCOUNTER 2024-06-14 09:45 | Outpatient (CLI) | payer BC, SELFPAY ==
--- NOTE | 2024-06-14 10:30 | MR_ITS ---
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 Software platform sequences were performed using the Siemens Bloom Studio MR B19 platform. A set of three-plane, low-resolution, large [id number]-qy-[id number] localizers were initially acquired. Then axial, coronal, sagittal TrueFISP, as well as axial HASTE images, were obtained. These were followed by gated TrueFISP breathold cinematic sequences obtained in the short axis with 8 mm slices and 2 mm gaps, 2-chamber (vertical long axis), 3-chamber, 4-chamber (horizontal long axis). A bolus of contrast was injected intravenously with first-pass sequences obtained in the short axis and four-chamber planes. After approximately 10 minutes, a TI nipple maker sequence was performed to determine the optimal TI time. Using the optimized TI time, delayed contrast enhancement segmented inversion???recovery TurboFLASH sequences were obtained in the short axis, 2-chamber, 3-chamber, and 4-chamber projections. 2D-velocity phase mapping was performed. Functional parameters were calculated by offline analysis on an independent workstation ([employer] Platform, [id number]). Contrast: ProHance??? (Gadoteridol) FINDINGS MORPHOLOGY AND FUNCTION Left ventricle: The left ventricle is normal in size. The indexed left ventricular end-diastolic volume (LVEDVi) is 58 ml/m2 (reference range 57-105 ml/m2 in males, 56-96 ml/m2 in females). Normal left ventricular systolic function is present. There is normal left ventricular wall thickness. Interventricular septal bounce is present with diastolic leftward deviation of the septal wall, consistent with elevated right sided pressures. There are no regional wall motion abnormalities noted. LVEF is calculated at 51.2% (reference range 57-77%). Right ventricle: The right ventricle is normal in size. The indexed right ventricular end-diastolic volume (RVEDVi) is 63 ml/m2 (reference range 61-121 ml/m2 in males, 48-112 ml/m2 in females). There is mild reduction in right ventricular systolic function. RVEF is calculated at 44.0% (reference range 52-72% in males, 51-71% in females). Atria: The left atrium is mildly dilated. The maximum indexed left atrial volume is 38 ml/m2 (reference range 26-34 ml/m2 in males, 27-34 ml/m2 in females). The right atrium is mildly dilated. The maximum indexed right atrial volume is 37 ml/m2 (reference range 18-34 ml/m2). The interatrial septum is aneurysmal. Aorta: The diameter of the aortic annulus is normal, measuring 26 mm (coronal view reference range 21-30 mm in males, 19-27 mm in females). The diameter of the aortic sinus is normal, measuring 36 mm (coronal view reference range 25-42 mm in males, 24-36 mm in females). The diameter of the sinotubular junction is normal, measuring 28 mm (coronal view reference range 18-32 mm in males, 18-28 mm in females). The diameters of the ascending and descending thoracic aorta are normal. Main pulmonary artery: The main pulmonary artery diameter is normal. Pericardium: The pericardium is thickenedl. The pericardial thickness measures 5 mm (normal < 4.0 mm). Trivial, circumferential pericardial effusion. VALVES The valvular morphologies in the visualized sequences appear normal. There is no significant valvular stenosis or regurgitation of the mitral, aortic, tricuspid, or pulmonic valve noted visually. Systolic anterior motion of the mitral valve is not visualized. Ratio of pulmonary to systemic flow, Qp:Qs ratio = 1.10 (normal < or = 1.2, hemodynamically significant shunt > 1.5), demonstrating no evidence of hemodynamically significant shunt. TISSUE CHARACTERIZATION Resting Perfusion: Normal myocardial blood flow at rest. No evidence of resting hypoperfusion. Myocardial Fibrosis and/or edema: Concentric pericardial late gadolinium enhancement is present. No evidence of myocardial late gadolinium enhancement is noted, consistent with absence of myocardial scarring, infarction, or necrosis. Myocardial tagging: not performed in this study. Myomapping: not performed in this study. OTHER Bilateral pleural effusions are present. IMPRESSION Normal LV size with normal LV systolic function. LVEDVi= 58 ml/m2 and LVEF= 51.2%. Interventricular septal bounce is present. Normal RV size with mildly reduced RV systolic function. RVEDVi= 63 ml/m2 and RVEF= 44.0%. Mild biatrial enlargement. The interatrial septum is aneurysmal. Concentric pericardial late gadolinium enhancement is present. No CMR evidence of myocardial scarring, infarction, or necrosis. No evidence of myocardial edema or inflammation. Perfusion analysis demonstrates normal blood flow at rest with no evidence of resting hypoperfusion. Ratio of pulmonary to systemic flow, Qp:Qs ratio = 1.1 (normal < or = 1.2, hemodynamically significant shunt > 1.5), demonstrating no evidence of hemodynamically significant shunt. The pericardium is thickenedl. The pericardial thickness measures 5 mm (normal < 4.0 mm). Trivial, circumferential pericardial effusion. Bilateral pleural effusions are present. 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 Clinical and hemodynamic correlation are recommended. Cardiothoracic surgical evaluation is suggested. COMPARISON None CRITICAL RESULT None COMMUNICATION Per this written report The findings of this cardiac MR were reviewed, reported, and signed by Bryce Pugh MD (Food Clerk). Conclusion Electronically signed by : Zoya Pugh MD 06/14/2024 12:43:22
[2024-06-14] MEDS: SODIUM CHLORIDE 0.9% 10ML SYR (RAD ONLY) 10 ML IV (11:10)
[2024-06-14] MEDS: 0.9 % SODIUM CHLORIDE 50 ML VIAL IV (11:10)
[2024-06-14] MEDS: GADOTERIDOL INJ 10ML SYRINGE 7 ML IV (11:10)
[2024-06-14] MEDS: GADOTERIDOL INJ 20ML SYRINGE 20 ML IV (11:10)
== END 2024-06-14 23:59 | disposition home or self-care (01) ==
LOC: RAD 09:46
PROVIDERS: PCP Family Medicine; Visit Provider Internal Medicine
DX: I51.7 Cardiomegaly (principal); I31.39 Other pericardial effusion (noninflammatory); J90 Pleural effusion, not elsewhere classified; Z87.891 Personal history of nicotine dependence
CPT/HCPCS: 75561; A9576

== ENCOUNTER 2024-06-14 11:23 | Outpatient (CLI) | payer BC, SELFPAY ==
[2024-06-14 11:28] VITALS: BMI 38.0
== END 2024-06-14 23:59 | disposition home or self-care (01) ==
LOC: PREOP 11:23
PROVIDERS: PCP Family Medicine; Visit Provider Internal Medicine Pulmonary Disease
DX: R69 Illness, unspecified (principal)

== ENCOUNTER 2024-07-04 14:52 | Outpatient (CLI) | payer BC, SELFPAY ==
[2024-07-04 15:23] LABS: Basophils # 0.1 K/mm3 (0-0.2); Eosinophils # 0.5 Kmm3 (0.0-0.4); Eosinophils % 4.5 % (0.1-12.0); Hematocrit 35.1 % (42.0-52.0); Hemoglobin 10.8 g/dL (14.1-18.0); Immature Granulocytes # 0.04 10^3uL; Immature Granulocytes % 0.4 %; Lymphocytes # 1.4 K/mm3 (0.7-4.5); Lymphocytes % 13.5 % (10-50); Mean Corpuscular HGB Conc 30.8 g/dL (31.8-35.4); Mean Corpuscular Volume 84.6 fl (80-94); Mean Platelet Volume 10.1 fl (7.4-10.4); Monocytes # 0.8 K/mm3 (0.1-1.0); Monocytes % 7.3 % (1.7-9.3); Neutrophils # 7.7 K/mm3 (1.8-7.8); Neutrophils % 73.3 % (37.0-80.0); Nucleated Red Blood Cells # 0 10^3/uL; Nucleated Red Blood Cells % 0 %; Platelet Count 476 K/mm3 (142-424); Red Blood Count 4.15 M/mm3 (4.60-6.20); Red Cell Distribution Width 17.5 % (11.5-17.5); Red Cell Distribution Width-SD 54.3 fL; White Blood Count 10.5 K/mm3 (4.8-10.8)
[2024-07-04 15:49] LABS: Alanine Aminotransferase 39 U/L (12-78); Albumin Level 3.6 g/dl (3.5-5.0); Alkaline Phosphatase 246 U/L (38-126); Anion Gap 11.1 mEq/L (5-15); Aspartate Amino Transferase 32 U/L (17-59); Bilirubin,Direct 0.3 mg/dl (0.0-0.4); Bilirubin,Indirect 0.2 mg/dL (0.0-0.9); Bilirubin,Total 0.5 mg/dl (0.2-1.3); Bilirubin,Unconjugated 0.3 mg/dL (0.0-1.1); Blood Urea Nitrogen 25 mg/dl (9-20); Carbon Dioxide 28 mmol/L (22.0-30.0); Chloride 104 mmol/L (98-107); Chol/HDL Ratio 2.9 (1-3.5); Cholesterol 100 mg/dl (140-200); Estimated Glomerular Filt Rate 86 ml/min (>60); GFR (African American) 105 ML/MIN (>60); Glucose 157 mg/dl (74-100); HDL Cholesterol 34 mg/dl (40-60); Magnesium 1.7 mg/dl (1.6-2.3); Potassium 5.1 mmoL/L (3.5-5.1); Sodium 138 mmol/L (136-145); Total Protein,Serum 6.5 g/dl (6.3-8.2); Triglycerides 93 mg/dl (30-150); VLDL Cholesterol 19 mg/dL (0-40)
[2024-07-04 16:00] LABS: Direct LDL Cholesterol 50.47 mg/dL (100-129)
[2024-07-04 16:04] LABS: Free T4 (Free Thyroxine) 1.12 ng/dl (0.78-2.19)
[2024-07-04 16:19] LABS: Thyroid Stimulating Hormone 2.92 uIU/mL (0.465-4.68)
== END 2024-07-04 23:59 | disposition home or self-care (01) ==
LOC: LAB 14:52
PROVIDERS: PCP Family Medicine; Visit Provider Internal Medicine
DX: I25.10 Atherosclerotic heart disease of native coronary artery without angina pectoris (principal); I10 Essential (primary) hypertension; E11.9 Type 2 diabetes mellitus without complications; Z79.4 Long term (current) use of insulin
CPT/HCPCS: 36415; 80048; 80061; 80076; 83735; 84439; 84443; 85025

== ENCOUNTER 2024-09-18 07:34 | Outpatient (CLI) | payer BC, SELFPAY ==
--- OUTSIDE RECORDS SUMMARY | 2024-08-30 11:15 | XMS_ITS | Encounter Summary ---
Author Organization Healthcare Address [address] [place] [address] Care Team Providers Care Quality Assurance Assessor Name Role Phone Lizzie Quintero APRN Primary Care Provider [phone] Damien Hidalgo MD Unavailable [phone] Encounter Details Date Type Department Care Team (Late st Contact Info) Description 08/30/2024 11:15 AM EDT Office Visit [facility] [address], [address] [place] [address] Maude Casillas MD [address] [place] [address] Constrictive pericarditis (Primary Dx) Social History Tobacco Use Types Packs/Day Years Used Date Smoking Tobacco: Former Smokeless Tobacco: Former Comments:Quit smoking 2012 s moked 30 years 2ppd Quit chew 2017 Alcohol Use Standard Drinks/Week Comments Yes 0 (1 standard drink = 0.6 oz pur e alcohol) occasional- beer Humiliation, Afraid, Rape, and Kick questionnair e Answer Date Recorded Within the last year, have y ou been afraid of your partner or ex-partner? No 06/20/2024 Within the last year, have y ou been humiliated or emotionally abused in other ways by your partner or ex-partner? No Within the last year, have y ou been kicked, hit, slapped, or otherwise physically hurt by your partner or ex-partner? No 06/20/2024 Within the last year, have y ou been raped or forced to have any kind of sexual activity by your partner or ex-partner? No 06/20/2024 PHQ-2 Answer Date Recorded Patient Health Questionnaire-2 Score 0 08/30/2024 Hunger Vital Sign Answer Date Recorded Within the past 12 months, y ou worried that your food would run out before you got the money to buy more. Never true 06/21/19 25 Within the past 12 months, t he food you bought just didn't last and you didn't have money to get more. Never true 06/20/2024 PRAPARE - Transportation Answer Date Re corded In the past 12 months, has l ack of transportation kept you from medical appointments or from getting medications? No 06/08 In the past 12 months, has l ack of transportation kept you from meetings, work, or from getting things needed for daily living? No 06/20/2024 Housing Stability Vital Sign Answer Zaheer e Recorded In the last 12 months, was t here a time when you were not able to pay the mortgage or rent on time? No 06/20/2024 Number of Times Moved in the Last Year Not on fi le 06/20/2024 At any time in the past 12 m [facility], were you homeless or living in a long term (including now)? No 06/20/2024 Utilities Answer Date Recorded In the past 12 months has th e electric, gas, oil, or water company threatened to shut off services in your home? No 06/20/2024 PHQ-2A Answer Date Recorded Patient Health Questionnaire-2 Score 0 08/31/2022 Sex and Gender Information Value Date Recorded Sex Assigned at Male 04/01/2021 4:34 PM EST Legal Sex Male 8:50 PM EDT Gender Identity Male 06/19/2024 10:30 AM EDT Sexual Orientation Not on file documented as of this encounter Last Filed Vital Signs Vital Sign Reading Time Taken Comments Blood Pressure 123/80 08/30/2024 11:43 AM EDT Pulse 84 08/30/2024 11:43 AM EDT Temperature - - Respiratory Rate - - Oxygen Saturation 97% 08/30/2024 11:43 AM EDT Inhaled Oxygen Concentration - - Weight 118 kg (259 lb 14.8 oz) 08/30/2024 11:43 AM EDT Height 185.4 cm (6' 1 ) 08/30/2024 11:43 AM EDT Body Mass Index 34.29 08/30/2024 11:43 AM EDT documented in this encounter Functional Status * Over the past 2 weeks, how often have you been bothered by any of the following problems? Question Answer Date of Assessment Author Little interest or pleasure in doing things Not at all 08/30/2024 11:51 AM EDT Joanne De Feeling down, depressed, or hopeless Not at all 08/30/2024 11:51 AM EDT Joanne De Patient Health Questionnaire -2 Score 0 08/30/2024 11:51 AM EDT Joanne De documented as of this encounter Miscellaneous Notes * Progress Notes - Michele Craven PA - 08/30/2024 11:15 AM EDT Reason for visit Josse Thomas is a 59 y.o. male from [facility] who returns for his 2nd post op visit. History of present illness: Jarvis Thomas is a 59 y.o. 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 Patient was discharged on POD #7. We last saw him on 07/05/2024 and had him return in 2 months time. He states that he feels better than he has since he was 30 y/o. Denies peripheral edema, SOB or fatigue. Medical History Past Medical History Pertinent Negatives[1] Surgical History Surgical History[2] Social History: Tobacco: Tobacco Use: Medium Risk (08/30/2024) Patient History Smoking Tobacco Use: Former Smokeless Tobacco Use: Former Passive Exposure: Not on file Alcohol: Alcohol Use: Not on file Illicit drug use: Social History Substance and Sexual Activity Drug Use Never Family History: family history includes Cardiac disorder in his maternal grandfather, maternal grandmother, paternal grandfather, and paternal grandmother; Diabetes in his brother, father, maternal grandfather, maternal grandmother, mother, paternal grandfather, and paternal grandmother; Heart attack in his father, maternal grandfather, maternal grandmother, mother, paternal grandfather, paternal grandmother, and sister; Hyperlipidemia in his father, maternal grandfather, maternal grandmother, mother, paternalgrandfather, paternal grandmother, and sister; Hypertension in his brother, father, maternal grandfather, maternal grandmother, mother, paternal grandfather, paternal grandmother, and sister; Other cancer in his maternal grandfather, maternal grandmother, and mother; Stroke in his brother, maternalgrandfather, maternal grandmother, paternal grandfather, and paternal grandmother. Allergies: Allergies[3] Medications: Prior to Admission medications Medication Sig Start Date End Date Taking? Authorizing Provider acetaminophen (Tylenol) 500 MG tablet Take 2 tablets by mouth every 6 hours. 06/26/24 Yes Andrew Orr PA albuterol 108 (90 Base) MCG/ACT inhaler Inhale 2 puffs every 4 to 6 hours as needed. 03/24/24 Yes ProviderGwendolyn MD Aspirin Buf,[id number], 81 MG tablet TAKE 1 TABLET DAILY. 01/29/14 Yes ProviderGwendolyn MD atorvastatin (Lipitor) 40 MG tablet Take 1 tablet (40 mg) by mouth daily. 03/30/24 09/26/24 Yes Kianna Luna APRN Continuous Glucose Sensor (Dexcom G7 Sensor) misc 1 sensor every 10 days. 08/01/24 Yes Kianna Luna APRN empagliflozin (Jardiance) 25 MG Take 1 tablet by mouth daily. 08/01/24 01/28/25 Yes Kianna Luna APRN gabapentin (Neurontin) 800 MG tablet Take 1 tablet (800 mg) by mouth in the morning and 1 tablet (800 mg) in the evening and 1 tablet (800 mg) before bedtime. 04/19/24 10/16/24 Yes Kianna Luna APRN glucagon (Baqsimi Two Pack) 3 MG/DOSE powder Nasal Powder Administer 3 mg into affected nostril(s) 1 time as needed (severe hypoglycemia). 06/26/24 06/26/25 Yes Andrew Orr PA insulin regular (HumuLIN R U-500) 500 UNIT/ML CONCENTRATED injection pen Inject subcutaneous 130 units with breakfast & 70 units with dinner 03/30/24 Yes Kianna Luna APRN metoprolol tartrate (Lopressor) 25 MG tablet Take 1 tablet by mouth 2 times a day. 08/03/24 Yes Andrew Cardoso PA naloxone (Narcan) 4 mg/0.1 mL nasal spray 1. Give 1 spray in nostril for no/slow breathing or cannot wake after opioid use 2. Call 911 3. Repeat in other nostril if symptoms continue 06/26/24 Yes Andrew Orr PA omeprazole (PriLOSEC) [address] capsule Take 1 capsule by mouth daily. 01/29/14 Yes ProviderGwendolyn MD pen needle, diabetic (BD Pen Needle Micro U/F) 32G X 6 MM misc Use 1-4x/day as directed 12/30/23 Yes Kianna Luna APRN Semaglutide, 1 MG/DOSE, (Ozempic, 1 MG/DOSE,) 4 MG/3ML solution pen-injector Inject 1 mg under the skin 1 time per week. 08/14/24 11/12/24 Yes Kianna Luna APRN bisacodyl (Dulcolax) 5 MG EC tablet Take 2 tablets by mouth daily as needed for constipation. Do not crush, chew, or split. Patient not taking: Reported on 08/30/2024 06/26/24 Andrew Orr PA colchicine (Colcrys) 0.6 MG tablet Take 1 tablet by mouth 2 times a day. Patient not taking: Reported on 08/30/2024 06/26/24 09/24/24 Andrew Orr PA furosemide (Lasix) 40 MG tablet Take 1 tablet by mouth 2 times a day. Patient not taking: Reported on 08/30/2024 06/26/24 Andrew Orr PA [Paused] lisinopril 20 MG tablet Take 1 tablet by mouth daily. Patient not taking: Reported on 08/30/2024 Wait to take this until your doctor or other care provider tells you to start again. 05/29/24 ProviderGwendolyn MD methocarbamol (Robaxin) 500 MG tablet Take 1 tablet by mouth 4 times a day. Patient not taking: Reported on 08/30/2024 06/26/24 Andrew Orr PA potassium chloride CR (Klor-Con M20) 20 MEQ ER tablet Take 1 tablet by mouth 2 times a day. Do not crush or chew. Patient not taking: Reported on 08/30/2024 06/26/24 Andrew Orr PA potassium chloride CR 10 MEQ PO ER tablet Take 1 tablet by mouth daily. Do not crush or chew. Patient not taking: Reported on 08/30/2024 07/05/24 10/03/24 Carlitos Chilel [Paused] Semaglutide,0.25 or 0.5MG/DOS, (Ozempic, 0.25 or 0.5 MG/DOSE,) 2 MG/3ML solution pen-injector Inject subcutaneous 0.25 mg weekly for one month and then increase to 0.5 mg weekly after one month Patient not taking: Reported on 08/30/2024 Wait to take this until your doctor or other care provider tells you to start again. 03/30/24 Kianna Luna APRN Review of systems: ROS 14 point ROS obtained, all negative unless stated in the HPI Imaging: None Physical exam: Physical Exam Vitals and nursing note reviewed. Constitutional: Appearance: Normal appearance. HENT: Head: Normocephalic and atraumatic. Nose: Nose normal. Mouth/Throat: Mouth: Mucous membranes are moist. Eyes: Extraocular Movements: Extraocular movements intact. Pupils: Pupils are equal, round, and reactive to light. Cardiovascular: Rate and Rhythm: Normal rate and regular rhythm. Pulses: Normal pulses. Heart sounds: Normal heart sounds. Pulmonary: Effort: Pulmonary effort is normal. Breath sounds: Normal breath sounds. Abdominal: Palpations: Abdomen is soft. Musculoskeletal: General: No swelling. Normal range of motion. Cervical back: Normal range of motion and neck supple. Skin: General: Skin is warm. Capillary Refill: Capillary refill takes less than 2 seconds. Neurological: General: No focal deficit present. Mental Status: He is alert and oriented to person, place, and time. Mental status is at baseline. Psychiatric: Mood and Affect: Mood normal. Behavior: Behavior normal. Thought Content: Thought content normal. Sternal incision healed Impression/Plan: Jarvis Thomas is a 59 y.o. 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 Patient was discharged on POD #7. We last saw him on 07/05/2024 and had him return in 2 months time. He states that he feels better than he has since he was 30 y/o. Denies peripheral edema, SOB or fatigue. He has done very well since discharge. We will see him back on a PRN basis He will F/U with Dr. 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 Maude Casillas) [3] No Known Allergies Cosigned by Maude Casillas MD at 08/31/2024 4:48 PM EDT Associated attestation - Maude Casillas MD - 08/31/2024 4:48 PM EDT Seen and examined and records reviewed and discussed with Mr. Craven I agree with his note and plan. documented in this encounter Plan of Treatment Upcoming Encounters Date Type Department Care Team (Late st Contact Info) Description 09/25/2024 3:20 PM EDT Office Visit [facility] [address] [place] [address] Kianna Maradiaga PA [address] [place] [address] documented as of this encounter Goals Goal Patient Goal Type Associated Problems Recent Progress Patient-Stated? Author Autogenera sybil Goal Care Plan Autogenerated Problem No Ammon Thacker PA documented as of this encounter Visit Diagnoses Diagnosis Constrictive pericarditis- Primary documented in this encounter Additional Health Concerns Active Problems Noted Date Diagnosed Date Autogenerated Problem 06/15/2024 Assessment Noted Time A fall risk assessment has been complete d for the patient 08/30/2024 11:51 AM EDT A Body Mass Index follow-up plan has been documented for the patient 08/30/2024 12:24 PM EDT documented as of this encounter Care Teams Quality Assurance Assessor Relationship Specialty Start Date End Date LeonLizzie APRN [address] [place] [address] PCP - General 06/13/24 Damien Hidalgo MD [address] [address] Referring Physician 06/13/24 documented as of this encounter
--- OUTSIDE RECORDS SUMMARY | 2024-09-18 07:36 | XMS_ITS | Encounter Summary ---
Author Organization Healthcare Address [address] [place] [address] Care Team Providers Care Tosser Name Role Phone Leon, Lizzie SELMA Primary Care Provider [phone] Damien Hidalgo MD Unavailable [phone] Reason for Visit * Reason Onset Date Comments Med Refill 08/14/2024 Encounter Details Date Type Department Care Team (Late st Contact Info) Description 08/14/2024 Telephone [facility] [address] [place] [address] Kianna Luna, HOGSHEAD WRECKER [address] [facility] [address] [place] [address] Med Refill Social History Tobacco Use Types Packs/Day Years [...] any time in the past 12 m [facility], were you homeless or living in a jail (including now)? No 06/20/2024 Utilities Answer Date Recorded In the past 12 months has e electric, gas, oil, or water company [...] on file documented as of this encounter Functional Status * Over the [...] as of this encounter Miscellaneous Notes * Telephone Encounter - Jia Cantu RN - 08/14/2024 12:54 PM EDT Called pt back to see how long he has been on 0.5 mg dose, and he reports a little over a month. I informed him that his provider sent in a RX for 1 mg dose, and advised him to call us back if he begins to have any side effects or begin to experience any low blood sugars, so we can adjust his insulin. He verbalized understanding and no other concerns voiced. * Telephone Encounter - Jia Cantu RN - 08/14/2024 11:46 AM EDT Returned pt's call regarding wanting to increase Ozempic dose. I inquired as to what dose is he currently taking and he reports that he is taking 0.5 mg dose. I asked him how has his BG levels been doing, and he reports that since restarting the Jardiance after his heart surgery, they are starting to come back down. I advised that I would send this over to his provider to see if it is ok to increa se his dose. I advised that once I get a response I will give him a call back. He verbalized understanding, however, he would like a call back today so if approved he can pick it up today along with his insulin. No other concerns voiced. * Telephone Encounter - IRENE RUELAS - 08/14/2024 10:56 AM EDT Pt is requesting dose increase for Ozempic, [facility]. documented in this encounter Plan of Treatment Upcoming Encounters Date Type Department Care Team (Late st Contact Info) Description 09/25/2024 3:20 PM EDT Office Visit [facility] [address] [place] [phone] Kianna Maradiaga PA [address] [facility] [address] [place] [address] documented as of this encounter Goals Goal Patient Goal Type Associated Problems Recent Progress Patient-Stated? Author Autogenera sybil Goal Care Plan Autogenerated Problem No Ammon Thacker PA documented as of this encounter Visit Diagnoses Not on filedocumented in this encounter Additional Health Concerns Active Problems Noted Date Diagnosed Date Autogenerated Problem 06/15/2024 Assessment Noted Time A fall risk assessment has been complete d for the patient 07/05/2024 9:25 AM EDT A Body Mass Index follow-up plan has been documented for the patient 07/06/2024 1:15 PM EDT documented as of this encounter Care Teams Tosser Relationship Specialty Start Date End Date Lizzie Quintero APRN [address] [place] [address] PCP - General 06/13/24 Damien Hidalgo MD [address] [address] Referring Physician 06/13/24 documented as of this encounter
--- OUTSIDE RECORDS SUMMARY | 2024-09-18 07:36 | XMS_ITS | Encounter Summary ---
Author Organization Healthcare Address [address] [place] [address] Care Team Providers Care Air Analysis Engineering Technician Name Role Phone Wallace Pacheco MD Primary Care Provider Lizzie Quintero APRN Primary Care Provider [phone] Damien Hidalgo MD Unavailable [phone] Encounter Details Date Type Department Care Team (Late st Contact Info) Description 05/23/2024 Orders Only External Location [address] [place] [address] Damien Hidalgo MD [address] [facility] [address] [place] [id number] Social History Tobacco Use Types Packs/Day Years Used Date Smoking Tobacco: Former Smokeless Tobacco: Former Alcohol Use Standard Drinks/Week Comments Yes 0 (1 standard drink = 0.6 oz pur e alcohol) occasional PHQ-2 Answer Date Recorded Patient Health Questionnaire-2 Score 0 09/30/2023 PHQ-2A Answer Date Recorded Patient Health Questionnaire-2 Score 0 08/31/2022 Sex and Gender Information Value Date Recorded Sex Assigned at Male 04/01/2021 4:34 PM EST Legal Sex Male 8:50 PM EDT Gender Identity Male 06/19/2024 10:30 AM EDT Sexual Orientation Not on file documented as of this encounter Plan of Treatment Upcoming Encounters Date Type Department Care Team (Late st Contact Info) Description 09/25/2024 3:20 PM EDT Office Visit [facility] [address] [place] [address] Kianna Maradiaga PA [address] [place] [place] [address] documented as of this encounter Procedures Procedure Name Priority Date/Time Associated Diagnosis Comments US OUTSIDE IMAGES 05/23/2024 12:24 PM EDT documented in this encounter Results * US OUTSIDE IMAGES (05/23/2024 12:24 PM EDT) Anatomical Region Laterality Modality Ultrasound 05/23/2024 12:2 4 PM EDT us Damien Hidalgo MD IMG US PROCEDURES Final Re sult documented in this encounter Visit Diagnoses Not on filedocumented in this encounter Additional Health Concerns Assessment Noted Time A fall risk assessment has been complete d for the patient 08/31/2022 7:33 AM EDT A Body Mass Index follow-up plan has been documented for the patient 03/30/2024 8:31 AM EST documented as of this encounter Care Teams Air Analysis Engineering Technician Relationship Specialty Start Date End Date Wallace Pacheco MD [address] [place] [address] PCP - General 12/24/20 06/12/24 Lizzie Quintero APRN [address] [place] [address] PCP - General 06/13/24 Damien Hidalgo MD [address] [address] Referring Physician 06/13/24 documented as of this encounter
--- OUTSIDE RECORDS SUMMARY | 2024-09-18 07:36 | XMS_ITS | Encounter Summary ---
Author Organization Healthcare Address [address] [place] [address] Care Team Providers Care Desulfurizer Hand Name Role Phone Leon, Lizzie SELMA Primary Care Provider [phone] Damien Hidalgo MD Unavailable [phone] Reason for Visit * Reason Onset Date Comments Med Refill 07/31/2024 Encounter Details Date Type Department Care Team (Late st Contact Info) Description 07/31/2024 Telephone [facility] Endocrinology [address] [place] [address] Kianna Luna, DECK MATE [address] [facility] [place] [address] [place] [address] Med Refill Social History Tobacco [...] Recorded Patient Health Questionnaire-2 Score 0 09/30/2023 Hunger Vital Sign Answer Date Recorded Within [...] any time in the past [address] [facility], were you homeless or living in a snf (including now)? No 06/20/2024 Utilities Answer Date [...] on file documented as of this encounter Miscellaneous Notes * Telephone Encounter - Traci Crouch, CDE, RD - 08/01/2024 11:31 AM EDT Called pt to update regarding gabapentin rx, advised to contact pharmacy for refill from April 2024rx. Also inquired about Dr. Andrew Orr pausing Jardiance rx. Pt admits that he had heart surgery back in May and was advised to pause this rx but recently went back to [employer] and was told to resume. Informed pt I will update provider with this info. Confirmed which pharmacy he prefers this rx to go to, [facility] [place]. Pt also admits would like dexcom G7 sensor rx switched to [facility] b/c sometimes they fall off and needs rx sooner. Informed pt when/if this happens he needs to contact dex[employer] customer support and provide serial # and lot # from the box and they will replace that sensor. Sent rx for dexcom G7 sensors to [facility]. Patient voiced understanding, no other concerns. * Telephone Encounter - Sapna Jarrell - 07/31/2024 3:27 PM EDT Attempted to reach patient. No answer, LVM to call back. * Telephone Encounter - IRENE RUELAS - 07/31/2024 11:09 AM EDT Pt is requesting refills for Jardiance and gabapentin, Kianna, would you mind sending in RX for thegabapentin if he is able to get more, please? Thanks documented in this encounter Plan of Treatment Upcoming Encounters Date Type Department Care Team (Late st Contact Info) Description 09/25/2024 3:20 PM EDT [facility] [address] [place] [address] Kianna Maradiaga PA [address] [facility] 125 [place] [address] documented as of this encounter Goals Goal Patient Goal Type Associated Problems Recent Progress Patient-Stated? Author Autogenera sybil Goal Care Plan Autogenerated Problem No Ammon Thacker PA documented as of this encounter Visit Diagnoses Diagnosis Type 2 diabetes mellitus with diabetic neuropathy, with long-term current use of insulin ([facility]) documented in this encounter Additional Health Concerns Active Problems Noted Date Diagnosed Date Autogenerated Problem 06/15/2024 Assessment Noted Time A fall risk assessment has been complete d for the patient 07/05/2024 9:25 AM EDT A Body Mass Index follow-up plan has been documented for the patient 07/06/2024 1:15 PM EDT documented as of this encounter Care Teams Desulfurizer Hand Relationship Specialty Start Date End Date Lizzie Quintero APRN [address] [place] [address] PCP - General 06/13/24 Damien Hidalgo MD [address] [address] Referring Physician 06/13/24 documented as of this encounter
--- OUTSIDE RECORDS SUMMARY | 2024-09-18 07:36 | XMS_ITS | Encounter Summary ---
Author Organization Healthcare Address [address] [place] [address] Care Team Providers Care Grease Remover Name Role Phone Wallace Pacheco MD Primary Care Provider [phone] Lizzie Quintero APRN Primary Care Provider [phone] Damien Hidalgo MD Unavailable [phone] Encounter Details Date Type Department Care Team (Late st Contact Info) Description 04/03/2024 Orders Only External Location [address] [place] [id number] Provider, External Social History Tobacco Use Types Packs/Day Years [...] Description 09/25/2024 3:20 PM EDT Office Visit [facility] Endocrinology [address] [place] [address] CoffmanKianna Wallace PA 2[address] [facility] 125 [place] [address] documented as of this encounter Procedures Procedure Name Priority Date/Time Associated Diagnosis Comments US OUTSIDE IMAGES 04/03/2024 6:12 AM EST documented in this encounter Results * US OUTSIDE IMAGES (04/03/2024 6:12 AM EST) Anatomical Region Laterality Modality Ultrasound 04/03/2024 6:12 AM EST us External Provider IMG US PROCEDURES Final Result documented in this encounter Visit Diagnoses Not on filedocumented in this encounter Additional Health Concerns Assessment Noted Time A fall risk assessment has been complete d for the patient 08/31/2022 7:33 AM EDT A Body Mass Index follow-up plan has been documented for the patient 03/30/2024 8:31 AM EST documented as of this encounter Care Teams Grease Remover Relationship Specialty Start Date End Date Wallace Pacheco MD [address] [place] [address] PCP - General 12/24/20 06/12/24 Lizzie Quintero APRN [address] [place] [address] PCP - General 06/13/24 Damien Hidalgo MD [address] [address] Referring Physician 06/13/24 documented as of this encounter
--- OUTSIDE RECORDS SUMMARY | 2024-09-18 07:36 | XMS_ITS | Encounter Summary ---
Author Organization [facility] Address [address] [place] [address] Care Team Providers Care Electro Mechanical Technologist Name Role Phone Lizzie Quintero SELMA Primary Care Provider [phone] Damien Hidalgo MD Unavailable [phone] Encounter Details Date Type Department Care Team (Latest Contact Info) Description 08/30/2024 Travel Social History Tobacco Use Types Packs/Day Years [...] any time in the past 12 m [facility], were you homeless or living in a custodial (including now)? No 06/20/2024 Utilities Answer Date [...] Joanne De documented as of this encounter Plan of Treatment Upcoming Encounters Date Type Department Care Team (Late st Contact Info) Description 09/25/2024 3:20 PM EDT Office Visit [facility] Endocrinology [address] [place] [address] Kianna Maradiaga PA 2[address] [facility] [place] [address] [place] [address] documented as of this encounter [...] documented as of this encounter Care Teams Electro Mechanical Technologist Relationship Specialty Start Date End Date Lizzie Quintero APRN [address] [place] [address] PCP - General 06/13/24 Damien Hidalgo MD [facility]0 [place] [address] Referring Physician 06/13/24 documented as of this encounter
--- OUTSIDE RECORDS SUMMARY | 2024-09-18 07:36 | XMS_ITS | Encounter Summary ---
Author Organization [facility] Address [address] [place] [address] Care Team Providers Care Director Speech Language Name Role Phone Wallace Pacheco MD Primary Care Provider [phone] Lizzie Quintero APRN Primary Care Provider Damien Hidalgo MD Unavailable [phone] Reason for Visit * Reason Comments Med Refill Encounter Details Date Type Department Care Team (Late st Contact Info) Description 01/22/2022 Refill [facility] [address] [place] [address] Oriana Weiss, SUPERVISOR SPECIAL EDUCATION [address] [place] [address] Social History Tobacco Use Types Packs/Day Years Used Date Smoking Tobacco: Former Smokeless Tobacco: Former Alcohol Use Standard Drinks/Week Comments Yes 0 (1 standard drink = 0.6 oz pur e alcohol) occasional Sex and Gender Information Value Date Recorded Sex Assigned at Male 04/01/2021 4:34 PM EST Legal Sex Male 8:50 PM EDT Gender Identity Male 06/19/2024 10:30 AM EDT Sexual Orientation Not on file documented as of this encounter Plan of Treatment Upcoming Encounters Date Type Department Care Team (Late st Contact Info) Description 09/25/2024 3:20 PM EDT Office Visit [facility] [address] [place] [address] Kianna Maradiaga PA 2[address] [facility] 125 [place] [address] documented as of this encounter Visit Diagnoses Not on filedocumented in this encounter Additional Health Concerns Assessment Noted Time A fall risk assessment has been complete d for the patient 11/17/2021 3:01 PM EDT documented as of this encounter Care Teams Director Speech Language Relationship Specialty Start Date End Date Wallace Pacheco MD [address] [place] [address] PCP - General 12/24/20 06/12/24 Lizzie Quintero APRN [address] [place] [address] PCP - General 06/13/24 Damien Hidalgo MD [address] [address] Referring Physician 06/13/24 documented as of this encounter
--- OUTSIDE RECORDS SUMMARY | 2024-09-18 07:36 | XMS_ITS | Encounter Summary ---
Author Organization Healthcare Address [address] [place] [address] Care Team Providers Care Nuclear Operations Specialist Name Role Phone Wallace Pacheco MD Primary Care Provider [phone] Lizzie Quintero APRN Primary Care Provider [phone] Damien Hidalgo MD Unavailable [phone] Encounter Details Date Type Department Care Team (Late st Contact Info) Description 05/31/2024 Orders Only External Location [address] [place] [phone] Provider, External Social History Tobacco Use Types [...] Description 09/25/2024 3:20 PM EDT Office Visit [facility] Endocrinology [address] [place] [address] CoffmanKianna Wallace PA 2195 [facility] 125 [place] [address] documented as of this encounter Procedures Procedure Name Priority Date/Time Associated Diagnosis Comments XR OUTSIDE IMAGES 05/31/2024 9:51 AM EDT documented in this encounter Results * XR OUTSIDE IMAGES (05/31/2024 9:51 AM EDT) Anatomical Region Laterality Modality Radiographic Janell ging 05/31/2024 9:51 AM EDT us External Provider IMG XR PROCEDURES Final Result documented in this encounter Visit Diagnoses Not on filedocumented in this encounter Additional Health Concerns Assessment Noted Time A fall risk assessment has been complete d for the patient 08/31/2022 7:33 AM EDT A Body Mass Index follow-up plan has been documented for the patient 03/30/2024 8:31 AM EST documented as of this encounter Care Teams Nuclear Operations Specialist Relationship Specialty Start Date End Date Wallace Pacheco MD [address] [place] [address] PCP - General 12/24/20 06/12/24 Lizzie Quintero APRN [address] [place] [address] PCP - General 06/13/24 Damien Hidalgo MD [address] [address] Referring Physician 06/13/24 documented as of this encounter
--- OUTSIDE RECORDS SUMMARY | 2024-09-18 07:36 | XMS_ITS | Encounter Summary ---
Author Organization Healthcare Address [address] [place] [address] Care Team Providers Care Designer Writer Name Role Phone Wallace Pacheco MD Primary Care Provider [phone] Lizzie Quintero APRN Primary Care Provider [phone] Damien Hidalgo MD Unavailable [phone] Encounter Details Date Type Department Care Team (Late st Contact Info) Description 05/29/2024 Orders Only External Location [address] [place] [address] Provider, External Social History Tobacco Use Types [...] Description 09/25/2024 3:20 PM EDT Office Visit [facility] Endocrinology [address] [place] [address] CoffmanKianna Wallace PA 2195 [facility] 125 [place] [address] documented as of this encounter Procedures Procedure Name Priority Date/Time Associated Diagnosis Comments XR OUTSIDE IMAGES 05/29/2024 4:22 PM EDT documented in this encounter Results * XR OUTSIDE IMAGES (05/29/2024 4:22 PM EDT) Anatomical Region Laterality Modality Radiographic Janell ging 05/29/2024 4:22 PM EDT us External Provider IMG XR PROCEDURES [...] documented as of this encounter Care Teams Designer Writer Relationship Specialty Start Date End Date Wallace Pacheco MD [address] [place] [address] PCP - General 12/24/20 06/12/24 Lizzie Quintero APRN [address] [place] [address] PCP - General 06/13/24 Damien Hidalgo MD [address] [address] Referring Physician 06/13/24 documented as of this encounter
--- OUTSIDE RECORDS SUMMARY | 2024-09-18 07:36 | XMS_ITS | Encounter Summary ---
Author Organization Healthcare Address [address] [place] [address] Care Team Providers Care Cardiology Tech Name Role Phone Wallace Pacheco MD Primary Care Provider [phone] Lizzie Quintero APRN Primary Care Provider [phone] Damien Hidalgo MD Unavailable [phone] Encounter Details Date Type Department Care Team (Late st Contact Info) Description 05/30/2024 Orders Only External Location [address] [place] [id number] Provider, External Social History Tobacco Use Types [...] Description 09/25/2024 3:20 PM EDT Office Visit [facility] Endocrinology [address] [place] [address] CoffmanKianna Wallace PA 2195 [facility] 125 [place] [address] documented as of this encounter Procedures Procedure Name Priority Date/Time Associated Diagnosis Comments US OUTSIDE IMAGES 05/30/2024 12:43 PM EDT documented in this encounter Results * US OUTSIDE IMAGES (05/30/2024 12:43 PM EDT) Anatomical Region Laterality Modality Ultrasound 05/30/2024 12:4 3 PM EDT us External Provider IMG US PROCEDURES Final [...] documented as of this encounter Care Teams Cardiology Tech Relationship Specialty Start Date End Date Wallace Pacheco MD [address] [place] [address] PCP - General 12/24/20 06/12/24 Lizzie Quintero APRN [address] [place] [address] PCP - General 06/13/24 Daimen Hidalgo MD [address] [address] Referring Physician 06/13/24 documented as of this encounter
--- OUTSIDE RECORDS SUMMARY | 2024-09-18 07:36 | XMS_ITS | Encounter Summary ---
Author Organization Healthcare Address [address] [place] [address] Care Team Providers Care Steel Sash Erector Name Role Phone Wallace Pacheco MD Primary Care Provider [phone] Lizzie Quintero APRN Primary Care Provider [phone] Damien Hidalgo MD Unavailable [phone] Encounter Details Date Type Department Care Team (Late st Contact Info) Description 05/30/2024 Orders Only External Location [address] [place] [phone] Provider, External Social History Tobacco Use Types [...] Description 09/25/2024 3:20 PM EDT Office Visit [facility] Endocrinology [address] [place] [address] CoffmanKianna Wallace PA [address] [facility] [place] [address] [place] [address] documented as of this encounter Procedures Procedure Name Priority Date/Time Associated Diagnosis Comments CT OUTSIDE IMAGES 05/30/2024 3:00 PM EDT documented in this encounter Results * CT OUTSIDE IMAGES (05/30/2024 3:00 PM EDT) Anatomical Region Laterality Modality Computed Tomogra phy 05/30/2024 3:00 PM EDT us External Provider IMG CT PROCEDURES Final Result documented in this encounter Visit Diagnoses Not on filedocumented in this encounter Additional Health Concerns Assessment Noted Time A fall risk assessment has been complete d for the patient 08/31/2022 7:33 AM EDT A Body Mass Index follow-up plan has been documented for the patient 03/30/2024 8:31 AM EST documented as of this encounter Care Teams Steel Sash Erector Relationship Specialty Start Date End Date Wallace Pacheco MD [address] [place] [address] PCP - General 12/24/20 06/12/24 Lizzie Quintero APRN [address] [place] [address] PCP - General 06/13/24 Damien Hidalgo MD [address] [address] Referring Physician 06/13/24 documented as of this encounter
--- OUTSIDE RECORDS SUMMARY | 2024-09-18 07:36 | XMS_ITS | Encounter Summary ---
Author Organization [facility] Address [address] [place] [address] Care Team Providers Care Tube Teller Name Role Phone Wallace Pacheco MD Primary Care Provider [phone] Lizzie Quintero APRN Primary Care Provider [phone] Damien Hidalgo MD Unavailable [phone] Encounter Details Date Type Department Care Team (Late st Contact Info) Description 05/30/2024 Orders Only External Location [address] [place] [address] Bryce Pugh MD 1210 [facility] [address] [place] [id number] Social History Tobacco Use Types Packs/Day Years [...] Visit [facility] [address] [place] [address] Kianna Maradiaga PA [address] [place] [address] documented as of this encounter Procedures Procedure Name Priority Date/Time Associated Diagnosis Comments US OUTSIDE IMAGES 05/30/2024 1:02 PM EDT documented in this encounter Results * US OUTSIDE IMAGES (05/30/2024 1:02 PM EDT) Anatomical Region Laterality Modality Ultrasound 05/30/2024 1:02 PM EDT us Bryce Pugh MD IMG US PROCEDURES Final Result documented in this encounter Visit Diagnoses Not on filedocumented in this encounter Additional Health Concerns Assessment Noted Time A fall risk assessment has been complete d for the patient 08/31/2022 7:33 AM EDT A Body Mass Index follow-up plan has been documented for the patient 03/30/2024 8:31 AM EST documented as of this encounter Care Teams Tube Teller Relationship Specialty Start Date End Date Wallace Pacheco MD [address] [place] [address] PCP - General 12/24/20 06/12/24 Lizzie Quintero APRN [address] [place] [address] PCP - General 06/13/24 Damien Hidalgo MD [address] [address] Referring Physician 06/13/24 documented as of this encounter
--- OUTSIDE RECORDS SUMMARY | 2024-09-18 07:36 | XMS_ITS | Encounter Summary ---
Author Organization [facility] Address [address] [place] [address] Care Team Providers Care Revenue Stamp Cutter Name Role Phone Wallace Pacheco MD Primary Care Provider [phone] Lizzie Quintero APRN Primary Care Provider Damien Hidalgo MD Unavailable [phone] Reason for Visit * Reason Comments Med Refill Encounter Details Date Type Department Care Team (Late st Contact Info) Description 11/06/2021 Refill [facility] [address] [place] [address] Kianna Luna APRN [address] [facility] 125 [place] [address] Social History Tobacco Use Types Packs/Day Years Used Date Smoking Tobacco: Former Smokeless Tobacco: Former Alcohol Use Standard Drinks/Week Comments Not Currently 0 (1 standard drink = 0.6 oz pur e alcohol) Sex and Gender Information Value Date Recorded Sex Assigned at Male 04/01/2021 4:34 PM EST Legal Sex Male 8:50 PM EDT Gender Identity Male 06/19/2024 10:30 AM EDT Sexual Orientation Not on file documented as of this encounter Plan of Treatment Upcoming Encounters Date Type Department Care Team (Late st Contact Info) Description 09/25/2024 3:20 PM EDT Office Visit [facility] [address] [place] [address] Kianna Maradiaga PA 2195 [facility] 125 [place] [address] documented as of this encounter Visit Diagnoses Not on filedocumented in this encounter Additional Health Concerns Assessment Noted Time A fall risk assessment has been complete d for the patient 07/17/2021 7:56 AM EDT documented as of this encounter Care Teams Revenue Stamp Cutter Relationship Specialty Start Date End Date Wallace Pacheco MD [address] [place] [address] PCP - General 12/24/20 06/12/24 Lizzie Quintero APRN [address] [place] [address] PCP - General 06/13/24 Damien Hidalgo MD [address] [address] Referring Physician 06/13/24 documented as of this encounter
--- OUTSIDE RECORDS SUMMARY | 2024-09-18 07:36 | XMS_ITS | Clinical Summary ---
[facility] [address] [place] [address] Care Team Providers Care Supervisor Publications Name Role Phone Lizzie Quintero APRN Primary Care Provider [phone] Allergies No known active allergies Medications empagliflozin (JARDIANCE) 25 MG tablet tablet Take 1 tablet by mouth Daily. 03/30/2024 6 Active atorvastatin (LIPITOR) 40 MG tablet Take 1 tablet by mouth Daily. 03/30/2024 5 Active lisinopril-hydro chlorothiazide (PRINZIDE,ZESTOR ETIC) 20-25 MG per tablet Take 1 tablet by mouth Daily. 03/30/2024 6 Active gabapentin (NEURONTIN) 800 MG tablet Take 1 tablet by mouth Every 12 (Twelve) Hours. 03/16/2024 Active B Complex-C (B-complex with vitamin C) tablet Take 1 tablet by mouth Daily. Active Active Problems Problem Noted Date Diagnosed Date History of smoking at least 1 pack per day for at least 30 years 03/30/2024 Family history of ischemic heart disease 025 Type 2 diabetes mellitus wit hout complication, with long-term current use of insulin 03/30/2024 Encounters Date Type Department Care Team Description 06/27/2024 Transitional Care Management Telephone Encounter [facility] [address] [place] [address] Michelle Craven RN 06/26/2024 Readmission Management [facility] [address] [place] [address] Renetta Flanagan RN from Last 3 Months Social History Tobacco Use Types Packs/Day Years Used Date Smoking Tobacco: Never Passive Smoke Exposure: Never Smokeless Tobacco: Never Tobacco Cessation:Counseling Given: Not Answered Alcohol Use Standard Drinks/Week Comments Yes 3 (1 standard drink = 0.6 oz pur e alcohol) PHQ-2 Answer Date Recorded Patient Health Questionnaire-2 Score 0 03/30/2024 Sex and Gender Information Value Date Recorded Sex Assigned at Not on file Legal Sex Male 12:17 PM EDT Gender Identity Not on file Sexual Orientation Not on file Last Filed Vital Signs Vital Sign Reading Time Taken Comments Blood Pressure 134/78 03/30/2024 1:02 PM EST Pulse 85 03/30/2024 1:02 PM EST Temperature - - Respiratory Rate - - Oxygen Saturation 92% 03/30/2024 1:02 PM EST Inhaled Oxygen Concentration - - Weight 128 kg (283 lb 3.2 oz) 03/30/2024 1:02 PM EST Height 182.9 cm (6') 03/30/2024 1:02 PM EST Body Mass Index 38.41 03/30/2024 1:02 PM EST Plan of Treatment Health Maintenance Due Date Last Done Comments DIABETIC EYE EXAM 05/06/1975 DIABETIC FOOT EXAM 05/06/1975 URINE MICROALBUMIN-CREATININ E RATIO (uACR) 05/06/1975 Hepatitis B (1 of 3 - 19+ 3- dose series) 1984 Pneumococcal Vaccine 50+ (1 of 2 - PCV) 1984 TDAP/TD VACCINES (1 - Tdap) 1984 COLOGUARD 2010 COLON CANCER SCREENING 5 YEA R SIGMOIDOSCOPY 2010 COLONOSCOPY 2010 COLORECTAL CANCER SCREENING 2010 CT COLONOGRAPHY 2010 FECAL OCCULT BLOOD TEST 2010 FIT Testing (1 year) 2010 ZOSTER VACCINE (1 of 2) 05/06/2015 COVID-19 Vaccine ( - 2023-2 5 season) 2023 ANNUAL PHYSICAL 03/30/2024 HEMOGLOBIN A1C 09/27/2024 03/30/2024, 03/12, 12/30/2023, Additional history exists INFLUENZA VACCINE 11/08/2024 HEPATITIS C SCREENING Completed 03/09/2021 Insurance [facility] PPO Care Teams Supervisor Publications Relationship Specialty Start Date End Date Lizzie Quintero APRN [address] [place] [address] PCP - General Family Medicine 06/27/24
--- OUTSIDE RECORDS SUMMARY | 2024-09-18 07:36 | XMS_ITS | Encounter Summary ---
Author Organization Healthcare Address [address] [place] [address] Care Team Providers Care Shirt Ironer Name Role Phone Lizzie Quintero SELMA Primary Care Provider [phone] Damien Hidalgo MD Unavailable [phone] Encounter Details Date Type Department Care Team (Late st Contact Info) Description 08/03/2024 Orders Only Cardiothoracic Surgery [address] [place] [address] Andrew Cardoso PA [address] [place] [address] Social History Tobacco Use Types Packs/Day Years [...] any time in the past 12 m [facility], were you homeless or living in a half-way (including now)? No 06/20/2024 Utilities Answer Date [...] PM EDT Office Visit [facility] [address] [place] [address] Kianna Maradiaga PA [address] [place] [address] documented as of this encounter Goals Goal [...] documented as of this encounter Care Teams Shirt Ironer Relationship Specialty Start Date End Date Lizzie Quintero APRN [address] [place] [address] PCP - General 06/13/24 Damien Hidalgo MD [address] [address] Referring Physician 06/13/24 documented as of this encounter
--- OUTSIDE RECORDS SUMMARY | 2024-09-18 07:36 | XMS_ITS | Encounter Summary ---
Author Organization Healthcare Address [address] [place] [address] Care Team Providers Care Sales Agent Name Role Phone Lizzie Quintero SELMA Primary Care Provider [phone] Damien Hidalgo MD Unavailable [phone] Encounter Details Date Type Department Care Team (Late st Contact Info) Description 08/14/2024 Orders Only [facility] End[facility] [address] [place] [address] Kianna Luna, PHOTOGRAPHIC EQUIPMENT MECHANIC [address] [facility] [address] [place] [address] Social History Tobacco Use Types [...] were you homeless or living in a [facility] (including now)? No 06/20/2024 Utilities Answer Date [...] PM EDT Office Visit [facility] [address] [place] [address] Kianna Maradiaga PA [address] [facility] [address] [place] [address] documented as of this encounter Goals Goal [...] documented as of this encounter Care Teams Sales Agent Relationship Specialty Start Date End Date Lizzie Quintero APRN [address] [place] [address] PCP - General 06/13/24 Damien Hidalgo MD [address] [address] Referring Physician 06/13/24 documented as of this encounter
--- OUTSIDE RECORDS SUMMARY | 2024-09-18 07:36 | XMS_ITS | Encounter Summary ---
Author Organization Healthcare Address [address] [place] [address] Care Team Providers Care Educational Therapist Name Role Phone Lizzie Quintero SELMA Primary Care Provider [phone] Damien Hidalgo MD Unavailable [phone] Encounter Details Date Type Department Care Team (Late st Contact Info) Description 07/31/2024 Orders Only [facility]ology [address] [place] [address] Kianna Luna, GERMAN INSTRUCTOR [address] [facility] [address] [place] [address] Type 2 diabetes mellitus with diabetic neuropathy, with long-term current use of insulin ([facility]) Social History Tobacco Use Types Packs/Day Years [...] any time in the past 12 m [facility], were you homeless or living in a intermediate (including now)? No 06/20/2024 Utilities Answer Date [...] Description 09/25/2024 3:20 PM EDT Office Visit [facility] Endocrinology [facility] [place] [address] Kianna Maradiaga PA [address] [address] documented as of this encounter Goals Goal Patient Goal Type Associated Problems Recent Progress Patient-Stated? Author Autogenera sybil Goal Care Plan Autogenerated Problem No Ammon Thacker PA documented as of this encounter Visit Diagnoses Diagnosis Type 2 diabetes mellitus with diabetic neuropathy, with long-term current use of insulin ([facility]) documented in this encounter Additional Health Concerns Active Problems Noted Date Diagnosed Date Autogenerated Problem 06/15/2024 Assessment Noted Time A fall risk assessment has been complete d for the patient 07/05/2024 9:25 AM EDT A Body Mass Index follow-up plan has been documented for the patient 07/06/2024 1:15 PM EDT documented as of this encounter Care Teams Educational Therapist Relationship Specialty Start Date End Date Lizzie Quintero APRN [address] [place] [address] PCP - General 06/13/24 Damien Hidalgo MD [address] [place] [address] Referring Physician 06/13/24 documented as of this encounter
--- OUTSIDE RECORDS SUMMARY | 2024-09-18 07:37 | XMS_ITS | Clinical Summary ---
Author Organization [facility] Address [address] [place] [address] Care Team Providers Care Edge Sander Name Role Phone LeonLizzie oswald SELMA Primary Care Provider [phone] Damien Hidalgo MD Unavailable [phone] Allergies No known active allergies Medications omeprazole (PriLOSEC) [address] capsule Take 1 capsule by mouth daily. 4 Active Aspirin Buf,CaCarb-MgCar b-MgO, 81 MG tablet TAKE 1 TABLET DAILY. 4 Active pen needle, diabetic (BD Pen Needle Micro U/F) 32G X 6 MM miscIndications: Type 2 diabetes mellitus with diabetic neuropathy, with long-term current use of insulin ([facility]) Use 1-4x/day as directed 120 each 11 4 Active albuterol 108 (90 Base) MCG/ACT inhaler Inhale 2 puffs every 4 to 6 hours as needed. 5 Active Semaglutide,0.25 or 0.5MG/DOS, (Ozempic, 0.25 or 0.5 MG/DOSE,) 2 MG/3ML solution pen-injector Inject subcutaneous 0.25 mg weekly for one month and then increase to 0.5 mg weekly after one month 9 mL 1 5 Active Additional Information Patient not taking.Reported on 08/30/2024 insulin regular (HumuLIN R U-500) 500 UNIT/ML CONCENTRATED injection penIndications:T ype 2 diabetes mellitus with diabetic neuropathy, with long-term current use of insulin ([facility]) Inject subcutaneous 130 units with breakfast & 70 units with dinner 40 mL 3 5 Active atorvastatin (Lipitor) 40 MG tablet Take 1 tablet (40 mg) by mouth daily. 90 tablet 1 5 025 Active gabapentin (Neurontin) 800 MG tablet Take 1 tablet (800 mg) by mouth in the morning and 1 tablet (800 mg) in the evening and 1 tablet (800 mg) before bedtime. 270 tablet 1 5 025 Active lisinopril 20 MG tablet Take 1 tablet by mouth daily. 5 Active glucagon (Baqsimi Two Pack) 3 MG/DOSE powder Nasal Powder Administer 3 mg into affected nostril(s) 1 time as needed (severe hypoglycemia). 2 each 3 5 026 Active furosemide (Lasix) 40 MG tablet Take 1 tablet by mouth 2 times a day. 20 tablet 5 Active Additional Information Patient not taking.Reported on 08/30/2024 acetaminophen (Tylenol) 500 MG tablet Take 2 tablets by mouth every 6 hours. 100 tablet 5 Active bisacodyl (Dulcolax) 5 MG EC tablet Take 2 tablets by mouth daily as needed for constipation. Do not crush, chew, or split. 30 tablet 5 Active Additional Information Patient not taking.Reported on 08/30/2024 methocarbamol (Robaxin) 500 MG tablet Take 1 tablet by mouth 4 times a day. 30 tablet 5 Active Additional Information Patient not taking.Reported on 08/30/2024 naloxone (Narcan) 4 mg/0.1 mL nasal spray 1. Give 1 spray in nostril for no/slow breathing or cannot wake after opioid use 2. Call 911 3. Repeat in other nostril if symptoms continue 1 each 5 Active potassium chloride CR (Klor-Con M20) 20 MEQ ER tablet Take 1 tablet by mouth 2 times a day. Do not crush or chew. 20 tablet 5 Active Additional Information Patient not taking.Reported on 08/30/2024 colchicine (Colcrys) 0.6 MG tablet Take 1 tablet by mouth 2 times a day. 60 tablet 2 5 Active Additional Information Patient not taking.Reported on 08/30/2024 potassium chloride CR 10 MEQ PO ER tablet Take 1 tablet by mouth daily. Do not crush or chew. 30 tablet 2 5 Active Additional Information Patient not taking.Reported on 08/30/2024 Continuous Glucose Sensor ([employer] G7 Sensor) miscIndications: Type 2 diabetes mellitus with diabetic neuropathy, with long-term current use of insulin ([facility]) 1 sensor every 10 days. 9 each 1 5 Active empagliflozin (Jardiance) 25 MGIndications:Ty pe 2 diabetes mellitus with diabetic neuropathy, with long-term current use of insulin ([facility]) Take 1 tablet by mouth daily. 90 tablet 1 5 Active metoprolol tartrate (Lopressor) 25 MG tablet Take 1 tablet by mouth 2 times a day. 60 tablet 5 Active Semaglutide, 1 MG/DOSE, (Ozempic, 1 MG/DOSE,) 4 MG/3ML solution pen-injector Inject 1 mg under the skin 1 time per week. 9 mL 5 Active Active Problems Problem Noted Date Diagnosed Date Cardiac volume overload 06/21/2024 Overview (06/22/2024): Continue diuresis with 40 PO lasix BID GERD (gastroesophageal reflux disease) Overview (06/20/2024): Resume home PPI BMI 34.0-34.9,adult 06/15/2024 Overview (06/20/2024): Complicates all aspects of care CAD (coronary artery disease) 06/15/2024 Overview (06/20/2024): [facility] April 2024: LAD with 80-90% stenosis s/p stent to mid LAD Posterior descending artery with 80% stenosis s/p stent Type 2 diabetes mellitus wit h neurologic complication, with long-term current use of insulin 12/26/2020 Overview (06/20/2024): A1c: 7.5 Takes 130u insulin in AM and 70u in PM at home Also takes Jardiance and Ozempic (last dose >1 month ago) Resistant sliding scale ordered post-op Diabetes consulted 06/20 Neuropathy 12/26/2020 Overview (06/20/2024): Takes 800 mg Gabapentin BID Resume when appropriate Hypertension 12/26/2020 Overview (06/20/2024): Not currently prescribed antihypertensives Hyperlipidemia 01/29/2014 Overview (06/21/2024): Atorvastatin 40 mg at home Resolved Problems Problem Noted Date Diagnosed Date Resolved Date Constipation 06/21/2024 06/26/2024 Overview (06/21/2024): Escalate bowel reg as needed Acute hypoxic respiratory failure 06/20/2024 06/26/2024 Overview (06/20/2024): Significant pulmonary vascular congestion on post-op CXR Continue diuresis as indicated Wean oxygen as able Restrictive pericarditis 06/15/2024 Overview (06/20/2024): Diagnosed in March 2024 after a viral illness Required pericardiocentesis Evidence of constrictive pericarditis on R heart cath 06/19 - s/p pericardectomy with Dr. Casillas Medication management 09/30/20232024 Class 1 obesity due to exces s calories with serious comorbidity and body mass index (BMI) of 33.0 to 33.9 in adult 04/02/2021 06/20/2024 Overview (06/20/2024): Complicates al Encounters Date Type Department Care Team Description 08/30/2024 11:15 AM EDT Office Visit [facility] [address], [address] [place] [address] Maude Casillas MD Constrictive pericarditis (Primary Dx) 08/30/2024 Travel 08/14/2024 Orders Only [facility] Endocrinology [address] [place] [address] Kianna Luna GIS DEVELOPER 08/14/2024 Telephone [facility] Endocrinology [address] [place] [address] Kianna Luna, GIS DEVELOPER Med Refill 08/03/2024 Orders Only Cardiothoracic Surgery [address] [place] [address] Anderw Cardoso PA 07/31/2024 Orders Only [facility] Endocrinology [address] [place] [address] Kianna Luna, GIS DEVELOPER Type 2 diabetes mellitus with diabetic neuropathy, with long-term current use of insulin ([facility]) 07/31/2024 Telephone [facility] Endocrinology [address] [place] [address] Kianna Luna, GIS DEVELOPER Med Refill 07/13/2024 Telephone [facility] Cardiothoracic [address], [address] [place] [address] Leslie Zendejas RN 07/07/2024 Telephone [facility] Cardi[facility]acic [address], [address] [place] [address] Leslie Zendejas RN 07/05/2024 9:30 AM EDT Office Visit [facility] Cardi[facility]acic [address], [address] [place] [address] Maude Casillas MD Aortic valve disease (Primary Dx) 07/05/2024 8:12 AM EDT - 07/05/2024 11:59 PM EDT Hospital Encounter [facility] Rad[facility] [address] [place] [address] Aortic valve disease Discharge Disposition: Home or Self Care 07/05/2024 Travel 06/27/2024 Telephone [facility] [address] [place] [address] Yadira Quintana 06/26/2024 Travel 06/25/2024 Travel 06/24/2024 Travel 06/23/2024 Travel 06/22/2024 Travel 06/21/2024 Travel 06/20/2024 Travel 06/19/2024 12:38 PM EDT Anesthesia Event [facility] [address] [place] [address] Brandyn Rogers MD Edwards, Jennifer M, CRNA, DNP 06/19/2024 12:00 PM EDT - 06/19/2024 4:30 PM EDT Surgery [facility] [address] [place] [address] Juan Alcaraz MD PERICARDIECTOMY 06/19/2024 9:09 AM EDT - 06/26/2024 10:37 AM EDT Hospital Encounter [facility] [address] [place] [address] Juan Alcaraz MD Reda, Hassan K, MD Restrictive pericarditis Discharge Disposition: Home or Self Care 06/19/2024 Orders Only External Location [address] [place] [phone] Provider, External 06/19/2024 Travel from Last 3 Months Immunizations Immunization Administration Dates Next Due Hep A, Adult 06/10/2017 Pneumococcal Polysaccharide PPV23 08/04/2016 TD (adult), 2 Lf tetanus tox oid, preservative free, adsorbed 09/23/2008 Tetanus toxoid, adsorbed 12/01/2013 Family History Medical History Relation Name Comments Diabetes Brother Hypertension Brother Stroke Brother Diabetes Father Heart attack Father Hyperlipidemia Father Hypertension Father Cardiac disorder Maternal Grandfather Diabetes Maternal Grandfather Heart attack Maternal Grandfather Hyperlipidemia Maternal Grandfather Hypertension Maternal Grandfather Other cancer Maternal Grandfather Stroke Maternal Grandfather Cardiac disorder Maternal Grandmother Diabetes Maternal Grandmother Heart attack Maternal Grandmother Hyperlipidemia Maternal Grandmother Hypertension Maternal Grandmother Other cancer Maternal Grandmother Stroke Maternal Grandmother Diabetes Mother Heart attack Mother Hyperlipidemia Mother Hypertension Mother Other cancer Mother Cardiac disorder Paternal Grandfather Diabetes Paternal Grandfather Heart attack Paternal Grandfather Hyperlipidemia Paternal Grandfather Hypertension Paternal Grandfather Stroke Paternal Grandfather Cardiac disorder Paternal Grandmother Diabetes Paternal Grandmother Heart attack Paternal Grandmother Hyperlipidemia Paternal Grandmother Hypertension Paternal Grandmother Stroke Paternal Grandmother Hyperlipidemia Sister 1 Hypertension Sister 2 Heart attack Sister 3 Relation Name Status Comments Brother Father Maternal Grandfather Maternal Grandmother Mother Paternal Grandfather Paternal Grandmother Sister 1 Other Sister 2 Other Sister 3 Other Social History Tobacco Use Types Packs/Day Years Used Date Smoking Tobacco: Former Smokeless Tobacco: Former Tobacco Cessation:Counseling Given: Not Answered Comments:Quit smoking 2013 smoked 30 years 2ppd Quit chew 2017 Alcohol [...] any time in the past 12 m [facility], were you homeless or living in a fpc (including now)? No 06/20/2024 Utilities Answer Date [...] AM EDT Sexual Orientation Not on file Last Filed Vital Signs Vital Sign Reading Time Taken Comments Blood Pressure 123/80 08/30/2024 11:43 AM EDT Pulse 84 08/30/2024 11:43 AM EDT Temperature 37 C (98.6 F) 06/26/2024 7:35 AM EDT Respiratory Rate 18 06/26/2024 7:35 AM EDT Oxygen Saturation 97% 08/30/2024 11:43 AM EDT Inhaled Oxygen Concentration - - Weight 118 kg (259 lb 14.8 oz) 08/30/2024 11:43 AM EDT Height 185.4 cm (6' 1 ) 08/30/2024 11:43 AM EDT Body Mass Index 34.29 08/30/2024 11:43 AM EDT Plan of Treatment Upcoming Encounters Date Type Department Care Team (Late st Contact Info) Description 09/25/2024 3:20 PM EDT Office [facility] End[facility]ology [address] [place] [address] Kianna Maradiaga PA [address] [place] [address] Health Maintenance Due Date Last Done Comments [facility]-/Child/Adol SDOH Screenings 1965 Diabetes: Dental Exam 05/06/1975 [facility]-Hepatitis B Vaccines (1 of 3 - 19+ 3-dose series) 1984 [facility]-DTaP,Tdap,and Td Vaccines (1 - Tdap) 09/24/2008 09/23/2008 CT Colonography 2010 Colonoscopy 2010 FIT-DNA 2010 FIT 2010 FOBT 2010 Sigmoidoscopy 2010 [facility]-Colorectal Cancer Screening 2010 [facility]-Zoster Vaccines (1 of 2) 05/06/2015 [facility]-Pneumococcal Vaccine: 50+ Years (2 of 2 - PCV) 08/04/2017 08/04/2016 [id number] Vaccine (1 - 2023- season) 2023 [facility]-Diabetes: Hemoglobin A1C 09/14/202409/2024, 03/30/2024, 12/30/2023, Additional history exists [facility]-Influenza Vaccine (#1) 2024 [facility]- SDOH Screenings 12/21/2024 [facility]-Adult SDOH Screenings 12/21/2024 06/20/2024 [facility]-Depression Screening 08/30/2025 08/30/2024 [facility]-Hepatitis A Vaccines Aged Out 06/10/2017 No longer eligible based on patient's age to complete this topic [facility]-HIV Screening Completed 03/09/2021 [facility]-Hepatitis C Screening Completed 03/09/2021 [facility]-Obesity Intervention Completed 025, 07/05/2024, 06/16/2024, Additional history exists HPV Vaccines Aged Out No longer eligi ble based on patient's age to complete this topic [facility]-HIB Vaccines Aged Out No longer e ligible based on patient's age to complete this topic [facility]-IPV Vaccines Aged Out No longer e ligible based on patient's age to complete this topic [facility]-Rotavirus Vaccines Aged Out No lo nger eligible based on patient's age to complete this topic Goals Goal Patient Goal Type Associated Problems Recent Progress Patient-Stated? Author Autogenera sybil Goal Care Plan Autogenerated Problem No Ammon Thacker PA Procedures Procedure Name Priority Date/Time Associated Diagnosis Comments ECG ADULT Routine 07/05/2024 9:49 AM EDT Aortic valve disease CBC W/O DIFFERENTIAL Routine 07/05/2024 8:27 AM EDT Aortic valve disease BASIC METABOLIC PANEL, PLASMA Routine 07/05/2024 8:27 AM EDT Aortic valve disease XR CHEST 2 VIEWS Routine 07/05/2024 8:20 AM EDT Aortic valve disease POCT GLUCOSE METER UNSOLICITED RESULTS Routine 06/26/2024 8:48 AM EDT XR CHEST 2 VIEWS Routine 06/26/2024 4:38 AM EDT POCT GLUCOSE METER UNSOLICITED RESULTS Routine 06/26/2024 4:09 AM EDT MAGNESIUM, PLASMA Routine 06/26/2024 3:5 3 AM EDT BASIC METABOLIC PANEL, PLASMA Routine 06/26/2024 3:53 AM EDT CBC W/O DIFFERENTIAL Routine 06/26/2024 3:53 AM EDT POCT GLUCOSE METER UNSOLICITED RESULTS Routine 06/25/2024 8:02 PM EDT POCT GLUCOSE METER UNSOLICITED RESULTS Routine 06/25/2024 5:12 PM EDT POCT GLUCOSE METER UNSOLICITED RESULTS Routine 06/25/2024 12:43 PM EDT PEP THERAPY Routine 06/25/2024 10:00 AM EDT POCT GLUCOSE METER UNSOLICITED RESULTS Routine 06/25/2024 8:18 AM EDT OXYGEN THERAPY Routine 06/25/2024 8:00 AM EDT XR CHEST 1 VIEW Routine 06/25/2024 6:18 AM EDT PEP THERAPY Routine 06/25/2024 6:00 AM EDT MAGNESIUM, PLASMA Routine 06/25/2024 1:0 3 AM EDT BASIC METABOLIC PANEL, PLASMA Routine 06/25/2024 1:03 AM EDT CBC W/O DIFFERENTIAL Routine 06/25/2024 1:03 AM EDT PEP THERAPY Routine 06/24/2024 10:00 PM EDT POCT GLUCOSE METER UNSOLICITED RESULTS Routine 06/24/2024 7:58 PM EDT OXYGEN THERAPY Routine 06/24/2024 6:00 PM EDT PEP THERAPY Routine 06/24/2024 6:00 PM EDT POCT GLUCOSE METER UNSOLICITED RESULTS Routine 06/24/2024 5:14 PM EDT XR CHEST 1 VIEW Routine 06/24/2024 2:06 PM EDT PEP THERAPY Routine 06/24/2024 2:00 PM EDT POCT GLUCOSE METER UNSOLICITED RESULTS Routine 06/24/2024 12:18 PM EDT PEP THERAPY Routine 06/24/2024 10:00 AM EDT OXYGEN THERAPY Routine 06/24/2024 8:00 AM EDT POCT GLUCOSE METER UNSOLICITED RESULTS Routine 06/24/2024 7:59 AM EDT XR CHEST 1 VIEW Routine 06/24/2024 6:06 AM EDT PEP THERAPY Routine 06/24/2024 6:00 AM EDT PHOSPHORUS, PLASMA Routine 06/24/2024 3: 49 AM EDT MAGNESIUM, PLASMA Routine 06/24/2024 3:4 9 AM EDT CBC W/O DIFFERENTIAL Routine 06/24/2024 3:49 AM EDT BASIC METABOLIC PANEL, PLASMA Routine 06/24/2024 3:49 AM EDT PEP THERAPY Routine 06/23/2024 10:00 PM EDT POCT GLUCOSE METER UNSOLICITED RESULTS Routine 06/23/2024 8:14 PM EDT OXYGEN THERAPY Routine 06/23/2024 6:00 PM EDT PEP THERAPY Routine 06/23/2024 6:00 PM EDT POCT GLUCOSE METER UNSOLICITED RESULTS Routine 06/23/2024 5:26 PM EDT PEP THERAPY Routine 06/23/2024 2:00 PM EDT POCT GLUCOSE METER UNSOLICITED RESULTS Routine 06/23/2024 12:36 PM EDT PEP THERAPY Routine 06/23/2024 10:00 AM EDT POCT GLUCOSE METER UNSOLICITED RESULTS Routine 06/23/2024 8:41 AM EDT OXYGEN THERAPY Routine 06/23/2024 8:00 AM EDT PEP THERAPY Routine 06/23/2024 6:00 AM EDT XR CHEST 1 VIEW Routine 06/23/2024 5:52 AM EDT PHOSPHORUS, PLASMA Routine 06/23/2024 3: 04 AM EDT MAGNESIUM, PLASMA Routine 06/23/2024 3:0 4 AM EDT CBC W/O DIFFERENTIAL Routine 06/23/2024 3:04 AM EDT BASIC METABOLIC PANEL, PLASMA Routine 06/23/2024 3:04 AM EDT POCT GLUCOSE METER UNSOLICITED RESULTS Routine 06/23/2024 2:38 AM EDT PEP THERAPY Routine 06/22/2024 10:00 PM EDT POCT GLUCOSE METER UNSOLICITED RESULTS Routine 06/22/2024 7:42 PM EDT OXYGEN THERAPY Routine 06/22/2024 6:00 PM EDT PEP THERAPY Routine 06/22/2024 6:00 PM EDT POCT GLUCOSE METER UNSOLICITED RESULTS Routine 06/22/2024 5:16 PM EDT PEP THERAPY Routine 06/22/2024 2:00 PM EDT POCT GLUCOSE METER UNSOLICITED RESULTS Routine 06/22/2024 12:43 PM EDT PEP THERAPY Routine 06/22/2024 10:00 AM EDT OXYGEN THERAPY Routine 06/22/2024 8:00 AM EDT POCT GLUCOSE METER UNSOLICITED RESULTS Routine 06/22/2024 7:29 AM EDT PEP THERAPY Routine 06/22/2024 6:00 AM EDT POTASSIUM, PLASMA Routine 06/22/2024 4:3 8 AM EDT XR CHEST 1 VIEW Routine 06/22/2024 3:21 AM EDT PHOSPHORUS, PLASMA Routine 06/22/2024 3: 15 AM EDT MAGNESIUM, PLASMA Routine 06/22/2024 3:1 5 AM EDT CBC W/O DIFFERENTIAL Routine 06/22/2024 3:15 AM EDT BASIC METABOLIC PANEL, PLASMA Routine 06/22/2024 3:15 AM EDT PEP THERAPY Routine 06/21/2024 10:00 PM EDT POCT GLUCOSE METER UNSOLICITED RESULTS Routine 06/21/2024 9:22 PM EDT OXYGEN THERAPY Routine 06/21/2024 6:00 PM EDT PEP THERAPY Routine 06/21/2024 6:00 PM EDT POCT GLUCOSE METER UNSOLICITED RESULTS Routine 06/21/2024 4:26 PM EDT PEP THERAPY Routine 06/21/2024 2:00 PM EDT MAGNESIUM, PLASMA Routine 06/21/2024 1:2 8 PM EDT RENAL FUNCTION PANEL, PLASMA Routine 06/21/2024 1:28 PM EDT POCT GLUCOSE METER UNSOLICITED RESULTS Routine 06/21/2024 11:52 AM EDT PEP THERAPY Routine 06/21/2024 10:00 AM EDT XR CHEST 1 VIEW STAT 06/21/2024 8:50 AM EDT OXYGEN THERAPY Routine 06/21/2024 8:00 AM EDT POCT GLUCOSE METER UNSOLICITED RESULTS Routine 06/21/2024 7:38 AM EDT PEP THERAPY Routine 06/21/2024 6:00 AM EDT BASIC METABOLIC PANEL, PLASMA Routine 06/21/2024 3:06 AM EDT CBC W/O DIFFERENTIAL Routine 06/21/2024 3:06 AM EDT PHOSPHORUS, PLASMA Routine 06/21/2024 3: 06 AM EDT MAGNESIUM, PLASMA Routine 06/21/2024 3:0 6 AM EDT POCT GLUCOSE METER UNSOLICITED RESULTS Routine 06/20/2024 11:24 PM EDT PEP THERAPY Routine 06/20/2024 10:00 PM EDT POCT GLUCOSE METER UNSOLICITED RESULTS Routine 06/20/2024 7:34 PM EDT OXYGEN THERAPY Routine 06/20/2024 6:00 PM EDT PEP THERAPY Routine 06/20/2024 6:00 PM EDT POCT GLUCOSE METER UNSOLICITED RESULTS Routine 06/20/2024 4:41 PM EDT MAGNESIUM, PLASMA Routine 06/20/2024 2:4 7 PM EDT RENAL FUNCTION PANEL, PLASMA Routine 06/20/2024 2:47 PM EDT PEP THERAPY Routine 06/20/2024 2:00 PM EDT POCT GLUCOSE METER UNSOLICITED RESULTS Routine 06/20/2024 11:31 AM EDT PEP THERAPY Routine 06/20/2024 10:00 AM EDT OXYGEN THERAPY Routine 06/20/2024 8:00 AM EDT POCT GLUCOSE METER UNSOLICITED RESULTS Routine 06/20/2024 7:57 AM EDT POTASSIUM, PLASMA Timed 06/20/2024 7:5 0 AM EDT HEMOGLOBIN Timed 06/20/2024 7:50 AM EDT HEMATOCRIT, BLOOD Timed 06/20/2024 7:5 0 AM EDT BLOOD GAS PANEL, ARTERIAL Timed 06/20/2024 7:50 AM EDT PEP THERAPY Routine 06/20/2024 6:00 AM EDT POCT GLUCOSE METER UNSOLICITED RESULTS Routine 06/20/2024 5:45 AM EDT PHOSPHORUS, PLASMA Add-On 06/20/2024 4: 14 AM EDT MAGNESIUM, PLASMA Add-On 06/20/2024 4:1 4 AM EDT POTASSIUM, PLASMA Timed 06/20/2024 4:1 4 AM EDT BASIC METABOLIC PANEL, PLASMA Routine 06/20/2024 4:14 AM EDT ECG ADULT Routine 06/20/2024 4:13 AM EDT HEMOGLOBIN Timed 06/20/2024 3:57 AM EDT HEMATOCRIT, BLOOD Timed 06/20/2024 3:5 7 AM EDT CBC W/O DIFFERENTIAL Routine 06/20/2024 3:57 AM EDT BLOOD GAS PANEL, ARTERIAL Routine 06/20/2024 3:53 AM EDT XR CHEST 1 VIEW Routine 06/20/2024 2:53 AM EDT BLOOD GAS PANEL, ARTERIAL Routine 06/20/2024 2:04 AM EDT OXYGEN THERAPY Routine 06/20/2024 12:12 AM EDT OXYGEN THERAPY Routine 06/20/2024 12:12 AM EDT EXTUBATION Routine 06/20/2024 12:12 AM EDT POTASSIUM, PLASMA Timed 06/19/2024 11: 57 PM EDT HEMOGLOBIN Timed 06/19/2024 11:57 PM EDT HEMATOCRIT, BLOOD Timed 06/19/2024 11: 57 PM EDT BLOOD GAS PANEL, ARTERIAL Timed 06/19/2024 11:57 PM EDT BLOOD GAS PANEL, ARTERIAL Routine 06/19/2024 10:38 PM EDT PEP THERAPY Routine 06/19/2024 10:00 PM EDT POTASSIUM, PLASMA Timed 06/19/2024 9:1 3 PM EDT HEMATOCRIT, BLOOD Timed 06/19/2024 9:1 3 PM EDT HEMOGLOBIN Timed 06/19/2024 9:13 PM EDT BLOOD GAS PANEL, ARTERIAL Timed 06/19/2024 9:13 PM EDT IL CRITICAL CARE, E/M 30-74 MINUTES Routine 06/19/2024 9:03 PM EDT Restrictive pericarditis BLOOD GAS PANEL, ARTERIAL Routine 06/19/2024 8:17 PM EDT XR CHEST 1 VIEW STAT 06/19/2024 7:00 PM EDT VENTILATOR - ADULT Routine 06/19/2024 6: 57 PM EDT APTT STAT 06/19/2024 6:51 PM EDT PROTHROMBIN TIME(PT) / INR STAT 06/19/2024 6:51 PM EDT PHOSPHORUS, PLASMA STAT 06/19/2024 6: 51 PM EDT MAGNESIUM, PLASMA STAT 06/19/2024 6:5 1 PM EDT BASIC METABOLIC PANEL, PLASMA STAT 06/19/2024 6:51 PM EDT CBC W/O DIFFERENTIAL STAT 06/19/2024 6:51 PM EDT BLOOD GAS PANEL, ARTERIAL STAT 06/19/2024 6:51 PM EDT CA AURIS SURVEILLANCE BY PCR Routine 06/19/2024 6:51 PM EDT MULTI DRUG RESISTANCE TEST Routine 06/19/2024 6:51 PM EDT ECG ADULT STAT 06/19/2024 6:46 PM EDT PEP THERAPY Routine 06/19/2024 6:25 PM EDT PEP THERAPY Routine 06/19/2024 6:25 PM EDT PEP THERAPY Routine 06/19/2024 6:25 PM EDT PEP THERAPY Routine 06/19/2024 6:25 PM EDT PEP THERAPY Routine 06/19/2024 6:25 PM EDT END TIDAL CO2 MONITORING Routine 06/19/2024 6:25 PM EDT END TIDAL CO2 MONITORING Routine 06/19/2024 6:25 PM EDT VENTILATOR - ADULT Routine 06/19/2024 6: 25 PM EDT POCT ARTERIAL BLOOD GAS GEM UNSOLICITED RESULTS Routine 06/19/2024 5:33 PM EDT SURGICAL PATHOLOGY EXAM Routine 06/20/19 5:25 PM EDT Restrictive pericarditis QPLUS Routine 06/19/2024 5:03 PM EDT POCT ARTERIAL BLOOD GAS GEM UNSOLICITED RESULTS Routine 06/19/2024 4:20 PM EDT POCT ARTERIAL BLOOD GAS GEM UNSOLICITED RESULTS Routine 06/19/2024 3:39 PM EDT POCT ARTERIAL BLOOD GAS GEM UNSOLICITED RESULTS Routine 06/19/2024 2:27 PM EDT PREPARE FRESH FROZEN PLASMA STAT 06/19/2024 2:15 PM EDT PREPARE RBC STAT 06/19/2024 2:15 PM EDT IL INSERT/PLACE FLOW DIRECT CATH Routine 06/19/2024 1:40 PM EDT ANESTHESIA ULTRASOUND GUIDED Routine 06/19/2024 1:40 PM EDT PB ANESTHESIA NON-TIMED PROCEDURE PLACEHOLDER Routine 06/19/2024 1:40 PM EDT IL AN CENTRAL LINE DOUBLE LUMEN Routine 06/19/2024 1:40 PM EDT PB ANESTHESIA NON-TIMED PROCEDURE PLACEHOLDER Routine 06/19/2024 1:39 PM EDT ANESTHESIA ULTRASOUND GUIDED Routine 06/19/2024 1:39 PM EDT QPLUS Routine 06/19/2024 1:29 PM EDT POCT ARTERIAL BLOOD GAS GEM UNSOLICITED RESULTS Routine 06/19/2024 1:26 PM EDT POCT ACT UNSOLICITED RESULTS Routine 06/19/2024 1:19 PM EDT PB ANESTHESIA PLACEHOLDER Routine 06/19/2024 12:56 PM EDT IL AN ELECTIVE ENDOTRACHEAL AIRWAY Routine 06/19/2024 12:56 PM EDT PERICARDIECTOMY 06/19/2024 12:23 PM EDT Restrictive pericarditis PB POINT OF CARE IMAGING PLACEHOLDER Routine 06/19/2024 11:39 AM EDT TYPE AND SCREEN Routine 06/19/2024 11:04 AM EDT POCT GLUCOSE METER UNSOLICITED RESULTS Routine 06/19/2024 10:58 AM EDT PREPARE RBC Routine 06/19/2024 10:21 AM EDT POC ULTRASOUND 06/19/2024 HEMOGLOBIN A1C Routine 06/15/2024 1:26 PM EDT Restrictive pericarditis HEPATITIS C ANTIBODY - ED W/REFLEX TO HCV QUANT PCR STAT 03/09/2021 12:04 PM EST HIV 1/2 ANTIBODY/ANTIGEN SCREEN WITH REFLEX TO HIV I/II DIFFERENTIATION STAT 03/09/2021 12:04 PM EST from Last 3 Months or Most Recently Relevant to Health Maintenance Results * ECG Adult (07/05/2024 9:49 AM EDT) Only the most recent of3 resultswithin the time period is included. EKG DIAGNOSIS CLASS Abnormal MUSE ECG Ventricular Rate 78 BPM MUSE ECG Atrial Rate 78 BPM MUSE ECG IL Interval 154 ms MUSE ECG QRSD Interval 86 ms MUSE ECG QT Interval 346 ms MUSE ECG QTC Interval 394 ms MUSE ECG P [place] 58 degrees MUSE ECG R [place] 88 degrees MUSE ECG T Wave Warren 124 degrees MUSE ECG Diagnosis Normal sinus rhythm MUSE ECG Diagnosis T wave abnormality, consider lateral ischemia MUSE ECG Diagnosis Abnormal ECG MUSE ECG Diagnosis MUSE ECG Diagnosis Confirmed by Eliseo Jacobsen ([id number]) on 07/05/2024 9:56:37 AM MUSE ECG 07/05/2024 9:49 AM EDT 07/05/2024 9:56 AM EDT us Maude Casillas MD ECG ORDERABLES Final Result MUSE ECG * (ABNORMAL) CBC W/O Differential (07/05/2024 8:27 AM EDT) Only the most recent of9 resultswithin the time period is included. WBC Count 9.63 3.70 - 10.30 10*3/uL LAB HEMATOLOGY METHOD 07/05/2024 9:41 AM EDT [facility] RBC Count 4.14(L) 4.60 - 6.10 10*6/uL LAB HEMATOLOGY METHOD 07/05/2024 9:41 AM EDT [facility] HGB 11.0(L) 13.7 - 17.5 g/dL LAB HEMATOLOGY METHOD 07/05/2024 9:41 AM EDT [facility] HCT 35.1(L) 40.0 - 51.0 % LAB HEMATOLOGY METHOD 07/05/2024 9:41 AM EDT [facility] Platelet Count 502(H) 155 - 369 10*3/uL LAB HEMATOLOGY METHOD 07/05/2024 9:41 AM EDT [facility] MCV 85 79 - 98 fL LAB HEMATOLOGY METHOD 07/05/2024 9:41 AM EDT [facility] MCH 26.6 26.0 - 32.0 pg LAB HEMATOLOGY METHOD 07/05/2024 9:41 AM EDT [facility] MCHC 31.3 30.7 - 35.5 g/dL LAB HEMATOLOGY METHOD 07/05/2024 9:41 AM EDT [facility] RDW 17.8(H) 11.5 - 14.5 % LAB HEMATOLOGY METHOD 07/05/2024 9:41 AM EDT [facility] MPV 10.5 8.8 - 12.5 fL LAB HEMATOLOGY METHOD 07/05/2024 9:41 AM EDT [facility] nRBC 0.0 <=0.0 per 100 WBCs LAB HEMATOLOGY METHOD 07/05/2024 9:41 AM EDT [facility] Blood Venous blood specimen / Unknown Venipuncture / Unknown 07/05/2024 8:27 AM EDT 07/05/2024 8:27 AM EDT us Maude Casillas MD LAB BLOOD ORDERABLES Final Resu lt [facility] [address] [place] [address] * Basic Metabolic Panel, Plasma (07/05/2024 8:27 AM EDT) Only the most recent of9 resultswithin the time period is included. Glucose, Plasma 80 74 - 99 mg/dL 07/05/2024 9:49 AM EDT [facility] BUN, Plasma 21 7 - 21 mg/dL 07/05/2024 9:49 AM EDT [facility] Creatinine, Plasma 1.07 0.70 - 1.20 mg/dL 07/05/2024 9:49 AM EDT [facility] BUN/Creatinine Ratio 20 07/05/2024 9:49 AM EDT [facility] Sodium, Plasma 141 136 - 145 mmol/L 07/05/2024 9:49 AM EDT [facility] Potassium, Plasma 4.8 3.6 - 4.9 mmol/L 07/05/2024 9:49 AM EDT [facility] Chloride, Plasma 103 97 - 107 mmol/L 07/05/2024 9:49 AM EDT [facility] CO2, Plasma 26 22 - 29 mmol/L 07/05/2024 9:49 AM EDT [facility] Anion Gap 12 6 - 16 mmol/L 07/05/2024 9:49 AM EDT [facility] Total Calcium, Plasma 9.4 8.9 - 10.2 mg/dL 07/05/2024 9:49 AM EDT [facility] eGFRcr 79.9 mL/min/1.7 3m*2 07/05/2024 9:49 AM EDT [facility] Comment:Reported eGFRcr in m L/min/1.73m2 is based the CKD-EPI 2020 equation that does not use a race coefficient. Blood Venous blood specimen / Unknown Venipuncture / Unknown 07/05/2024 8:27 AM EDT 07/05/2024 8:27 AM EDT us Maude Casillas MD LAB BLOOD ORDERABLES Final Resu lt [facility] [address] [place] [address] * XR Chest 2 Views (07/05/2024 8:20 AM EDT) Only the most recent of2 resultswithin the time period is included. Anatomical Region Laterality Modality Chest Digital Radiogra phy Impressions 07/05/2024 9:11 AM EDT Stable pleural effusions. CRITICAL RESULT: No. COMMUNICATION: Per this written report. Drafted by Juan Nowak MD on 07/05/2024 9:10 AM Final report signed by Juan Nowak MD on 07/05/2024 9:11 AM Narrative 07/05/2024 9:11 AM EDT CLINICAL INDICATION: aortic valve disease TECHNIQUE: XR CHEST 2 VIEWS COMPARISON: June 26, 2024 FINDINGS: Improving linear pulmonary opacities, likely associated with prior chest tube placement. Small bilateral pleural effusions, not significantly changed. No edema or consolidation. No pneumothorax. Procedure Note Juan Nowak MD - 07/05/2024 CLINICAL INDICATION: aortic valve disease TECHNIQUE: XR CHEST 2 VIEWS COMPARISON: June 26, 2024 FINDINGS: Improving linear pulmonary opacities, likely associated with prior chesttube placement. Small bilateral pleural effusions, not significantlychanged. No edema or consolidation. No pneumothorax. IMPRESSION: Stable pleural effusions. CRITICAL RESULT: No. COMMUNICATION: Per this written report. Drafted by Juan Nowak MD on 07/05/2024 9:10 AM Final report signed by Juan Nowak MD on 07/05/2024 9:11 AM Maude Casillas MD IMG XR PROCEDURES Final Result * (ABNORMAL) POCT glucose meter (06/26/2024 8:48 AM EDT) Only the most recent of30 resultswithin the time period is included. POCT Glucose 118(H) 74 - 99 mg/dL 06/26/2024 8:49 AM EDT [facility] Comment:Accuracy of a glucos e result obtained from a capillary whole blood specimen relies upon adequate, non-compromised capillary blood flow. If the capillary glucose result is not consistent with the patient's clinical signs and symptoms, glucose testing should be repeated with either an arterial or venous sample on the glucometer or sent to the main labortory for testing. Comment 06/26/2024 8:49 AM EDT [facility] Endless [employer] Vehicle Mechanic ID Sarah Leach 06/26/2024 8:49 AM EDT [facility] Device ID [id number] 06/26/2024 8:49 AM EDT [facility] Specimen Type POC Capillary 06/26/2024 8:49 AM EDT [facility] Blood Capillary blood specimen / Unknown 06/26/2024 8:48 AM EDT 06/26/2024 8:49 AM EDT us Maude Casillas MD LAB POINT OF CARE TE ST DOCKED DEVICE UNSOLICITED RESULTS Final Result Performing Organization Address [facility] Co de Phone Number [facility] [address] [place] [address] * Magnesium (06/26/2024 3:53 AM EDT) Only the most recent of10 resultswithin the time period is included. Magnesium, Plasma 1.9 1.9 - 2.4 mg/dL 06/26/2024 4:38 AM EDT [facility] Blood Venous blood specimen / Unknown Venipuncture / Unknown 06/26/2024 3:53 AM EDT 06/26/2024 4:09 AM EDT us Andrew BLUNT LAB BLOOD ORDERABLES Final Result Performing Organization Address [facility]/ZIP Co de Phone Number [facility] [address] [place] [id number] * XR Chest 1 View (06/25/2024 6:18 AM EDT) Only the most recent of8 resultswithin the time period is included. Anatomical Region Laterality Modality Chest Digital Radiogra phy Impressions 06/25/2024 9:23 AM EDT Small right pneumothorax following chest tube removal. CRITICAL RESULT: No. COMMUNICATION: Per this written report. Drafted by Juan Nowak MD on 06/25/2024 9:23 AM Final report signed by Juan Nowak MD on 06/25/2024 9:23 AM Narrative 06/25/2024 9:23 AM EDT CLINICAL INDICATION: eval lung alvarado TECHNIQUE: XR CHEST 1 VIEW COMPARISON: 06/24/2024 FINDINGS: Both chest tubes have been removed. There is a small residual right pneumothorax. Similar appearance of basilar atelectasis. No pulmonary edema. Procedure Note Juan Nowak MD - 06/25/2024 CLINICAL INDICATION: eval lung alvarado TECHNIQUE: XR CHEST 1 VIEW COMPARISON: 06/24/2024 FINDINGS: Both chest tubes have been removed. There is a small residual rightpneumothorax. Similar appearance of basilar atelectasis. No pulmonaryedema. IMPRESSION: Small right pneumothorax following chest tube removal. CRITICAL RESULT: No. COMMUNICATION: Per this written report. Drafted by Juan Nowak MD on 06/25/2024 9:23 AM Final report signed by Juan Nowak MD on 06/25/2024 9:23 AM us Mamadou Cochran APRN IMG XR PROCEDURES Final Resu lt * Phosphorus (06/24/2024 3:49 AM EDT) Only the most recent of6 resultswithin the time period is included. Phosphorus, Plasma 4.0 2.5 - 4.5 mg/dL 06/24/2024 4:29 AM EDT [facility] Blood Venous blood specimen / Unknown Venipuncture / Unknown 06/24/2024 3:49 AM EDT 06/24/2024 3:58 AM EDT us Maude Casillas MD LAB BLOOD ORDERABLES Final Resu lt [facility] [address] [place] [address] * Potassium (06/22/2024 4:38 AM EDT) Only the most recent of5 resultswithin the time period is included. Potassium, Plasma 4.4 3.6 - 4.9 mmol/L 06/22/2024 5:19 AM EDT [facility] Blood Venous blood specimen / Unknown Venipuncture / Unknown 06/22/2024 4:38 AM EDT 06/22/2024 4:55 AM EDT us Maude Casillas MD LAB BLOOD ORDERABLES Final Resu lt [facility] [address] [place] [address] * (ABNORMAL) Renal Function Panel, Plasma (06/21/2024 1:28 PM EDT) Only the most recent of2 resultswithin the time period is included. Glucose, Plasma 387(H) 74 - 99 mg/dL 06/21/2024 2:26 PM EDT [facility] BUN, Plasma 33(H) 7 - 21 mg/dL 06/21/2024 2:26 PM EDT [facility] Creatinine, Plasma 1.20 0.70 - 1.20 mg/dL 06/21/2024 2:26 PM EDT [facility] BUN/Creatinine Ratio 28 06/21/2024 2:26 PM EDT [facility] Sodium, Plasma 131(L) 136 - 145 mmol/L 06/21/2024 2:26 PM EDT [facility] Potassium, Plasma 4.3 3.6 - 4.9 mmol/L 06/21/2024 2:26 PM EDT [facility] Chloride, Plasma 96(L) 97 - 107 mmol/L 06/21/2024 2:26 PM EDT [facility] CO2, Plasma 26 22 - 29 mmol/L 06/21/2024 2:26 PM EDT [facility] Anion Gap 9 6 - 16 mmol/L 06/21/2024 2:26 PM EDT [facility] Total Calcium, Plasma 8.1(L) 8.9 - 10.2 mg/dL 06/21/2024 2:26 PM EDT [facility] Phosphorus, Plasma 2.9 2.5 - 4.5 mg/dL 06/21/2024 2:26 PM EDT [facility] Albumin, Plasma 2.8(L) 3.5 - 5.2 g/dL 06/21/2024 2:26 PM EDT [facility] eGFRcr 69.7 mL/min/1.7 3m*2 06/21/2024 2:26 PM EDT [facility] Comment:Reported eGFRcr in m L/min/1.73m2 is based the CKD-EPI 2020 equation that does not use a race coefficient. Blood Venous blood specimen / Unknown Venipuncture / Unknown 06/21/2024 1:28 PM EDT 06/21/2024 1:52 PM EDT us Maude Casillas MD LAB BLOOD ORDERABLES Final Resu lt [facility] [address] [place] [address] * (ABNORMAL) Hemoglobin (06/20/2024 7:50 AM EDT) Only the most recent of4 resultswithin the time period is included. HGB 12.3(L) 13.7 - 17.5 g/dL LAB HEMATOLOGY METHOD 06/20/2024 8:23 AM EDT [facility] Blood Venous blood specimen / Unknown Venipuncture / Unknown 06/20/2024 7:50 AM EDT 06/20/2024 8:16 AM EDT us Maude Casillas MD LAB BLOOD ORDERABLES Final Resu lt [facility] [address] [place] [address] * (ABNORMAL) Hematocrit (06/20/2024 7:50 AM EDT) Only the most recent of4 resultswithin the time period is included. HCT 39.0(L) 40.0 - 51.0 % LAB HEMATOLOGY METHOD 06/20/2024 8:23 AM EDT [facility] Blood Venous blood specimen / Unknown Venipuncture / Unknown 06/20/2024 7:50 AM EDT 06/20/2024 8:16 AM EDT us Maude Casillas MD LAB BLOOD ORDERABLES Final Resu lt [facility] [address] [place] [address] * (ABNORMAL) Blood gas, arterial (06/20/2024 7:50 AM EDT) Only the most recent of8 resultswithin the time period is included. pH, Arterial 7.33(L) 7.35 - 7.45 LAB HEMATOLOGY METHOD 06/20/2024 8:16 AM EDT [facility] pCO2, Arterial 47(H) 32 - 45 mmHg LAB HEMATOLOGY METHOD 06/20/2024 8:16 AM EDT [facility] pO2, Arterial 92 83 - 108 mmHg LAB HEMATOLOGY METHOD 06/20/2024 8:16 AM EDT [facility] SO2, Measured, Arterial 97 94 - 98 % LAB HEMATOLOGY METHOD 06/20/2024 8:16 AM EDT [facility] Base Excess, Arterial -1.7 -2.0 - 3.0 mmol/L LAB HEMATOLOGY METHOD 06/20/2024 8:16 AM EDT [facility] Bicarbonate, Calculated, Arterial 25 22 - 26 mmol/L LAB HEMATOLOGY METHOD 06/20/2024 8:16 AM EDT [facility] Hematocrit, Whole Blood 37.5(L) 40.0 - 51.0 % LAB HEMATOLOGY METHOD 06/20/2024 8:16 AM EDT [facility] Sodium, Whole Blood 137 136 - 145 mmol/L LAB HEMATOLOGY METHOD 06/20/2024 8:16 AM EDT [facility] Potassium, Whole Blood 4.6 3.6 - 4.9 mmol/L LAB HEMATOLOGY METHOD 06/20/2024 8:16 AM EDT [facility] Chloride, Whole Blood 103 97 - 107 mmol/L LAB HEMATOLOGY METHOD 06/20/2024 8:16 AM EDT [facility] Glucose, Whole Blood 209(H) 74 - 99 mg/dL LAB HEMATOLOGY METHOD 06/20/2024 8:16 AM EDT [facility] Ionized Calcium, Whole Blood 4.6 4.6 - 5.1 mg/dL LAB HEMATOLOGY METHOD 06/20/2024 8:16 AM EDT [facility] Lactate, Arterial, Whole Blood 1.7(H) 0.5 - 1.6 mmol/L LAB HEMATOLOGY METHOD 06/20/2024 8:16 AM EDT [facility] Blood Arterial blood specimen / Unknown Arterial Puncture / Unknown 06/20/2024 7:50 AM EDT 06/20/2024 8:14 AM EDT us Maude Casillas MD LAB BLOOD ORDERABLES Final Resu lt [facility] [address] [place] [address] * [place] CRITICAL CARE, E/M 30-74 MINUTES (06/19/2024 9:03 PM EDT) Narrative Juan Hernandez DO - 06/19/2024 9:03 PM EDT Juan Hernandez DO 06/20/2024 7:03 AM Critical Care Performed by: Juan Hernandez DO Authorized by: Juan Hernandez DO Critical care provider statement: Critical care time (minutes): 56 Critical care time was exclusive of: Separately billable procedures and treating other patients and teaching time Critical care was time spent personally by me on the following activities: Development of treatment plan with patient or surrogate, ordering and performing treatments and interventions, discussions with consultants, ordering and review of laboratory studies, discussions with primary provider, ordering and review of radiographic studies, evaluation of patient's response to treatment, examination of patient and ventilator management Critical care statement: I saw and evaluated the patient with the resident/ fellow. I discussed the case with the resident/ fellow and agree with the findings and plan as documented. Comments: High O2 requirement. Reversed. PS 7/7, 60%. Diuresed with 20 mg Lasix IV with good response. Extubated to 4L NC. AM CXR much improved. 250 ml albumin + 0.5g CaCl for mild hypotension after 3L UOP. Held DVT ppx due to oozing in OR. us Juan Hernandez DO IN CLINIC/BEDSIDE ORDERABLES Final Result * Ca auris Surveillance by PCR (06/19/2024 6:51 PM EDT) Ca auris PCR Result Not Detected Not Detected 06/20/2024 8:15 AM EDT [facility] Swab (Axilla and Groin) Non-blood Collection / Unknown 06/19/2024 6:51 PM EDT 06/19/2024 7:13 PM EDT Narrative [facility] - 06/20/2024 8:15 AM EDT This PCR assay was developed and its performance characteristics determined by [facility] as appropriate for clinical purposes. This assay has not been cleared or approved by the FDA, but is performed in a CLIA regulated laboratory that is qualified to perform high-complexity testing. us Juan Alcaraz MD LAB MICROBIOLOGY - GENERAL O RDERABLES Final Result Performing Organization Address [facility] [place] [address] * Multi Drug Resistance Test (06/19/2024 6:51 PM EDT) Culture No growth at day 1 06/20/2024 8:20 PM EDT [facility] Swab (Nares and Ailin Rectal) Non-blood Collection / Unknown 06/19/2024 6:51 PM EDT 06/19/2024 7:13 PM EDT Narrative [facility] - 06/20/2024 8:20 PM EDT This test was developed and its performance characteristics determined by the [facility]. Although the media is FDA-approved, it is not FDA-approved for all specimen types submitted. The FDA has determined that such clearance or approval is not necessary. This test is used for surveillance purposes. It should not be regarded as investigational or for research. The [facility] is certified under the Clinical Laboratory Improvement Amendments of 1988 (CLIA-88) as qualified to perform high complexity clinical laboratory testing. us Juan Alcaraz MD LAB MICROBIOLOGY - GENERAL O RDERABLES Final Result Performing Organization Address City/[facility]/[place] [address] * APTT (06/19/2024 6:51 PM EDT) aPTT 31 25 - 35 sec LAB COAGULATION METHOD 06/19/2024 7:37 PM EDT [facility] Blood Venous blood specimen / Unknown Venipuncture / Unknown 06/19/2024 6:51 PM EDT 06/19/2024 6:58 PM EDT Juan Alcaraz MD LAB BLOOD ORDERABLES Final R esult Performing Organization Address [facility]/ZIP Co de Phone Number [facility] [address] [place] [address] * (ABNORMAL) Protime-INR (06/19/2024 6:51 PM EDT) Prothrombin Time 17.1(H) 12.0 - 14.3 sec LAB COAGULATION METHOD 06/19/2024 7:37 PM EDT [facility] INR 1.4(H) 0.9 - 1.1 LAB COAGULATION METHOD 06/19/2024 7:37 PM EDT [facility] Blood Venous blood specimen / Unknown Venipuncture / Unknown 06/19/2024 6:51 PM EDT 06/19/2024 6:58 PM EDT Narrative [facility] - 06/19/2024 7:37 PM EDT OPTIMAL INR RANGES FOR PATIENT ON ORAL ANTICOAGULANT THERAPY Prevention of venous thromboembolism INR 2.0 to 3.0 In patients with heart disease: Atrial fibrillation INR 2.0 to 3.0 Valvular heart disease INR 2.0 to 3.0 Tissue heart valves INR 2.0 to 3.0 Mechanical prosthetic valves INR 2.5 to 3.5 Prevention of recurrent VA INR 2.5 to 3.5 Juan Alcaraz MD LAB BLOOD ORDERABLES Final R esult Performing Organization Address City/[facility]/ZIP Co de Phone Number [facility] [address] [place] [address] * (ABNORMAL) POCT arterial blood gas gem (06/19/2024 5:33 PM EDT) Only the most recent of5 resultswithin the time period is included. pH, Arterial 7.38 7.35 - 7.45 06/19/2024 5:38 PM [facility] pCO2, Arterial 39 32 - 45 mm Hg 06/19/2024 5:38 PM [facility] pO2, Arterial 72(L) 83 - 108 mm Hg 06/19/2024 5:38 PM [facility] SO2, Arterial 95 94 - 98 % 06/19/2024 5:38 PM [facility] Base Excess, Arterial -1.8 -2 - 3 mmol/L 06/19/2024 5:38 PM [facility] HCO3, Arterial 23.1 22 - 26 mmol/L 06/19/2024 5:38 PM [facility] Total Hemoglobin, Arterial, Whole Blood 11.8(L) 13.7 - 17.5 g/dL 06/19/2024 5:38 PM [facility] Hematocrit, Arterial 35.0(L) 40 - 51.0 % 06/19/2024 5:38 PM [facility] Sodium, Arterial 139 136 - 145 mmol/L 06/19/2024 5:38 PM [facility] Potassium, Arterial 4.3 3.6 - 4.9 mmol/L 06/19/2024 5:38 PM [facility] Chloride, Whole Blood 106 97 - 107 mmol/L 06/19/2024 5:38 PM [facility] Glucose, Arterial 129(H) 74 - 99 mg/dL 06/19/2024 5:38 PM [facility] Ionized Calcium, Arterial 4.6 4.6 - 5.1 mg/dL 06/19/2024 5:38 PM [facility] Lactate, Arterial 1.3 0.5 - 1.6 mmol/L 06/19/2024 5:38 PM [facility] Body Temperature 37.0 Celsius 06/19/2024 5:38 PM [facility] pH, Temp Corrected, Arterial 7.38 7.35 - 7.45 06/19/2024 5:38 PM [facility] pCO2, Temp Corrected, Arterial 39 32 - 45 mm Hg 06/19/2024 5:38 PM [facility] pO2, Temp Corrected, Arterial 72(L) 83 - 108 mm Hg 06/19/2024 5:38 PM [facility] Endless Track Vehicle Mechanic AMALIA Shala Michele 06/19/2024 5:38 PM EDT [facility] Blood, Arterial Whole blood specimen / Unknown 06/19/2024 5:33 PM EDT 06/19/2024 5:38 PM EDT Juan Alcaraz MD LAB POINT OF CARE TE ST DOCKED DEVICE UNSOLICITED RESULTS Final Result [facility] [address] [place] [address] * Surgical Pathology Exam (06/19/2024 5:25 PM EDT) Case Report Surgical Pathology Case: [id number] Authorizing Provider: Juan Alcaraz MD Collected: 06/19/2024 1725 Ordering Location: [facility] A OPERATING ROOM Received: 06/20/2024 0811 Pathologist: Ozzie Parsons DO Specimen: Heart, pericardium 06/26/2024 4:33 PM EDT [facility] Addendum Addendum to document stains performed. There is no evidence of IgG4 related disease. The H&E stained sections were reviewed by Dr. Aviles who agrees with the diagnoses. IHC: A3-2 CD138: Highlights the presence of few scattered plasma cells. A3-3 IgG-4: Highlights the presence of rare scattered plasma cells. All controls show appropriate reactivity. All immunohistochemist ry, in situ hybridization, and histochemical tests were developed by and are performed at the [facility], [address] [place] [address]. All tests reported here, except those addressing HER2 (breast) and PD-L1 expression as predictive markers, have not been cleared by or approved by the US Food and Drug Administration (FDA). The FDA has determined that such clearance or approval is not necessary. The laboratory is regulated under CLIA as qualified to perform high-complexity testing. The tests are used for clinical purposes. They should not be regarded as investigational or for research. This assay has not been validated on decalcified tissues. Results should be interpreted with caution given the likelihood of false negativity on decalcified specimens. 06/26/2024 4:33 PM EDT [facility] Addendum electronically signed by Ozzie Parsons DO on 06/26/2024 at 1633 EDT Final Diagnosis PERICARDIUM, PERICARDIECTOMY: - FIBROSIS WITH CHRONIC INFLAMMATION, HEMOSIDERIN DEPOSITION AND HEMORRHAGE. 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 PERICARDIUM Received in formalin labeled p ericardium , is an aggregate of pink-red portions of soft tissue measuring 8.4 x 7.5 x 5.6 cm. Specimen is serially sectioned and auto service representative sections are submitted in cassettes A1 to A4. Cold Time: 0 Mikayla B Pettey 06/26/2024 4:33 PM EDT [facility] Note: A resident was involved in the service. I attest I examined the relevant preparations for the specimens and confirmed the diagnosis or interpretation. 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 Clot Time 130 104 - 166 Seconds 06/19/2024 5:17 PM EDT [facility] Clot Time Ratio 1.0 0.8 - 1.2 5:17 PM EDT [facility] Comment:The Clot Time Ratio (CTR) is a calculated parameter. CTR values of 0.8 1.2 are demonstrated to be typical of n ormal patient samples. Samples with CTR values > 1.4 are indicative of prolongation of the intrinsic pathway clotting time, likely due to the influence of unfractionated heparin. POCT Clot Stiffness 30.9 13.0 - 33.2 hectoPascals 06/19/2024 5:17 PM EDT [facility] Platelet Contribution to Clot Stiffnes 27.3 11.9 - 29.8 hectoPascals 06/19/2024 5:17 PM EDT [facility] Fibrinogen Contribution to Clot Stiffness 3.6 1.0 - 3.7 hectoPascals 06/19/2024 5:17 PM EDT [facility] Heparinase Clot Time 131 103 - 153 Seconds 06/19/2024 5:17 PM EDT [facility] Endless Track Vehicle Mechanic ID Brandyn Rogers 06/19/2024 5:17 PM EDT [facility] Device ID Lula 06/19/2024 5:17 PM EDT [facility] Whole Blood 06/19/2024 5:03 PM EDT 06/19/2024 5:17 PM EDT Juan Alcaraz MD LAB POINT OF CARE TE ST DOCKED DEVICE UNSOLICITED RESULTS Final Result Performing Organization Address City/State/[facility] Co de Phone Number [facility] [address] [place] [address] * IL AN CENTRAL LINE DOUBLE LUMEN, PB ANESTHESIA NON-TIMED PROCEDURE PLACEHOLDER, ANESTHESIA ULTRASOUND GUIDED, IL INSERT/PLACE FLOW DIRECT CATH (06/19/2024 1:40 PM EDT) Narrative Brandi Veras MD - 06/19/2024 1:40 PM EDT Brandi Veras MD 06/21/2024 7:44 AM Central Venous Line: A central venous line was placed in the OR for the following indication(s): central venous access and CVP monitoring. Sterility preparation included the following: provider hand hygiene performed prior to central venous catheter insertion, all 5 sterile barriers used (gloves, gown, cap, mask, large sterile drape) during central venous catheter insertion, antiseptic used during central venous catheter insertion and skin prep agent completely dried prior to procedure. The patient was placed in Trendelenburg position. Right internal jugular vein was prepped. The site was prepped with Chlorhexidine. A 9 Fr (size), 20 (length), introducer double lumen was placed. This catheter was an oximetric catheter. During the procedure, the following specific steps were taken: target vein identified, needle advanced into vein and blood aspirated and guidewire advanced into vein. Seldinger technique used Procedure performed using ultrasound guidance Sterile gel and probe cover used in ultrasound-guided central venous catheter insertion. Intravenous verification was obtained by ultrasound and venous blood return. Post insertion care included: all ports aspirated, all ports flushed easily, guidewire removed intact, Biopatch applied, line sutured in place and dressing applied. During the procedure the patient experienced: patient tolerated procedure well with no complications. PA Catheter Placed A oximetric, 8 (size) Pulmonary Artery Catheter (PAC) was placed through the Introducer CVL in the right internal jugular vein. The PAC placement was confirmed by pressure tracing changes and PEÑA. The patient experienced the following events during the procedure: patient tolerated procedure well with no complications. Staffing Performed: Resident Anesthesiologist: Brandi Veras MD Resident: Rocky Pineda MD Brandi Veras MD ANESTHESIA ORDERABLES Final Result * PB ANESTHESIA NON-TIMED PROCEDURE PLACEHOLDER (06/19/2024 1:39 PM EDT) Brandi Hardin MD - 06/19/2024 1:39 PM EDT Brandi Veras MD 06/21/2024 7:44 AM Arterial Line: An arterial line was placed. Procedure performed using ultrasound guidance in the OR for the following indication(s): continuous blood pressure monitoring and blood sampling needed. A 20 gauge (size), 1 and 3/4 inch (length), Arrow (type) catheter was placed into the Right radial artery and secured by suture. Seldinger technique used Events: patient tolerated procedure well with no complications. Staffing Performed: Resident Anesthesiologist: Brandi Veras MD Resident: Rocky Pineda MD Brandi Veras MD ANESTHESIA ORDERABLES Final Result * ANESTHESIA ULTRASOUND GUIDED (06/19/2024 1:39 PM EDT) Brandyn Dent MD - 06/19/2024 1:39 PM EDT Brandyn Rogers MD 06/19/2024 4:20 PM Peripheral IV Inserted by: Michele Last MD Placement Needle size: 16 G Location: antecubital Site prep: alcohol Technique: ultrasound guided Attempts: 1 us Brandi Veras MD ANESTHESIA ORDERABLES Final Result * POCT ACT (06/19/2024 1:19 PM EDT) ACT+ (HIGH RANGE) 129 68 - 600 Seconds 07/07/2024 1:06 AM EDT [facility] Endless Track Vehicle Mechanic ID Agapito Torres 07/07/2024 1:06 AM EDT [facility] ACT Device ID [id number] 07/07/2024 1:06 AM EDT [facility] Comment 07/07/2024 1:06 AM EDT [facility] Comment: ACT performed by staff at point of care. Results are reported immediately to the physician or primary caregiver. The activated clotting time is performed on patients with diverse clinical characteristics and treatment histories. Therefore, expected values are variable and results must be interpreted in the context of each individual patient. Blood Venous blood specimen / Unknown 06/19/2024 1:19 PM EDT 07/07/2024 1:06 AM EDT us Maude Casillas MD LAB POINT OF CARE TE ST DOCKED DEVICE UNSOLICITED RESULTS Final Result Performing Organization Address City/State/[facility] Co de Phone Number HEALTHCARE LAB [address] LAB [address] [place] [address] * [place] AN ELECTIVE ENDOTRACHEAL AIRWAY, PB ANESTHESIA PLACEHOLDER (06/19/2024 12:56 PM EDT) Narrative Brandi Veras MD - 06/19/2024 12:56 PM EDT Brandi Veras MD 06/21/2024 7:44 AM Airway Date/Time: 06/19/2024 12:56 PM Reason: elective Airway not difficult General Information and Staff Patient location during procedure: OR Anesthesiologist: Brandi Veras MD Resident: Rocky Pineda MD Performed: Resident Patient Condition Indications for airway management: anesthesia Patient position: sniffing Final Airway Details Final airway type: endotracheal airway Successful airway: ETT Cuffed: yes Successful intubation technique: direct laryngoscopy Adjuncts used in placement: intubating stylet Endotracheal tube insertion site: oral Blade: Eamon Blade size: #3 ETT size (mm): 8.0 Cormack-Lehane Classification: grade IIa - partial view of glottis Placement verified by: chest auscultation and capnometry Measured from: lips ETT to lips (cm): 22 Additional Comments Atraumatic. No change to dentition. Brandi Veras MD ANESTHESIA ORDERABLES Final Result * PB POINT OF CARE IMAGING PLACEHOLDER (06/19/2024 11:39 AM EDT) Narrative Alirio Mendez MD - 06/19/2024 11:39 AM EDT Alirio Mendez MD 06/19/2024 1:52 PM Peripheral Block Patient location during procedure: OR Reason for block: post-op pain management Block is at surgeon's request Staffing Performed: Resident Anesthesiologist: Alirio Mendez MD Resident: Nico Khalil MD Preanesthetic Checklist Completed: patient identified, IV checked, site marked, risks and benefits discussed, surgical consent, monitors and equipment checked, pre-op evaluation and timeout performed Peripheral Block Patient position: supine Prep: ChloraPrep Patient monitoring: continuous pulse ox, heart rate and intensive care ambulance paramedic Anesthesia block type: paravertebral. Laterality: left and right Injection technique: single-shot Guidance: ultrasound guided Ultrasound used for needle placement AND ultrasound image retained Needle Needle localization: anatomical landmarks and ultrasound guidance Medications Administered midazolam (Versed) injection - Intravenous 2 mg - 06/19/2024 11:39:00 AM 0.5% ropivacaine - Injection 50 mL - 06/19/2024 11:40:00 AM Assessment Injection assessment: negative aspiration for heme, local visualized surrounding nerve on ultrasound and incremental injection Paresthesia pain: none Heart rate change: no Slow fractionated injection: yes Additional Notes 25ml of 0.5% ropi injected into each paravertebral space. 2mg of midazolam given. Tolerated well Alirio Mendez MD ANESTHESIA ORDERABLES Final Resu lt * Type and Screen (06/19/2024 11:04 AM EDT) ABO/Rh O Positive 06/19/2024 10:44 AM EDT [facility] Antibody Screen Negative 06/19/2024 10:44 AM EDT [facility] Specimen Expiration 06/22/2024 23:59 06/19/2024 10:44 AM EDT [facility] Blood Venous blood specimen / Unknown Venipuncture / Unknown 06/19/2024 11:04 AM EDT 06/19/2024 11:09 AM EDT Juan Alcaraz MD LAB BLOOD BANK TEST ORDERABL ES Final Result Performing Organization Address [facility] de Phone Number BLOOD BANK [address] * POC Imaging (06/19/2024) Anatomical Region Laterality Modality Pelvis Other 06/19/2024 External Provider IMG POINT OF CARE ULTRASOUND F inal Result * (ABNORMAL) Hemoglobin A1c (06/15/2024 1:26 PM EDT) Hemoglobin A1c 7.5(H) <5.7 % 06/15/2024 5:52 PM EDT [facility] Blood Venous blood specimen / Unknown Venipuncture / Unknown 06/15/2024 1:26 PM EDT 06/15/2024 1:26 PM EDT Narrative [facility] - 06/15/2024 5:52 PM EDT HA1C Interpretive Data: Diagnosis of Diabetes: Diabetic > or = 6.5% Pre-diabetic 5.7 to 6.4% Non-diabetic < or = 5.6% Glycemic Targets for Type I and Type II Diabetics: Non- Adults <7.0% Adults <6.0% Children and Adolescents <7.5% Source: [place] [employer]. Standards of medical care in diabetes,2017. Diabetes Care.2017:40 (suppl 1):S1-S135. us Ammon BLUNT LAB BLOOD ORDERABLES Final R esult Performing Organization Address [facility] Co de Phone Number [facility] [address] [place] [address] * HIV 1 & 2 Antibody/Antigen Screen (03/09/2021 12:04 PM EST) HIV 1 & 2 Antibody/Anti gen Screen Nonreactive Nonreactive 03/09/2021 1:49 PM EST [facility] Blood Venous blood specimen / Unknown Venipuncture / Unknown 03/09/2021 12:04 PM EST 03/09/2021 12:15 PM EST Marvin Marin MD LAB BLOOD ORDERABLES Final Res ult Performing Organization Address City/[facility]/ZIP Co de Phone Number HEALTHCARE LAB [address] [place] [address] * [place] Hepatitis C Antibody (03/09/2021 12:04 PM EST) [facility] Signature Hepatitis C Antibody Negative Negative 03/09/2021 2:23 PM EST [facility] Blood Venous blood specimen / Unknown Venipuncture / Unknown 03/09/2021 12:04 PM EST 03/09/2021 12:15 PM EST Marvin Marin MD LAB BLOOD ORDERABLES Edited Re sult - Final Performing Organization Address City/[facility] de Phone Number HEALTHCARE LAB [address] [place] [address] from Last 3 Months or Most Recently Relevant to Health Maintenance Additional Health Concerns Active Problems Noted Date Diagnosed Date Autogenerated Problem 06/15/2024 Insurance COLBY Member Subscriber Plan / Payer (Ef fective 2020-Present) Name:JAVY THOMAS Relation to Subscriber:Spouse Name:ARGELIA THOMAS Date of :1966 (Home) Address: [address] [facility] [place] [address] Payer ID:[id number] (NAIC) Type:Not on file Address: [facility] [address] [place] [phone] ANTHEM Member Subscriber Plan / Payer (Ef fective 2023-Present) Name:Javy Thomas Member ID:[id number] Relation to Subscriber:Self Name:Javy Thomas Subscriber ID:[id number] Payer ID:[id number] ([facility]) Type:Not on file Address: [address] [place] [phone] Advance Directives * Full Code (Latest Code Status on File) Date Activated Date Inactivated Comments 06/19/2024 6:16 PM 06/26/2024 12:42 PM Question Answer Comments I have reviewed the capacity from the link above and, if needed, have updated to appropriate status: Yes Care Teams Edge Sander Relationship Specialty Start Date End Date Lizzie Quintero APRN [address] [place] [address] PCP - General 06/13/24 Damien Hidalgo MD [address] [address] Referring Physician 06/13/24
--- NOTE | 2024-09-18 08:00 | CA_ITS ---
APPROVED REPORT EXAM: Comprehensive 2D, Doppler, and color-flow Echocardiogram Stone Cleaner: Zoraida Oreilly RDCS Ht: 6 ft 0 in Wt: 257lbs BSA: 2.37 BP: 130/76 mmHg Indications: HX PERIARDITIS S/P PERICARDIECTOMY M-Mode Dimensions RVDd 1.41 cm (0.9-2.6) LA Diam 4.92 cm (1.9-4.0) LVDd 5.45 cm (3.5-5.7) LVDs 3.79 cm (3.5-5.7) IVSd 0.93 cm (0.6-1.1) PWd 0.89 cm (0.6-1.1) EF (Teich) 57.30% FS 30.50% EDV (Teich) 144.40 mL TAPSE 1.84 (<1.7) ESV (Teich) 61.60 mL LV Diastology E Decel Time 173 (160-240 msec) E/A Ratio 1.4 Mitral Valve MV E Max Aidan. 85.0 (40-130 cm/s) MV A Velocity 62.0 (40-130 cm/s) E/A Ratio 1.37 MV PHT 51.0 ms Left Ventricle The left ventricle is normal size. Left ventricular systolic function is normal. The left ventricular ejection fraction is within the normal range. There is normal left ventricular wall thickness. There is normal LV segmental wall motion. The left ventricular diastolic function is normal. LVEF is 55% Right Ventricle The right ventricle is mildly dilated. The right ventricular systolic function is normal. Atria The left atrium is mildly dilated. The right atrium is mildly dilated. There is no color Doppler evidence of interatrial shunt. Aortic Valve The aortic valve opens well. There is no hemodynamically significant aortic valvular stenosis. No aortic regurgitation is present. Mitral Valve The mitral valve is normal in structure. No evidence of mitral valve stenosis. Trace mitral regurgitation is present. Tricuspid Valve The tricuspid valve leaflets are thin and pliable. Trace tricuspid regurgitation. There is insufficient TR jet to estimate RVSP. Pulmonic Valve The pulmonary valve is grossly normal in structure. Trace pulmonic valve regurgitation is present. Great Vessels The aortic root is normal in size. IVC is normal in size and collapses >50% with inspiration. Pericardium There is no pericardial effusion. Other Information Study Quality: Fair Conclusion Normal biventricular systolic function. Mild RV dilation. Mild biatrial dilation. No significant valvular stenosis or regurgitation. No evidence of pericardial effusion. Electronically signed by : Zoya Pugh MD 09/18/2024 08:28:04
[2024-09-18 08:43] LABS: Hematocrit 44.2 % (42.0-52.0); Hemoglobin 13.8 g/dL (14.1-18.0); Immature Granulocytes % 0.2 %; Mean Corpuscular HGB Conc 31.2 g/dL (31.8-35.4); Mean Corpuscular Hemoglobin 25.8 pg (27.0-31.2); Mean Corpuscular Volume 82.8 fl (80-94); Nucleated Red Blood Cells % 0 %; Platelet Count 304 K/mm3 (142-424); Red Blood Count 5.34 M/mm3 (4.60-6.20); Red Cell Distribution Width-SD 52.1 fL; White Blood Count 5.6 K/mm3 (4.8-10.8)
[2024-09-18 08:56] LABS: Albumin Level 3.7 g/dl (3.5-5.0); Chloride 104 mmol/L (98-107); Potassium 4.5 mmoL/L (3.5-5.1); Sodium 139 mmol/L (136-145)
[2024-09-18 08:58] LABS: Blood Urea Nitrogen 16 mg/dl (9-20); Creatinine,Serum 0.90 mg/dl (0.66-1.25); Estimated Glomerular Filt Rate 86 ml/min (>60); GFR (African American) 105 ML/MIN (>60)
[2024-09-18 08:59] LABS: Alanine Aminotransferase 20 U/L (12-78); Alkaline Phosphatase 120 U/L (38-126); Anion Gap 11.5 mEq/L (5-15); Aspartate Amino Transferase 27 U/L (17-59); Bilirubin,Direct 0.2 mg/dl (0.0-0.4); Bilirubin,Indirect 0.3 mg/dL (0.0-0.9); Bilirubin,Total 0.5 mg/dl (0.2-1.3); Bilirubin,Unconjugated 0.3 mg/dL (0.0-1.1); Calcium 8.6 mg/dl (8.4-10.2); Carbon Dioxide 28 mmol/L (22.0-30.0); Cholesterol 137 mg/dl (140-200); Glucose 101 mg/dl (74-100); Magnesium 2.1 mg/dl (1.6-2.3); Total Protein,Serum 7.0 g/dl (6.3-8.2); Triglycerides 242 mg/dl (30-150)
[2024-09-18 09:00] LABS: HDL Cholesterol 32 mg/dl (40-60)
[2024-09-18 09:20] LABS: Free T4 (Free Thyroxine) 1.00 ng/dl (0.78-2.19)
[2024-09-18 09:34] LABS: Thyroid Stimulating Hormone 2.96 uIU/mL (0.465-4.68)
== END 2024-09-18 23:59 | disposition home or self-care (01) ==
LOC: RT 07:34
PROVIDERS: Internal Medicine Medical Oncology; PCP Family Medicine; Visit Provider Internal Medicine
DX: I11.9 Hypertensive heart disease without heart failure (principal); I25.10 Atherosclerotic heart disease of native coronary artery without angina pectoris; I31.1 Chronic constrictive pericarditis; E11.9 Type 2 diabetes mellitus without complications; I49.1 Atrial premature depolarization; Z98.890 Other specified postprocedural states; R59.0 Localized enlarged lymph nodes
CPT/HCPCS: 36415; 80048; 80061; 80076; 83735; 84439; 84443; 85025; 93306

== ENCOUNTER 2024-10-24 16:28 | Outpatient (CLI) | payer BC, SELFPAY ==
--- OUTSIDE RECORDS SUMMARY | 2024-08-30 11:15 | XMS_ITS | Encounter Summary ---
Author Organization Healthcare Address [address] [place] [address] Care Team Providers Care Aligner Typewriter Name Role Phone Lizzie Quintero APRN Primary Care Provider [phone] Damien Hidalgo MD Unavailable [phone] Encounter Details Date Type Department Care Team (Late st Contact Info) Description 08/30/2024 11:15 AM EDT Office Visit [facility] [address], [address] [place] [address] Maude Casillas MD [address] [place] [address] Constrictive pericarditis (Primary Dx) Social [...] any time in the past 12 m [facility], were you homeless or living in a [...] Thomas is a 59 y.o. male from [facility] who returns for his 2nd post op [...] as needed. 03/24/24 Yes ProviderGwendolyn MD Aspirin Buf,[id number], 81 MG tablet TAKE 1 TABLET DAILY. 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 [1] Past Medical History: Diagnosis Date Coronary [...] Care Team (Late st Contact Info) Description 01/01/2025 8:30 AM EST Office Visit [facility] [address] [place] [address] 01/02/2025 3:20 PM EST Office Visit [facility] [address] [place] [address] Kianna Luna, ASSET RECOVERY SPECIALIST [address] [place] [address] documented as of this encounter Goals Goal [...] documented as of this encounter Care Teams Aligner Typewriter Relationship Specialty Start Date End Date Lizzie Quintero APRN [address] [place] [address] PCP - General 06/13/24 Damien Hidalgo MD [address] [address] Referring Physician 06/13/24 documented as of this encounter
--- OUTSIDE RECORDS SUMMARY | 2024-09-25 15:20 | XMS_ITS | Encounter Summary ---
Author Organization [facility] Address [address] [place] [address] Care Team Providers Care Director Of Special Events Name Role Phone Leon, Lizzie SELMA Primary Care Provider [phone] Damien Hidalgo MD Unavailable [phone] Reason for Referral * Consultation (Routine) - Authorized Specialty Diagnoses / Procedures Referred By Abdoulaye t Referred To Contact Diagnoses Type 2 diabetes mellitus with diabetic neuropathy, with long-term current use of insulin ([facility]) Kianna Maradiaga PA [address] [address] Phone: tel: fax: Referral ID Status Reason Start Date Expiration Date V isits Requested Visits Authorized [id number] Authorized 09/25/2024 03/27/2026 1 1 Reason for Visit * Reason Comments Diabetes Encounter Details Date Type Department Care Team (Late st Contact Info) Description 09/25/2024 3:20 PM EDT Office Visit [facility] [address] [place] [address] Kianna Maradiaga PA [address] [facility] [address] [place] [address] Type 2 diabetes mellitus with diabetic neuropathy, with long-term current use of insulin ([facility]) (Primary Dx); Hypertension, unspecified type; Neuropathy; Class 1 obesity due to excess calories with serious comorbidity and body mass index (BMI) of 34.0 to 34.9 in adult Social History Tobacco Use Types Packs/Day Years Used Date Smoking Tobacco: Former Smokeless Tobacco: Former Tobacco Cessation:Counseling Given: Not Answered Comments:Quit smoking 2012 smoked 30 years 2ppd Quit chew 2016 Alcohol Use Standard Drinks/Week Comments Yes 0 [...] any time in the past 12 m [facility], were you homeless or living in a usp (including now)? No 06/20/2024 Utilities Answer Date Recorded In the past 12 months has ruby [employer] electric, gas, oil, or water company [...] Sign Reading Time Taken Comments Blood Pressure 137/83 09/25/2024 2:47 PM EDT Pulse 78 09/25/2024 2:47 PM EDT Temperature - - Respiratory Rate - - Oxygen Saturation - - Inhaled Oxygen Concentration - - Weight 118 kg (260 lb 5.8 oz) 09/25/2024 2:47 PM EDT Height 185.4 cm (6' 1 ) 09/25/2024 2:47 PM EDT Body Mass Index 34.35 09/25/2024 2:47 PM EDT documented in this encounter Miscellaneous Notes * Patient Instructions - Kianna Maradiaga PA - 09/25/2024 3:20 PM EDT -Please call the diabetes education team with any questions or concerns [phone] Lab Results Component Value Date HGBA1C 6.5 09/25/2024 * Progress Notes - Kianna Maradiaga PA - 09/25/2024 3:20 PM EDT Subjective Jarvis Thomas is a 59 y.o. male who presents for an follow up evaluation of Diabetes Mellitis Type 2. Patient was diagnosed approximately age 30. History neuropathy, hypertension, hyperlipidemia, Obesity Diabetes -patient of [facility], last office visit 03/2024. No changes made. HgA1C: Lab Results Component Value Date HGBA1C 6.5 09/25/2024 HGBA1C 7.5 (H) 06/15/2024 HGBA1C 7.0 03/30/2024 Current treatment includes oral agents, insulin injections, and GLP1 -Jardiance 25 mg daily -U500: takes 130 u in AM with breakfast & 65-70 units if skipping a meals and 80 units in PM with supper. He states he eats 3 meals daily with some snacking. -Ozempic: 1 mg weekly for the past month, no side effects, interested in titration as noted no weight loss. Adjusted back from mounjaro at last office visit per patient request due to side effects on10 mg mounjaro dose. past medications: refuses metformin, Trulicity-itching Known diabetic complications: peripheral neuropathy Compliance at present is estimated to be good. Cardiovascular risk factors: advanced age (older than 55 for men, 65 for women), diabetes mellitus,dyslipidemia, hypertension, and male gender Is he on PRASANTH inhibitor or angiotensin II receptor carol? 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 Date of Last Eye Exam: 12/2022 What current meter are you using?: relion What type of sensor do you have?: Dexcom G7 When was your last flu shot?: doesnt take When did you have labs last?: 06/2024 -Last Foot exam: hx neuropathy- on gabapentin- pain/burning/tingling in feet into thighs- reports worse at night and very uncomfortable (requesting increase in gabapentin dose), also using capsaicin by report, denies history foot ulcers/sores, denies JENNIFER The following portions of the chart were reviewed this encounter and updated as appropriate: Tobacco Allergies Meds Problems Med Hx Surg Hx Fam Hx Review of Systems Constitutional: Negative. HENT: Negative. Eyes: Negative. Respiratory: Negative. Cardiovascular: Negative. Gastrointestinal: Negative. Endocrine: See HPI Genitourinary: Negative. Musculoskeletal: Negative. Skin: Negative. Neurological: Negative. Psychiatric/Behavioral: Negative. Objective Physical Exam Vitals reviewed. Constitutional: General: He is not in acute distress. Appearance: Normal appearance. He is obese. He is not ill-appearing. HENT: Head: Normocephalic. Nose: Nose normal. Cardiovascular: Rate and Rhythm: Normal rate. Pulmonary: Effort: Pulmonary effort is normal. Musculoskeletal: General: Normal range of motion. Cervical back: Normal range of motion. Skin: General: Skin is warm and dry. Neurological: Mental Status: He is alert and oriented to person, place, and time. Psychiatric: Mood and Affect: Mood normal. Behavior: Behavior normal. Thought Content: Thought content normal. Judgment: Judgment normal. Lab Review Glucose, Plasma (mg/dL) Date Value 07/05/2024 80 06/26/2024 98 06/25/2024 276 (H) POCT Hemoglobin A1C (%) Date Value 09/25/2024 6.5 03/30/2024 7.0 12/30/2023 6.4 04/02/2021 10.4 (A) 12/26/2020 9.3 (A) Hemoglobin A1c (%) Date Value 06/15/2024 7.5 (H) CO2, Plasma (mmol/L) Date Value 07/05/2024 26 06/26/2024 28 06/25/2024 27 BUN, Plasma (mg/dL) Date Value 07/05/2024 21 06/26/2024 21 06/25/2024 23 (H) Creatinine, Plasma (mg/dL) Date Value 07/05/2024 1.07 06/26/2024 0.92 06/25/2024 0.88 Assessment/Plan Diabetes Mellitis Type 2, is controlled. Rx changes: will increase ozempic to 2 mg weekly with next refill, reviewed mechanism of action andpotential side effects. recommended to reduce PM U500 dose by 10% due to near hypoglycemia, also with plans to increase ozempic soon; patient initially resistant however provided this explanation at length to reduce significant hypoglycemia risk, patient understanding and agreeable. Continue AM dose 130 units before breakfast. - continue Jardiance 25 mg daily -encouraged healthy diet/calorie counting, activity as tolerated -deferred -follow up: 3 months #HTN BP Readings from Last 1 Encounters: 09/25/24 137/83 -stable, controlled -continue antihypertensives per PCP/cardiology #Neuropathy -on gabapentin per endocrinology provider, refill up to date at this time, 800 mg three times dailyas needed -reviewed to use capsaicin cream as needed, trial alpha liopic acid or consider pain management referral -recommend daily foot checks, good blood glucose control to prevent progression #Obesity -BMI 34 from 37.32 after last glp1 titration -increased ozempic to 2 mg weekly The patient received dietary education because they have an above normal BMI., The patient receivedexercise education because they have an above normal BMI., and Pharmacotherapy was ordered because the patient hasan above normal BMI. The following Diabetes education was reviewed: [x]SBGM to evaluate dose needs []Insulin coverage with carbohydrate intake []Site rotation [x] Exercise impact on glucose levels []Driving safety related to diabetes []Sick day management []Ketone testing [x]Over treatment of hypoglycemia [x] Hypoglycemia management [x]Call-in line use []Insulin pump pros and cons [x]Sensor home use []Pump class offerings []Maryse phenomena []Somogyi effect [] Alcohol related to diabetes [x]Benefits of written records [x]Pre-meal Bolusing []Daily foot care [x] Healthy diet and regular exercise [x]Long-term complications related to poor diabetes management [] Injection timing related to changes in activity/exercise Time spent in visit does not include the time spent in reviewing CGM I personally spent a total of 20 minutes on this encounter. This time includes face to face with patient, counseling and discussion and/or coordination of care. Electronically signed by: JOSE RAUL Dacosta [facility] [address] [place] [address]. [address] [place]. [address] PHONE [phone] FAX: [phone] documented in this encounter Plan of Treatment Upcoming Encounters Date Type Department Care Team (Late st Contact Info) Description 01/01/2025 8:30 AM EST Office Visit [facility] [address] [place] [address] 01/02/2025 3:20 PM EST [facility] Visit [facility] [address] [place] [phone] Kianna Luna, MANAGER MEDICAL [address] [facility] [address] [place] [phone] Scheduled Referrals Name Type Priority Associated Diagnoses Orde r Schedule Follow Up [facility] Outpatient Referral Routine Type 2 diabetes mellitus with diabetic neuropathy, with long-term current use of insulin ([facility]) Expected: 12/26/2024, Expires: 03/29/2026 documented as of this encounter Goals Goal Patient Goal Type Associated Problems Recent Progress Patient-Stated? Author Autogenera sybil Goal Care Plan Autogenerated Problem No Ammon Thacker PA documented as of this encounter Procedures Procedure Name Priority Date/Time Associated Diagnosis Comments POCT GLYCOSYLATED HEMOGLOBIN (HGB A1C) Routine 09/25/2024 3:02 PM EDT Type 2 diabetes mellitus with diabetic neuropathy, with long-term current use of insulin ([facility]) documented in this encounter Results * POCT glycosylated hemoglobin (Hb A1C) (09/25/2024 3:02 PM EDT) POCT Hemoglobin A1C 6.5 <5.7% Non-Diabet ic % [facility] Kit Lot Number [id number] [facility] Kit Expiration Date 06/2026 [facility] Blood Venous blood specimen / Unknown 09/25/2024 3:02 PM EDT us Kianna BLUNT POINT OF CARE TEST EN TER/EDIT ORDERABLES Final Result [facility] [address] [place] [address] documented in this encounter Visit Diagnoses Diagnosis Type 2 diabetes mellitus with diabetic neuropathy, with long-term current use of insulin ([facility])- Primary Hypertension, unspecified type Neuropathy Mononeuritis of unspecified site Class 1 obesity due to excess calories with serious comorbidity and body mass index (BMI) of 34.0 to 34.9 in adult documented in this encounter Additional Health Concerns Active Problems Noted Date Diagnosed Date Autogenerated Problem 06/15/2024 Assessment Noted Time A fall risk assessment has been complete d for the patient 08/30/2024 11:51 AM EDT A Body Mass Index follow-up plan has been documented for the patient 10/05/2024 5:34 PM EDT documented as of this encounter Care Teams Director Of Special Events Relationship Specialty Start Date End Date Lizzie Quintero APRN [address] [place] [address] PCP - General 06/13/24 Damien Hidalgo MD [address] [address] Referring Physician 06/13/24 documented as of this encounter
[2024-10-24 20:32] LABS: Uric Acid 5.8 mg/dl (3.5-8.5)
--- OUTSIDE RECORDS SUMMARY | 2024-10-25 10:14 | XMS_ITS | Encounter Summary ---
Author Organization Healthcare Address [address] [place] [address] Care Team Providers Care Package Wrapper Name Role Phone Wallace Pacheco MD Primary Care Provider [phone] Lizzie Quintero APRN Primary Care Provider [phone] aDmien Hidalgo MD Unavailable [phone] Encounter Details Date Type Department Care Team (Late st Contact Info) Description 05/30/2024 Orders Only External Location [address] [place] [address] Provider, External Social History Tobacco Use Types [...] [facility] [address] [place] [address] 01/02/2025 3:20 PM EST Office Visit [facility] Endocrinology [address] [place] [address] Kianna Luna, DEPUTY SHERIFF BUILDING GUARD [address] [place] [address] documented as of this encounter [...] documented as of this encounter Care Teams Package Wrapper Relationship Specialty Start Date End Date Wallace Pacheco MD [address] [place] [address] PCP - General 12/24/20 06/12/24 Lizzie Quintero APRN [address] [place] [address] PCP - General 06/13/24 Damien Hidalgo MD [address] [address] Referring Physician 06/13/24 documented as of this encounter
--- OUTSIDE RECORDS SUMMARY | 2024-10-25 10:14 | XMS_ITS | Encounter Summary ---
Author Organization [facility] Address [address] [place] [address] Care Team Providers Care Estimate Clerk Name Role Phone Wallace Pacheco MD Primary Care Provider [phone] Lizzie Quintero APRN Primary Care Provider [phone] Damien Hidalgo MD Unavailable [phone] Reason for Visit * Reason Comments Med Refill Encounter Details Date Type Department Care Team (Late st Contact Info) Description 11/06/2021 Refill [facility] [address] [place] [address] Kianna Luna APRN 2195 [facility] 125 [place] [address] Social History Tobacco Use Types [...] [facility] [address] [place] [address] 01/02/2025 3:20 PM EST Office Visit [facility] Endocrinology [address] [place] [address] Kianna Luna APRN 2195 [facility] 125 [place] [address] documented as of this encounter Visit Diagnoses Not on filedocumented in this encounter Additional Health Concerns Assessment Noted Time A fall risk assessment has been complete d for the patient 07/17/2021 7:56 AM EDT documented as of this encounter Care Teams Estimate Clerk Relationship Specialty Start Date End Date Wallace Pacheco MD [address] [place] [address] PCP - General 12/24/20 06/12/24 Lizzie Quintero APRN [address] [place] [address] PCP - General 06/13/24 Damien Hidalgo MD [address] [id number] Referring Physician 06/13/24 documented as of this encounter
--- OUTSIDE RECORDS SUMMARY | 2024-10-25 10:14 | XMS_ITS | Encounter Summary ---
Author Organization Healthcare Address [address] [place] [address] Care Team Providers Care Base Filler Name Role Phone Wallace Pacheco MD Primary Care Provider [phone] Lizzie Quintero APRN Primary Care Provider [phone] Damien Hidalgo MD Unavailable [phone] Encounter Details Date Type Department Care Team (Late st Contact Info) Description 05/30/2024 Orders Only External Location [address] [place] [address] Provider, External Social History Tobacco Use Types [...] [facility] [address] [place] [address] 01/02/2025 3:20 PM EST Office Visit [facility] Endocrinology [address] [place] [address] Kianna Luna, BIOINFORMATICIST [address] [place] [address] documented as of this encounter [...] documented as of this encounter Care Teams Base Filler Relationship Specialty Start Date End Date Wallace Pacheco MD [address] [place] [address] PCP - General 12/24/20 06/12/24 Lizzie Quintero APRN [address] [place] [address] PCP - General 06/13/24 Damien Hidalgo MD [address] [address] Referring Physician 06/13/24 documented as of this encounter
--- OUTSIDE RECORDS SUMMARY | 2024-10-25 10:14 | XMS_ITS | Encounter Summary ---
Author Organization Healthcare Address [address] [place] [address] Care Team Providers Care Clerical And Administrative Workers Name Role Phone Wallace Pacheco MD Primary Care Provider [phone] Lizzie Quintero APRN Primary Care Provider [phone] Damien Hidalgo MD Unavailable [phone] Encounter Details Date Type Department Care Team (Late st Contact Info) Description 05/29/2024 Orders Only External Location [address] [place] [address] Provider, External Social History Tobacco Use Types [...] [facility] [address] [place] [address] 01/02/2025 3:20 PM EST Office Visit [facility] Endocrinology [address] [place] [address] Kianna Luna, COMMANDER INTERNAL AFFAIRS [address] [place] [address] documented as of this encounter [...] documented as of this encounter Care Teams Clerical And Administrative Workers Relationship Specialty Start Date End Date Wallace Pacheco MD [address] [place] [address] PCP - General 12/24/20 06/12/24 Lizzie Quintero APRN [address] [place] [address] PCP - General 06/13/24 Damien Hidalgo MD [address] [address] Referring Physician 06/13/24 documented as of this encounter
--- OUTSIDE RECORDS SUMMARY | 2024-10-25 10:14 | XMS_ITS | Encounter Summary ---
Author Organization [facility] Address [address] [place] [address] Care Team Providers Care Pediatric Speech Therapist Name Role Phone Lizzie Quintero SELMA Primary Care Provider [phone] Damien Hidalgo MD Unavailable [phone] Encounter Details Date Type Department Care Team [...] any time in the past 12 m [facility], were you homeless or living in a chcf (including now)? No 06/20/2024 Utilities Answer Date [...] Description 01/01/2025 8:30 AM EST Office Visit [facility] [address] [place] [address] 01/02/2025 3:20 PM EST Office Visit [facility] [address] [place] [address] Kianna Luna, COPIER REPAIR TECHNICIAN [address] [place] [address] documented as of this encounter Goals Goal Patient Goal Type Associated Problems Recent Progress Patient-Stated? Author Autogenera sybil Goal Care Plan Autogenerated Problem No Ammon Thacker, [place] documented as of this encounter Visit [...] documented as of this encounter Care Teams Pediatric Speech Therapist Relationship Specialty Start Date End Date Lizzie Quintero APRN [address] [place] [address] PCP - General 06/13/24 Damien Hidalgo MD [address] [facility] [address] [place] [address] Referring Physician 06/13/24 documented as of this encounter
--- OUTSIDE RECORDS SUMMARY | 2024-10-25 10:14 | XMS_ITS | Encounter Summary ---
Author Organization [facility] Address [address] [place] [address] Care Team Providers Care Health Screener Name Role Phone Lizzie Quintero SELMA Primary Care Provider [phone] Damien Hidalgo MD Unavailable [phone] Encounter Details Date Type Department Care Team (Latest Contact Info) Description 09/25/2024 Travel Social History Tobacco Use Types Packs/Day [...] any time in the past 12 m [facility], were you homeless or living in a halfway (including now)? No 06/20/2024 Utilities Answer Date Recorded In the past 12 months has th e [employer], gas, oil, or water company threatened to [...] [facility] [address] [place] [address] 01/02/2025 3:20 PM EST Office Visit [facility] [address] [place] [address] Kianna Luna, DUMP GRADER [address] [address] documented as of this encounter Goals Goal [...] documented as of this encounter Care Teams Health Screener Relationship Specialty Start Date End Date Lizzie Quintero APRN [address] [place] [address] PCP - General 06/13/24 Damien Hidalgo MD 1210 [facility] 36 [place] [address] Referring Physician 06/13/24 documented as of this encounter
--- OUTSIDE RECORDS SUMMARY | 2024-10-25 10:14 | XMS_ITS | Encounter Summary ---
Author Organization Healthcare Address [address] [place] [address] Care Team Providers Care History Teacher Name Role Phone Wallace Pacheco MD Primary Care Provider [phone] Lizzie Quintero APRN Primary Care Provider [phone] Damien Hidalgo MD Unavailable [phone] Encounter Details Date Type Department Care Team (Late st Contact Info) Description 05/31/2024 Orders Only External Location [address] [place] [address] Provider, External Social History Tobacco Use Types [...] [facility] [address] [place] [address] 01/02/2025 3:20 PM EST Office Visit [facility] Endocrinology [address] [place] [address] Kianna Luna, FIELD SERVICE TECHNICIAN POULTRY [address] [place] [address] documented as of this encounter [...] documented as of this encounter Care Teams History Teacher Relationship Specialty Start Date End Date Wallace Pacheco MD [address] [place] [address] PCP - General 12/24/20 06/12/24 Lizzie Quintero APRN [address] [place] [address] PCP - General 06/13/24 Damien Hidalgo MD [address] [address] Referring Physician 06/13/24 documented as of this encounter
--- OUTSIDE RECORDS SUMMARY | 2024-10-25 10:14 | XMS_ITS | Encounter Summary ---
Author Organization Healthcare Address [address] [place] [address] Care Team Providers Care Roller Picker Name Role Phone Wallace Pacheco MD Primary Care Provider Lizzie Quintero APRN Primary Care Provider [phone] Damien Hidalgo MD Unavailable [phone] Encounter Details Date Type Department Care Team (Late st Contact Info) Description 05/30/2024 Orders Only External Location [address] [place] [address] Bryce Pugh MD 1210 [facility] [address] [place] [id number] Social History Tobacco Use Types Packs/Day Years [...] [facility] [address] [place] [address] 01/02/2025 3:20 PM EST [facility] [address] [place] [address] Kianna Luna APRN [address] [place] [address] documented as of this encounter [...] documented as of this encounter Care Teams Roller Picker Relationship Specialty Start Date End Date Wallace Pacheco MD [address] [place] [address] PCP - General 12/24/20 06/12/24 Lizzie Quintero APRN [address] [place] [address] PCP - General 06/13/24 Damien Hidalgo MD 1210 [facility] 36 [place] [address] Referring Physician 06/13/24 documented as of this encounter
--- OUTSIDE RECORDS SUMMARY | 2024-10-25 10:14 | XMS_ITS | Encounter Summary ---
Author Organization [facility] Address [address] [place] [address] Care Team Providers Care Formulation Scientist Name Role Phone Wallace Pacheco MD Primary Care Provider [phone] Lizzie Quintero APRN Primary Care Provider [phone] Damien Hidalgo MD Unavailable [phone] Reason for Visit * Reason Comments Med Refill Encounter Details Date Type Department Care Team (Late st Contact Info) Description 01/22/2022 Refill [facility] [address] [place] [address] Oriana Weiss, OUTSIDE MACHINIST 2195 [facility] 125 [place] [address] Social History Tobacco Use Types [...] [facility] [address] [place] [address] 01/02/2025 3:20 PM EST Office Visit [facility] Endocrinology [address] [place] [address] Kianna Luna APRN 2195 [facility] 125 [place] [address] documented as of this encounter Visit Diagnoses Not on filedocumented in this encounter Additional Health Concerns Assessment Noted Time A fall risk assessment has been complete d for the patient 11/17/2021 3:01 PM EDT documented as of this encounter Care Teams Formulation Scientist Relationship Specialty Start Date End Date Wallace Pacheco MD [address] [place] [address] PCP - General 12/24/20 06/12/24 Lizzie Quintero APRN [address] [place] [address] PCP - General 06/13/24 Damien Hidalgo MD [address] [id number] Referring Physician 06/13/24 documented as of this encounter
--- OUTSIDE RECORDS SUMMARY | 2024-10-25 10:14 | XMS_ITS | Clinical Summary ---
Author Organization [facility] Address [address] [place] [address] Care Team Providers Care Switchgear Repairer Name Role Phone Lizzie Quintero APRN Primary Care Provider [phone] Allergies No known active allergies Medications empagliflozin (JARDIANCE) 25 MG tablet tablet Take 1 tablet by mouth Daily. 03/30/2024 6 Active lisinopril-hydr ochlorothiazide (PRINZIDE,ZESTO RETIC) 20-25 MG per tablet Take 1 tablet by mouth Daily. 03/30/2024 Active gabapentin (NEURONTIN) 800 MG tablet Take 1 tablet by mouth Every 12 (Twelve) Hours. 03/16/2024 Active B Complex-C (B-complex with vitamin C) tablet Take 1 tablet by mouth Daily. Active atorvastatin (LIPITOR) 40 MG tablet Take 1 tablet by mouth Daily. 03/30/2024 5 Active Problems Problem Noted Date Diagnosed Date History of smoking at least 1 pack per day for at least 30 years 03/30/2024 Family history of ischemic heart disease 025 Type 2 diabetes mellitus wit hout complication, with long-term current use of insulin 03/30/2024 Social History Tobacco Use Types Packs/Day Years [...] 2010 ZOSTER VACCINE (1 of 2) 05/06/2015 ANNUAL PHYSICAL 03/30/2024 COVID-19 Vaccine (1 - 2023-2 5 season) 2024 INFLUENZA VACCINE 11/08/2024 HEMOGLOBIN A1C 03/28/2025 09/25/2024, 02/2 , 03/30/2024, Additional history exists HEPATITIS C SCREENING Completed 03/09/2021 [facility] Care Teams Switchgear Repairer Relationship Specialty Start Date End Date Lizzie Quintero APRN [address] [place] [address] PCP - General Family Medicine 06/27/24
--- OUTSIDE RECORDS SUMMARY | 2024-10-25 10:15 | XMS_ITS | Encounter Summary ---
Author Organization Healthcare Address [address] [place] [address] Care Team Providers Care Archery Equipment Hay Sorter Name Role Phone Wallace Pacheco MD Primary Care Provider [phone] Lizzie Quintero APRN Primary Care Provider [phone] Damien Hidalgo MD Unavailable [phone] Encounter Details Date Type Department Care Team (Late st Contact Info) Description 04/03/2024 Orders Only External Location [address] [place] [address] Provider, External Social History Tobacco Use Types [...] [facility] [address] [place] [address] 01/02/2025 3:20 PM EST Office Visit [facility] [address] [place] [address] Kianna Luna, BRANCH OFFICE ADMINISTRATOR [address] [place] [address] documented as of this encounter [...] documented as of this encounter Care Teams Archery Equipment Hay Sorter Relationship Specialty Start Date End Date Wallace Pacheco MD [address] [place] [address] PCP - General 12/24/20 06/12/24 Lizzie Quintero APRN [address] [place] [address] PCP - General 06/13/24 Damien Hidalgo MD [address] [address] Referring Physician 06/13/24 documented as of this encounter
--- OUTSIDE RECORDS SUMMARY | 2024-10-25 10:15 | XMS_ITS | Clinical Summary ---
Author Organization [facility] Address [address] [place] [address] Care Team Providers Care Outreach Educator Name Role Phone Leon, Lizzie SELMA Primary Care Provider [phone] Damien Hidalgo MD Unavailable [phone] Allergies No known active allergies Medications omeprazole (PriLOSEC) [address] capsule Take 1 capsule by mouth daily. 01/30/20 14 Active Aspirin Buf,CaCarb-MgCar b-MgO, 81 MG tablet TAKE 1 TABLET DAILY. 01/30/20 14 Active albuterol 108 (90 Base) MCG/ACT inhaler Inhale 2 puffs every 4 to 6 hours as needed. 03/24/19 25 Active atorvastatin (Lipitor) 40 MG tablet Take 1 tablet (40 mg) by mouth daily. 90 tablet 1 03/30/19 25 Active gabapentin (Neurontin) 800 MG tablet Take 1 tablet (800 mg) by mouth in the morning and 1 tablet (800 mg) in the evening and 1 tablet (800 mg) before bedtime. 270 tablet 1 04/20/19 25 Active lisinopril 20 MG tablet Take 1 tablet by mouth daily. 05/30/19 25 Active glucagon (Baqsimi Two Pack) 3 MG/DOSE powder Nasal Powder Administer 3 mg into affected nostril(s) 1 time as needed (severe hypoglycemia). 2 each 3 06/27/19 25 026 Active furosemide (Lasix) 40 MG tablet Take 1 tablet by mouth 2 times a day. 20 tablet 05/19/20 25 Active acetaminophen (Tylenol) 500 MG tablet Take 2 tablets by mouth every 6 hours. 100 tablet 06/27/19 25 Active bisacodyl (Dulcolax) 5 MG EC tablet Take 2 tablets by mouth daily as needed for constipation. Do not crush, chew, or split. 30 tablet 06/27/19 25 Active methocarbamol (Robaxin) 500 MG tablet Take 1 tablet by mouth 4 times a day. 30 tablet 06/27/19 25 Active Additional Information Patient not taking.Reported on 09/25/2024 naloxone (Narcan) 4 mg/0.1 mL nasal spray 1. Give 1 spray in nostril for no/slow breathing or cannot wake after opioid use 2. Call 911 3. Repeat in other nostril if symptoms continue 1 each 06/27/19 25 Active potassium chloride CR (Klor-Con M20) 20 MEQ ER tablet Take 1 tablet by mouth 2 times a day. Do not crush or chew. 20 tablet 06/27/19 25 Active metoprolol tartrate (Lopressor) 25 MG tablet Take 1 tablet by mouth 2 times a day. 60 tablet 08/04/19 25 Active insulin regular (HumuLIN R U-500) 500 UNIT/ML CONCENTRATED injection penIndications:T ype 2 diabetes mellitus with diabetic neuropathy, with long-term current use of insulin ([facility]) Inject subcutaneous 130 units with breakfast & 80 units with dinner. 40 mL 3 09/26/19 25 Active semaglutide (Ozempic, 2 MG/DOSE,) 8 MG/3ML solution pen-injectorIndi cations:Type 2 diabetes mellitus with diabetic neuropathy, with long-term current use of insulin ([facility]) Inject 2 mg under the skin every 7 days. 3 mL 5 09/26/19 25 026 Active Continuous Glucose Sensor (Dexcom G7 Sensor) miscIndications: Type 2 diabetes mellitus with diabetic neuropathy, with long-term current use of insulin ([facility]) 1 sensor every 10 days. 9 each 3 09/26/19 25 Active empagliflozin (Jardiance) 25 MGIndications:Ty pe 2 diabetes mellitus with diabetic neuropathy, with long-term current use of insulin (CMS/HCC) Take 1 tablet by mouth daily. 90 tablet 1 09/26/19 25 026 Active pen needle, diabetic (BD Pen Needle Micro U/F) 32G X 6 MM miscIndications: Type 2 diabetes mellitus with diabetic neuropathy, with long-term current use of insulin ([facility]) Use 1-4x/day as directed 120 each 11 09/26/19 25 Active colchicine (Colcrys) 0.6 MG tablet Take 1 tablet by mouth 2 times a day. 60 tablet 2 06/27/19 025 potassium chloride CR 10 MEQ PO ER tablet Take 1 tablet by mouth daily. Do not crush or chew. 30 tablet 2 07/06/19 025 Additional Information Patient not taking.Reported on 09/25/2024 Active Problems Problem Noted Date Diagnosed Date Cardiac volume overload 06/21/2024 Overview (06/22/2024): Continue diuresis with 40 PO lasix BID GERD (gastroesophageal reflux disease) Overview (06/20/2024): Resume home PPI BMI 34.0-34.9,adult 06/15/2024 Overview (06/20/2024): Complicates all aspects of care CAD (coronary artery disease) 06/15/2024 Overview (06/20/2024): [facility] April 2024: LAD with 80-90% stenosis s/p [...] Encounters Date Type Department Care Team Description 09/25/2024 3:20 PM EDT Office Visit [facility] Endocrinology [address] [place] [address] Kianna Maradiaga PA Type 2 diabetes mellitus with diabetic neuropathy, with long-term current use of insulin ([facility]) (Primary Dx); Hypertension, unspecified type; Neuropathy; Class 1 obesity due to excess calories with serious comorbidity and body mass index (BMI) of 34.0 to 34.9 in adult 09/25/2024 Travel 08/30/2024 11:15 AM EDT Office Visit [facility] Cardiothoracic [address], [address] [place] [address] Maude Casillas MD Constrictive pericarditis (Primary Dx) 08/30/2024 Travel 08/14/2024 Orders Only [facility] Endocrinology [address] [place] [address] Kianna Luna APRN 08/14/2024 Telephone [facility] Endocrinology [address] [place] [address] Kianna Luna APRN Med Refill 08/03/2024 Orders Only Cardiothoracic Surgery [address] [place] [address] Andrew Cardoso PA 07/31/2024 Orders Only [facility] Endocrinology [address] [place] [address] Kianna Luna, CARPET INSPECTOR FINISHED Type 2 diabetes mellitus with diabetic neuropathy, with long-term current use of insulin ([facility]) 07/31/2024 Telephone [facility] Endocrinology [address] [place] [address] Kianna Luna, CARPET INSPECTOR FINISHED Med Refill from Last 3 Months Immunizations Immunization Administration [...] any time in the past 12 m [facility], were you homeless or living in a senior living (including now)? No 06/20/2024 Utilities Answer Date [...] Pulse 78 09/25/2024 2:47 PM EDT Temperature 37 C (98.6 F) 06/26/2024 7:35 AM EDT Respiratory Rate 18 06/26/2024 7:35 AM EDT Oxygen Saturation 97% 08/30/2024 11:43 AM EDT Inhaled Oxygen Concentration - - Weight 118 kg (260 lb 5.8 oz) 09/25/2024 2:47 PM EDT Height 185.4 cm (6' 1 ) 09/25/2024 2:47 PM EDT Body Mass Index 34.35 09/25/2024 2:47 PM EDT Plan of Treatment Upcoming Encounters Date Type Department Care Team (Late st Contact Info) Description 01/01/2025 8:30 AM EST Office Visit [facility] [address] [place] [address] 01/02/2025 3:20 PM EST Office Visit [facility] [address] [place] [address] Kianna Luna, CARPET INSPECTOR FINISHED [address] [place] [address] Health Maintenance Due Date Last Done Comments [facility]-Infant/Child/Adol SDOH Screenings 1965 Diabetes: Dental Exam 05/06/1975 [facility]-Hepatitis B Vaccines (1 of 3 - 19+ 3-dose series) 1984 [facility]-DTaP,Tdap,and Td Vaccines (1 - Tdap) 09/24/2008 09/23/2008 CT Colonography 2010 Colonoscopy 2010 FIT-DNA 2010 FIT 2010 FOBT 2010 Sigmoidoscopy 2010 [facility]-Colorectal Cancer Screening 2010 [facility]-Zoster Vaccines (1 of 2) 05/06/2015 [facility]-Pneumococcal Vaccine: 50+ Years (2 of 2 - PCV) 08/04/2017 08/04/2016 [id number] Vaccine (1 - season) 2024 [facility]-Influenza Vaccine (#1) 2024 [facility]- SDOH Screenings 12/21/2024 [facility]-Adult SDOH Screenings 12/21/2024 06/20/2024 [facility]-Diabetes: Hemoglobin A1C 03/25/2025, 06/15/2024, 03/30/2024, Additional history exists [facility]-Depression Screening 08/30/2025 08/30/2024 [facility]-Hepatitis A Vaccines Aged Out 06/10/2017 No longer eligible based on patient's age to complete this topic [facility]-HIV Screening Completed 03/09/2021 [facility]-Hepatitis C Screening Completed 03/09/2021 [facility]-Obesity Intervention Completed 025, 09/25/2024, 09/25/2024, Additional history exists HPV Vaccines Aged Out [...] neuropathy, with long-term current use of insulin (CMS/HCC) HEPATITIS C ANTIBODY - ED W/REFLEX TO HCV QUANT PCR STAT 03/09/2021 12:04 PM EST HIV 1/2 ANTIBODY/ANTIGEN SCREEN WITH REFLEX TO HIV I/II DIFFERENTIATION STAT 03/09/2021 12:04 PM EST from Last 3 Months or Most Recently Relevant to Health Maintenance Results * POCT glycosylated hemoglobin (Hb A1C) (09/25/2024 3:02 PM EDT) Pathologist [facility] POCT Hemoglobin A1C 6.5 <5.7% Non-Diabet ic % [facility] Kit Lot Number [id number] [facility] Kit Expiration Date 06/2026 [facility] Blood Venous blood specimen / Unknown 09/25/2024 3:02 PM EDT us Kianna BLUNT POINT OF CARE TEST EN TER/EDIT ORDERABLES Final Result Performing Organization Address City/[facility]/ZIP Co de Phone Number [facility] [address] [place] [address] * HIV 1 & 2 Antibody/Antigen Screen (03/09/2021 12:04 PM EST) Pathologist [facility] HIV 1 & 2 Antibody/Anti gen Screen Nonreactive Nonreactive 03/09/2021 1:49 PM EST [facility] Blood Venous blood specimen / Unknown Venipuncture / Unknown 03/09/2021 12:04 PM EST 03/09/2021 12:15 PM EST us Marvin Marin MD LAB BLOOD ORDERABLES Final Res ult [facility] [address] [place] [address] * [employer] Hepatitis C Antibody (03/09/2021 12:04 PM EST) Pathologist [facility] Hepatitis C Antibody Negative Negative 03/09/2021 2:23 PM EST [facility] Blood Venous blood specimen / Unknown Venipuncture / Unknown 03/09/2021 12:04 PM EST 03/09/2021 12:15 PM EST us Marvin Marin MD LAB BLOOD ORDERABLES Edited Re sult - Final [facility] [address] [place] [address] from Last 3 Months or Most Recently Relevant to Health Maintenance Additional Health Concerns Active Problems Noted Date Diagnosed Date Autogenerated Problem 06/15/2024 [place] [address] ANTHEM Member Subscriber Plan / Payer (Ef fective 2020-Present) Name:JAVY BYERS Relation to Subscriber:Spouse Name:MODESTAARGELIA Date of :1966 (Home) Address: [address] [place] [address] [place] [address] Payer ID:[id number] (NAIC) Type:Not on file Address: [facility] [address] [place] [id number] ANTHEM Member Subscriber Plan / Payer (Ef fective 2023-Present) Name:Javy Byers Member ID:[id number] Relation to Subscriber:Self Name:Javy Byers Subscriber ID:[id number] Payer ID:[id number] (NAIC) Type:Not on file Address: [address] [place] [id number] Advance Directives * Full Code (Latest Code Status on File) Date Activated Date Inactivated Comments 06/19/2024 6:16 PM 06/26/2024 12:42 PM Question Answer Comments I have reviewed the capacity from the link above and, if needed, have updated to appropriate status: Yes Care Teams Outreach Educator Relationship Specialty Start Date End Date Lizzie Quintero APRN [address] [place] [address] PCP - General 06/13/24 Damien Hidalgo MD [address] [place] [address] Referring Physician 06/13/24
--- OUTSIDE RECORDS SUMMARY | 2024-10-25 10:15 | XMS_ITS | Encounter Summary ---
Author Organization [facility] Address [address] [place] [address] Care Team Providers Care Sheet Manufacturing Supervisor Name Role Phone Leon, Lizzie SELMA Primary Care Provider [phone] Damien Hidalgo MD Unavailable [phone] Reason for Visit * Reason Onset Date Comments Med Refill 08/14/2024 Encounter Details Date Type Department Care Team (Late st Contact Info) Description 08/14/2024 Telephone [facility] Endocrinology [address] [place] [address] Kianna Luna, CERAMICS TEACHER [address] [facility] [address] [place] [address] Med Refill Social History Tobacco [...] Pt is requesting dose increase for Ozempic, [facility]. documented in this encounter Plan of Treatment Upcoming Encounters Date Type Department Care Team (Late st Contact Info) Description 01/01/2025 8:30 AM EST Office Visit [facility] [address] [place] [address] 01/02/2025 3:20 PM EST Office Visit [facility] [address] [place] [address] Kianna Luna, CERAMICS TEACHER [address] [facility] [address] [place] [address] documented as of this encounter [...] documented as of this encounter Care Teams Sheet Manufacturing Supervisor Relationship Specialty Start Date End Date Lizzie Quintero, CERAMICS TEACHER [address] [place] [address] PCP - General 06/13/24 Damien Hidalgo MD [address] [address] Referring Physician 06/13/24 documented as of this encounter
--- OUTSIDE RECORDS SUMMARY | 2024-10-25 10:15 | XMS_ITS | Encounter Summary ---
Author Organization [facility] Address [address] [place] [address] Care Team Providers Care Commodities Trader Name Role Phone Wallace Pacheco MD Primary Care Provider Lizzie Quintero APRN Primary Care Provider [phone] Damien Hidalgo MD Unavailable [phone] Encounter Details Date Type Department Care Team (Late st Contact Info) Description 05/23/2024 Orders Only External Location [address] [place] [address] Damien Hidalgo MD [address] [facility] [address] [place] [id number] Social History Tobacco Use Types Packs/Day Years [...] [facility] [address] [place] [address] 01/02/2025 3:20 PM EST [facility] [address] [place] [address] Kianna Luna APRN [address] [facility] [address] [place] [address] documented as of this encounter Procedures Procedure [...] documented as of this encounter Care Teams Commodities Trader Relationship Specialty Start Date End Date Wallace Pacheco MD [address] [place] [address] PCP - General 12/24/20 06/12/24 Lizzie Quintero APRN [address] [place] [address] PCP - General 06/13/24 Damien Hidalgo MD [address] [facility] [address] [place] [address] Referring Physician 06/13/24 documented as of this encounter
== END 2024-10-24 23:59 ==
LOC: LAB.DROPOF 10-25 10:11
PROVIDERS: PCP Family Medicine; Visit Provider Family Medicine
DX: M79.673 Pain in unspecified foot (principal)
CPT/HCPCS: 84550

== ENCOUNTER 2024-12-13 12:48 | Emergency (ER) | payer BC, SELFPAY ==
[2024-12-13 12:51] VITALS: BP 209/84; PULSE 118; RESP 18; TEMP 36.7; O2SAT 100; BMI 34.0
--- NOTE | 2024-12-13 13:06 | ECG_ITS ---
APPROVED REPORT Exam: Resting ECG HR:103 bpm ECG Measurements Heart Rate 103 AXES NJ 140 P 42 QRSd 89 QRS 81 QT 317 T 4 QTc 377 Conclusion SINUS TACHYCARDIA POSSIBLE LEFT ATRIAL ENLARGEMENT [-0.1mV P-WAVE IN V1/V2] NONSPECIFIC T-WAVE ABNORMALITY ABNORMAL RHYTHM ECG Electronically signed by : ROBERT AMIN, 12/18/2024 07:11:52
--- OUTSIDE RECORDS SUMMARY | 2024-12-13 13:09 | XMS_ITS | Clinical Summary ---
[facility] Organization [facility] Address [address] [place] [address] Care Team Providers Care Pattern Puncher Name Role Phone Lizzie Quintero APRN Primary Care Provider [phone] Allergies No known active allergies Medications empagliflozin (JARDIANCE) 25 MG tablet tablet Take 1 tablet by mouth Daily. 03/30/2024 6 Active lisinopril-hydro chlorothiazide (PRINZIDE,ZESTOR ETIC) 20-25 MG [...] (1 of 2) 05/06/2015 ANNUAL PHYSICAL 03/30/2024 INFLUENZA VACCINE 09/08/2024 HEMOGLOBIN A1C 03/28/2025 09/25/2024, 03/12, 03/30/2024, Additional history exists HEPATITIS C SCREENING Completed 03/09/2021 Insurance [facility] PPO Care Teams Pattern Puncher Relationship Specialty Start Date End Date Lizzie Quintero APRN [address] [place] [address] PCP - General Family Medicine 06/27/24
--- OUTSIDE RECORDS SUMMARY | 2024-12-13 13:10 | XMS_ITS | Encounter Summary ---
Author Organization [facility] Address [address] [place] [address] Care Team Providers Care Cushion Worker Name Role Phone Lizzie Quintero SELMA Primary Care Provider [phone] Damien Hidalgo MD Unavailable [phone] Encounter Details Date Type Department Care Team (Late st Contact Info) Description 11/02/2024 Orders Only [facility] Endocrinology [address] [place] [address] Kianna Luna, FORMAT PROOFREADER [address] [facility] [address] [place] [address] Social History Tobacco Use Types [...] money to buy more. Never true 06/21/19 Within the past 12 months, t he [...] any time in the past 12 m [facility], were you homeless or living [...] encounter Miscellaneous Notes * Progress Notes - Kianna Luna APRN - 11/02/2024 9:03 AM EDT PDMP reviewed, gabapentin refilled, last ov Sep 2024 documented in this encounter Plan of Treatment Upcoming Encounters Date Type Department Care Team (Late st Contact Info) Description 01/01/2025 8:30 AM EST Office Visit [facility] [address] [place] [address] 01/02/2025 3:20 PM EST Office Visit [facility] [address] [place] [address] Kianna Luna, FORMAT PROOFREADER [address] [facility] [address] [place] [address] documented as of this encounter [...] documented as of this encounter Care Teams Cushion Worker Relationship Specialty Start Date End Date Lizzie Quintero APRN [address] [place] [address] PCP - General 06/13/24 Damien Hidalgo MD [facility] [address] [address] Referring Physician 06/13/24 documented as of this encounter
--- OUTSIDE RECORDS SUMMARY | 2024-12-13 13:10 | XMS_ITS | Encounter Summary ---
Author Organization [facility] Address [address] [place] [address] Care Team Providers Care Wallpaperer Name Role Phone Wallace Pacheco MD Primary Care Provider [phone] Lizzie Quintero APRN Primary Care Provider [phone] Damien Hidalgo MD Unavailable [phone] Reason for Visit * Reason Comments Med Refill Encounter Details Date Type Department Care Team (Late st Contact Info) Description 01/22/2022 Refill [facility] [address] [place] [address] Oriana Weiss, OUTBOARD MOTOR ASSEMBLER 2[address] [facility] [address] [place] [address] Social History Tobacco Use Types [...] [facility] [address] [place] [address] 01/02/2025 3:20 PM EST Office Visit [facility] Endocrinology [address] [place] [address] Kianna Luna APRN [address] [facility] [address] [place] [address] documented as of this encounter Visit Diagnoses Not on filedocumented in this encounter Additional Health Concerns Assessment Noted Time A fall risk assessment has been complete d for the patient 11/17/2021 3:01 PM EDT documented as of this encounter Care Teams Wallpaperer Relationship Specialty Start Date End Date Wallace Pacheco MD [address] [place] [address] PCP - General 12/24/20 06/12/24 Lizzie Quintero APRN [address] [place] [address] PCP - General 06/13/24 Damien Hidalgo MD [address] [id number] Referring Physician 06/13/24 documented as of this encounter
--- OUTSIDE RECORDS SUMMARY | 2024-12-13 13:10 | XMS_ITS | Clinical Summary ---
Author Organization [facility] Address [address] [place] [address] Care Team Providers Care Varnish Melter Name Role Phone Lizzie Quintero SELMA Primary Care Provider [phone] Damien Hidalgo MD Unavailable [phone] Allergies No known active allergies Medications omeprazole (PriLOSEC) [address] capsule Take 1 capsule by mouth daily. 4 Active Aspirin Buf,CaCarb-MgCar b-MgO, 81 MG tablet TAKE 1 TABLET DAILY. 4 Active albuterol 108 (90 Base) MCG/ACT inhaler Inhale 2 puffs every 4 to 6 hours as needed. 5 Active atorvastatin (Lipitor) 40 MG tablet Take 1 tablet (40 mg) by mouth daily. 90 tablet 1 5 Active lisinopril 20 MG tablet Take 1 tablet by mouth daily. 5 Active glucagon (Baqsimi Two Pack) 3 MG/DOSE powder Nasal Powder Administer 3 mg into affected nostril(s) 1 time as needed (severe hypoglycemia). 2 each 3 5 026 Active furosemide (Lasix) 40 MG tablet Take 1 tablet by mouth 2 times a day. 20 tablet 5 Active acetaminophen (Tylenol) 500 MG tablet Take 2 tablets by mouth every 6 hours. 100 tablet 5 Active bisacodyl (Dulcolax) 5 MG EC tablet Take 2 tablets by mouth daily as needed for constipation. Do not crush, chew, or split. 30 tablet 5 Active methocarbamol (Robaxin) 500 MG tablet Take [...] crush or chew. 20 tablet 5 Active metoprolol tartrate (Lopressor) 25 MG tablet Take 1 tablet by mouth 2 times a day. 60 tablet 5 Active insulin regular (HumuLIN R U-500) 500 UNIT/ML CONCENTRATED injection penIndications:T ype 2 diabetes mellitus with diabetic neuropathy, with long-term current use of insulin Inject subcutaneous 130 units with breakfast & 80 units with dinner. 40 mL 3 5 Active semaglutide (Ozempic, 2 MG/DOSE,) 8 MG/3ML solution pen-injectorIndi cations:Type 2 diabetes mellitus with diabetic neuropathy, with long-term current use of insulin Inject 2 mg under the skin every 7 days. 3 mL 5 5 026 Active Continuous Glucose Sensor (Dexcom G7 Sensor) miscIndications: Type 2 diabetes mellitus with diabetic neuropathy, with long-term current use of insulin 1 sensor every 10 days. 9 each 3 5 Active empagliflozin (Jardiance) 25 MGIndications:Ty pe 2 diabetes mellitus with diabetic neuropathy, with long-term current use of insulin Take 1 tablet by mouth daily. 90 tablet 1 5 026 Active pen needle, diabetic (BD Pen Needle Micro U/F) 32G X 6 MM miscIndications: Type 2 diabetes mellitus with diabetic neuropathy, with long-term current use of insulin Use 1-4x/day as directed 120 each 11 5 Active gabapentin (Neurontin) 800 MG tablet Take 1 tablet by mouth 3 times a day. 270 tablet 025 Active Active Problems Problem Noted Date Diagnosed Date Cardiac volume overload 06/21/2024 Overview (06/22/2024): Continue diuresis with 40 PO lasix BID GERD (gastroesophageal reflux disease) Overview (06/20/2024): Resume home PPI BMI 34.0-34.9,adult 06/15/2024 Overview (06/20/2024): Complicates all aspects of care CAD (coronary artery disease) 06/15/2024 Overview (06/20/2024): [facility] April 2024: LAD with 80-90% stenosis s/p [...] Encounters Date Type Department Care Team Description 11/02/2024 Orders Only [facility] [address] [place] [address] Kianna Luna APRN 11/02/2024 Telephone [facility] [address] [place] [address] Kianna Luna APRN Med Refill 11/01/2024 Refill [facility] [address] [place] [address] Kianna Luna APRN 09/25/2024 3:20 PM EDT Office Visit [facility] [address] [place] [address] Kianna Maradiaga, PA Type 2 diabetes mellitus with diabetic neuropathy, with long-term current use of insulin ([facility]) (Primary Dx); Hypertension, unspecified type; Neuropathy; Class 1 obesity due to excess calories with serious comorbidity and body mass index (BMI) of 34.0 to 34.9 in adult 09/25/2024 Travel from Last 3 Months Immunizations Immunization [...] any time in the past 12 m [facility], were you homeless or living in a alf (including now)? No 06/20/2024 Utilities Answer Date [...] [facility] [address] [place] [address] 01/02/2025 3:20 PM EST Office Visit [facility] [address] [place] [address] Kianna Luna, CONVEYOR SYSTEM OPERATOR [address] [place] [address] Health Maintenance Due Date Last [...] (2 of 2 - PCV) 08/04/2017 08/04/2016 [id number] Vaccine (1 - season) 2024 [facility]-Influenza Vaccine [...] A1C 6.5 <5.7% Non-Diabet ic % [facility] Kit Lot Number [id number] [facility] Kit Expiration Date 06/2026 [facility] Blood Venous blood specimen / Unknown 09/25/2024 3:02 PM EDT Kianna BLUNT POINT OF CARE TEST EN TER/EDIT ORDERABLES Final Result [facility] [address] [place] [address] * HIV 1 & 2 Antibody/Antigen Screen (03/09/2021 12:04 PM EST) HIV 1 & 2 Antibody/Anti gen Screen Nonreactive Nonreactive 03/09/2021 1:49 PM EST [facility]ALTH[facility] Blood Venous blood specimen / Unknown Venipuncture / Unknown 03/09/2021 12:04 PM EST 03/09/2021 12:15 PM EST Marvin Marin MD LAB BLOOD ORDERABLES Final Res ult Performing Organization Address City/[facility] Co de Phone Number HEALTHCARE [facility] [address] [place] [address] * [place] Hepatitis C Antibody (03/09/2021 12:04 PM EST) Pathologist [facility] Hepatitis C Antibody Negative Negative 03/09/2021 2:23 PM EST [facility]ALTH[facility]ARE [facility] Blood Venous blood specimen / Unknown Venipuncture / Unknown 03/09/2021 12:04 PM EST 03/09/2021 12:15 PM EST Marvin Marin MD LAB BLOOD ORDERABLES Edited Re sult - Final Performing Organization Address [facility] de Phone Number HEALTHCARE LAB [address] [place] [address] from Last 3 Months or Most Recently Relevant to Health Maintenance Additional Health Concerns Active Problems Noted Date Diagnosed Date Autogenerated Problem 06/15/2024 [place] [address] ANTHEM ANTHEM Advance Directives * Full Code (Latest Code Status on File) Date Activated Date Inactivated Comments 06/19/2024 6:16 PM 06/26/2024 12:42 PM Question Answer Comments I have reviewed the capacity from the link above and, if needed, have updated to appropriate status: Yes Care Teams Varnish Melter Relationship Specialty Start Date End Date Lizzie Quintero APRN [address] [place] [address] PCP - General 06/13/24 Damien Hidalgo MD [address] [address] Referring Physician 06/13/24
--- OUTSIDE RECORDS SUMMARY | 2024-12-13 13:10 | XMS_ITS | Encounter Summary ---
Author Organization Healthcare Address [address] [place] [address] Care Team Providers Care Casket Inspector Name Role Phone Leon, Lizzie SELMA Primary Care Provider [phone] Damien Hidalgo MD Unavailable [phone] Reason for Visit * Reason Onset Date Comments Med Refill 11/02/2024 Encounter Details Date Type Department Care Team (Late st Contact Info) Description 11/02/2024 Telephone [facility] Endocrinology [address] [place] [address] Kianna Luna, WATERMELON HARVESTING SUPERVISOR [address] [facility] [address] [place] [address] Med Refill Social History Tobacco [...] any time in the past 12 m [facility], were you homeless or living [...] encounter Miscellaneous Notes * Telephone Encounter - IRENE RUELAS - 11/02/2024 8:19 AM EDT [facility] [place] Thank you! documented in this encounter Plan of Treatment Upcoming Encounters Date Type Department Care Team (Late st Contact Info) Description 01/01/2025 8:30 AM EST Office Visit [facility] [address] [place] [address] 01/02/2025 3:20 PM EST Office Visit [facility] [address] [place] [address] Kianna Luna, WATERMELON HARVESTING SUPERVISOR [address] [facility] [address] [place] [address] documented as of this encounter [...] documented as of this encounter Care Teams Casket Inspector Relationship Specialty Start Date End Date Lizzie Quintero APRN [address] [place] [address] PCP - General 06/13/24 Damien Hidalgo MD [address] [facility] [address] [place] [address] Referring Physician 06/13/24 documented as of this encounter
--- OUTSIDE RECORDS SUMMARY | 2024-12-13 13:10 | XMS_ITS | Encounter Summary ---
Author Organization Healthcare Address [address] [place] [address] Care Team Providers Care Tank Worker Name Role Phone Lizzie Quintero SELMA Primary Care Provider [phone] Damien Hidalgo MD Unavailable [phone] Reason for Visit * Reason Comments Med Refill Encounter Details Date Type Department Care Team (Late st Contact Info) Description 11/01/2024 Refill [facility] Endocrinology [address] [place] [address] Kianna Luna, STARCH MANGLE TENDER 2[address] [facility] [address] [place] [address] Social History Tobacco Use Types [...] any time in the past 12 m [facility], were you homeless or living in a [...] encounter Miscellaneous Notes * Telephone Encounter - Quynh Jacinto - 11/01/2024 5:01 PM EDT Refill request does not meet protocol. Sending to clinic for review. Additional info: Controlled substance. Gabapentin documented in this encounter Plan of Treatment Upcoming Encounters Date Type Department Care Team (Late st Contact Info) Description 01/01/2025 8:30 AM EST Office Visit [facility] [address] [place] [address] 01/02/2025 3:20 PM EST Office Visit [facility] [address] [place] [address] Kianna Luna S, STARCH MANGLE TENDER [address] [facility] [address] [place] [address] documented as of this encounter [...] documented as of this encounter Care Teams Tank Worker Relationship Specialty Start Date End Date Lizzie Quintero, STARCH MANGLE TENDER [address] [place] [address] PCP - General 06/13/24 Damien Hidalgo MD [facility] [address] [address] Referring Physician 06/13/24 documented as of this encounter
--- OUTSIDE RECORDS SUMMARY | 2024-12-13 13:10 | XMS_ITS | Encounter Summary ---
Author Organization Healthcare Address [address] [place] [address] Care Team Providers Care Vice Admiral Name Role Phone Wallace Pacheco MD Primary Care Provider [phone] Lizzie Quintero APRN Primary Care Provider [phone] Damien Hidalgo MD Unavailable [phone] Encounter Details Date Type Department Care Team (Late st Contact Info) Description 05/31/2024 Orders Only External Location [address] [place] [address] Provider, External Social History Tobacco Use Types [...] [facility] [address] [place] [address] 01/02/2025 3:20 PM EST Office Visit [facility] Endocrinology [address] [place] [address] Kianna Luna, STONE GLUER [address] [place] [address] documented as of this encounter [...] documented as of this encounter Care Teams Vice Admiral Relationship Specialty Start Date End Date Wallace Pacheco MD [address] [place] [address] PCP - General 12/24/20 06/12/24 Lizzie Quintero APRN [address] [place] [address] PCP - General 06/13/24 Damien Hidalgo MD [address] [address] Referring Physician 06/13/24 documented as of this encounter
--- OUTSIDE RECORDS SUMMARY | 2024-12-13 13:10 | XMS_ITS | Encounter Summary ---
Author Organization [facility] Address [address] [place] [address] Care Team Providers Care Meter And Regulator Shop Supervisor Name Role Phone Wallace Pacheco MD Primary Care Provider [phone] Lizzie Quintero APRN Primary Care Provider [phone] Damien Hidalgo MD Unavailable [phone] Reason for Visit * Reason Comments Med Refill Encounter Details Date Type Department Care Team (Late st Contact Info) Description 11/06/2021 Refill [facility] [address] [place] [address] Kianna Luna APRN 2195 [facility] [address] [place] [address] Social History Tobacco Use Types [...] [facility] [address] [place] [address] 01/02/2025 3:20 PM EST Office Visit [facility] Endocrinology [address] [place] [address] Kianna Luna APRN 2[address] [facility] [address] [place] [address] documented as of this encounter Visit Diagnoses Not on filedocumented in this encounter Additional Health Concerns Assessment Noted Time A fall risk assessment has been complete d for the patient 07/17/2021 7:56 AM EDT documented as of this encounter Care Teams Meter And Regulator Shop Supervisor Relationship Specialty Start Date End Date Wallace Pacheco MD [address] [place] [address] PCP - General 12/24/20 06/12/24 Lizzie Quintero APRN [address] [place] [address] PCP - General 06/13/24 Damien Hidalgo MD [address] [id number] Referring Physician 06/13/24 documented as of this encounter
--- OUTSIDE RECORDS SUMMARY | 2024-12-13 13:10 | XMS_ITS | Encounter Summary ---
Author Organization Healthcare Address [address] [place] [address] Care Team Providers Care Speech Therapy Teacher Name Role Phone Wallace Pacheco MD Primary Care Provider Lizzie Quintero APRN Primary Care Provider [phone] Damien Hidalgo MD Unavailable [phone] Encounter Details Date Type Department Care Team (Late st Contact Info) Description 05/23/2024 Orders Only External Location [address] [place] [address] Damien Hidalgo MD [address] [facility] [address] [place] [id number] Social History Tobacco Use Types Packs/Day Years [...] [facility] [address] [place] [address] 01/02/2025 3:20 PM EST [facility] [address] [place] [address] Kianna Luna APRN 2195 [facility] [address] [place] [address] documented as of this encounter Procedures Procedure [...] documented as of this encounter Care Teams Speech Therapy Teacher Relationship Specialty Start Date End Date Wallace Pacheco MD [address] [place] [address] PCP - General 12/24/20 06/12/24 Lizzie Quintero APRN [address] [place] [address] PCP - General 06/13/24 Damien Hidalgo MD 1210 [facility] 36 [place] [address] Referring Physician 06/13/24 documented as of this encounter
--- OUTSIDE RECORDS SUMMARY | 2024-12-13 13:10 | XMS_ITS | Encounter Summary ---
Author Organization Healthcare Address [address] [place] [address] Care Team Providers Care Machine Sneller Name Role Phone Wallace Pacheco MD Primary Care Provider Lizzie Quintero APRN Primary Care Provider [phone] Damien Hidalgo MD Unavailable [phone] Encounter Details Date Type Department Care Team (Late st Contact Info) Description 05/30/2024 Orders Only External Location [address] [place] [address] Bryce Pugh MD 1210 [facility] [address] [place] [id number] Social History Tobacco Use Types Packs/Day Years [...] [facility] [address] [place] [address] 01/02/2025 3:20 PM EST [facility] [address] [place] [address] Kianna Luna APRN [address] [place] [address] documented as of this encounter [...] documented as of this encounter Care Teams Machine Sneller Relationship Specialty Start Date End Date Wallace Pacheco MD [address] [place] [address] PCP - General 12/24/20 06/12/24 Lizzie Quintero APRN [address] [place] [address] PCP - General 06/13/24 Damien Hidalgo MD 1210 [facility] 36 [place] [address] Referring Physician 06/13/24 documented as of this encounter
--- OUTSIDE RECORDS SUMMARY | 2024-12-13 13:10 | XMS_ITS | Encounter Summary ---
Author Organization Healthcare Address [address] [place] [address] Care Team Providers Care Risk Tech Name Role Phone Wallace Pacheco MD Primary Care Provider Lizzie Quintero APRN Primary Care Provider [phone] Damien Hidalgo MD Unavailable [phone] Encounter Details Date Type Department Care Team (Late st Contact Info) Description 05/29/2024 Orders Only External Location [address] [place] [address] Provider, External Social History Tobacco Use Types [...] [facility] [address] [place] [address] 01/02/2025 3:20 PM EST Office Visit [facility] Endocrinology [address] [place] [address] Kianna Luna, MACHINE CERAMIC COATER [address] [place] [address] documented as of this encounter [...] documented as of this encounter Care Teams Risk Tech Relationship Specialty Start Date End Date Wallace Pacheco MD [address] [place] [address] PCP - General 12/24/20 06/12/24 Lizzie Quintero APRN [address] [place] [address] PCP - General 06/13/24 Damien Hidalgo MD [address] [address] Referring Physician 06/13/24 documented as of this encounter
--- OUTSIDE RECORDS SUMMARY | 2024-12-13 13:10 | XMS_ITS | Encounter Summary ---
Author Organization Healthcare Address [address] [place] [address] Care Team Providers Care Mainframe Systems Programmer Name Role Phone Wallace Pacheco MD Primary Care Provider [phone] Lizzie Quintero APRN Primary Care Provider [phone] Damien Hidalgo MD Unavailable [phone] Encounter Details Date Type Department Care Team (Late st Contact Info) Description 05/30/2024 Orders Only External Location [address] [place] [address] Provider, External Social History Tobacco Use Types [...] [facility] [address] [place] [address] 01/02/2025 3:20 PM EST Office Visit [facility] Endocrinology [address] [place] [address] Kianna Luna, PLASTERER MAINTENANCE [address] [place] [address] documented as of this encounter [...] documented as of this encounter Care Teams Mainframe Systems Programmer Relationship Specialty Start Date End Date Wallace Pacheco MD [address] [place] [address] PCP - General 12/24/20 06/12/24 Lizzie Quintero APRN [address] [place] [address] PCP - General 06/13/24 Damien Hidalgo MD [address] [address] Referring Physician 06/13/24 documented as of this encounter
--- OUTSIDE RECORDS SUMMARY | 2024-12-13 13:10 | XMS_ITS | Encounter Summary ---
Author Organization Healthcare Address [address] [place] [address] Care Team Providers Care Oncology Registrar Name Role Phone Wallace Pacheco MD Primary Care Provider [phone] Lizzie Quintero APRN Primary Care Provider [phone] Damien Hidalgo MD Unavailable [phone] Encounter Details Date Type Department Care Team (Late st Contact Info) Description 05/30/2024 Orders Only External Location [address] [place] [address] Provider, External Social History Tobacco Use Types [...] [facility] [address] [place] [address] 01/02/2025 3:20 PM EST Office Visit [facility] Endocrinology [address] [place] [address] Kianna Luna, DIRECTOR COMMUNITY HEALTH NURSING [address] [place] [address] documented as of this encounter [...] documented as of this encounter Care Teams Oncology Registrar Relationship Specialty Start Date End Date Wallace Pacheco MD [address] [place] [address] PCP - General 12/24/20 06/12/24 Lizzie Quintero APRN [address] [place] [address] PCP - General 06/13/24 Damien Hidalgo MD [address] [address] Referring Physician 06/13/24 documented as of this encounter
--- OUTSIDE RECORDS SUMMARY | 2024-12-13 13:10 | XMS_ITS | Encounter Summary ---
Author Organization Healthcare Address [address] [place] [address] Care Team Providers Care Cash Register Mechanic Name Role Phone Wallace Pacheco MD Primary Care Provider [phone] Lizzie Quintero APRN Primary Care Provider [phone] Damien Hidalgo MD Unavailable [phone] Encounter Details Date Type Department Care Team (Late st Contact Info) Description 04/03/2024 Orders Only External Location [address] [place] [address] Provider, External Social History Tobacco Use Types [...] [facility] [address] [place] [address] 01/02/2025 3:20 PM EST Office [facility] Endocrinology [address] [place] [address] Kianna Luna, SALES PLANNING COORDINATOR [address] [place] [address] documented as of this encounter [...] documented as of this encounter Care Teams Cash Register Mechanic Relationship Specialty Start Date End Date Wallace Pacheco MD [address] [place] [address] PCP - General 12/24/20 06/12/24 Lizzie Quintero APRN [address] [place] [address] PCP - General 06/13/24 Damien Hidalgo MD [address] [address] Referring Physician 06/13/24 documented as of this encounter
[2024-12-13 13:22] LABS: Hematocrit 46.6 % (42.0-52.0); Hemoglobin 15.6 g/dL (14.1-18.0); Immature Granulocytes % 0.5 %; Mean Corpuscular HGB Conc 33.5 g/dL (31.8-35.4); Mean Corpuscular Hemoglobin 27.7 pg (27.0-31.2); Mean Corpuscular Volume 82.8 fl (80-94); Nucleated Red Blood Cells % 0 %; Platelet Count 358 K/mm3 (142-424); Red Blood Count 5.63 M/mm3 (4.60-6.20); Red Cell Distribution Width-SD 45.5 fL; White Blood Count 21.8 K/mm3 (4.8-10.8)
--- NOTE | 2024-12-13 13:22 | XR_ITS ---
FINAL REPORT TECHNIQUE: Single view chest CLINICAL HISTORY: SOA and palpitations states tachycardic FINDINGS: A single view of the chest was obtained. Patient is status post median sternotomy. The heart and mediastinum are within normal limits. The lungs are clear. There is no pneumothorax. IMPRESSION: No acute cardiopulmonary process. Reviewed, Interpreted and Dictated by Nia Gomez MD Transcribed by Radha Freedman Authenticated and . [facility]
--- NOTE | 2024-12-13 13:23 | ED_ITS ---
<Statement entered by Arnold Wood MD - 12/13/24 15:44> I consulted the KIRSTEN, and we discussed the complexity of the problems being addressed. I approved the treatment and management plan for this patient's care in the emergency department, thus performing a substantial portion of the medical decision making. Michel Wood MD Discharge Plan Disposition Patient Disposition: Home, Self-Care Condition: Good Prescriptions Prescriptions: New amoxicillin-pot clavulanate 875-125 mg tablet 1 tab PO BID 7 Days Qty: 14 0RF doxycycline monohydrate 100 mg capsule 100 mg PO BID 7 Days Qty: 14 0RF No Action clopidogrel 75 mg tablet 75 mg PO DAILY Qty: 90 3RF aspirin 81 mg tablet,chewable 81 mg PO DAILY Qty: 90 3RF (DME) Dexcom G7 Sensor Device See Rx Instructions .ROUTE .MEDSUPPLY Qty: 1 Rx Instructions: As directed Jardiance 25 mg tablet 25 mg PO Patient Comments: TAKE 1 TABLET BY MOUTH ONCE DAILY Ozempic 1 mg/dose (4 mg/3 mL) pen injector 1 mg SQ QWEEK Patient Comments: INJECT 1MG SUBCUTANEOUSLY ONCE A WEEK cetirizine [Allergy Relief (cetirizine)] 10 mg tablet 10 mg PO DAILY Qty: 30 1RF metoprolol tartrate 25 mg tablet 25 mg PO BID 90 Days Qty: 180 3RF atorvastatin 40 mg tablet 40 mg PO DAILY Qty: 90 0RF omeprazole 20 mg Capsule,Delayed Release(Dr/Ec) 20 mg PO DAILY Humulin R U-500 (Conc) Kwikpen 500 unit/mL (3 mL) insulin pen 90 unit SQ HS gabapentin 800 mg tablet 800 mg PO TID Patient Comments: TAKE 1 TABLET BY MOUTH IN THE MORNING AND 1 IN THE EVENING AND 1 BEFORE BEDTIME Referrals Follow up/Referrals: Lizzie Quintero APRN [Primary Care Provider, Family Practice] - See instructions Activity Restrictions/Add. 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 Please return to the emergency department with any worsening signs or symptoms as discussed with you at your ER visit today. Please continue to take all your current medications as prescribed. I recommend good intake with fluids. Clinical Impressions Clinical Impression: Acute kidney injury, Pneumonia, Palpitations Leukocytosis Qualifiers: Leukocytosis type: unspecified Qualified Code(s): D72.829 - Elevated white blood cell count, unspecified Instructions Patient Instructions: DI for Pneumonia in Adults, DI for Palpitations, DI for Leukocytosis Print Language Print Language: Pashto Discharge ED Provider: Arnold Wood Adult HPI General Chief complaint: Arrhythmia/Palpitations Stated complaint: High Rate, light headed Time Seen by Provider: 12/13/24 13:09 Mode of Arrival: Ambulatory Source of Information: Patient Description of Symptoms (Recalled from ER Triage Doc. by RN): patient presents for a high heart rate that he said he started feeling yesterday but never actually checked it. it ranged from 108-121 in triage. patient just recently had an open heart surgery without bypass in June of this year. he takes plavix and metoprolol and has 3 stents. History of Present Illness HPI narrative: 59-year-old male presents the emergency department with palpitations that started around 8 AM yesterday, worse with exertion and he experiences dyspnea when he gets these palpitations, he states that his partner , felt his pulse on his carotid, and states that it was almost 250 , patient states that wax and wane throughout the day, patient denies any fever chills, admits to generalized weakness, denies any overt chest pain, denies any dyspnea currently, denies any palpitations currently, patient states he another episode today at around 8 or 9 AM at work, similar to yesterday, this prompted emergency department visit, patient denies any nausea vomiting constipation diarrhea no urinary symptomatology, does admit to some increased urinary frequency, does state that he is on water pills , patient has other past medical history consistent with former smoker, denies any other alcohol or drug use, coronary artery disease status post 3 stent placements on dual antiplatelet therapy of Plavix and aspirin, follows with cardiology at [facility], 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 Initial triage vitals notable for tachycardia around 100 110 bpm otherwise unremarkable. Please note that above description of symptoms, in this electronic medical record under categorization of recalled from ER triage doctor by RN are reflective of an initial nursing assessment, however, is not reflective of my full history and physical exam that was personally taken and clarified. Consequentially, this preceding description of symptoms, which may include the patient's categorized chief complaint in the EMR, do not reflect my personal clinical impression, and the ultimate description of history of present illness and patient stated complaints should be deferred to this section of the note. Unless stated otherwise or congruent with this section of the note, additional signs, symptoms, or incongruence should be interpreted as inaccurate with my clinical impression. Onset (ago): day(s) Related Data Home Medications ?Medication ?Instructions ?Recorded ?Confirmed insulin regular hum U-500 conc 500 90 unit SQ HS 03/3110/24/24 unit/mL(3 mL) subcut pen (Humulin R U-500 (Conc) Insulin Kwikpen) omeprazole 20 mg capsule,delayed 20 mg PO DAILY 10/24/24 release gabapentin 800 mg tablet 800 mg PO TID 06/07/2410/24 blood-glucose sensor ([employer] G7 #1 ea 07/04/24 5 Sensor device) empagliflozin 25 mg tablet 25 mg PO 08/24/24 10/24/24 (Jardiance) semaglutide 1 mg/dose (4 mg/3 mL) 1 mg SQ QWEEK 10/24/24 subcutaneous pen injector (Ozempic) Previous Rx's ?Medication ?Instructions ?Recorded aspirin 81 mg chewable tablet 81 mg PO DAILY #90 tabs 05/18/24 clopidogrel 75 mg tablet 75 mg PO DAILY #90 tabs 05/09 cetirizine 10 mg tablet (Allergy 10 mg PO DAILY #30 ta bs 09/04/24 Relief (cetirizine)) metoprolol tartrate 25 mg tablet 25 mg PO BID 90 days #180 tabs 09/05/24 atorvastatin 40 mg tablet 40 mg PO DAILY #90 tabs 09/09 10/02 amoxicillin 875 mg-potassium 1 tab PO BID 7 days #14 t abs 12/13/24 clavulanate 125 mg tablet doxycycline monohydrate 100 mg 100 mg PO BID 7 days #1 4 caps 12/13/24 capsule Allergies Allergy/AdvReac Type Severity Reaction Status Date / Time No Known Allergies Allergy Verified 10/24/24 15:50 [facility] Disclaimer: The information contained in this section may have been updated after the patient was seen, as this information can be updated by other users. Medical History Acute bloody pericarditis Acute hypoxemic respiratory failure Sepsis without septic shock Multifocal pneumonia Viral syndrome Pleural effusion Human metapneumovirus (hMPV) pneumonia Abnormal weight gain Post-operative pain CHF (congestive heart failure) GERD (gastroesophageal reflux disease) HLD (hyperlipidemia) Edema Mediastinal lymphadenopathy History of smoking 30 or more pack years Acute dyspnea Swelling of lower extremity Right ventricular dilation Unstable angina PAC (premature atrial contraction) Chest pain Dyspnea PVC (premature ventricular contraction) Influenza A (H1N1) Pericarditis Type 2 diabetes mellitus Leukocytosis Renal insufficiency Acute viral syndrome Pericardial effusion Exertional dyspnea Diabetes HTN (hypertension) Knee sprain Surgical History History of pericardiectomy History of hand surgery History of cardiac cath Family History Other Diabetes Hyperlipidemia Hypertension Social History Smoking Status: Never smoker how long ago did patient quit smoking: over 10 years alcohol intake: never substance use type: denies use current occupational status: unemployed Travel in the last 8 weeks?: None household members: spouse housing: house lives independently: Yes marital status: education level: vocational pets and animals: Yes Have you lived/traveled outside [place] in past 30 days?: No Contact w/someone who lives/traveled outside [place] past 30 days?: No Exposure to someone with infectious disease in past 14 days?: No Do you have a fever (greater than 100.4 F or 38 C)?: No Have you tested positive for COVID-19?: No Exposed to someone with COVID-19 in past 14 days?: No Do you have a sore throat?: No Do you have a cough?: No Do you have any weakness?: No Do you have any diarrhea?: No Are you experiencing any unusual bleeding?: No Do you have any muscle aches/pain?: No Do you have any abdominal pain?: No Are you experiencing loss of taste or smell?: No Other Medical History Have you received the Flu Vaccine for this season: No Have you received the Pneumonia Vaccine: No ROS Obtained: Yes All systems reviewed & no additional complaints except as documented Physical Exam General General appearance: alert and in no apparent distress Head Head exam: atraumatic and normocephalic Eye Eye exam: Present normal appearance, PERRL and EOMI Neck Neck exam: Present full ROM; Absent meningismus Chest Chest inspection: Present normal inspection Respiratory Respiratory exam: Absent respiratory distress, wheezes, stridor, accessory muscle use or prolonged expiratory phase Cardiovascular Cardiovascular exam: Present normal rhythm, tachycardia and other (Pulses equal and symmetric in bilateral upper and lower extremities) Abdominal Exam Abdominal exam: Absent distention, tenderness, guarding, rebound or rigidity Extremities Exam Extremities exam: Absent edema Neurological Exam Neurological exam: Present alert Psychiatric Psychiatric exam: Present normal affect Skin Skin exam: Present warm and dry Medical Decision Making Medical Records Medical records reviewed: Yes I reviewed the patient's medical records. Screening: Per USPSTF and CDC recommendations, given the prevalence of disease in our region, it is our hospital?s policy to screen for HIV and viral Hepatitis for all patients aged 18 and over and those with ongoing risk factors. Guilherme Inquiry Pt receiving controlled substance: No Guilherme was queried for this patient: No Vital Signs: 12/13/24 12:51 12/13/24 13:30 12/13/24 14:00 Temperature 98.1 F Temperature Source Oral Pulse Rate 104 H 102 H Pulse Rate [Right Radial] 118 H Respiratory Rate 18 22 28 H Blood Pressure 127/72 127/72 Blood Pressure [Right Arm] 209/84 H Blood Pressure Mean [Right Arm] 125 Blood Pressure Source [Right Arm] Automatic Cuff Blood Pressure Position [Right Arm] Sitting 02 Sat by Pulse Oximetry 100 93 L 93 L Oxygen Delivery Method Room Air 12/13/24 14:30 Temperature Temperature Source Pulse Rate 99 H Pulse Rate [Right Radial] Respiratory Rate 21 Blood Pressure 122/73 Blood Pressure [Right Arm] Blood Pressure Mean [Right Arm] Blood Pressure Source [Right Arm] Blood Pressure Position [Right Arm] 02 Sat by Pulse Oximetry 95 Oxygen Delivery Method Lab Data Lab results reviewed: Yes I reviewed the patient's lab results. Lab Results 12/13/24 13:11: WBC 21.8 H*, RBC 5.63, Hgb 15.6, Hct 46.6, MCV 82.8, MCH 27.7, MCHC 33.5, RDW 15.1, Plt Count 358, MPV 10.0, Neut % (Auto) 80.9 H, Lymph % (Auto) 10.8, Lares % (Auto) 6.7, Eos % (Auto) 0.7, Baso % (Auto) 0.4, Neut # (Auto) 17.7 H, Lymph # (Auto) 2.4, Lares # (Auto) 1.5 H, Eos # (Auto) 0.2, Baso # (Auto) 0.1, PT 11.8, INR 1.07, D-Dimer 0.83 H, VBG pH 7.43 H, VBG pCO2 36.9, VBG pO2 65.9 H, VBG HCO3 23.8, VBG Total CO2 24.9, VBG O2 Saturation 93.2 H, VBG Base Excess -0.6, VBG Lactic Acid 1.9, Sodium 135 L, Potassium 4.1, Chloride 99, Carbon Dioxide 27, Anion Gap 13.1, BUN 25 H, Creatinine 1.30 H, Estimated Creat Clear 101, Estimated GFR 57 L, Est GFR ( Amer) 68, Glucose 144 H, Calcium 9.0, Magnesium 1.8, Total Bilirubin 0.8, AST 40, ALT 28, Alkaline Phosphatase 106, Troponin I < 0.01, NT-Pro-B Natriuret Pep 320 H, Total Protein 7.9, Albumin 5.0, Globulin 2.9, Albumin/Globulin Ratio 1.7, Urine Color Yellow, Urine Appearance Clear, Urine pH 5.5, Ur Specific [place] 1.010, Urine Protein Negative, Urine Glucose (UA) 3+, Urine Ketones Negative, Urine Blood Negative, Urine Nitrate Negative, Urine Bilirubin Negative, Urine Urobilinogen 0.2, Ur Leukocyte Esterase Negative, Urine RBC None, Urine WBC Occasional, Ur Squamous Epith Cells None, Urine Bacteria None 12/13/24 13:11 12/13/24 13:11 Orders (Tests/Meds): ED MEDICATIONS Discontinued Medications Generic Name Dose Route Start Last Admin Trade Name Freq PRN Reason Stop Dose Admin Piperacillin Sod/Tazobactam 50 mls @ 100 mls/hr 12/13/24 13:41 12/13/24 14:44 Sod 3.375 gm/ Sodium Chloride IV 12/13/24 14:10 Infused ONCE ONE Infusion Iopamidol 70 ml 12/13/24 14:15 12/13/24 14:16 Iopamidol-370 (76%);100ml Bottle IV 12/13/24 14:16 70 ml ONCE ONE Administration Sodium Chloride 10 ml 12/13/24 14:15 12/13/24 14:16 Sodium Chloride 0.9% 10ml Syr (Rad Only) IV 12/13/24 14:16 10 ml ONCE ONE Administration Sodium Chloride 50 ml 12/13/24 14:15 12/13/24 14:16 0.9 % Sodium Chloride 50 Ml Vial IV 12/13/24 14:16 50 ml ONCE ONE Administration ORDERS Category Date Time Status CT angio chest PE protocol Stat Cat Scan 12/13/24 13:55 Completed XR chest portable Stat Exams 12/13/24 13:22 Taken Complete Blood Count Auto Diff Stat Lab 12/13/24 13:11 Completed Comprehensive Metabolic Panel Stat Lab 12/13/24 13:11 Completed D-Dimer Stat Lab 12/13/24 13:11 Completed Lactic Acid Stat Lab 12/13/24 13:42 Ordered Magnesium Stat Lab 12/13/24 13:11 Completed NT Pro Brain Natriuretic Pep. Stat Lab 12/13/24 13:11 Completed PT INR [Prothrombin Time INR] Stat Lab 12/13/24 13:11 Completed Trop I [Troponin I] Stat Lab 12/13/24 13:11 Completed Troponin I Q3H Lab 12/13/24 16:30 Ordered Troponin I Q3H Lab 12/13/24 19:30 Ordered Urinalysis and Microscopic Stat Lab 12/13/24 13:11 Completed Blood Culture Stat Micro 12/13/24 13:45 Received VBG [Venous Blood Gas] Stat RT 12/13/24 13:11 Completed Medical Decision Narrative: 59-year-old male presents the emergency department for palpitations started yesterday wax and wane throughout the day and with an episode this morning accompanied with dyspnea differential diagnosis include but not limited to, PE, cardiac arrhythmia, electrolyte disturbance, pneumonia, pericarditis, new onset CHF exacerbation, pleural effusion, pulmonary edema, anxiety reaction, panic attack among others. I discussed this patient's case with the attending physician Dr. Wood Will obtain basic laboratory studies, D-dimer magnesium level proBNP PT/INR, troponin, chest x-ray and EKG. CBC noted for mild leukocytosis 21.8 Will expand/ add on the patient's workup, to include UA, lactic acidosis, will give IV Zosyn 3.375mg VBG and blood cultures as now patient meeting sepsis criteria, will hold off on any fluid bolus at this time due to concern for fluid overload in the setting of CHF/history of pericardial effusion. Coags within normal limits CMP notable for BUN elevation 25, creatinine elevation 1.3 D-dimer is mildly elevated at 0.83, will attain CTA chest without contrast PE protocol Troponin within normal limits less than 0.01, proBNP is 320 VBG is notable for normal pH, pCO2 within normal limits, bicarb within normal limits. UA is unremarkable I reviewed The patient's CTA chest with and without contrast PE protocol along the corresponding radiologic report, no evidence of pulmonary embolism or dissection, resolution of right lower lobe and left-sided pneumonia, right upper lobe pneumonia likely new. I discussed all his results with the patient at the bedside, I did offer/recommend admission to the patient for tachycardia and pneumonia, patient at this time is adamantly denying admission, states he would like to go home and trial outpatient course, shared decision making was utilized, will treat the patient with p.o. antibiotics a 75 mg Augmentin p.o. twice daily for 7 days as well as doxycycline 100 mg p.o. twice daily for 7 days for new upper lobe pneumonia, patient is given very strict ED return precautions, patient will need to follow-up with PCP and dancing teacher in the coming days/weeks. Patient voiced understanding and agreement with the current treatment plan/discharge plan. Critical Care Critical Care Time Critical Care Time: No
--- NOTE | 2024-12-13 13:25 | PC.NURSE ---
patient had pericardectomy at back in may
[2024-12-13 13:30] VITALS: BP 127/72; PULSE 104; RESP 22; O2SAT 93
[2024-12-13 13:33] LABS: Albumin Level 5.0 g/dl (3.5-5.0); Chloride 99 mmol/L (98-107); Potassium 4.1 mmoL/L (3.5-5.1); Sodium 135 mmol/L (136-145)
[2024-12-13 13:35] LABS: Blood Urea Nitrogen 25 mg/dl (9-20); Creatinine Clearance Estimated 101 mL/min (50-200); Creatinine,Serum 1.30 mg/dl (0.66-1.25); Estimated Glomerular Filt Rate 57 ml/min (>60); GFR (African American) 68 ML/MIN (>60)
[2024-12-13 13:36] LABS: Alanine Aminotransferase 28 U/L (12-78); Albumin/Globulin Ratio 1.7 (1.1-1.8); Alkaline Phosphatase 106 U/L (38-126); Anion Gap 13.1 mEq/L (5-15); Aspartate Amino Transferase 40 U/L (17-59); Bilirubin,Total 0.8 mg/dl (0.2-1.3); Calcium 9.0 mg/dl (8.4-10.2); Carbon Dioxide 27 mmol/L (22.0-30.0); Globulin 2.9 g/dL (1.3-3.2); Glucose 144 mg/dl (74-100); INR 1.07 (0.9-1.1); Prothrombin Time 11.8 seconds (10.1-12.5); Total Protein,Serum 7.9 g/dl (6.3-8.2)
[2024-12-13 13:37] LABS: Magnesium 1.8 mg/dl (1.6-2.3)
[2024-12-13 13:42] LABS: D-Dimer 0.83 ug/mL (0.0-0.5)
[2024-12-13 13:45] LABS: Lactate Venous 1.9 mmol/L (0.4-2.0); Microscopic, Urine URINE MICROSCOPIC (MICROSCOPIC); VBG HCO3 23.8 mmol/L (23-30); VBG PCO2 36.9 mmol/L (35-51); VBG PH 7.43 mmol/L (7.31-7.41); VBG PO2 65.9 mmol/L (28-40)
[2024-12-13 13:46] LABS: NT Pro Brain Natriuretic Pep. 320 pg/mL (0-125)
[2024-12-13 13:49] LABS: Troponin I < 0.01 ng/ml (0.00-0.034)
--- NOTE | 2024-12-13 13:55 | CT_ITS ---
FINAL REPORT TECHNIQUE: Axial imaging of the chest is obtained after the administration of contrast. 3-D MIP reformatted images were also obtained and reviewed per PE protocol. CLINICAL HISTORY: Shortness of breath and palpations tachycardic COMPARISON: 05/30/2024 FINDINGS: The pulmonary arteries are well filled. There is no evidence of pulmonary embolus. There is no aortic dissection. Heart size is normal. Prominent coronary artery calcifications. Multiple small mediastinal lymph nodes have decreased in size since the prior exam. Previously seen ground-glass and nodular opacities in the left lung have resolved. However, there has been interval worsening of nodular opacities in the right upper lobe. Right lower lobe opacity seen on the prior exam has resolved. Previously seen pleural effusions and pericardial effusion have resolved.. Limited evaluation of the upper abdomen is without acute abnormality. No acute osseous abnormality. IMPRESSION: No evidence of pulmonary embolism or aortic dissection. Resolution of right lower lobe and left-sided pneumonia. Right upper lobe pneumonia, likely new. Reviewed, Interpreted and Dictated by Nia Gomez MD Transcribed by Sapna Ortiz Authenticated and [facility]
[2024-12-13 14:00] VITALS: BP 127/72; PULSE 102; RESP 28; O2SAT 93
[2024-12-13 14:01] LABS: Bilirubin,Urine Negative (Negative); Color,Urine YELLOW (Yellow); Glucose,Urine (UA) 3+ (Negative); Ketones,Urine Negative (Negative); Leukocyte Esterase,Urine Negative (Negative); PH,Urine 5.5 (5.0-8.5); Protein,Urine Negative (Negative); Specific Gravity, Urine 1.010 (1.005-1.030); Urobilinogen,Urine 0.2 EU/dl (0.2)
[2024-12-13] MEDS: PIPERACILLIN/TAZO 3.375 GM in 0.9 % SODIUM CHLORIDE 50 ML IV (14:06)
[2024-12-13] MEDS: IOPAMIDOL-370 (76%);100ML BOTTLE 70 ML IV (14:16)
[2024-12-13] MEDS: 0.9 % SODIUM CHLORIDE 50 ML VIAL IV (14:16)
[2024-12-13] MEDS: SODIUM CHLORIDE 0.9% 10ML SYR (RAD ONLY) 10 ML IV (14:16)
[2024-12-13 14:19] LABS: WBC,Urine Occasional #/hpf (0-3)
[2024-12-13 14:30] VITALS: BP 122/73; PULSE 99; RESP 21; O2SAT 95
[2024-12-13 15:16] VITALS: BP 135/85; PULSE 98; RESP 19; TEMP 36.9; O2SAT 95
== END 2024-12-13 15:17 | disposition home or self-care (01) ==
PROVIDERS: Physician Assistant; Emergency Provider Student in an Organized Health Care Education/Training Program; PCP Family Medicine
DX: J18.9 Pneumonia, unspecified organism (principal); R00.2 Palpitations; R06.02 Shortness of breath; D72.829 Elevated white blood cell count, unspecified; N17.9 Acute kidney failure, unspecified; I11.0 Hypertensive heart disease with heart failure; I50.9 Heart failure, unspecified; Z87.891 Personal history of nicotine dependence
CPT/HCPCS: 71045; 71275; 80053; 81001; 82803; 83735; 83880; 84484; 85025; 85378; 85610; 87040; 93005; 96365; 99285; J2543; Q9967